=== PATIENT | female | born 1950 | race African-American/Black ===

== ENCOUNTER 2023-11-19 08:18 | Emergency (ER) | payer MEDICARE, OTHER ==
[~2023-11-19] VITALS: Ht 162.6 cm; Wt 78.6 kg
[2023-11-19 09:29] LABS: Urine Bacteria None Seen /hpf (None Seen)
[2023-11-19 09:32] LABS: Urine Blood Negative /uL (Negative); Urine Clarity Clear (Clear); Urine Color Light-Yellow (Yellow); Urine Protein, UAD 3+ (Negative); Urine Specific Gravity 1.006 (1.001-1.035); Urine Urobilinogen Normal (Negative); Urine WBC 2 /hpf (0 - 5)
[2023-11-19 10:12] LABS: Basophils # (auto) 0 10 ^3/uL (0-0.2); Eosinophils # (auto) 0.2 10 ^3/uL (0-0.8); Eosinophils % (auto) 1.9 % (0.0-7.0); Hemoglobin 17.8 g/dL (12.2-16.2); Lymphocytes # (auto) 1.2 10 ^3/uL (0.4-5.4); Monocytes # (auto) 0.5 10 ^3/uL (0-1.3); Nucleated Red Blood Cells % 0.1 %; White Blood Cell 8.1 10^3/uL (4.4-10.8)
[2023-11-19 10:14] LABS: Basophils % (auto) 0.3 % (0.0-2.0); Hematocrit 52.3 % (36.0-46.0); Lymphocytes % (auto) 14.9 % (10.0-50.0); Mean Corpuscular Hemoglobin 32.6 pg (28.0-32.0); Mean Corpuscular Hgb Conc. 34.1 g/dL (32.0-36.0); Mean Corpuscular Volume 95.5 fL (80.0-100.0); Monocytes % (auto) 5.8 % (0.0-12.0); Neutrophils # (auto) 6.3 10 ^3/uL (1.6-8.6); Neutrophils % (auto) 77.1 % (37.0-80.0); Red Blood Cells 5.47 10^6/uL (4.0-5.20); Red Cell Distribution Width 16.6 % (11.8-14.3)
[2023-11-19 10:32] LABS: Alanine Aminotransferase 20 U/L (7-40); Albumin 4.3 g/dL (3.2-4.8); Alkaline Phosphatase 75 U/L (46-116); Anion Gap 5 (5-15); Aspartate Aminotransferase 13 U/L (13-40); BUN/Creatinine Ratio 10.7 (10.0-20.0); Blood Urea Nitrogen 9 mg/dL (9-23); Carbon Dioxide 28 mmol/L (20-30); Chloride 107 mmol/L (98-107); Glucose 109 mg/dL (74-106); Potassium 3.2 mmol/L (3.5-5.1); Sodium 140 mmol/L (136-145); Total Protein 7.8 g/dL (5.7-8.2)
[2023-11-19] MEDS: POTASSIUM EFFERVESENT TAB 25 MEQ PO ONE (12:37)
[2023-11-19] MEDS: ONDANSETRON ODT 4 MG TAB PO ONE (14:45)
[2023-11-19 14:58] VITALS: BP 119/68; PULSE 63; RESP 18; TEMP 97.4; O2SAT 95
== END 2023-11-19 15:01 | disposition home or self-care (01) ==
LOC: ER 08:18
DX: I10 Essential (primary) hypertension (principal); F41.1 Generalized anxiety disorder; E11.9 Type 2 diabetes mellitus without complications; E87.6 Hypokalemia
CPT/HCPCS: 36415; 71046; 80053; 81001; 83735; 84443; 84484; 85025; 93005; 99285; Q0162

== ENCOUNTER 2023-12-01 10:57 | Inpatient (IN) | payer MEDICARE, OTHER ==
[~2023-12-01] VITALS: Ht 162.6 cm; Wt 79.5 kg
[2023-12-01] MEDS: cloNIDine HCL 0.1 MG TAB PO ONE (11:30)
[2023-12-01 11:47] LABS: Urine Bacteria None Seen /hpf (None Seen)
[2023-12-01 12:03] LABS: Urine Blood Negative /uL (Negative); Urine Clarity Clear (Clear); Urine Color Light-Yellow (Yellow); Urine Protein, UAD 2+ (Negative); Urine Specific Gravity 1.008 (1.001-1.035); Urine Urobilinogen Normal (Negative); Urine WBC 1 /hpf (0 - 5); Urine pH 6.5 (5.0-9.0)
[2023-12-01 12:14] LABS: Basophils # (auto) 0 10 ^3/uL (0-0.2); Eosinophils # (auto) 0.1 10 ^3/uL (0-0.8); Monocytes # (auto) 0.4 10 ^3/uL (0-1.3)
[2023-12-01 12:17] LABS: Basophils % (auto) 0.3 % (0.0-2.0); Eosinophils % (auto) 1.6 % (0.0-7.0); Hematocrit 52.9 % (36.0-46.0); Hemoglobin 18.2 g/dL (12.2-16.2); Lymphocytes # (auto) 1.4 10 ^3/uL (0.4-5.4); Lymphocytes % (auto) 21.7 % (10.0-50.0); Mean Corpuscular Hemoglobin 32.9 pg (28.0-32.0); Mean Corpuscular Hgb Conc. 34.4 g/dL (32.0-36.0); Mean Corpuscular Volume 95.7 fL (80.0-100.0); Monocytes % (auto) 6.5 % (0.0-12.0); Neutrophils # (auto) 4.6 10 ^3/uL (1.6-8.6); Neutrophils % (auto) 69.9 % (37.0-80.0); Nucleated Red Blood Cells % 0.1 %; Red Blood Cells 5.52 10^6/uL (4.0-5.20); Red Cell Distribution Width 16.6 % (11.8-14.3); White Blood Cell 6.5 10^3/uL (4.4-10.8)
[2023-12-01 12:30] LABS: Chloride 108 mmol/L (98-107); Potassium 3.5 mmol/L (3.5-5.1); Sodium 143 mmol/L (136-145)
[2023-12-01 12:31] LABS: Anion Gap 7 (5-15); Calcium 10.5 mg/dL (8.7-10.4); Carbon Dioxide 28 mmol/L (20-30)
[2023-12-01 12:36] LABS: BUN/Creatinine Ratio 15.6 (10.0-20.0); Blood Urea Nitrogen 14 mg/dL (9-23); Glucose 107 mg/dL (74-106)
[2023-12-01 12:56] VITALS: PULSE 89; RESP 20; O2SAT 96
[2023-12-01] MEDS ORDERED: ACETAMINOPHEN 325 MG TAB PO PRN (13:30)
[2023-12-01] MEDS ORDERED: hydrALAZINE HCL 20 MG/ML VL IV PRN (13:30)
[2023-12-01] MEDS ORDERED: ONDANSETRON HCL 4 MG/2 ML VIAL IV PRN (13:30)
[2023-12-01] MEDS ORDERED: HYDROcodone-ACET 5/325MG TAB PO PRN (13:30)
[2023-12-01] MEDS ORDERED: DOCUSATE SOD 100 MG CAP PO PRN (13:30)
[2023-12-01] MEDS: SODIUM CHLOR 0.9% PF (SALINE LOCK) 10ML VIAL/SYR IV SCH (14:38)
[2023-12-01] MEDS ORDERED: MORPHINE SULFATE INJ 2 MG/ml SYRG IV PRN (14:45)
[2023-12-01] MEDS ORDERED: NITROGLYCERIN 0.4 MG SL TAB SL PRN (14:45)
[2023-12-01] MEDS: IOHEXOL 350 MG/ML 100ML IJ ONE (17:23)
[2023-12-01] MEDS: METOPROLOL TARTRATE 50 MG TAB PO SCH (22:50)
[2023-12-01] MEDS: ATORVASTATIN 20 MG TAB PO SCH (22:51)
[2023-12-02] MEDS ORDERED: ALL100T PO (05:12)
[2023-12-02] MEDS ORDERED: LOSA-535 PO (05:12)
[2023-12-02] MEDS ORDERED: LEVO112T4 PO (05:12)
[2023-12-02] MEDS ORDERED: DAPA5TAB2 PO (05:12)
[2023-12-02] MEDS ORDERED: ROSU10TA16 PO (05:12)
[2023-12-02] MEDS ORDERED: ESCI1TAB36 PO (05:12)
[2023-12-02] MEDS ORDERED: METO-159 PO (05:12)
[2023-12-02] MEDS ORDERED: AMLO1TAB23 PO (05:14)
[2023-12-02] MEDS: LEVOTHYROXINE SODIUM 100 MCG TAB PO SCH (06:27)
[2023-12-02 08:00] VITALS: PULSE 58; PULSE 61; RESP 20; O2SAT 92
[2023-12-02] MEDS ORDERED: DEXTROSE (50%) 50ML SYRG IV PRN (09:30)
[2023-12-02] MEDS ORDERED: BUSP10TA90 PO (09:31)
[2023-12-02] MEDS: ALLOPURINOL 100 MG TAB PO SCH (10:24)
[2023-12-02] MEDS: ASPirin 81 mg TAB PO SCH (10:24)
[2023-12-02] MEDS: CITALOPRAM HYDROBR 20 MG TAB PO SCH (10:24)
[2023-12-02] MEDS: InsuLIN REG 1unit/0.01ml Soln (100units/ml) SC SCH (11:30)
[2023-12-02] MEDS: ACCU-CHEK COMFORT CURVE STRIP VI SCH (12:38)
[2023-12-02] MEDS ORDERED: METO1TAB9 PO (14:53)
[2023-12-02 17:00] VITALS: BP 120/70; PULSE 62; RESP 20; TEMP 98.3; O2SAT 91
[2023-12-02 20:00] VITALS: PULSE 68; RESP 18; O2SAT 91
[2023-12-02 21:00] VITALS: BP 122/65; PULSE 68; RESP 18; TEMP 98.3; O2SAT 91
[2023-12-03 01:00] VITALS: BP 116/72; PULSE 62; RESP 18; TEMP 98.2; O2SAT 91
[2023-12-03 05:00] VITALS: BP 122/62; PULSE 59; RESP 18; TEMP 98.1; O2SAT 92
[2023-12-03] MEDS: LEVOTHYROXINE SODIUM 112 MCG TAB PO SCH (05:36)
[2023-12-03 07:39] LABS: Basophils # (auto) 0 10 ^3/uL (0-0.2); Basophils % (auto) 0.3 % (0.0-2.0); Eosinophils # (auto) 0.2 10 ^3/uL (0-0.8); Eosinophils % (auto) 3.1 % (0.0-7.0); Hematocrit 48.9 % (36.0-46.0); Lymphocytes # (auto) 1.9 10 ^3/uL (0.4-5.4); Lymphocytes % (auto) 28.3 % (10.0-50.0); Mean Corpuscular Hemoglobin 33.1 pg (28.0-32.0); Mean Corpuscular Hgb Conc. 34.7 g/dL (32.0-36.0); Mean Corpuscular Volume 95.5 fL (80.0-100.0); Monocytes # (auto) 0.5 10 ^3/uL (0-1.3); Monocytes % (auto) 8.1 % (0.0-12.0); Neutrophils % (auto) 60.2 % (37.0-80.0); Red Blood Cells 5.12 10^6/uL (4.0-5.20); Red Cell Distribution Width 16.3 % (11.8-14.3); White Blood Cell 6.7 10^3/uL (4.4-10.8)
[2023-12-03 08:00] VITALS: PULSE 68; RESP 18
[2023-12-03 08:13] LABS: Alanine Aminotransferase 16 U/L (7-40); Albumin 3.8 g/dL (3.2-4.8); Alkaline Phosphatase 64 U/L (46-116); Anion Gap 7 (5-15); BUN/Creatinine Ratio 16.3 (10.0-20.0); Bilirubin, Total 0.8 mg/dL (0.2-1.0); Blood Urea Nitrogen 13 mg/dL (9-23); Calcium 9.7 mg/dL (8.7-10.4); Carbon Dioxide 26 mmol/L (20-30); Chloride 107 mmol/L (98-107); Glucose 105 mg/dL (74-106); Potassium 3.4 mmol/L (3.5-5.1); Sodium 140 mmol/L (136-145); Total Protein 6.8 g/dL (5.7-8.2)
[2023-12-03 08:22] LABS: Aspartate Aminotransferase < 8 U/L (13-40)
[2023-12-03 09:00] VITALS: BP 129/67; PULSE 67; RESP 18; TEMP 98.5; O2SAT 94
[2023-12-03 12:26] VITALS: BP 137/59; PULSE 52; RESP 16; TEMP 36.9; O2SAT 94
[2023-12-03 13:00] VITALS: BP 137/59; PULSE 52; RESP 16; TEMP 98.2; O2SAT 94
[2023-12-03] MEDS: POTASSIUM CHL 20 Meq TABLET PO ONE (13:16)
== END 2023-12-03 13:40 | disposition home or self-care (01) | DRG 305 ==
LOC: ER 10:57 → TELE 14:39 → TELE-CENTR 23:20
PROVIDERS: ADMIT Nurse Practitioner Family; ATTEND Internal Medicine
DX: I16.0 Hypertensive urgency (principal); I43 Cardiomyopathy in diseases classified elsewhere; I11.9 Hypertensive heart disease without heart failure; E11.9 Type 2 diabetes mellitus without complications; E03.9 Hypothyroidism, unspecified; M10.9 Gout, unspecified; E78.5 Hyperlipidemia, unspecified; F41.0 Panic disorder [episodic paroxysmal anxiety]; F32.A Depression, unspecified
CPT/HCPCS: 36415; 71045; 71275; 80048; 80053; 81001; 82962; 83036; 84443; 84484; 85025; 85379; G0378

== ENCOUNTER 2024-06-30 19:02 | Inpatient (IN) | payer MEDICARE, OTHER ==
[~2024-06-30] VITALS: Ht 162.6 cm; Wt 86.5 kg
[~2024-06-30 19:02] MED LIST: ALL100T PO; AMLO1TAB23 PO; BUSP10TA90 PO; DAPA5TAB2 PO; ESCI1TAB36 PO; LEVO112T4 PO; LOSA-535 PO; METO1TAB9 PO; ROSU10TA16 PO
[2024-06-30 19:30] VITALS: PULSE 74; RESP 16; O2SAT 92
--- NOTE | 2024-06-30 19:45 | ED.PDOC ---
SOB-HPI HPI Comments 74 year old female presents to the ED with a chief complaint of shortness of breath onset 2 weeks. Patient states she has been experiencing shortness of breath for the past week, noticed it worsen today. Patient went to urgent care, was placed on 5L O2 and sent to ED. Upon assessment, patient's O2 sat was 94% on 5L. Patient states for the past week she began experiencing nasal congestion, cough, diarrhea, LT ear pain. PMHx DM, HTN. Denies chest pain, dizziness, headache, fevers, nausea, vomiting. No other symptoms or modifying factors present at this time. Chief Complaint: Shortness of Breath Time Seen by MD: 19:11 Primary Care Provider: Theodore Miranda notes: Medications, Allergies Information Source: Patient Mode of Arrival: Ambulatory Severity: Moderate Timing: Weeks Duration: Since onset Context: At Rest PE Risk Factors: None History of: None Prehospital treatment: Oxygen Modifying Factors: Nothing Associated Signs and Symptoms: Cough, Nasal Congestion Radiation: No Radiation If cough with SOB: Productive Past Medical History PAST MEDICAL HISTORY: DM, HTN Surgical History: Denies all surgeries ACADEMIC INTERVENTIONIST History: No Pertinent ACADEMIC INTERVENTIONIST History Family History Family History: No family hx of Cancer, No family hx of DM, No family hx of Heart crystal, No family hx ofKidney crystal, No family hx of Liver crystal, No family hx of Lung crystal, Family hx of HTN, Family hx of stroke Social History Smoker: Non-Smoker Alcohol: Denies ETOH Use Drugs: Denies Drug Use Lives In: Home Constitutional: denies: chills, diaphoresis, fatigue, fever, malaise, sweats, weakness, others EENTM: reports: ear pain (LT), nose congestion; denies: blurred vision, double vision, ear bleeding, ear discharge, ear drainage, ear ringing, eye pain, eye redness, hearing loss, mouth pain, mouth swelling, nasal discharge, nose bleeding, nose pain, photophobia, tearing, throat pain, throat swelling, voice changes, others Respiratory: reports: cough, shortness of breath; denies: hemoptysis, orthopnea, SOB at rest, SOB with excertion, stridor, wheezing, others Cardiovascular: denies: chest pain, dizzy spells, diaphoresis, Dyspnea on exertion, edema, irregular heart beat, left arm pain, lightheadedness, palpitations, PND, syncope, others Gastrointestinal: reports: constipated; denies: abdomen distended, abdominal pain, blood streaked bowels, diarrhea, dysphagia, difficulty swallowing, h ematemesis, melena, nausea, poor appetite, poor fluid intake, rectal bleeding, rectal pain, vomiting, others Genitourinary: denies: abnormal vagina bleeding, burning, dyspareunia, dysuria, flank pain, frequency, hematuria, incontinence, pain, , vagina discharge, urgency, others Neurological: denies: dizziness, fainting, headache, left sided numbness, left sided weakness, numbness, paresthesia, pre-existing deficit, right sided numbness, right sided weakness, seizure, speech problems, tingling, tremors, weakness, others Musculoskeletal: denies: back pain, gout, joint pain, joint swelling, muscle pain, muscle stiffness, neck pain, others Integumetry: denies: bruises, change in color, change in hair/nails, dryness, laceration, lesions, lumps, rash, wounds, others Allergic/Immunocompromised: denies: Difficulty Healing, Frequent Infections, Hives, Itching, others Hematologic/Lymphatic: denies: anemia, blood clots, easy bleeding, easy bruising, swollen glands, others Endocrine: denies: excessive hunger, excessive sweating, excessive thirst, excessive urination, flushing, intolerance to cold, intolerance to heat, unexplained weight gain, unexplained weight loss, others Psychiatric: denies: anxiety, bipolar disorder, depression, hopeless, panic disorder, schizophrenia, sleepless, suicidal, others All Other Systems: Reviewed and Negative Physical Exam General Appearance: No Apparent Distress, Normal HEENT: Normal ENT Inspection, Pharynx Normal, TMs Normal Neck: Full Range of Motion, Non-Tender, Normal, Normal Inspection Respiratory: Chest Non-Tender, Lungs Clear, No Accessory Muscle Use, No Respi ratory Distress, Normal Breath Sounds Cardiovascular: No Edema, No JVD, No Murmur, No Gallop, Normal Peripheral Pulses, Regular Rate/Rhythm Breast Exam: Deferred Gastrointestinal: No Organomegaly, Non Tender, No Pulsatile Mass, Normal Bowel Sounds, Soft Genitalia: Deferred Pelvic: Deferred Rectal: Deferred Extremities: No calf tenderness, Normal capillary refill, Normal inspection, Normal range of motion, Non-tender, No pedal edema Musculoskeletal : Apperance: Normal Neurologic: Alert, rag boiler II-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 Was a procedure done?: No Differential Dx Differential Diagnosis: Cardiogenic Shock, CHF, COPD, Hyperventilation, Pneumonia, URI X-Ray, Labs, Meds, VS Vital Signs Date Time Temp Pulse Resp B/P (MAP) Pulse Ox O2 Delivery O2 Flow Rate FiO2 06/30/24 19:30 74 16 92 Nasal Cannula* 2 28 06/30/24 19:30 98.2 74 16 123/77 (92) 92 98.2 06/30/24 19:10 97.7 69 19 132/75 (94) 94 06/30/24 19:09 19 94 Nasal Cannula* 5 40 Lab Test 06/30/24 21:10 06/30/24 20:55 06/30/24 19:37 Range/Units Influenza Type A Antigen Negative Negative Influenza Type B Antigen Negative Negative SARS-CoV-2 Antigen (Rapid) Negative NEGATIVE Troponin I High Sensitivity 3 L 3 L </=34 ng/L White Blood Count 7.5 4.4-10.8 10^3/uL Red Blood Count 5.64 H 4.0-5.20 10^6/uL Hemoglobin 18.0 H 12.2-16.2 g/dL Hematocrit 54.0 H 36.0-46.0 % Mean Corpuscular Volume 95.8 80.0-100.0 fL Mean Corpuscular Hemoglobin 32.0 28.0-32.0 pg Mean Corpuscular Hemoglobin Concent 33.4 32.0-36.0 g/dL Red Cell Distribution Width 16.5 H 11.8-14.3 % Platelet Count 157 140-450 10^3/uL Mean Platelet Volume 8.8 6.9-10.8 fL Neutrophils (%) (Auto) 59.7 37.0-80.0 % Lymphocytes (%) (Auto) 27.2 10.0-50.0 % Monocytes (%) (Auto) 7.9 0.0-12.0 % Eosinophils (%) (Auto) 4.7 0.0-7.0 % Basophils (%) (Auto) 0.5 0.0-2.0 % Neutrophils # (Auto) 4.5 1.6-8.6 10 ^3/uL Lymphocytes # (Auto) 2.0 0.4-5.4 10 ^3/uL Monocytes # (Auto) 0.6 0-1.3 10 ^3/uL Eosinophils # (Auto) 0.4 0-0.8 10 ^3/uL Basophils # (Auto) 0 0-0.2 10 ^3/uL Nucleated Red Blood Cells 0.2 % Sodium Level 141 136-145 mmol/L Potassium Level 3.7 3.5-5.1 mmol/L Chloride Level 104 98-107 mmol/L Carbon Dioxide Level 28 20-31 mmol/L Anion Gap 9 5-15 Blood Urea Nitrogen 14 9-23 mg/dL Creatinine 0.87 0.550-1.02 mg/dL Glomerular Filtration Rate Calc 71 >90 mL/min BUN/Creatinine Ratio 16.1 10.0-20.0 Serum Glucose 118 H 74-106 mg/dL Calcium Level 9.8 8.7-10.4 mg/dL B-Type Natriuretic Peptide 45.85 0-100 pg/mL [place] [id number] Ph: [phone] DIAGNOSTIC IMAGING Diagnostic Imaging Report : [id number] Signed PATIENT: ZANE BONILLA ACCT: [id number] UNIT: [id number] : 1950 LOC: ER ROOM / BED: / AGE / SEX: 74 / F ADM STATUS: REG ER SERVICE 13 ORDERING PHYSICIAN: JAYLEEN LA MD PROCEDURE(s): CXRP - CHEST PORTABLE REASON: sob ORDER NUMBER(s): [id number], ACCESSION NUMBER(s): [id number] CHEST RADIOGRAPH Indication: sob Technique: Single frontal view of the chest was obtained Comparison: XY CHEST PORTABLE on DOS: 12/01/23 FINDINGS: Lines and Tubes: None Lungs: No focal consolidation. Pleura: No effusion. No pneumothorax. Cardiomediastinal contours: Unremarkable Bones: No acute osseous abnormality. IMPRESSION: No acute cardiopulmonary disease. ATED BY: JENI AVERY MD DICTATED DATE/TIME: 06/30/242035 SIGNED BY: JENI AVERY MD SIGNED DATE/TIME: 06/30/242035 CC: Time of 1ST Reevaluation: 19:41 Reevaluation 1ST: Unchanged Patient Education/Counseling: Diagnosis, Treatment, Prognosis Family Education/Counseling: No Family Present Additional Information The following tests were ordered, and results were reviewed by me: BNP, BMP, CBC, TROP-x3, XY CHEST, COVID, INFLUENZA A&B Additional Information was gathered from interviewing the following independent historians: I reviewed and agreed with the following test results read by other providers: XY CHEST I discussed treatment and results with medical personnel and: patient Departure 1 Departure Time of Disposition: 23:19 (Patient with a worsening shortness of breath. Labs and x-ray so far benign we will admit patient for further workup) Impression: Primary Impression: Shortness of breath Additional Impression: Generalized weakness Disposition: ADMITTED INPATIENT Admit to: Med Surg Condition: Serious Critical Care Note Critical Care Time?: No Stability Stability form required: No Heart Score Heart Score: Heart Score Response (Comments) Value History Moderate Suspicious 1 EKG Repolarization Disturb 1 Age >65 2 Risk Factors >3 or Hx ASHD 2 Troponin 1-2 x's Normal limit 1 Total 7 I personally scribed for JAYLEEN LA MD ([email or web address]) on 06/30/24 at 19:45. Electr onically submitted by Adriane Burns ([email or web address]). I personally scribed for JAYLEEN LA MD ([email or web address]) on 06/30/24 at 22:01. Electronically submitted by Adriane Burns ([email or web address]). I personally scribed for JAYLEEN LA MD ([email or web address]) on 06/30/24 at 22:14. Electronically submitted by Adriane Burns ([email or web address]). JAYLEEN LA MD Jun 30, 2024 19:45
[2024-06-30 19:55] LABS: Basophils # (auto) 0 10 ^3/uL (0-0.2); Basophils % (auto) 0.5 % (0.0-2.0); Eosinophils # (auto) 0.4 10 ^3/uL (0-0.8); Eosinophils % (auto) 4.7 % (0.0-7.0); Lymphocytes % (auto) 27.2 % (10.0-50.0); Mean Corpuscular Hgb Conc. 33.4 g/dL (32.0-36.0); Mean Corpuscular Volume 95.8 fL (80.0-100.0); Monocytes # (auto) 0.6 10 ^3/uL (0-1.3); Monocytes % (auto) 7.9 % (0.0-12.0); Neutrophils # (auto) 4.5 10 ^3/uL (1.6-8.6); Neutrophils % (auto) 59.7 % (37.0-80.0); Nucleated Red Blood Cells % 0.2 %; Platelet Count (auto) 157 10^3/uL (140-450); Red Blood Cells 5.64 10^6/uL (4.0-5.20); Red Cell Distribution Width 16.5 % (11.8-14.3); White Blood Cell 7.5 10^3/uL (4.4-10.8)
[2024-06-30 20:06] LABS: Anion Gap 9 (5-15); Carbon Dioxide 28 mmol/L (20-31); Chloride 104 mmol/L (98-107); Potassium 3.7 mmol/L (3.5-5.1); Sodium 141 mmol/L (136-145)
[2024-06-30 20:07] LABS: Calcium 9.8 mg/dL (8.7-10.4)
[2024-06-30 20:12] LABS: BUN/Creatinine Ratio 16.1 (10.0-20.0); Blood Urea Nitrogen 14 mg/dL (9-23)
[2024-06-30 20:14] LABS: Glucose 118 mg/dL (74-106)
--- NOTE | 2024-06-30 20:39 | DVH ---
CHEST RADIOGRAPH Indication: sob Technique: Single frontal view of the chest was obtained Comparison: XY CHEST PORTABLE on DOS: 12/01/23 FINDINGS: Lines and Tubes: None Lungs: No focal consolidation. Pleura: No effusion. No pneumothorax. Cardiomediastinal contours: Unremarkable Bones: No acute osseous abnormality. IMPRESSION: No acute cardiopulmonary disease.
[2024-06-30 22:02] LABS: COVID19 ANTIGEN SOFIA FIA NEGATIVE (NEGATIVE); Rapid Influenza A Negative (Negative); Rapid Influenza B Negative (Negative)
[2024-07-01] VITALS (13 sets, daily range): BP systolic 101–133; BP diastolic 52–71; PULSE 68–98; RESP 16–20; TEMP 97.4–98.1; O2SAT 2–99
[2024-07-01] MEDS ORDERED: ACETAMINOPHEN 325 MG TAB PO PRN (00:45)
--- NOTE | 2024-07-01 01:16 | DVHHPRES ---
History of Present Illness Resident Creating Document: GABY BURGOS RESIDENT History of Present Illness This is a 74-year-old female with past medical history of hypertension, type 2 diabetes, dyslipidemia, hypothyroidism, gout, partial thyroidectomy approximately five years ago, the patient also reported recent coronary angiogram three weeks ago with no significant stenosis requiring no stent placement at that time. the patient presented to the ED with chief complaint of shortness of breaths. The patient states that symptoms started two weeks ago consistent with shortness of breath, nasal congestion and flu-like symptoms. The patient also reported cough with the sputum production that is yel lowish/green in color but denied fever/chills, chest pain or any other symptom. Patient also reported shortness of breath on exertion reports constant anxiety sensation for which she was diagnosed previously with anxiety disorder. Initial labs CBC and bmp were grossly unremarkable, troponins came back negative and BNP was normal range at 45.85. Upon my examination the patient was on 5 L of oxygen through nasal cannula saturating 97%. Lung auscultation there was very mild crackles on right lung base with decreased breath sounds but no wheezes. There was no peripheral edema at this time. We will admit the patient for further ass essment and management of possible viral upper respiratory infection/pneumonia. Medical history: Hypertension, type 2 diabetes, dyslipidemia, hypothyroidism, gout Past surgical history: Partial thyroidectomy approximately five years ago Home medications: Metoprolol succinate 100 mg daily, amlodipine 10 mg daily, levothyroxine 112 mcg daily, losartan 100 mg daily, citalopram 10 mg daily, buspirone 10 mg b.i.d., dapagliflozin 5 mg daily, allopurinol 100 mg b.i.d. and rosuvastatin 10 mg daily Cardiovascular: HTN, hyperipidemia Endocrine: Diabetes, Hypothyroidism Past Surgical History: Other (Partial thyroidectomy approximately five years ago) Family History: None Smoke: No ALCOHOL: none Drugs: None Lives: with Family Domestic Violence: Neg Review of Systems Constitutional: Yes: Weakness, Malaise; No: Fever, Chills, Sweats, Other Eyes: No: Pain, Vision change, Conjunctivae inflammation, Eyelid inflammation, Other, Redness ENT: No: Ear pain, Ear discharge, Nose pain, Nose discharge, Nose congestion, Mouth pain, Mouth swelling, Throat pain, Throat swelling, Other Respiratory: Cough, Shortness of breath, SOB with excertion, Sputum; No: Dry, Wheezing, Hemoptysis, Pleuritic Pain, Wheezing, Other Cardiovascular: No: Chest Pain, Palpitations, Orthopnea, Paroxysmal Noc. Dyspnea, Edema, Lt Headedness, Other Gastrointestinal: No: Nausea, Vomiting, Abdominal Pain, Diarrhea, Constipation, Melena, Hematochezia, Other Genitourinary: No Dysuria, No Frequency, No Incontinence, No Hematuria, No Retention, No Other Musculoskeletal: No: other, neck pain, shoulder pain, arm pain, back pain, hand pain, leg pain, foot pain Skin: No: Rash, Lesions, Jaundice, Bruising, Other Neurological: Weakness; No: Numbness, Incoordination, Change in speech, Confusion, Seizures, Other Allergies: Coded Allergies: NO KNOWN ALLERGIES (Unverified , 02/12/16) Exam Vital Signs Vital Signs Date Time Temp Pulse Resp B/P (MAP) Pulse Ox O2 Delivery O2 Flow Rate FiO2 06/30/24 22:00 66 13 103/50 (67) 93 06/30/24 19:30 Nasal Cannula* 2 28 06/30/24 19:30 98.2 98.2 General Appearance: Alert, Oriented X3, Cooperative, mild distress HEENT: Atraumatic, PERRLA, EOMI, Mucous membr. moist/pink Respiratory: Normal air movement, Other (Are very mild crackles on lung base more prominent on the right side) Cardiovascular: Regular rate, Normal S1, Normal S2, No murmurs Abdominal: Normal bowel sounds, Soft, No tenderness, No hepatospenomegaly, No masses Extremities: No clubbing, No cyanosis, No edema, Normal pulses, No tenderness/swelling Skin: No rashes, No breakdown, No significant lesion Neuro: Normal gait, Normal speech, Strength at 5/5 X4 ext, Normal tone, Sensation intact, Cranial nerves 3-12 NL, Reflexes 2+ Psych/Mental Status: Mental status NL, Mood NL Labs/Xrays Labs Test 06/30/24 21:10 06/30/24 20:55 06/30/24 19:37 Range/Units Influenza Type A Antigen Negative Negative Influenza Type B Antigen Negative Negative SARS-CoV-2 Antigen (Rapid) Negative NEGATIVE Troponin I High Sensitivity 3 L </=34 ng/L White Blood Count 7.5 4.4-10.8 10^3/uL Red Blood Count 5.64 H 4.0-5.20 10^6/uL Hemoglobin 18.0 H 12.2-16.2 g/dL Hematocrit 54.0 H 36.0-46.0 % Mean Corpuscular Volume 95.8 80.0-100.0 fL Mean Corpuscular Hemoglobin 32.0 28.0-32.0 pg Mean Corpuscular Hemoglobin Concent 33.4 32.0-36.0 g/dL Red Cell Distribution Width 16.5 H 11.8-14.3 % Platelet Count 157 140-450 10^3/uL Mean Platelet Volume 8.8 6.9-10.8 fL Neutrophils (%) (Auto) 59.7 37.0-80.0 % Lymphocytes (%) (Auto) 27.2 10.0-50.0 % Monocytes (%) (Auto) 7.9 0.0-12.0 % Eosinophils (%) (Auto) 4.7 0.0-7.0 % Basophils (%) (Auto) 0.5 0.0-2.0 % Neutrophils # (Auto) 4.5 1.6-8.6 10 ^3/uL Lymphocytes # (Auto) 2.0 0.4-5.4 10 ^3/uL Monocytes # (Auto) 0.6 0-1.3 10 ^3/uL Eosinophils # (Auto) 0.4 0-0.8 10 ^3/uL Basophils # (Auto) 0 0-0.2 10 ^3/uL Nucleated Red Blood Cells 0.2 % Sodium Level 141 136-145 mmol/L Potassium Level 3.7 3.5-5.1 mmol/L Chloride Level 104 98-107 mmol/L Carbon Dioxide Level 28 20-31 mmol/L Anion Gap 9 5-15 Blood Urea Nitrogen 14 9-23 mg/dL Creatinine 0.87 0.550-1.02 mg/dL Glomerular Filtration Rate Calc 71 >90 mL/min BUN/Creatinine Ratio 16.1 10.0-20.0 Serum Glucose 118 H 74-106 mg/dL Calcium Level 9.8 8.7-10.4 mg/dL B-Type Natriuretic Peptide 45.85 0-100 pg/mL Assessment/Plan Assessment/Plan Assessment/plan Acute hypoxic respiratory failure due to possible Gram-positive/Gram-negative pneumonia Possible viral upper respiratory infection R/O pulmonary embolism -currently on 5 L of oxygen through nasal cannula saturating 97% -Initial chest x-ray is showing bilateral patchy hilar infiltrates were seen in previous chest x-rays but there is mild vascular congestion -ordered EKG -Ordered D-dimer -troponins came back negative -BNP was unremarkable 45.85 -start IV azithromycin -start IV ceftriaxone -Monitor O2 sat -MRSA screen Recent hx of coronary angiogram 3 weeks ago (with no stent placed) -Ordered EKG -Ordered ECHO -Start aspirin 81mg daily Primary hypertension -losartan 100 mg daily -amlodipine 10 mg daily -hold additional blood pressure medications at this time due to blood pressure running in the lower side -monitor blood pressure Type 2 diabetes mellitus -ordered hemoglobin A1c -monitor blood glucose closely Acquired Hypothyroidism -ordered TSH and free T4 -currently on levothyroxine 112 mcg daily Hx of depression and anxiety -restart escitalopram and buspirone Goals of care discussed with the patient at bedside for >30min, FULL CODE Plan discussed with Dr. Oh Plan discussed with: Patient My Orders Orders - GABY BURGOS RESIDENT Procedure Category Date Status Time Admit ADMIT 07/01/24 Transmitted 00:42 Code Status CODE 07/01/24 Transmitted 00:42 Vital Signs KARINE 07/01/24 Transmitted 00:42 Review Orders With KARINE 07/01/24 Transmitted Adm. 00:42 Encourage Activity As KARINE 07/01/24 Transmitted Tolerate 00:42 Acetaminophen Tablet PHA 07/01/24 Transmitted (Tylenol Tablet) 00:45 Notify Of Changes KARINE 07/01/24 Transmitted From Base 00:42 Advance Directive KARINE 07/01/24 Transmitted 00:42 Basic Metabolic Panel LAB 07/01/24 Transmitted 04:00 Urinalysis LAB 07/01/24 Transmitted 00:42 Complete Blood Count LAB 07/01/24 Transmitted 04:00 Lipid Panel LAB 07/01/24 Transmitted 00:42 Patient Condition ORDERS 07/01/24 Transmitted 00:42 Allergies KARINE 07/01/24 Transmitted 00:42 Drug Screen LAB 07/01/24 Transmitted 00:42 Hemoglobin A1c LAB 07/01/24 Transmitted 00:42 Lovenox 40mg PHA 07/01/24 Transmitted 10:00 D-Dimer LAB 07/01/24 Transmitted 00:48 Date of Service: Jun 30, 2024 Billing Provider: VAIBHAV OH MD Common Visit Codes: 60029-EATBYOB INP/OBS CARE (HIGH) Secondary Visit Codes: 75540-[id number] CARE PLAN 30 MINUTES GABY BURGOS RESIDENT Jul 01, 2024 01:16 VAIBHAV OH MD Jul 01, 2024 13:05
[2024-07-01 01:58] LABS: LDL Cholesterol 72 mg/dL (< 100)
[2024-07-01 01:59] LABS: Cholesterol 129 mg/dL (< 200)
[2024-07-01 02:05] LABS: HDL Cholesterol 26 mg/dL (40-59); Triglycerides 197 mg/dL (< 150)
[2024-07-01] MEDS: IOHEXOL 350 MG/ML 100ML IJ ONE (04:33)
--- NOTE | 2024-07-01 06:14 | DVH ---
INDICATION: r/o PE and assess pulm parenchyma for PNA TECHNIQUE: Multidetector CTA of the chest was performed of the chest with 100 cc of intravenous contr ast. PULMONARY ANGIOGRAPHY PROTOCOL was utilized using a bolus-tracking technique centered on the stefan n pulmonary artery. Coronal and sagittal multiplanar and MIP reformats were performed. Radiation Dose Information: CT Dose: CTDI volume is 22.3 mGy. Dose-length product is 806.4 mGy*cm The dose indicators for CT are the volume Computed Tomography (CT) Dose Index (CTDIvol) and the Dose Length Product (DLP), and are measured in units of mGy and mGy-cm, respectively. These indicators are not patient dose, but values generated from the CT scanner acquisition factors. The report includes radiation exposure data for exposures received during this examination. Findings: Pulmonary artery: Normal caliber of the pulmonary artery. There is a filling defect in a subsegmenta l branch of the right pulmonary artery in the posterior basal segment of the right lower lobe (series 2, image 142). No lobar pulmonary embolism. Lower neck: Normal thyroid. Lungs: Right lower lobe opacities. Moderate centrilobular emphysema. Central airways: Patent. Heart/Vascular Structures: Enlarged heart. RV to LV ratio measures 0.6. No pericardial effusion. Andrew nary artery calcifications. Atherosclerotic calcifications in the thoracic aorta. Noncalcified plaqu e in the descending thoracic aorta. Lymph Nodes: No adenopathy Pleura: No pleural effusion or significant pneumothorax. Musculoskeletal: No acute osseous abnormality. Upper abdomen: Limited portions of the upper abdomen are unremarkable. IMPRESSION: 1. Subsegmental pulmonary embolism. No CT evidence of right heart strain. 2. Right lower lobe opacity which may reflect atelectasis. Emphysema. 3. Cardiomegaly.
[2024-07-01 06:40] LABS: Basophils # (auto) 0 10 ^3/uL (0-0.2); Basophils % (auto) 0.4 % (0.0-2.0); Eosinophils # (auto) 0.3 10 ^3/uL (0-0.8); Eosinophils % (auto) 3.9 % (0.0-7.0); Hematocrit 52.7 % (36.0-46.0); Hemoglobin 17.1 g/dL (12.2-16.2); Lymphocytes # (auto) 1.6 10 ^3/uL (0.4-5.4); Lymphocytes % (auto) 21.9 % (10.0-50.0); Mean Corpuscular Hemoglobin 31.4 pg (28.0-32.0); Mean Corpuscular Hgb Conc. 32.4 g/dL (32.0-36.0); Mean Corpuscular Volume 96.8 fL (80.0-100.0); Monocytes # (auto) 0.6 10 ^3/uL (0-1.3); Monocytes % (auto) 8.2 % (0.0-12.0); Neutrophils # (auto) 4.8 10 ^3/uL (1.6-8.6); Neutrophils % (auto) 65.6 % (37.0-80.0); Nucleated Red Blood Cells % 0.2 %; Platelet Count (auto) 154 10^3/uL (140-450); Red Blood Cells 5.44 10^6/uL (4.0-5.20); Red Cell Distribution Width 16.6 % (11.8-14.3); White Blood Cell 7.3 10^3/uL (4.4-10.8)
[2024-07-01] MEDS: LEVOTHYROXINE SODIUM 112 MCG TAB PO SCH (06:40)
[2024-07-01 06:43] LABS: Chloride 106 mmol/L (98-107); Potassium 3.8 mmol/L (3.5-5.1); Sodium 141 mmol/L (136-145)
[2024-07-01 06:44] LABS: Anion Gap 8 (5-15); Calcium 9.4 mg/dL (8.7-10.4); Carbon Dioxide 27 mmol/L (20-31)
[2024-07-01] MEDS: HEPARIN SODIUM (PORCINE) 5000 UNITS/ML 1ML VIAL IV ONE (06:48)
[2024-07-01 06:49] LABS: BUN/Creatinine Ratio 15.7 (10.0-20.0); Blood Urea Nitrogen 13 mg/dL (9-23); Glucose 90 mg/dL (74-106)
--- NOTE | 2024-07-01 07:42 | DVHPNRES ---
Progress Note Date Seen: Jul 01, 2024 Resident Creating Document: VIDHI DAMIAN RESIDENT Medical Necessity Reason Pt with a Central, PICC or Fol: No Subjective Review of Systems Patient is a 74-year-old female with past medical history of hypertension, dyslipidemia, type 2 diabetes, hypothyroidism, gout, anxiety and chronic sinusitis, who comes in due to shortness of breath. According to the patient, for the last 2 weeks she has been experiencing a flu-like illness with congestion, runny nose and sore throat along with some shortness of breath, however, yesterday on 06/30/2024 she felt extremely winded when she walked from her bedroom to the kitchen and felt like she was unable to catch her breath which is what prompted this visit to the hospital. Per patient she initially went to the urgent care where she was told to go to the ER. Patient also notes having increasing sputum and nasal discharge with purulent and stringy appearance along with some bled on blowing her nose. Patient's D-dimer was 1.18, CT angiography showed a subsegmental PE, right lower lobe opacity and some cardiomegaly. Past surgical history: Partial thyroidectomy, coronary angiogram 3 weeks ago without stents, hernia repair surgery, hysterectomy, cholecystectomy, mid urethral sling placement Social & Personal history: Patient lives with her family. Quit smoking 40 years ago, prior to that was smoking 2 packs per day for 14 years. Denies using alcohol. Denies using any drugs. Allergies: Denies Patient seen and examined at bedside. Patient is alert and oriented to time, place person and responding to all questions. General: Fatigue, fever, chills Eyes: No Pain, No Vision change, No Conjunctivae inflammation, No Eyelid inflammation, No Other, No Redness ENT: No Ear pain, No Ear discharge, No Nose pain, Nose discharge, Nose congestion, No Mouth pain, No Mouth swelling, Throat pain, No Throat swelling, No Other Cardiovascular: No Chest Pain, Palpitations, No Orthopnea, No Paroxysmal No Dyspnea, No Edema, No Lt Headedness, No Other Respiratory: Cough productive of yellow phlegm, No Dry, Shortness of breath, No SOB with exertion, No Wheezing, No Hemoptysis, No Pleuritic Pain, No Sputum, No Other Gastrointestinal: No Nausea, No Vomiting, No Abdominal Pain, No Diarrhea, No Constipation, No Melena, No Hematochezia, No Other Genitourinary: No Dysuria, No Frequency, No Incontinence, No Hematuria, No Retention, No Other Musculoskeletal: No other, No neck pain, No shoulder pain, No arm pain, No back pain, No hand pain, No leg pain, No foot pain Skin: No Rash, No Lesions, No Jaundice, No Bruising, No Other Objective vital signs Vital Sign Date Time Temp Pulse Resp B/P (MAP) Pulse Ox O2 Delivery O2 Flow Rate FiO2 07/01/24 06:00 67 18 131/52 (78) 97 06/30/24 19:30 Nasal Cannula* 2 28 06/30/24 19:30 98.2 98.2 medications Current Medications Medications Dose Ordered Sig/Michael Route Start Time Stop Time Status Last Admin Dose Admin Acetaminophen 650 mg Q6HP PRN PO 07/01/24 00:45 Enoxaparin Sodium 40 mg DAILY SC 07/01/24 10:00 Azithromycin 250 ml @ 125 mls/hr DAILY IV 07/01/24 10:00 Ceftriaxone Sodium 50 ml @ 100 mls/hr DAILY IV 07/01/24 10:00 Losartan Potassium 100 mg DAILY PO 07/01/24 10:00 Amlodipine Besylate 10 mg DAILY PO 07/01/24 10:00 Levothyroxine Sodium 112 mcg DAILY PO 07/01/24 06:00 07/01/24 06:40 112 MCG Atorvastatin Calcium 40 mg DAILY@2200 PO 07/01/24 22:00 Allopurinol 100 mg BID PO 07/01/24 10:00 Buspirone HCl 10 mg BID PO 07/01/24 10:00 Aspirin 81 mg DAILY PO 07/01/24 10:00 Citalopram Hydrobromide 20 mg DAILY PO 07/01/24 10:00 Examination General Appearance: Cooperative. Well developed. Well nourished. NAD Head Exam: Normal inspection Neck Exam: Normal inspection. Non-tender. Normal alignment Pulmonary/Respiratory: Chest non-tender. Clear bilateral breath sounds, no crackles, no wheezing. Cardiovascular/Chest: Regular rate and rhythm. No murmurs. No JVD. Peripheral Pulses: 2+ Radial (R). 2+ Radial (L). 2+ Pedal (R). 2+ Pedal (L) Abdominal Exam: Normal bowel sounds. Soft. normal abdomen, no visible veins, Nontender. No hepatospenomegaly. No masses Ankle Exam: Negative ankle edema Lower extremities: Negative lower extremity edema Neuro/Mental Status: A&O x4. Coherent. Thoughts/Psych: Normal thought pattern. Appropriate mood and affect. Good judgement and insight Skin Exam: Normal inspection. Normal color. Warm. Dry laboratory and microbiology Laboratory Tests 07/01/24 05:56 Test 07/01/24 05:56 Range/Units Serum Glucose 90 74-106 mg/dL Labs and/or images reviewed: Labs reviewed by me, Image(s) reviewed by me Problem List/Assessment/Plan Problem List/Assessment/Plan Acute hypoxic respiratory failure, currently on 5 L O2 via NC Subsegmental pulmonary embolism Ruled out DVT - CT angiography: Subsegmental pulmonary embolism. No CT evidence of right heart strain. Right lower lobe opacity which may reflect atelectasis. Emphysema. Cardiomegaly. - ordered lower extremity Doppler: No right or left lower extremity femoropopliteal venous thrombosis - therapeutic Lovenox 80 mg subcutaneous b.i.d. Possible pneumonia viral versus bacterial Possible COPD exacerbation - 5 L O2 via NC, with goal SpO2 88% to 92% - CXR: No acute cardiopulmonary disease - prednisone 40 mg p.o. daily - ipratropium and albuterol med nebs q.4 as needed - IV azithromycin, IV ceftriaxone Incidental intramural thrombus noted in the aorta - monitor Type 2 diabetes, Hb A1c 6.6 Hypertension - aspirin 81 mg - amlodipine 10 mg - losartan 100 mg p.o. daily History of hypothyroidism History of gout History of anxiety - allopurinol 100 mg p.o. b.i.d. - buspirone 10 mg p.o. b.i.d. - citalopram 20 mg p.o. daily - levothyroxine 112 mcg p.o. daily PUD prophylaxis: protonix 40mg Goals of care: Full code, discussed for >16 minutes on 07/01/2024 Plan discussed with patient Plan discussed with Dr. Oswald Plan discussed with: Patient, Other (RN) Date of Service: Jul 01, 2024 Billing Provider: TIFF OSWALD MD Common Visit Codes: [id number] INP/OBS CARE(HIGH) VIDHI DAMIAN Jul 01, 2024 07:42 TIFF OSWALD MD Jul 02, 2024 16:01
[2024-07-01 07:43] LABS: INR 0.98 (0.9-1.15); Partial Thromboplastin Time 26.8 SEC (24.5-34.5); Prothrombin Time 10.4 sec (9.3-11.8)
[2024-07-01 08:52] LABS: Urine Bacteria None Seen /hpf (None Seen)
[2024-07-01 09:17] LABS: Urine Blood Negative /uL (Negative); Urine Clarity Clear (Clear); Urine Color Colorless (Yellow); Urine Protein, UAD Negative (Negative); Urine Specific Gravity 1.029 (1.001-1.035); Urine Squamous Epithelial Cell FEW /hpf (<5); Urine Urobilinogen Normal (Negative); Urine WBC < 1 /HPF (0-5); Urine pH 6.5 (5.0-9.0)
[2024-07-01 09:26] LABS: Amphetamine Screen, Urine Neg (NEGATIVE); Barbiturate Scree,Urine Neg (NEGATIVE); Benzodiazephine Screen, Urine Neg (NEGATIVE); Cocaine Screen, Urine Neg (NEGATIVE); Opiate Scree,Urine Neg (NEGATIVE); Phencyclidine Screen, Urine Neg (NEGATIVE)
[2024-07-01 09:27] LABS: Cannabinoid Screen, Urine Neg (NEGATIVE)
[2024-07-01] MEDS ORDERED: PATIENTS OWN MEDICATION PO SCH (10:00)
[2024-07-01] MEDS: cefTRIAXone 1GM/50ML D5W 50 ML IV SCH (10:19)
[2024-07-01] MEDS: AZITHROMYCIN 500MG/ 250ML 250 ML IV SCH (10:20)
[2024-07-01] MEDS: ASPirin 81 mg TAB PO SCH (10:21)
[2024-07-01] MEDS: busPIRone HCL 10 MG TAB PO SCH (10:22)
[2024-07-01] MEDS: amLODIPine BESYLATE 5 MG TAB PO SCH (10:22)
[2024-07-01] MEDS: LOSARTAN POTASSIUM 50 MG TAB PO SCH (10:23)
[2024-07-01] MEDS: CITALOPRAM HYDROBR 20 MG TAB PO SCH (10:23)
[2024-07-01] MEDS: ENOXAPARIN SOD 40 MG/0.4 ML SYRINGE SC SCH (10:23)
[2024-07-01] MEDS: ALLOPURINOL 100 MG TAB PO SCH (10:25)
--- NOTE | 2024-07-01 12:09 | DVH ---
Bilateral lower extremity venous Doppler INDICATION: source of her subsegmental PE TECHNIQUE: Duplex venous sonography was performed with real-time and flow sensitive images submitted for evaluation. FINDINGS: Normal phasic venous flow. Veins are fully compressible. No filling defects. IMPRESSION: 1. No evidence of deep vein thrombosis.
[2024-07-01] MEDS: predniSONE 20 MG TAB PO ONE (12:23)
[2024-07-01] MEDS: ENOXAPARIN SOD 40 MG/0.4 ML SYRINGE SC ONE (12:24)
[2024-07-01] MEDS: IPRATROPIUM BROM 0.5 MG/2.5ML INH SOL NEB SCH (14:43)
[2024-07-01] MEDS: ALBUTEROL SULF 2.5 MG/0.5ML(0.5%) NEB SOLN NEB PRN (14:43)
--- NOTE | 2024-07-01 15:01 | DVHSR ---
APPROVED REPORT EXAM: Two-dimensional and M-mode echocardiogram with Doppler and color Doppler. Blood Pressure: 131/52 mmHg INDICATION PE, Pulmonary embolism RISK FACTORS Obesity: Height: 5'4, Weight: 175 DIMENSIONS LVDd3.7 (3.8-5.7cm)LA (2D)3.3 (1.9-4.0cm)Aortic Root3.6 (2.0-3.7cm) LVDs2.3 (2.5-4.0cm)LA (MM) (1.9-4.0cm)Aortic Cusp Exc1.7 (1.5-2.0cm) EF (%) 70.0 (55-70%)Rt. Atrium3.5 (1.9-4.0cm)Asc. Aorta3.2 cm IVSd1.2 (0.7-1.1cm)RV (D)3.7 (1.8-2.4cm) PWd1.1 (0.7-1.1cm) Mitral Valve MitralMitral Stenosis E wave0.70m/sMV Mean GR.mmHg A wave0.74m/sMV Peak GR.mmHg E/A ratio0.92D MVAcm2 DECEL [id number] 1/2 Timems Aortic Valve Aortic ValveAortic Stenosis V10.73m/Trent Mean GR.3mmHg V21.05m/Trent Peak GR.4mmHg LVOT Diameter2.2 (1.8-2.4cm)Doppler AVA2.64cm2 Pulmonic Valve V20.74m/s Other Information Quality : Technically LimitedRhythm : Technically limited study due to patient position.body habitus. Conclusion lvef 55% by visual estimate interventricular septal flatnning noted RV enlarged, probable normal function biatrial enlargement
[2024-07-01] MEDS: ATORVASTATIN 20 MG TAB PO SCH (21:19)
[2024-07-01] MEDS: ENOXAPARIN SOD 80 MG/0.8ML SYRINGE SC SCH (21:19)
[2024-07-02] VITALS (16 sets, daily range): BP systolic 117–142; BP diastolic 64–81; PULSE 72–111; RESP 17–20; TEMP 97.3–97.8; O2SAT 81–100
[2024-07-02] MEDS: PANTOPRAZOLE 40 MG TAB PO SCH (06:24)
[2024-07-02 06:58] LABS: Basophils # (auto) 0 10 ^3/uL (0-0.2); Basophils % (auto) 0.4 % (0.0-2.0); Eosinophils # (auto) 0 10 ^3/uL (0-0.8); Eosinophils % (auto) 0.3 % (0.0-7.0); Hematocrit 51.1 % (36.0-46.0); Hemoglobin 16.9 g/dL (12.2-16.2); Lymphocytes # (auto) 1.3 10 ^3/uL (0.4-5.4); Lymphocytes % (auto) 15.5 % (10.0-50.0); Mean Corpuscular Hemoglobin 32.1 pg (28.0-32.0); Mean Corpuscular Hgb Conc. 33.2 g/dL (32.0-36.0); Mean Corpuscular Volume 96.7 fL (80.0-100.0); Monocytes # (auto) 0.6 10 ^3/uL (0-1.3); Monocytes % (auto) 7.8 % (0.0-12.0); Neutrophils # (auto) 6.3 10 ^3/uL (1.6-8.6); Platelet Count (auto) 160 10^3/uL (140-450); Red Blood Cells 5.28 10^6/uL (4.0-5.20); Red Cell Distribution Width 16.3 % (11.8-14.3); White Blood Cell 8.3 10^3/uL (4.4-10.8)
[2024-07-02 07:12] LABS: Anion Gap 9 (5-15); Carbon Dioxide 27 mmol/L (20-31); Chloride 104 mmol/L (98-107); Potassium 3.6 mmol/L (3.5-5.1); Sodium 140 mmol/L (136-145)
[2024-07-02 07:13] LABS: Calcium 10.4 mg/dL (8.7-10.4)
[2024-07-02 07:18] LABS: BUN/Creatinine Ratio 20.9 (10.0-20.0); Blood Urea Nitrogen 18 mg/dL (9-23); Glucose 122 mg/dL (74-106)
[2024-07-02] MEDS: predniSONE 20 MG TAB PO SCH (08:47)
--- NOTE | 2024-07-02 11:33 | ECG ---
[facility] Test Date: 2024-06-30 Test Time: 19:11:43 Pat Name: ZANE BONILLA Department: ER Room: [address] [place] [address] Gender: F Panel Builder: RYAN : 1950 Requested By: JAYLEEN LA Order Number: [id number] Reading MD: Measurements Intervals [place] Rate: 72 P: 31 CO: 196 QRS: 83 QRSD: 109 T: 85 QT: 431 QTc: 472 Interpretive Statements Sinus rhythm Probable left atrial enlargement Borderline right axis deviation Abnormal R-wave progression, late transition Abnrm T, consider ischemia, anterolateral lds Please click the below link to view image of tracing.
--- NOTE | 2024-07-02 20:16 | DVHPNRES ---
Progress Note Date Seen: Jul 02, 2024 Resident Creating Document: VIDHI DAMIAN RESIDENT Medical Necessity Reason Pt with a Central, PICC or Fol: No Subjective Review of Systems Patient is a 74-year-old female with past medical history of hypertension, dyslipidemia, type 2 diabetes, hypothyroidism, gout, anxiety and chronic sinusitis, who comes in due to shortness of breath. According to the patient, for the last 2 weeks she has been experiencing a flu-like illness with congestion, runny nose and sore throat along with some shortness of breath, however, yesterday on 06/30/2024 she felt extremely winded when she walked from her bedroom to the kitchen and felt like she was unable to catch her breath which is what prompted this visit to the hospital. Per patient she initially went to the urgent care where she was told to go to the ER. Patient also notes having increasing sputum and nasal discharge with purulent and stringy appearance along with some bled on blowing her nose. Patient's D-dimer was 1.18, CT angiography showed a subsegmental PE, right lower lobe opacity and some cardiomegaly. Past surgical history: Partial thyroidectomy, coronary angiogram 3 weeks ago without stents, hernia repair surgery, hysterectomy, cholecystectomy, mid urethral sling placement Social & Personal history: Patient lives with her family. Quit smoking 40 years ago, prior to that was smoking 2 packs per day for 14 years. Denies using alcohol. Denies using any drugs. Allergies: Denies Patient seen and examined at bedside. Patient is alert and oriented to time, place person and responding to all questions. Oxygen titrated down to 2 L Objective vital signs Vital Sign Date Time Temp Pulse Resp B/P (MAP) Pulse Ox O2 Delivery O2 Flow Rate FiO2 07/02/24 18:49 93 Nasal Cannula* 3 32 07/02/24 18:14 82 18 07/02/24 17:00 97.8 121/81 (94) 97.8 Total Intake and Output 07/01/24 07/01/24 07/02/24 15:00 23:00 07:00 Intake Total 410 ml 360 ml 480 ml Balance 410 ml 360 ml 480 ml medications Current Medications Medications Dose Ordered Sig/Michael Route Start Time Stop Time Status Last Admin Dose Admin Acetaminophen 650 mg Q6HP PRN PO 07/01/24 00:45 Azithromycin 250 ml @ 125 mls/hr DAILY IV 07/01/24 10:00 07/02/24 10:31 125 MLS/HR Ceftriaxone Sodium 50 ml @ 100 mls/hr DAILY IV 07/01/24 10:00 07/02/24 08:49 100 MLS/HR Losartan Potassium 100 mg DAILY PO 07/01/24 10:00 07/02/24 08:47 100 MG Amlodipine Besylate 10 mg DAILY PO 07/01/24 10:00 07/02/24 08:49 10 MG Levothyroxine Sodium 112 mcg DAILY PO 07/01/24 06:00 07/02/24 08:48 112 MCG Atorvastatin Calcium 40 mg DAILY@2200 PO 07/01/24 22:00 07/01/24 21:19 40 MG Allopurinol 100 mg BID PO 07/01/24 10:00 07/02/24 08:48 100 MG Buspirone HCl 10 mg BID PO 07/01/24 10:00 07/02/24 08:48 10 MG Aspirin 81 mg DAILY PO 07/01/24 10:00 07/02/24 08:48 81 MG Citalopram Hydrobromide 20 mg DAILY PO 07/01/24 10:00 07/02/24 08:48 20 MG Enoxaparin Sodium 80 mg Q12HR SC 07/01/24 22:00 07/02/24 08:49 80 MG Albuterol 2.5 mg Q4HPRN PRN [facility] 07/01/24 11:15 07/02/24 18:12 2.5 MG Ipratropium [place] 0.5 mg Q4HR NEB 07/01/24 14:00 07/02/24 15:00 0.5 MG Prednisone 40 mg DAILY PO 07/02/24 10:00 07/05/24 10:00 07/02/24 08:47 40 MG Pantoprazole Sodium 40 mg DAILY@0630 PO 07/02/24 06:30 07/02/24 06:24 40 MG Examination General Appearance: Cooperative. Well developed. Well nourished. NAD Head Exam: Normal inspection Neck Exam: Normal inspection. Non-tender. Normal alignment Pulmonary/Respiratory: Chest non-tender. Clear bilateral breath sounds, no crackles, no wheezing. Cardiovascular/Chest: Regular rate and rhythm. No murmurs. No JVD. Peripheral Pulses: 2+ Radial (R). 2+ Radial (L). 2+ Pedal (R). 2+ Pedal (L) Abdominal Exam: Normal bowel sounds. Soft. normal abdomen, no visible veins, Nontender. No hepatospenomegaly. No masses Ankle Exam: Negative ankle edema Lower extremities: Negative lower extremity edema Neuro/Mental Status: A&O x4. Coherent. Thoughts/Psych: Normal thought pattern. Appropriate mood and affect. Good judgement and insight Skin Exam: Normal inspection. Normal color. Warm. Dry laboratory and microbiology Laboratory Tests 07/02/24 06:42 Test 07/02/24 06:42 Range/Units Serum Glucose 122 H 74-106 mg/dL Microbiology Date/Time Source Procedure Growth Status 07/01/24 02:45 Nose MRSA Screen - Final Complete Labs and/or images reviewed: Labs reviewed by me, Image(s) reviewed by me Problem List/Assessment/Plan Problem List/Assessment/Plan Acute hypoxic respiratory failure, currently on 2 L O2 via NC Subsegmental pulmonary embolism Ruled out DVT - CT angiography: Subsegmental pulmonary embolism. No CT evidence of right heart strain. Right lower lobe opacity which may reflect atelectasis. Emphysema. Cardiomegaly. - ordered lower extremity Doppler: No right or left lower extremity femoropopliteal venous thrombosis - therapeutic Lovenox 80 mg subcutaneous b.i.d. Possible pneumonia viral versus bacterial Possible COPD exacerbation - 5 L O2 via NC, with goal SpO2 88% to 92% - CXR: No acute cardiopulmonary disease - prednisone 40 mg p.o. daily - ipratropium and albuterol med nebs q.4 as needed - IV azithromycin, IV ceftriaxone Incidental intramural thrombus noted in the aorta - monitor Type 2 diabetes, Hb A1c 6.6 Hypertension - aspirin 81 mg - amlodipine 10 mg - losartan 100 mg p.o. daily History of hypothyroidism History of gout History of anxiety - allopurinol 100 mg p.o. b.i.d. - buspirone 10 mg p.o. b.i.d. - citalopram 20 mg p.o. daily - levothyroxine 112 mcg p.o. daily PUD prophylaxis: protonix 40mg Goals of care: Full code, discussed for >16 minutes on 07/01/2024 Plan discussed with patient Plan discussed with Dr. Poon Plan discussed with: Patient, Other (RN) VIDHI DAMIAN RESIDENT Jul 02, 2024 20:16
[2024-07-03] VITALS (16 sets, daily range): BP systolic 107–150; BP diastolic 57–86; PULSE 63–96; RESP 17–20; TEMP 97.6–98.3; O2SAT 92–99
[2024-07-03 07:13] LABS: Basophils # (auto) 0 10 ^3/uL (0-0.2); Basophils % (auto) 0.2 % (0.0-2.0); Eosinophils # (auto) 0 10 ^3/uL (0-0.8); Eosinophils % (auto) 0.5 % (0.0-7.0); Hematocrit 51.2 % (36.0-46.0); Hemoglobin 16.7 g/dL (12.2-16.2); Lymphocytes # (auto) 1.5 10 ^3/uL (0.4-5.4); Lymphocytes % (auto) 17.4 % (10.0-50.0); Mean Corpuscular Hemoglobin 31.6 pg (28.0-32.0); Mean Corpuscular Hgb Conc. 32.6 g/dL (32.0-36.0); Mean Corpuscular Volume 96.9 fL (80.0-100.0); Monocytes # (auto) 0.7 10 ^3/uL (0-1.3); Monocytes % (auto) 8.4 % (0.0-12.0); Neutrophils # (auto) 6.4 10 ^3/uL (1.6-8.6); Neutrophils % (auto) 73.5 % (37.0-80.0); Nucleated Red Blood Cells % 0.1 %; Platelet Count (auto) 161 10^3/uL (140-450); Red Blood Cells 5.29 10^6/uL (4.0-5.20); Red Cell Distribution Width 16.7 % (11.8-14.3); White Blood Cell 8.7 10^3/uL (4.4-10.8)
[2024-07-03 07:19] LABS: Chloride 104 mmol/L (98-107); Potassium 3.8 mmol/L (3.5-5.1); Sodium 141 mmol/L (136-145)
[2024-07-03 07:20] LABS: Anion Gap 9 (5-15); Carbon Dioxide 28 mmol/L (20-31)
[2024-07-03 07:21] LABS: Calcium 10.2 mg/dL (8.7-10.4)
[2024-07-03 07:25] LABS: BUN/Creatinine Ratio 16.3 (10.0-20.0); Blood Urea Nitrogen 13 mg/dL (9-23); Glucose 93 mg/dL (74-106)
[2024-07-03] MEDS ORDERED: APIX5TAB PO ×2 (13:01→13:46)
[2024-07-03] MEDS ORDERED: LEVO750T40 PO ×2 (13:01→13:46)
--- NOTE | 2024-07-03 13:04 | DVHDSRES ---
Discharge Summary Date of Admission Resident Creating Document: VIDHI DAMIAN RESIDENT Jul 01, 2024 at 00:42 Date of Discharge: Jul 03, 2024 Admitting Diagnosis shortness of breath Labs/Diagnostic Data: Laboratory Results Test 07/03/24 05:56 07/01/24 05:56 07/01/24 01:02 07/01/24 00:42 White Blood Count 8.7 10^3/uL (4.4-10.8) Red Blood Count 5.29 10^6/uL (4.0-5.20) Hemoglobin 16.7 g/dL (12.2-16.2) Hematocrit 51.2 % (36.0-46.0) Mean Corpuscular Volume 96.9 fL (80.0-100.0) Mean Corpuscular Hemoglobin 31.6 pg (28.0-32.0) Mean Corpuscular Hemoglobin Concent 32.6 g/dL (32.0-36.0) Red Cell Distribution Width 16.7 % (11.8-14.3) Platelet Count 161 10^3/uL (140-450) Mean Platelet Volume 8.4 fL (6.9-10.8) Neutrophils (%) (Auto) 73.5 % (37.0-80.0) Lymphocytes (%) (Auto) 17.4 % (10.0-50.0) Monocytes (%) (Auto) 8.4 % (0.0-12.0) Eosinophils (%) (Auto) 0.5 % (0.0-7.0) Basophils (%) (Auto) 0.2 % (0.0-2.0) Neutrophils # (Auto) 6.4 10 ^3/uL (1.6-8.6) Lymphocytes # (Auto) 1.5 10 ^3/uL (0.4-5.4) Monocytes # (Auto) 0.7 10 ^3/uL (0-1.3) Eosinophils # (Auto) 0 10 ^3/uL (0-0.8) Basophils # (Auto) 0 10 ^3/uL (0-0.2) Nucleated Red Blood Cells 0.1 % Sodium Level 141 mmol/L (136-145) Potassium Level 3.8 mmol/L (3.5-5.1) Chloride Level 104 mmol/L (98-107) Carbon Dioxide Level 28 mmol/L (20-31) Anion Gap 9 (5-15) Blood Urea Nitrogen 13 mg/dL (9-23) Creatinine 0.80 mg/dL (0.550-1.02) Glomerular Filtration Rate Calc 78 mL/min (>90) BUN/Creatinine Ratio 16.3 (10.0-20.0) Serum Glucose 93 mg/dL (74-106) Calcium Level 10.2 mg/dL (8.7-10.4) Prothrombin Time 10.4 sec (9.3-11.8) Prothrombin Time INR 0.98 (0.9-1.15) Activated Partial Thromboplast Time 26.8 SEC (24.5-34.5) Hemoglobin A1c 6.6 % A1C (<5.7) Triglycerides Level 197 mg/dL (< 150) Cholesterol Level 129 mg/dL (< 200) LDL Cholesterol 72 mg/dL (< 100) HDL Cholesterol 26 mg/dL (40-59) Thyroid Stimulating Hormone (TSH) 2.02 uIU/mL (0.55-4.78) Urine Color Colorless (Yellow) Urine Clarity Clear (Clear) Urine pH 6.5 (5.0-9.0) Urine Specific [place] 1.029 (1.001-1.035) Urine Protein Negative (Negative) Urine Ketones Negative (Negative) Urine Blood Negative /uL (Negative) Urine Nitrite Negative (Negative) Urine Bilirubin Negative (Negative) Urine Urobilinogen Normal mg/dL (Negative) Urine Leukocyte Esterase Negative /uL (Negative) Urine RBC <1 /hpf (0 - 4) Urine Microscopic WBC < 1 /HPF (0-5) Urine Squamous Epithelial Cells Few /hpf (<5) Urine Bacteria None seen /hpf (None Seen) Urine Glucose 3+ mg/dL (Normal) Urine Opiates Screen Neg (NEGATIVE) Urine Fentanyl Screen Neg (NEGATIVE) Urine Barbiturates Screen Neg (NEGATIVE) Urine Phencyclidine Screen Neg (NEGATIVE) Urine Amphetamines Screen Neg (NEGATIVE) Urine Benzodiazepines Screen Neg (NEGATIVE) Urine Cocaine Screen Neg (NEGATIVE) Urine Cannabinoids Screen Neg (NEGATIVE) Test 06/30/24 21:10 06/30/24 20:55 06/30/24 19:37 Influenza Type A Antigen Negative (Negative) Influenza Type B Antigen Negative (Negative) SARS-CoV-2 Antigen (Rapid) Negative (NEGATIVE) D-Dimer, Quantitative 1.18 mg/L FEU (0.0-0.49) Troponin I High Sensitivity 3 ng/L (</=34) B-Type Natriuretic Peptide 45.85 pg/mL (0-100) Free Thyroxine (T4) Calculated 1.32 ng/dL (0.89-1.76) Other Laboratory Tests 07/03/24 05:56 Brief Hx & Hospital Course: Patient is a 74-year-old female with past medical history of hypertension, dyslipidemia, type 2 diabetes, hypothyroidism, gout, anxiety and chronic sinusitis, who comes in due to shortness of breath. According to the patient, for the last 2 weeks she has been experiencing a flu-like illness with congestion, runny nose and sore throat along with some shortness of breath, however, yesterday on 06/30/2024 she felt extremely winded when she walked from her bedroom to the kitchen and felt like she was unable to catch her breath which is what prompted this visit to the hospital. Per patient she initially went to the urgent care where she was told to go to the ER. Patient also notes having increasing sputum and nasal discharge with purulent and stringy appearance along with some bled on blowing her nose. Patient's D-dimer was 1.18, CT angiography showed a subsegmental PE, right lower lobe opacity and some cardiomegaly. Hospital course: Patient was started on therapeutic Lovenox 80 mg b.i.d.. Patient was also continued on IV azithromycin and IV ceftriaxone along with prednisone 40 mg p.o. daily and ipratropium and albuterol med nebs as needed. Home medications aspirin, amlodipine and losartan were also continued along with allopurinol, buspirone, citalopram and levothyroxine 112 mcg p.o.. On the day of discharge, patient appeared well and had stable vital signs, patient was saturating between 88% to 94% on room air. Patient was explained to take Eliquis 2 pills b.i.d. for the 1st 7 days followed by Eliquis 1 pill b.i.d. for 6 months and follow up with her primary care doctor at her earliest convenience. Patient is prescribed medications were sent to [facility] pharmacy and delivered to her at bedside. Her hospital course was uncomplicated. Patient was also sent levofloxacin and prednisone for 4 days to complete course. General Appearance: Cooperative. Well developed. Well nourished. NAD Head Exam: Normal inspection Neck Exam: Normal inspection. Non-tender. Normal alignment Pulmonary/Respiratory: Chest non-tender. Clear bilateral breath sounds, no crackles, no wheezing. Cardiovascular/Chest: Regular rate and rhythm. No murmurs. No JVD. Peripheral Pulses: 2+ Radial (R). 2+ Radial (L). 2+ Pedal (R). 2+ Pedal (L) Abdominal Exam: Normal bowel sounds. Soft. normal abdomen, no visible veins, Nontender. No hepatospenomegaly. No masses Ankle Exam: Negative ankle edema Lower extremities: Negative lower extremity edema Neuro/Mental Status: A&O x4. Coherent. Thoughts/Psych: Normal thought pattern. Appropriate mood and affect. Good judgement and insight Skin Exam: Normal inspection. Normal color. Warm. Dry Operations or Procedures CHEST RADIOGRAPH Indication: sob Technique: Single frontal view of the chest was obtained Comparison: XY CHEST PORTABLE on DOS: 12/01/23 FINDINGS: Lines and Tubes: None Lungs: No focal consolidation. Pleura: No effusion. No pneumothorax. Cardiomediastinal contours: Unremarkable Bones: No acute osseous abnormality. IMPRESSION: No acute cardiopulmonary disease. Critical result: Pulmonary embolism Findings discussed with Dr. Ordonez on 07/01/2024 at 8:16 a.m. IMMIGRATION CONSULTANT, with acknowledged receipt and understanding of the findings. ORIGINAL REPORT INDICATION: r/o PE and assess pulm parenchyma for PNA TECHNIQUE: Multidetector CTA of the chest was performed of the chest with 100 cc of intravenous contrast. PULMONARY ANGIOGRAPHY PROTOCOL was utilized using a bolus-tracking technique centered on the main pulmonary artery. Coronal and sagittal multiplanar and MIP reformats were performed. Radiation Dose Information: CT Dose: CTDI volume is 22.3 mGy. Dose-length product is 806.4 mGy*cm The dose indicators for CT are the volume Computed Tomography (CT) Dose Index (CTDIvol) and the Dose Length Product (DLP), and are measured in units of mGy and mGy-cm, respectively. These indicators are not patient dose, but values generated from the CT scanner acquisition factors. The report includes radiation exposure data for exposures received during this examination. Findings: Pulmonary artery: Normal caliber of the pulmonary artery. There is a filling defect in a subsegmental branch of the right pulmonary artery in the posterior basal segment of the right lower lobe (series 2, image 142). No lobar pulmonary embolism. Lower neck: Normal thyroid. Lungs: Right lower lobe opacities. Moderate centrilobular emphysema. Central airways: Patent. Heart/Vascular Structures: Enlarged heart. RV to LV ratio measures 0.6. No pericardial effusion. Coronary artery calcifications. Atherosclerotic calcifications in the thoracic aorta. Noncalcified plaque in the descending thoracic aorta. Lymph Nodes: No adenopathy Pleura: No pleural effusion or significant pneumothorax. Musculoskeletal: No acute osseous abnormality. Upper abdomen: Limited portions of the upper abdomen are unremarkable. IMPRESSION: 1. Subsegmental pulmonary embolism. No CT evidence of right heart strain. 2. Right lower lobe opacity which may reflect atelectasis. Emphysema. 3. Cardiomegaly. Bilateral lower extremity venous Doppler INDICATION: source of her subsegmental PE TECHNIQUE: Duplex venous sonography was performed with real-time and flow sensitive images submitted for evaluation. FINDINGS: Normal phasic venous flow. Veins are fully compressible. No filling defects. IMPRESSION: 1. No evidence of deep vein thrombosis. Condition at Discharge: Fair Final Diagnosis/Problems List Acute hypoxic respiratory failure, currently on 2 L O2 via NC Subsegmental pulmonary embolism, unprovoked Ruled out DVT Possible pneumonia viral versus bacterial COPD exacerbation Incidental intramural thrombus noted in the aorta Type 2 diabetes, Hb A1c 6.6 Hypertension History of hypothyroidism History of gout History of anxiety Discharge Disposition: Home Discharge Instruct/Medications Diet: Consistent carbohydrate Activity: No Restrictions, As Tolerated Follow Up/Referral: Please follow up with the PCP in 1-2 weeks Medications: Eliquis 10 mg twice a day for 7 days followed by Eliquis 5 mg twice a day for 6 months Levofloxacin 750 mg once a day for 4 days Prednisone 40 mg p.o. once daily for 3 days Continue home medications Discharge Statement: "Patient was advised to return to the ER or call 911 if any headaches, dizziness, shortness of breath, chest pain, abdominal pain, bleeding, fevers, or worsening of medical condition. Patient was counseled about treatment plan, medications, possible side effects, patientverbalized understanding. All questions were answered to the best of my ability. This discharge took greater then 30 minutes in planning, reviewing documentation, counseling the patient, and discussing with other team members." ASSESSMENT ASSESSMENT Assessment Acute hypoxic respiratory failure, currently on 2 L O2 via NC Subsegmental pulmonary embolism, unprovoked Ruled out DVT Possible pneumonia viral versus bacterial COPD exacerbation Incidental intramural thrombus noted in the aorta Type 2 diabetes, Hb A1c 6.6 Hypertension History of hypothyroidism History of gout History of anxiety VIDHI DAMIAN RESIDENT Jul 03, 2024 13:04
[2024-07-03] MEDS ORDERED: PRED20TA2 PO (13:46)
== END 2024-07-03 17:30 | disposition home or self-care (01) | DRG 175 ==
LOC: ER 19:07 → OVERFLOW 07-01 00:42 → EAST 07-01 14:34
PROVIDERS: ADMIT Student in an Organized Health Care Education/Training Program; ATTEND Student in an Organized Health Care Education/Training Program
DX: I26.93 Single subsegmental thrombotic pulmonary embolism without acute cor pulmonale (principal); J12.9 Viral pneumonia, unspecified; J96.01 Acute respiratory failure with hypoxia; J15.9 Unspecified bacterial pneumonia; J44.1 Chronic obstructive pulmonary disease with (acute) exacerbation; E11.9 Type 2 diabetes mellitus without complications; Z20.822 Contact with and (suspected) exposure to COVID-19; I10 Essential (primary) hypertension; E03.9 Hypothyroidism, unspecified; M10.9 Gout, unspecified; E78.5 Hyperlipidemia, unspecified; F41.9 Anxiety disorder, unspecified; I51.3 Intracardiac thrombosis, not elsewhere classified; Z79.899 Other long term (current) drug therapy; Z79.4 Long term (current) use of insulin
CPT/HCPCS: 36415; 71045; 71275; 80048; 80061; 80307; 81001; 83036; 83880; 84439; 84443; 84484; 85025; 85379; 85610; 85730; 87081; 87426; 87804; 93005; 93306; 93970; 94640; G0378

== ENCOUNTER 2024-07-09 01:44 | Inpatient (IN) | payer MEDICARE, OTHER ==
[~2024-07-09] VITALS: Ht 160 cm; Wt 79.3 kg
[2024-07-09] VITALS (12 sets, daily range): BP systolic 117–144; BP diastolic 71–87; PULSE 65–88; RESP 15–22; TEMP 97.4–97.6; O2SAT 90–99
[~2024-07-09 01:44] MED LIST changes: +APIX5TAB PO; +LEVO750T40 PO; +PRED20TA2 PO
--- NOTE | 2024-07-09 02:10 | ED.PDOC ---
GI ASSESSMENT HPI Comments HPI: Poor Historian. 74-year-old female presents to emergency department for evaluation of epigastric abdominal pain that started today without any associated symptoms of nausea vomiting or diarrhea. Pain is constant nonradiating. No alleviating or precipitating factors. Patient was recently discharged from the hospital proximally seven days ago with pneumonia and pulmonary embolus. Patient is currently on Eliquis. Patient just finished a course of Levaquin for unknown reason. Past Medical History: COPD, anxiety, depression, diabetes, thyroid disease, pulmonary ambulance, gout, hypertension, Past Surgical History: Thyroid, gallbladder, hysterectomy, bladder sling Vital signs are stable in triage. REVIEW OF SYSTEMS: CONSTITUTIONAL: Denies acute: fever, diaphoresis, chills, generalized weakness. HEAD: Denies acute: headache, photophobia Eyes: Denies acute: Double vision, vision loss, eye pain, eye discharge. EARS: Denies acute: tinnitus, hearing loss, ear discharge, ear pain, THROAT: Denies acute: sore throat, swelling, difficulty swallowing , pain with swall owing, change in voice. NECK: Denies acute: neck pain, neck swelling, stiff neck. HEART: Denies acute : chest pain, palpitations, LUNGS: Denies acute: SOB, wheezing, cough, hemoptysis ABDOMEN: Denies acute: , Nausea, Vomiting, diarrhea, melena , hematemesis, hematochezia SKIN: Denies acute: rash, redness, lesions, itchiness. EXTREMITIES: Denies acute: calf pain, numbness, tingling, weakness, denies pain in extremity. Denies acute: Low back pain. Neuro: Denies acute: focal neurological deficit, motor or sensory focal neurological deficit, tremors, seizure like activity, confusion, dizziness, change in mental status, loss of bowel or bladder function, cauda equina like symptoms. : Denies acute: dysuria, hematuria, flank pain, increase in urinary frequency. PSYCH: Denies acute: hallucination, suicidal ideation, homicidal ideation. FEMALE: Denies acute: abnormal vaginal bleeding, foul odor, unusual discharge. PHYSICAL EXAM: General: no acute distress, awake and alert. Head: normocephalic, atraumatic. Neck: supple, trachea is midline, no swelling. Throat: Normal phonation. Eyes:, no erythema, no purulent discharge, no proptosis, no icterus. Heart: regular rate, regular rhythm, no significant murmur appreciated. Lungs: no apparent respiratory distress, Able to speak in full sentences. No wheezing, no rhonchi, no crackles. No stridors Clear to auscultation bilaterally. Abdomen: Mild epigastric tender to palpation, non distended, soft, no guarding, no rebound, + bowel sounds. Neuro: Awake, Alert, oriented to name, self, situation, follows commands GCS=15. Speech is normal. Skin: no petechia, no purpura, no cyanosis, non-pale, not jaundice. Lower extremities: --no - Pitting edema no deformity, no focal swelling, no calf TTP. Makes eye contact. moves all four extremities. Ambulating in the ED independently. ED COURSE: Time Seen by MD: 01:58 Primary Care Provider: Theodore Miranda Notes: Nurses Notes, Allergies Allergies: Coded Allergies: NO KNOWN ALLERGIES (Unverified , 02/12/16) Home Meds Active Scripts Nitrofurantoin Monohydrate Mac (Macrobid) 100 Mg Cap, 100 MG PO BID for 7 Days, #14 CAP Prov:MIKE GAMEZ DO 07/09/24 Prednisone (Prednisone) 20 Mg Tab, 40 MG PO DAILY for 3 Days, #3 MG Prov:VIDHI DAMIAN RESIDENT 07/03/24 Levofloxacin Hemihydrate (LEVOFLOXACIN) 750 Mg Tab, 1 TAB PO DAILY for 4 Days, #4 TAB Prov:VIDHI DAMIAN RESIDENT 07/03/24 Apixaban Base (ELIQUIS) 5 Mg Tab, 10 MG PO BID for 7 Days, #30 TAB 4 Refills 10MG BID X 7 DAYS THEN 5MG PO BID FOR AT LEAST 6 MONTHS FOR DVT/PE TREATMENT Prov:VIDHI DAMIAN RESIDENT 07/03/24 Reported Medications Metoprolol Succinate (Metoprolol Succinate Er) 100 Mg Tab, 1 TAB PO DAILY 12/02/23 Buspirone Hcl (Buspirone Hcl) 10 Mg Tab, 10 MG PO Q12HR for 30 Days, MG 12/02/23 Amlodipine Besylate (Amlodipine Besylate) 10 Mg Tab, 1 TAB PO DAILY, #30 TAB 5 Refills 12/02/23 Dapagliflozin Propanediol (Dapagliflozin Propanediol) 5 Mg Tab, 1 TAB PO DAILY 12/02/23 Levothyroxine Sodium (Levothyroxine Sodium) 112 Mcg Tab, 1 TAB PO DAILY, #30 TAB 5 Refills 12/02/23 Escitalopram Oxalate (ESCITALOPRAM OXALATE) 10 Mg Tab, 1 TAB PO DAILY, #30 TAB 3 Refills 12/02/23 Allopurinol (ZYLOPRIM TABLET) 100 Mg Tb, 1 TAB PO BID 12/02/23 Rosuvastatin Calcium (Crestor) 10 Mg Tab, 1 TAB PO DAILY, #30 TAB 5 Refills 12/02/23 Losartan Potassium (Losartan Potassium) 100 Mg Tab, 1 TAB PO DAILY, #30 TAB 5 Refills 12/02/23 Information Source: Patient Past Medical History PAST MEDICAL HISTORY: DM, HTN Surgical History: Denies all surgeries 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 Was a procedure done?: No GI differential Dx Differential Diagnosis: Other (DDX include Diverticulitis, colitis, gastroenteritis, acute abdomen, SBO, enteritis, constipation, volvulus, appendicitis, Gallbladder disease, choledocolithiasis, ascending cholangitis, pancreatitis, intraAbdominal mass/neoplasm, hepatitis, UTI, pylonephritis, kidney stone, aneurysm, dissection, Inflammatory bowel disease, gastroparesis, ischemic bowel, ovarian torsion, ovarian cyst/mass, tubo-ovarian abscess, , PID, STD.) X-Ray, Labs, Meds, VS Vital Signs Date Time Temp Pulse Resp B/P (MAP) Pulse Ox O2 Delivery O2 Flow Rate FiO2 07/09/24 01:56 97.8 70 16 127/79 (95) 91 Lab Test 07/09/24 02:12 07/09/24 01:56 Range/Units White Blood Count 12.8 #H 4.4-10.8 10^3/uL Red Blood Count 5.89 H 4.0-5.20 10^6/uL Hemoglobin 18.7 H 12.2-16.2 g/dL Hematocrit 56.7 #H 36.0-46.0 % Mean Corpuscular Volume 96.2 80.0-100.0 fL Mean Corpuscular Hemoglobin 31.7 28.0-32.0 pg Mean Corpuscular Hemoglobin Concent 33.0 32.0-36.0 g/dL Red Cell Distribution Width 17.0 H 11.8-14.3 % Platelet Count 237 140-450 10^3/uL Mean Platelet Volume 8.0 6.9-10.8 fL Neutrophils (%) (Auto) 67.7 37.0-80.0 % Lymphocytes (%) (Auto) 20.0 10.0-50.0 % Monocytes (%) (Auto) 9.9 0.0-12.0 % Eosinophils (%) (Auto) 1.8 0.0-7.0 % Basophils (%) (Auto) 0.6 0.0-2.0 % Neutrophils # (Auto) 8.6 1.6-8.6 10 ^3/uL Lymphocytes # (Auto) 2.6 0.4-5.4 10 ^3/uL Monocytes # (Auto) 1.3 0-1.3 10 ^3/uL Eosinophils # (Auto) 0.2 0-0.8 10 ^3/uL Basophils # (Auto) 0.1 0-0.2 10 ^3/uL Nucleated Red Blood Cells 0.1 % Sodium Level 141 136-145 mmol/L Potassium Level 3.9 3.5-5.1 mmol/L Chloride Level 105 98-107 mmol/L Carbon Dioxide Level 28 20-31 mmol/L Anion Gap 8 5-15 Blood Urea Nitrogen 16 9-23 mg/dL Creatinine 0.99 0.550-1.02 mg/dL Glomerular Filtration Rate Calc 61 >90 mL/min BUN/Creatinine Ratio 16.2 10.0-20.0 Serum Glucose 122 H 74-106 mg/dL Lactic Acid Level 0.8 0.4-2.0 mmol/L Calcium Level 10.4 8.7-10.4 mg/dL Total Bilirubin 0.5 0.2-1.0 mg/dL Aspartate Amino Transferase (AST) 22 13-40 U/L Alanine Aminotransferase (ALT) 44 H 7-40 U/L Alkaline Phosphatase 68 46-116 U/L Troponin I High Sensitivity 5 </=34 ng/L B-Type Natriuretic Peptide 24.54 0-100 pg/mL Total Protein 7.4 5.7-8.2 g/dL Albumin 4.3 3.2-4.8 g/dL Lipase 439 H 12-53 U/L Urine Color Colorless Yellow Urine Clarity Clear Clear Urine pH 5.5 5.0-9.0 Urine Specific [place] 1.010 1.001-1.035 Urine Protein Negative Negative Urine Ketones Negative Negative Urine Blood Negative Negative /uL Urine Nitrite Negative Negative Urine Bilirubin Negative Negative Urine Urobilinogen Normal Negative mg/dL Urine Leukocyte Esterase 2+ Negative /uL Urine RBC 1 0 - 4 /hpf Urine Microscopic WBC 16 H 0-5 /HPF Urine Squamous Epithelial Cells Few <5 /hpf Urine Bacteria None seen None Seen /hpf Urine Glucose 2+ H Normal mg/dL Time of 1ST Reevaluation: 03:25 Reevaluation 1ST: Improved Patient Education/Counseling: Diagnosis, Treatment Family Education/Counseling: No Family Present Comments Patient presented with the above HPI.--abdominal pain----workup was initiated. patient was found with the above mentioned diagnosis. the following medications were ordered: please refer to order lists of meds and tests obtained by myself Dr. Gamez. Patient ED course and VS have been stabilized. Patient has been reassessed in the ED and remained in a stable condition. Pertinent incidental findings were discussed with the patient and/or family. Patient/family voices understanding and is agreeable with plan. Patient has been observed in the ED adequate length of time to insure improvement/stability. Escalation of care considered: Consideration of escalation to observation or admission Patient was ADMITTED to the medicine team for further evaluation and treatment of their presentation. All the reports of any imaging studies that were ordered by myself were reviewed by myself. Departure 1 Departure Time of Disposition: 02:53 Impression: Primary Impression: Acute pancreatitis Additional Impression: Urinary tract infection Disposition: ADMITTED INPATIENT Admit to: Tele Condition: Guarded Additional Instructions: Below is a copy of your radiological report for follow up: [address] [address] Ph: [phone] DIAGNOSTIC IMAGING Diagnostic Imaging Report : [id number] Signed PATIENT: ZANE BONILLA ACCT: [id number] UNIT: [id number] : 1950 LOC: ER ROOM / BED: / AGE / SEX: 74 / F ADM STATUS: REG ER SERVICE [id number] ORDERING PHYSICIAN: MIKE GAMEZ DO PROCEDURE(s): ABPL - CT AB PEL WO CON-NO ORAL OR IV REASON: epig pain ORDER NUMBER(s): [id number], ACCESSION NUMBER(s): [id number] Exam: CT CT AB PEL WO CON-NO ORAL OR IV History: epig pain Comparison Study: None Technique: Multidetector spiral CT of the abdomen was performed from lung bases to pubic symphysis. Imaging was performed without IV contrast. Axial, coronal and sagittal multiplanar reformats were obtained from the axial data set by the technologist. Radiation Dose : 1. Abdomen/Pelvis: CTDIvol 13.8 mGy, DLP 733 mGy*cm. Findings: Evaluation of solid organs is limited due to lack of intravenous contrast use. Lung Bases: Atelectasis in the right lower lobe. Normal heart size. No pleural or pericardial effusion. Liver: The liver is normal in size. Small calcified lesion along the right hepatic dome, in the segment 8. It is probably benign. Gallbladder is surgically absent. Spleen: Unremarkable Pancreas: The pancreas is grossly normal in appearance. Adrenal Glands: Unremarkable Kidneys: No renal calculus or hydronephrosis. 2.2 cm hypodense lesion in the left renal interpolar region, dedicated renal ultrasound is suggested. Bladder: Grossly unremarkable Bowel: The stomach is grossly normal in appearance. Small bowel and colon are normal in caliber and distribution. The appendix is not visualized; however, no secondary findings of acute appendicitis identified. Ascites: Absent Lymphadenopathy: No mesenteric, retroperitoneal or periportal lymphadenopathy. Abdominal Wall and Mesentery: Unremarkable. Vasculature: The visualized abdominal aorta is normal in size and caliber. Evaluation of abdominal and pelvic vessels is limited due to lack of intravenous contrast. Pelvic Organs: Unremarkable Musculoskeletal: No aggressive focal bony lesions, acute fractures or disloca tion. IMPRESSION: 1. No acute abdominal or pelvic findings. Radiation optimization: All CT scans at this facility use at least one of these dose optimization techniques: automated exposure control mA and/or kV adjustment per patient size (includes targeted exams where dose is matched to clinical indication) or iterative reconstruction. ATED BY: DUANE HELM MD DICTATED DATE/TIME: 07/09/24243 SIGNED BY: DUANE HELM MD SIGNED DATE/TIME: 07/09/24243 CC: e-Prescriptions Nitrofurantoin Monohydrate Mac (Macrobid) 100 Mg Cap 100 MG PO BID for 7 Days, #14 CAP Prov: MIKE GAMEZ DO 07/09/24 Discharged With: Self Critical Care Note Critical Care Time?: Yes (35 min-critical care time only) Heart Score Heart Score: Heart Score Response (Comments) Value History N/A 0 EKG N/A 0 Age N/A 0 Risk Factors N/A 0 Troponin N/A 0 Total 0 MIKE GAMEZ DO Jul 09, 2024 02:10
[2024-07-09 02:20] LABS: Urine Bacteria None Seen /hpf (None Seen)
[2024-07-09 02:33] LABS: Eosinophils # (auto) 0.2 10 ^3/uL (0-0.8); Hemoglobin 18.7 g/dL (12.2-16.2); Mean Corpuscular Hemoglobin 31.7 pg (28.0-32.0); Monocytes # (auto) 1.3 10 ^3/uL (0-1.3); White Blood Cell 12.8 10^3/uL (4.4-10.8)
[2024-07-09 02:34] LABS: Basophils # (auto) 0.1 10 ^3/uL (0-0.2); Basophils % (auto) 0.6 % (0.0-2.0); Eosinophils % (auto) 1.8 % (0.0-7.0); Lymphocytes # (auto) 2.6 10 ^3/uL (0.4-5.4); Mean Corpuscular Volume 96.2 fL (80.0-100.0); Monocytes % (auto) 9.9 % (0.0-12.0); Neutrophils # (auto) 8.6 10 ^3/uL (1.6-8.6); Neutrophils % (auto) 67.7 % (37.0-80.0); Nucleated Red Blood Cells % 0.1 %; Platelet Count (auto) 237 10^3/uL (140-450); Red Blood Cells 5.89 10^6/uL (4.0-5.20)
[2024-07-09 02:34] LABS: Urine Blood Negative /uL (Negative); Urine Clarity Clear (Clear); Urine Color Colorless (Yellow); Urine Protein, UAD Negative (Negative); Urine Squamous Epithelial Cell FEW /hpf (<5); Urine Urobilinogen Normal (Negative); Urine WBC 16 /HPF (0-5); Urine pH 5.5 (5.0-9.0)
[2024-07-09 02:40] LABS: Hematocrit 56.7 % (36.0-46.0)
--- NOTE | 2024-07-09 02:46 | DVH ---
Exam: CT CT AB PEL WO CON-NO ORAL OR IV History: epig pain Comparison Study: None Technique: Multidetector spiral CT of the abdomen was performed from lung bases to pubic symphysis. Imaging was performed without IV contrast. Axial, coronal and sagittal multiplanar reformats were ob tained from the axial data set by the technologist. Radiation Dose : 1. Abdomen/Pelvis: CTDIvol 13.8 mGy, DLP 733 mGy*cm. Findings: Evaluation of solid organs is limited due to lack of intravenous contrast use. Lung Bases: Atelectasis in the right lower lobe. Normal heart size. No pleural or pericardial effusi on. Liver: The liver is normal in size. Small calcified lesion along the right hepatic dome, in the segm ent 8. It is probably benign. Gallbladder is surgically absent. Spleen: Unremarkable Pancreas: The pancreas is grossly normal in appearance. Adrenal Glands: Unremarkable Kidneys: No renal calculus or hydronephrosis. 2.2 cm hypodense lesion in the left renal interpolar re gion, dedicated renal ultrasound is suggested. Bladder: Grossly unremarkable Bowel: The stomach is grossly normal in appearance. Small bowel and colon are normal in caliber and d istribution. The appendix is not visualized; however, no secondary findings of acute appendicitis id entified. Ascites: Absent Lymphadenopathy: No mesenteric, retroperitoneal or periportal lymphadenopathy. Abdominal Wall and Mesentery: Unremarkable. Vasculature: The visualized abdominal aorta is normal in size and caliber. Evaluation of abdominal a nd pelvic vessels is limited due to lack of intravenous contrast. Pelvic Organs: Unremarkable Musculoskeletal: No aggressive focal bony lesions, acute fractures or dislocation. IMPRESSION: 1. No acute abdominal or pelvic findings. Radiation optimization: All CT scans at this facility use at least one of these dose optimization swapnil hniques: automated exposure control mA and/or kV adjustment per patient size (includes targeted exam s where dose is matched to clinical indication) or iterative reconstruction.
[2024-07-09 02:52] LABS: Albumin 4.3 g/dL (3.2-4.8); Alkaline Phosphatase 68 U/L (46-116); Anion Gap 8 (5-15); Aspartate Aminotransferase 22 U/L (13-40); BUN/Creatinine Ratio 16.2 (10.0-20.0); Bilirubin, Total 0.5 mg/dL (0.2-1.0); Blood Urea Nitrogen 16 mg/dL (9-23); Calcium 10.4 mg/dL (8.7-10.4); Carbon Dioxide 28 mmol/L (20-31); Chloride 105 mmol/L (98-107); Potassium 3.9 mmol/L (3.5-5.1); Sodium 141 mmol/L (136-145)
[2024-07-09 02:53] LABS: Total Protein 7.4 g/dL (5.7-8.2)
[2024-07-09 02:54] LABS: Alanine Aminotransferase 44 U/L (7-40); Glucose 122 mg/dL (74-106); Lipase 439 U/L (12-53)
[2024-07-09] MEDS ORDERED: NITR-87 PO (02:57)
[2024-07-09] MEDS: PIPERACILLIN-TAZOB 3.375GM 100 ML IV ONE (03:51)
[2024-07-09] MEDS: SODIUM CHLORIDE 0.9% 1,000 ML IV ONE (03:51)
[2024-07-09] MEDS: fentaNYL CITRATE 100 MCG/2 ML VL IV ONE (03:52)
[2024-07-09] MEDS: ONDANSETRON HCL 4 MG/2 ML VIAL IV ONE (04:30)
--- NOTE | 2024-07-09 07:25 | DVHHP2 ---
History of Present Illness Reason for Visit: Abdominal pain History of Present Illness Laura Sanches is a 74-year-old female with past medical history hyperlipidemia, diabetes, COPD, anxiety, depression, gout, thyroid disease, cholecystectomy, hysterectomy, bladder sling, and thyroidectomy who presents to the ED with abdominal pain x1 day. Patient states the pain is currently 2/10 aching and intermittent in nature. She also endorses some nausea with no vomiting or diarrhea. She denies bloody stool, any recent sick contacts, chest pain, shortness of breath, fever, chills, recent trauma or injury, lightheadedness, weakness, and dizziness. Cardiovascular: hyperipidemia Pulmonary: COPD Psych: Anxiety, Depression Rheumatologic: Gout Endocrine: Diabetes, Hypothyroidism Past Surgical History: Cholecystectomy, Hysterectomy, Other (Sling and thyroidectomy) Family History: Cancer, CVA, DM, Hypertension, Other (Mom with CVA, diabetes, a nd hypertension dad with emphysema and lung cancer) Smoke: No ALCOHOL: none Drugs: None Lives: with Family Domestic Violence: Neg Review of Systems Gastrointestinal: Nausea, Abdominal Pain Allergies: Coded Allergies: NO KNOWN ALLERGIES (Unverified , 02/12/16) Exam Vital Signs Vital Signs Date Time Temp Pulse Resp B/P (MAP) Pulse Ox O2 Delivery O2 Flow Rate FiO2 07/09/24 06:47 97.6 66 18 124/73 (90) 95 97.6 07/09/24 03:55 Room Air* 0 21 General Appearance: Alert, Oriented X3, Cooperative, No acute distress HEENT: Atraumatic, PERRLA, EOMI, Mucous membr. moist/pink Respiratory: Clear to auscultation, Normal air movement Cardiovascular: Regular rate, Normal S1, Normal S2, No murmurs Abdominal: Normal bowel sounds, Soft, No hepatospenomegaly, No masses Extremities: No clubbing, No cyanosis, No edema, Normal pulses, No tenderness/swelling Skin: No rashes, No breakdown, No significant lesion Neuro: Normal gait, Normal speech, Strength at 5/5 X4 ext, Normal tone, Sensat ion intact Psych/Mental Status: Mental status NL, Mood NL Labs/Xrays Labs Test 07/09/24 02:12 07/09/24 01:56 Range/Units White Blood Count 12.8 #H 4.4-10.8 10^3/uL Red Blood Count 5.89 H 4.0-5.20 10^6/uL Hemoglobin 18.7 H 12.2-16.2 g/dL Hematocrit 56.7 #H 36.0-46.0 % Mean Corpuscular Volume 96.2 80.0-100.0 fL Mean Corpuscular Hemoglobin 31.7 28.0-32.0 pg Mean Corpuscular Hemoglobin Concent 33.0 32.0-36.0 g/dL Red Cell Distribution Width 17.0 H 11.8-14.3 % Platelet Count 237 140-450 10^3/uL Mean Platelet Volume 8.0 6.9-10.8 fL Neutrophils (%) (Auto) 67.7 37.0-80.0 % Lymphocytes (%) (Auto) 20.0 10.0-50.0 % Monocytes (%) (Auto) 9.9 0.0-12.0 % Eosinophils (%) (Auto) 1.8 0.0-7.0 % Basophils (%) (Auto) 0.6 0.0-2.0 % Neutrophils # (Auto) 8.6 1.6-8.6 10 ^3/uL Lymphocytes # (Auto) 2.6 0.4-5.4 10 ^3/uL Monocytes # (Auto) 1.3 0-1.3 10 ^3/uL Eosinophils # (Auto) 0.2 0-0.8 10 ^3/uL Basophils # (Auto) 0.1 0-0.2 10 ^3/uL Nucleated Red Blood Cells 0.1 % Sodium Level 141 136-145 mmol/L Potassium Level 3.9 3.5-5.1 mmol/L Chloride Level 105 98-107 mmol/L Carbon Dioxide Level 28 20-31 mmol/L Anion Gap 8 5-15 Blood Urea Nitrogen 16 9-23 mg/dL Creatinine 0.99 0.550-1.02 mg/dL Glomerular Filtration Rate Calc 61 >90 mL/min BUN/Creatinine Ratio 16.2 10.0-20.0 Serum Glucose 122 H 74-106 mg/dL Lactic Acid Level 0.8 0.4-2.0 mmol/L Calcium Level 10.4 8.7-10.4 mg/dL Total Bilirubin 0.5 0.2-1.0 mg/dL Aspartate Amino Transferase (AST) 22 13-40 U/L Alanine Aminotransferase (ALT) 44 H 7-40 U/L Alkaline Phosphatase 68 46-116 U/L Troponin I High Sensitivity 5 </=34 ng/L B-Type Natriuretic Peptide 24.54 0-100 pg/mL Total Protein 7.4 5.7-8.2 g/dL Albumin 4.3 3.2-4.8 g/dL Lipase 439 H 12-53 U/L Urine Color Colorless Yellow Urine Clarity Clear Clear Urine pH 5.5 5.0-9.0 Urine Specific [place] 1.010 1.001-1.035 Urine Protein Negative Negative Urine Ketones Negative Negative Urine Blood Negative Negative /uL Urine Nitrite Negative Negative Urine Bilirubin Negative Negative Urine Urobilinogen Normal Negative mg/dL Urine Leukocyte Esterase 2+ Negative /uL Urine RBC 1 0 - 4 /hpf Urine Microscopic WBC 16 H 0-5 /HPF Urine Squamous Epithelial Cells Few <5 /hpf Urine Bacteria None seen None Seen /hpf Urine Glucose 2+ H Normal mg/dL INDICATION: abd pain TECHNIQUE: Multiple real-time sonographic images of the abdomen were obtained. COMPARISON: None FINDINGS: The liver is homogenous in echogenicity. The liver measures 17cm. No intrahepatic biliary ductal dilatation is noted. Gallbladder removed. The common duct measures 0.8 cm and is unremarkable. No pericholecystic fluid is noted. The right kidney measures 10cm. No hydronephrosis. The left kidney measures 10cm. No hydronephrosis. 4cm left renal cyst. The spleen measures 9cm, within normal limits. The echogenicity is within normal limits. The pancreas is not well visualized due to obscuration from bowel gas. The visualized portions of the IVC and aorta are grossly unremarkable. IMPRESSION: Normal exam of the abdomen. Exam: CT CT AB PEL WO CON-NO ORAL OR IV History: epig pain Comparison Study: None Technique: Multidetector spiral CT of the abdomen was performed from lung bases to pubic symphysis. Imaging was performed without IV contrast. Axial, coronal and sagittal multiplanar reformats were obtained from the axial data set by the technologist. Radiation Dose : 1. Abdomen/Pelvis: CTDIvol 13.8 mGy, DLP 733 mGy*cm. Findings: Evaluation of solid organs is limited due to lack of intravenous contrast use. Lung Bases: Atelectasis in the right lower lobe. Normal heart size. No pleural or pericardial effusion. Liver: The liver is normal in size. Small calcified lesion along the right hepatic dome, in the segment 8. It is probably benign. Gallbladder is surgically absent. Spleen: Unremarkable Pancreas: The pancreas is grossly normal in appearance. Adrenal Glands: Unremarkable Kidneys: No renal calculus or hydronephrosis. 2.2 cm hypodense lesion in the left renal interpolar region, dedicated renal ultrasound is suggested. Bladder: Grossly unremarkable Bowel: The stomach is grossly normal in appearance. Small bowel and colon are normal in caliber and distribution. The appendix is not visualized; however, no secondary findings of acute appendicitis identified. Ascites: Absent Lymphadenopathy: No mesenteric, retroperitoneal or periportal lymphadenopathy. Abdominal Wall and Mesentery: Unremarkable. Vasculature: The visualized abdominal aorta is normal in size and caliber. Evaluation of abdominal and pelvic vessels is limited due to lack of intravenous contrast. Pelvic Organs: Unremarkable Musculoskeletal: No aggressive focal bony lesions, acute fractures or dislocation. IMPRESSION: 1. No acute abdominal or pelvic findings. Assessment/Plan Assessment/Plan Assessment Intractable abdominal pain Leukocytosis likely due acute cystitis Hyperlipasemia History of hyperlipidemia History of diabetes History of COPD History of anxiety History of depression History of gout History of thyroid disease History of cholecystectomy History of hysterectomy History of bladder sling History thyroidectomy Plan Admit to med surge Antiemetics Pain management IV fluids CT abdomen and pelvis noted EKG done UA Troponin Ultrasound abdomen ordered Hemoglobin A1c ISS and Accu-Cheks BNP noted Home medications reconciled Diet P.r.n. 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 Procedure Category Date Status Time Admit ADMIT 07/09/24 Transmitted 07:20 Allergies KARINE 07/09/24 Transmitted 07:20 Code Status CODE 07/09/24 Transmitted 07:20 Hydrocodone-Acet PHA 07/09/24 Transmitted 5/325mg Tab ([place] 07:30 Ondansetron Hcl PHA 07/09/24 Transmitted (Zofran) 07:30 Complete Blood Count LAB 07/10/24 Verified 04:00 Comprehensive LAB 07/10/24 Verified Metabolic Panel 04:00 Cardiac DIET 07/09/24 Transmitted Diet-2gna,Lofat,Lochol Breakfast Acetaminophen Tablet PHA 07/09/24 Transmitted (Tylenol Tablet) 07:30 Ceftriaxone Ivpb PHA 07/09/24 Transmitted Rocephin 09:00 Glucose Blood PHA 07/09/24 Transmitted (Accu-Chek Comfort 11:30 Mild Sliding Scale PHA 07/09/24 Transmitted 11:30 Dextrose 50% Syringe PHA 07/09/24 Transmitted 07:30 Hemoglobin A1c LAB 07/09/24 Transmitted 07:20 Date of Service: Jul 09, 2024 Billing Provider: YULI SEQUEIRA Common Visit Codes: [id number] INP/OBS CARE (HIGH) YULI SEQUEIRA Jul 09, 2024 07:25
[2024-07-09] MEDS ORDERED: ONDANSETRON HCL 4 MG/2 ML VIAL IV PRN (07:30)
[2024-07-09] MEDS ORDERED: ACETAMINOPHEN 325 MG TAB PO PRN (07:30)
[2024-07-09] MEDS ORDERED: DEXTROSE (50%) 50ML SYRG IV PRN (07:30)
--- NOTE | 2024-07-09 08:26 | DVH ---
INDICATION: abd pain TECHNIQUE: Multiple real-time sonographic images of the abdomen were obtained. COMPARISON: None FINDINGS: The liver is homogenous in echogenicity. The liver measures 17cm. No intrahepatic biliary ductal dilatation is noted. Gallbladder removed. The common duct measures 0.8 cm and is unremarkable. No pericholecystic fluid is noted. The right kidney measures 10cm. No hydronephrosis. The left kidney measures 10cm. No hydronephrosis . 4cm left renal cyst. The spleen measures 9cm, within normal limits. The echogenicity is within normal limits. The pancreas is not well visualized due to obscuration from bowel gas. The visualized portions of the IVC and aorta are grossly unremarkable. IMPRESSION: Normal exam of the abdomen.
[2024-07-09] MEDS: cefTRIAXone 1GM/50ML D5W 50 ML IV SCH (09:55)
--- NOTE | 2024-07-09 10:05 | DVHPN2 ---
Subjective Still complaining of abdominal pain Reviewed: Care Plan, H&P, Labs, Medications, Previous Orders, Radiology Changes from previous H/P or p: No Changes Objective Vitals Vital Signs Date Time Temp Pulse Resp B/P (MAP) Pulse Ox O2 Delivery O2 Flow Rate FiO2 07/09/24 08:50 97.6 67 18 136/87 (103) 90 97.6 07/09/24 03:55 Room Air* 0 21 Intake/Output Intake and Output 07/09/24 07:00 Intake Total 1100 ml Balance 1100 ml Intake IV Total 1100 ml General Appearance: Alert, Oriented X3, Cooperative, No acute distress HEENT: Atraumatic Lungs: Clear to auscultation, Normal air movement Cardiovascular: Regular rate, Normal S1, Normal S2 Abdomen: Normal bowel sounds, Soft, Other (Diffuse mild tenderness) Neuro: Normal speech, Cranial nerves 3-12 NL Psych/Mental Status: Mental status NL, Mood NL Medications Current Medications Medications Dose Ordered Sig/Michael Route Start Time Stop Time Status Last Admin Dose Admin Acetaminophen/ Hydrocodone Bitart 1 tab Q4HP PRN PO 07/09/24 07:30 Ondansetron HCl 4 mg Q4HP PRN IV 07/09/24 07:30 Acetaminophen 650 mg Q6HP PRN PO 07/09/24 07:30 Ceftriaxone Sodium 50 ml @ 100 mls/hr DAILY@09 IV 07/09/24 09:00 07/09/24 09:55 100 MLS/HR Diagnostic Test (Pha) 1 strip ACHS 07/09/24 11:30 Insulin Human Regular ACHS SC 07/09/24 11:30 Dextrose 50 ml UD PRN IV 07/09/24 07:30 Laboratory Results Laboratory Tests 07/09/24 02:12 Chemistry Test 07/09/24 02:12 Albumin 4.3 g/dL (3.2-4.8) Calcium Level 10.4 mg/dL (8.7-10.4) Total Protein 7.4 g/dL (5.7-8.2) Lipid panel Test 07/09/24 02:12 Lipase 439 U/L (12-53) H Cardiac Markers Test 07/09/24 02:12 B-Type Natriuretic Peptide 24.54 pg/mL (0-100) LFT Test 07/09/24 02:12 Alanine Aminotransferase (ALT) 44 U/L (7-40) H Alkaline Phosphatase 68 U/L (46-116) Aspartate Amino Transferase (AST) 22 U/L (13-40) Total Bilirubin 0.5 mg/dL (0.2-1.0) Urinalysis Test 07/09/24 01:56 Urine Color Colorless (Yellow) Urine Clarity Clear (Clear) Urine pH 5.5 (5.0-9.0) Urine Specific [place] 1.010 (1.001-1.035) Urine Protein Negative (Negative) Urine Ketones Negative (Negative) Urine Blood Negative /uL (Negative) Urine Nitrite Negative (Negative) Urine Bilirubin Negative (Negative) Urine Urobilinogen Normal mg/dL (Negative) Urine Leukocyte Esterase 2+ /uL (Negative) Urine RBC 1 /hpf (0 - 4) Urine Microscopic WBC 16 /HPF (0-5) H Urine Squamous Epithelial Cells Few /hpf (<5) Urine Bacteria None seen /hpf (None Seen) Urine Glucose 2+ mg/dL (Normal) H Labs and/or images reviewed: Labs reviewed by me, Image(s) reviewed by me Assessment/Plan Assessment/Plan A 74-year-old female patient; multiple comorbidities; presented to the emergency department with abdominal pain. #Abdominal pain; unclear etiology; reviewed the available imaging studies that showed no acute abnormalities in the abdomen/pelvis; lipase elevated; continue IV antibiotics for suspected sepsis in the setting of leukocytosis; continue pain management as indicated; continue monitoring #Suspected sepsis in the setting of leukocytosis and elevated lipase; continue IV antibiotics; continue monitoring #Anxiety and depression; no suicide ideation/plans; continue home medications of citalopram and buspirone; continue monitoring #COPD; not in exacerbation; continue current medical management; continue monitoring #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; continue home levothyroxine; continue monitoring #Obesity; counseled on importance of adopting healthy lifestyle with diet and exercise in order to lose weight #Gout; no flare; continue home allopurinol; continue monitoring #Diabetes mellitus type 2; continue insulin sliding scale with hypoglycemia protocol; continue monitoring #Dyslipidemia; continue statin; continue monitoring #4cm left renal cyst; to follow up as outpatient #Unprovoked subsegmental pulmonary embolism; finished apixaban 10 mg twice a day; continue home apixaban 5 mg twice a day; continue monitoring #Incidental intramural aortic thrombus; to follow up as outpatient #Hypertensive heart disease; continue antihypertensive medications as indicated; continue monitoring #Diabetes mellitus type 2; continue insulin sliding scale with hypoglycemia protocol; continue monitoring #Obesity; counseled on importance of adopting lifestyle with diet and exercise in order to lose weight Goals of care discussed with the patient for 20 minutes; full code. Late Entry. This medical document was created using an electronic medical record system with computerized dictation system. Although this document has been carefully reviewed, there might still be some phonetic and typographical errors. These areas are purely typographical due to imperfections of the software programs, and do not reflect any compromise in the patient's medical care. Plan discussed with: Patient, Other (Nurse) Date of Service: Jul 09, 2024 Billing Provider: STELLA CHAVARRIA MD Common Visit Codes: [id number] INP/OBS CARE(HIGH) Secondary Visit Codes: [id number] CARE PLAN 30 MINUTES (20 minutes) STELLA CHAVARRIA MD Jul 09, 2024 10:05
[2024-07-09] MEDS: ACCU-CHEK COMFORT CURVE STRIP VI SCH (12:25)
[2024-07-09] MEDS: InsuLIN REG 1unit/0.01ml Soln (100units/ml) SC SCH (12:25)
[2024-07-09] MEDS ORDERED: INFLUENZA TRIVALENT 2024-2025 0.5 ML INJ IM ONE (13:15)
[2024-07-09] MEDS: ALBUTEROL SULF 2.5 MG/0.5ML(0.5%) NEB SOLN NEB PRN (19:15)
[2024-07-09] MEDS: IPRATROPIUM BROM 0.5 MG/2.5ML INH SOL NEB PRN (19:15)
[2024-07-10] VITALS (13 sets, daily range): BP systolic 111–137; BP diastolic 68–83; PULSE 68–88; RESP 16–20; TEMP 97.3–97.9; O2SAT 91–98
[2024-07-10 07:49] LABS: Basophils # (auto) 0 10 ^3/uL (0-0.2); Basophils % (auto) 0.2 % (0.0-2.0); Eosinophils # (auto) 0.3 10 ^3/uL (0-0.8); Eosinophils % (auto) 3.3 % (0.0-7.0); Hematocrit 52.4 % (36.0-46.0); Hemoglobin 17.1 g/dL (12.2-16.2); Lymphocytes # (auto) 1.8 10 ^3/uL (0.4-5.4); Lymphocytes % (auto) 18.7 % (10.0-50.0); Mean Corpuscular Hemoglobin 31.5 pg (28.0-32.0); Mean Corpuscular Hgb Conc. 32.6 g/dL (32.0-36.0); Mean Corpuscular Volume 96.5 fL (80.0-100.0); Monocytes # (auto) 0.8 10 ^3/uL (0-1.3); Monocytes % (auto) 8.3 % (0.0-12.0); Neutrophils # (auto) 6.6 10 ^3/uL (1.6-8.6); Neutrophils % (auto) 69.5 % (37.0-80.0); Nucleated Red Blood Cells % 0.1 %; Platelet Count (auto) 190 10^3/uL (140-450); Red Blood Cells 5.44 10^6/uL (4.0-5.20); Red Cell Distribution Width 16.9 % (11.8-14.3); White Blood Cell 9.5 10^3/uL (4.4-10.8)
[2024-07-10 08:07] LABS: Alanine Aminotransferase 31 U/L (7-40); Albumin 3.8 g/dL (3.2-4.8); Alkaline Phosphatase 57 U/L (46-116); Anion Gap 10 (5-15); Aspartate Aminotransferase 12 U/L (13-40); Bilirubin, Total 0.6 mg/dL (0.2-1.0); Blood Urea Nitrogen 16 mg/dL (9-23); Calcium 9.7 mg/dL (8.7-10.4); Carbon Dioxide 27 mmol/L (20-31); Chloride 105 mmol/L (98-107); Glucose 106 mg/dL (74-106); Potassium 3.4 mmol/L (3.5-5.1); Sodium 142 mmol/L (136-145); Total Protein 6.7 g/dL (5.7-8.2)
[2024-07-10] MEDS: APIXABAN 5 MG TAB PO ONE (12:27)
[2024-07-10] MEDS: POTASSIUM EFFERVESENT TAB 25 MEQ PO ONE (12:27)
--- NOTE | 2024-07-10 19:52 | DVHPN2 ---
Subjective Decreasing abdominal pain Reviewed: Care Plan, H&P, Labs, Medications, Previous Orders, Radiology Changes from previous H/P or p: Changes Objective Vitals Vital Signs Date Time Temp Pulse Resp B/P (MAP) Pulse Ox O2 Delivery O2 Flow Rate FiO2 07/10/24 18:26 76 20 98 07/10/24 18:20 Room Air* 0 21 07/10/24 17:10 97.8 115/79 (91) 97.8 Intake/Output Intake and Output 07/10/24 07:00 Intake Total 1150 ml Balance 1150 ml Intake Oral 1100 ml IV Total 50 ml # Voids 3 # Bowel Movements 1 General Appearance: Alert, Oriented X3, Cooperative, No acute distress HEENT: Atraumatic Lungs: Clear to auscultation, Normal air movement Cardiovascular: Regular rate, Normal S1, Normal S2 Abdomen: Normal bowel sounds, Soft, Other (Diffuse mild tenderness) Neuro: Normal speech, Cranial nerves 3-12 NL Psych/Mental Status: Mental status NL, Mood NL Medications Current Medications Medications Dose Ordered Sig/Michael Route Start Time Stop Time Status Last Admin Dose Admin Acetaminophen/ Hydrocodone Bitart 1 tab Q4HP PRN PO 07/09/24 07:30 Ondansetron HCl 4 mg Q4HP PRN IV 07/09/24 07:30 Acetaminophen 650 mg Q6HP PRN PO 07/09/24 07:30 Ceftriaxone Sodium 50 ml @ 100 mls/hr DAILY@09 IV 07/09/24 09:00 07/10/24 08:57 100 MLS/HR Diagnostic Test (Pha) 1 strip ACHS 07/09/24 11:30 07/10/24 17:13 1 STRIP Insulin Human Regular ACHS SC 07/09/24 11:30 07/10/24 17:14 2 UNITS Dextrose 50 ml UD PRN IV 07/09/24 07:30 Albuterol 2.5 mg Q4HPRN PRN NEB 07/09/24 12:30 07/10/24 18:19 2.5 MG Ipratropium [place] 0.5 mg Q4HPRN PRN NEB 07/09/24 12:30 07/10/24 18:19 0.5 MG Apixaban 5 mg BID PO 07/10/24 22:00 Laboratory Results Laboratory Tests 07/10/24 06:46 Chemistry Test 07/10/24 06:46 Albumin 3.8 g/dL (3.2-4.8) Calcium Level 9.7 mg/dL (8.7-10.4) Total Protein 6.7 g/dL (5.7-8.2) LFT Test 07/10/24 06:46 Alanine Aminotransferase (ALT) 31 U/L (7-40) Alkaline Phosphatase 57 U/L (46-116) Aspartate Amino Transferase (AST) 12 U/L (13-40) L Total Bilirubin 0.6 mg/dL (0.2-1.0) Urinalysis Test 07/09/24 01:56 Urine Color Colorless (Yellow) Urine Clarity Clear (Clear) Urine pH 5.5 (5.0-9.0) Urine Specific [place] 1.010 (1.001-1.035) Urine Protein Negative (Negative) Urine Ketones Negative (Negative) Urine Blood Negative /uL (Negative) Urine Nitrite Negative (Negative) Urine Bilirubin Negative (Negative) Urine Urobilinogen Normal mg/dL (Negative) Urine Leukocyte Esterase 2+ /uL (Negative) Urine RBC 1 /hpf (0 - 4) Urine Microscopic WBC 16 /HPF (0-5) H Urine Squamous Epithelial Cells Few /hpf (<5) Urine Bacteria None seen /hpf (None Seen) Urine Glucose 2+ mg/dL (Normal) H Microbiology Microbiology Date/Time Source Procedure Growth Status 07/09/24 15:50 Nose MRSA Screen - Final Complete Labs and/or images reviewed: Labs reviewed by me, Image(s) reviewed by me Assessment/Plan Assessment/Plan A 74-year-old female patient; multiple comorbidities; presented to the emergency department with abdominal pain. #Abdominal pain; unclear etiology; reviewed the available imaging studies that showed no acute abnormalities in the abdomen/pelvis; lipase elevated; continue IV antibiotics for suspected sepsis in the setting of leukocytosis; continue pain management as indicated; to repeat lipase in the morning; continue monitoring #Suspected sepsis in the setting of leukocytosis and elevated lipase; continue IV antibiotics; continue monitoring #Anxiety and depression; no suicide ideation/plans; continue home medications of citalopram and buspirone; continue monitoring #COPD; not in exacerbation; continue current medical management; continue monitoring #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; continue home levothyroxine; continue monitoring #Obesity; counseled on importance of adopting healthy lifestyle with diet and exercise in order to lose weight #Gout; no flare; continue home allopurinol; continue monitoring #Diabetes mellitus type 2; continue insulin sliding scale with hypoglycemia protocol; continue monitoring #Dyslipidemia; continue statin; continue monitoring #4cm left renal cyst; to follow up as outpatient #Unprovoked subsegmental pulmonary embolism; finished apixaban 10 mg twice a day; continue home apixaban 5 mg twice a day; continue monitoring #Incidental intramural aortic thrombus; to follow up as outpatient #Hypertensive heart disease; continue antihypertensive medications as indicated; continue monitoring #Diabetes mellitus type 2; continue insulin sliding scale with hypoglycemia protocol; continue monitoring #Obesity; counseled on importance of adopting lifestyle with diet and exercise in order to lose weight Late Entry. This medical document was created using an electronic medical record system with computerized dictation system. Although this document has been carefully reviewed, there might still be some phonetic and typographical errors. These areas are purely typographical due to imperfections of the software programs, and do not reflect any compromise in the patient's medical care. Plan discussed with: Patient, Other (Nurse) My Orders Orders - STELLA CHAVARRIA MD Procedure Category Date Status Time Apixaban (Eliquis) PHA 07/10/24 In Process 22:00 Complete Blood Count LAB 07/11/24 Verified 04:00 Basic Metabolic Panel LAB 07/11/24 Verified 04:00 Magnesium LAB 07/11/24 Verified 04:00 Lipase LAB 07/11/24 Verified 04:00 Levothyroxine Tablet PHA 07/11/24 Logged (Synthroid Tablet) 06:00 Allopurinol Tablet PHA 07/11/24 Logged (Zyloprim Tablet) 10:00 Citalopram Tablet PHA 07/11/24 Logged (Celexa Tablet) 10:00 Buspirone Hcl Tablet PHA 07/10/24 Logged (Buspar Tablet) 22:00 Atorvastatin (Lipitor) PHA 07/10/24 Logged 22:00 Date of Service: Jul 10, 2024 Billing Provider: STELLA CHAVARRIA MD Common Visit Codes: [id number] INP/OBS CARE(HIGH) STELLA CHAVARRIA MD Jul 10, 2024 19:52
[2024-07-10] MEDS: busPIRone HCL 10 MG TAB PO SCH (21:30)
[2024-07-10] MEDS: ATORVASTATIN 20 MG TAB PO SCH (21:30)
[2024-07-10] MEDS: APIXABAN 5 MG TAB PO SCH (21:31)
[2024-07-10] MEDS: MAALOX PLUS or MAALOX 30 ML PO ONE (22:01)
[2024-07-11] VITALS (8 sets, daily range): BP systolic 111–139; BP diastolic 76–86; PULSE 68–71; RESP 16–18; TEMP 36.5; O2SAT 90–97
[2024-07-11] MEDS: HYDROcodone-ACET 5/325MG TAB PO PRN (03:41)
[2024-07-11] MEDS: LEVOTHYROXINE SODIUM 112 MCG TAB PO SCH (06:22)
[2024-07-11 07:00] LABS: Basophils # (auto) 0 10 ^3/uL (0-0.2); Basophils % (auto) 0.4 % (0.0-2.0); Eosinophils # (auto) 0.4 10 ^3/uL (0-0.8); Hematocrit 49.6 % (36.0-46.0); Hemoglobin 16.5 g/dL (12.2-16.2); Lymphocytes # (auto) 1.6 10 ^3/uL (0.4-5.4); Lymphocytes % (auto) 18.3 % (10.0-50.0); Mean Corpuscular Hgb Conc. 33.3 g/dL (32.0-36.0); Mean Corpuscular Volume 96.2 fL (80.0-100.0); Monocytes # (auto) 0.8 10 ^3/uL (0-1.3); Monocytes % (auto) 9.5 % (0.0-12.0); Neutrophils # (auto) 5.9 10 ^3/uL (1.6-8.6); Neutrophils % (auto) 67.8 % (37.0-80.0); Platelet Count (auto) 178 10^3/uL (140-450); Red Blood Cells 5.15 10^6/uL (4.0-5.20); Red Cell Distribution Width 16.6 % (11.8-14.3); White Blood Cell 8.6 10^3/uL (4.4-10.8)
[2024-07-11 07:17] LABS: Anion Gap 8 (5-15); Carbon Dioxide 29 mmol/L (20-31); Chloride 104 mmol/L (98-107); Potassium 3.6 mmol/L (3.5-5.1); Sodium 141 mmol/L (136-145)
[2024-07-11 07:18] LABS: Calcium 9.8 mg/dL (8.7-10.4)
[2024-07-11 07:23] LABS: BUN/Creatinine Ratio 21.7 (10.0-20.0); Blood Urea Nitrogen 15 mg/dL (9-23)
[2024-07-11 07:29] LABS: Glucose 119 mg/dL (74-106); Lipase 165 U/L (12-53)
[2024-07-11] MEDS: CITALOPRAM HYDROBR 20 MG TAB PO SCH (09:25)
[2024-07-11] MEDS: ALLOPURINOL 100 MG TAB PO SCH (09:26)
--- NOTE | 2024-07-11 10:36 | DVHPN2 ---
Subjective Almost no abdominal pain Reviewed: Care Plan, H&P, Labs, Medications, Previous Orders, Radiology Changes from previous H/P or p: Changes Objective Vitals Vital Signs Date Time Temp Pulse Resp B/P (MAP) Pulse Ox O2 Delivery O2 Flow Rate FiO2 07/11/24 10:00 96 Room Air* 0 21 07/11/24 09:00 97.7 70 16 139/86 (103) 97.7 Intake/Output Intake and Output 07/11/24 07:00 Intake Total 886 ml Output Total 4 ml Balance 882 ml Intake Oral 886 ml Output Urine Total 4 ml # Voids 4 # Bowel Movements 3 General Appearance: Alert, Oriented X3, Cooperative, No acute distress HEENT: Atraumatic Lungs: Clear to auscultation, Normal air movement Cardiovascular: Regular rate, Normal S1, Normal S2 Abdomen: Normal bowel sounds, Soft, Other (Diffuse mild tenderness) Neuro: Normal speech, Cranial nerves 3-12 NL Psych/Mental Status: Mental status NL, Mood NL Medications Current Medications Medications Dose Ordered Sig/Michael Route Start Time Stop Time Status Last Admin Dose Admin Acetaminophen/ Hydrocodone Bitart 1 tab Q4HP PRN PO 07/09/24 07:30 07/11/24 03:41 1 TAB Ondansetron HCl 4 mg Q4HP PRN IV 07/09/24 07:30 Acetaminophen 650 mg Q6HP PRN PO 07/09/24 07:30 Ceftriaxone Sodium 50 ml @ 100 mls/hr DAILY@09 IV 07/09/24 09:00 07/11/24 09:24 100 MLS/HR Diagnostic Test (Pha) 1 strip ACHS 07/09/24 11:30 07/11/24 06:22 1 STRIP Insulin Human Regular ACHS SC 07/09/24 11:30 07/11/24 06:25 2 UNITS Dextrose 50 ml UD PRN IV 07/09/24 07:30 Albuterol 2.5 mg Q4HPRN PRN NEB 07/09/24 12:30 07/10/24 18:19 2.5 MG Ipratropium [place] 0.5 mg Q4HPRN PRN NEB 07/09/24 12:30 07/10/24 18:19 0.5 MG Apixaban 5 mg BID PO 07/10/24 22:00 07/11/24 09:25 5 MG Levothyroxine Sodium 112 mcg QAM@0600 PO 07/11/24 06:00 07/11/24 06:22 112 MCG Allopurinol 200 mg DAILY PO 07/11/24 10:00 07/11/24 09:26 200 MG Citalopram Hydrobromide 20 mg DAILY PO 07/11/24 10:00 07/11/24 09:25 20 MG Buspirone HCl 10 mg Q12HR PO 07/10/24 22:00 07/11/24 09:24 10 MG Atorvastatin Calcium 40 mg HS PO 07/10/24 22:00 07/10/24 21:30 40 MG Amlodipine Besylate 10 mg DAILY PO 07/12/24 10:00 Losartan Potassium 100 mg DAILY PO 07/12/24 10:00 Metoprolol Succinate 100 mg DAILY PO 07/12/24 10:00 Laboratory Results Laboratory Tests 07/11/24 06:28 Chemistry Test 07/11/24 06:28 Calcium Level 9.8 mg/dL (8.7-10.4) Magnesium Level 2.0 mg/dL (1.6-2.6) Lipid panel Test 07/11/24 06:28 Lipase 165 U/L (12-53) H Urinalysis Test 07/09/24 01:56 Urine Color Colorless (Yellow) Urine Clarity Clear (Clear) Urine pH 5.5 (5.0-9.0) Urine Specific [place] 1.010 (1.001-1.035) Urine Protein Negative (Negative) Urine Ketones Negative (Negative) Urine Blood Negative /uL (Negative) Urine Nitrite Negative (Negative) Urine Bilirubin Negative (Negative) Urine Urobilinogen Normal mg/dL (Negative) Urine Leukocyte Esterase 2+ /uL (Negative) Urine RBC 1 /hpf (0 - 4) Urine Microscopic WBC 16 /HPF (0-5) H Urine Squamous Epithelial Cells Few /hpf (<5) Urine Bacteria None seen /hpf (None Seen) Urine Glucose 2+ mg/dL (Normal) H Microbiology Microbiology Date/Time Source Procedure Growth Status 07/09/24 15:50 Nose MRSA Screen - Final Complete Labs and/or images reviewed: Labs reviewed by me, Image(s) reviewed by me Assessment/Plan Assessment/Plan A 74-year-old female patient; multiple comorbidities; presented to the emergency department with abdominal pain. #Abdominal pain; unclear etiology; reviewed the available imaging studies that showed no acute abnormalities in the abdomen/pelvis; lipase elevated; was on IV antibiotics for suspected sepsis in the setting of leukocytosis; discharged on oral antibiotics; repeat lipase trending down to 165; instructed the patient to have lipase repeated by her primary care provider within one week #Suspected sepsis in the setting of leukocytosis and elevated lipase; was on IV antibiotics; discharged on oral antibiotics; to follow up with the primary care provider #Anxiety and depression; no suicide ideation/plans; continue home medications of citalopram and buspirone; to follow up with the primary care provider #COPD; not in exacerbation; continue current medical management; to follow up with the primary care provider #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; continue home levothyroxine; to follow up with the primary care provider #Obesity; counseled on importance of adopting healthy lifestyle with diet and exercise in order to lose weight; to follow up with the primary care provider #Gout; no flare; continue home allopurinol; to follow up with the primary care provider #Diabetes mellitus type 2; resume home antidiabetic medications; to follow up with the primary care provider #Dyslipidemia; continue home statin; to follow up with the primary care provider #4cm left renal cyst; to follow up as outpatient; to follow up with the primary care provider #Unprovoked subsegmental pulmonary embolism; finished apixaban 10 mg twice a day; continue home apixaban 5 mg twice a day; to follow up with the primary care provider #Incidental intramural aortic thrombus; to follow up as outpatient; to follow up with the primary care provider #Hypertensive heart disease; continue home antihypertensive medications as indicated; to follow up with the primary care provider #Obesity; counseled on importance of adopting lifestyle with diet and exercise in order to lose weight; to follow up with the primary care provider Late Entry. This medical document was created using an electronic medical record system with computerized dictation system. Although this document has been carefully reviewed, there might still be some phonetic and typographical errors. These areas are purely typographical due to imperfections of the software programs, and do not reflect any compromise in the patient's medical care. Plan discussed with: Patient, Other (Nurse) My Orders Orders - STELLA CHAVARRIA MD Procedure Category Date Status Time Apixaban (Eliquis) PHA 07/10/24 In Process 22:00 Levothyroxine Tablet PHA 07/11/24 In Process (Synthroid Tablet) 06:00 Allopurinol Tablet PHA 07/11/24 In Process (Zyloprim Tablet) 10:00 Citalopram Tablet PHA 07/11/24 In Process (Celexa Tablet) 10:00 Buspirone Hcl Tablet PHA 07/10/24 In Process (Buspar Tablet) 22:00 Atorvastatin (Lipitor) PHA 07/10/24 In Process 22:00 Amlodipine Tablet 07/12/24 In Process (Norvasc Tablet) 10:00 Losartan Tablet PHA 07/12/24 In Process (Cozaar Tablet) 10:00 Metoprolol Xl PHA 07/12/24 In Process Succinate (Toprol Xl) 10:00 Pantoprazole Tablet 07/11/24 Verified (Protonix Tablet) 10:45 Date of Service: Jul 11, 2024 Billing Provider: STELLA CHAVARRIA MD Common Visit Codes: [id number] INP/OBS CARE(MOD) STELLA CHAVARRIA MD Jul 11, 2024 10:36
[2024-07-11] MEDS ORDERED: PANT40T PO (10:39)
[2024-07-11] MEDS ORDERED: METR-344 PO (10:39)
[2024-07-11] MEDS ORDERED: AUG875T PO (10:39)
--- NOTE | 2024-07-11 10:42 | DVHDS2 ---
Discharge Summary Date of Admission Jul 09, 2024 at 07:20 Date of Discharge: Jul 11, 2024 Admitting Diagnosis Abdominal pain Labs/Diagnostic Data: Laboratory Results Test 07/11/24 06:28 07/11/24 05:29 07/10/24 06:46 07/09/24 02:12 White Blood Count 8.6 10^3/uL (4.4-10.8) Red Blood Count 5.15 10^6/uL (4.0-5.20) Hemoglobin 16.5 g/dL (12.2-16.2) Hematocrit 49.6 % (36.0-46.0) Mean Corpuscular Volume 96.2 fL (80.0-100.0) Mean Corpuscular Hemoglobin 32.0 pg (28.0-32.0) Mean Corpuscular Hemoglobin Concent 33.3 g/dL (32.0-36.0) Red Cell Distribution Width 16.6 % (11.8-14.3) Platelet Count 178 10^3/uL (140-450) Mean Platelet Volume 8.0 fL (6.9-10.8) Neutrophils (%) (Auto) 67.8 % (37.0-80.0) Lymphocytes (%) (Auto) 18.3 % (10.0-50.0) Monocytes (%) (Auto) 9.5 % (0.0-12.0) Eosinophils (%) (Auto) 4.0 % (0.0-7.0) Basophils (%) (Auto) 0.4 % (0.0-2.0) Neutrophils # (Auto) 5.9 10 ^3/uL (1.6-8.6) Lymphocytes # (Auto) 1.6 10 ^3/uL (0.4-5.4) Monocytes # (Auto) 0.8 10 ^3/uL (0-1.3) Eosinophils # (Auto) 0.4 10 ^3/uL (0-0.8) Basophils # (Auto) 0 10 ^3/uL (0-0.2) Nucleated Red Blood Cells 0.0 % Sodium Level 141 mmol/L (136-145) Potassium Level 3.6 mmol/L (3.5-5.1) Chloride Level 104 mmol/L (98-107) Carbon Dioxide Level 29 mmol/L (20-31) Anion Gap 8 (5-15) Blood Urea Nitrogen 15 mg/dL (9-23) Creatinine 0.69 mg/dL (0.550-1.02) Glomerular Filtration Rate Calc 92 mL/min (>90) BUN/Creatinine Ratio 21.7 (10.0-20.0) Serum Glucose 119 mg/dL (74-106) Calcium Level 9.8 mg/dL (8.7-10.4) Magnesium Level 2.0 mg/dL (1.6-2.6) Lipase 165 U/L (12-53) POC Glucose 135 mg/dl (70-106) Total Bilirubin 0.6 mg/dL (0.2-1.0) Aspartate Amino Transferase (AST) 12 U/L (13-40) Alanine Aminotransferase (ALT) 31 U/L (7-40) Alkaline Phosphatase 57 U/L (46-116) Total Protein 6.7 g/dL (5.7-8.2) Albumin 3.8 g/dL (3.2-4.8) Lactic Acid Level 0.8 mmol/L (0.4-2.0) Troponin I High Sensitivity 5 ng/L (</=34) B-Type Natriuretic Peptide 24.54 pg/mL (0-100) Test 07/09/24 01:56 Urine Color Colorless (Yellow) Urine Clarity Clear (Clear) Urine pH 5.5 (5.0-9.0) Urine Specific [place] 1.010 (1.001-1.035) Urine Protein Negative (Negative) Urine Ketones Negative (Negative) Urine Blood Negative /uL (Negative) Urine Nitrite Negative (Negative) Urine Bilirubin Negative (Negative) Urine Urobilinogen Normal mg/dL (Negative) Urine Leukocyte Esterase 2+ /uL (Negative) Urine RBC 1 /hpf (0 - 4) Urine Microscopic WBC 16 /HPF (0-5) Urine Squamous Epithelial Cells Few /hpf (<5) Urine Bacteria None seen /hpf (None Seen) Urine Glucose 2+ mg/dL (Normal) Other Laboratory Tests 07/11/24 06:28 Brief Hx & Hospital Course: A 74-year-old female patient; multiple comorbidities; presented to the emergency department with abdominal pain. #Abdominal pain; unclear etiology; reviewed the available imaging studies that showed no acute abnormalities in the abdomen/pelvis; lipase elevated; was on IV antibiotics for suspected sepsis in the setting of leukocytosis; discharged on oral antibiotics; repeat lipase trending down to 165; instructed the patient to have lipase repeated by her primary care provider within one week #Suspected sepsis in the setting of leukocytosis and elevated lipase; was on IV antibiotics; discharged on oral antibiotics; to follow up with the primary care provider #Anxiety and depression; no suicide ideation/plans; continue home medications of citalopram and buspirone; to follow up with the primary care provider #COPD; not in exacerbation; continue current medical management; to follow up with the primary care provider #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; continue home levothyroxine; to follow up with the primary care provider #Obesity; counseled on importance of adopting healthy lifestyle with diet and exercise in order to lose weight; to follow up with the primary care provider #Gout; no flare; continue home allopurinol; to follow up with the primary care provider #Diabetes mellitus type 2; resume home antidiabetic medications; to follow up with the primary care provider #Dyslipidemia; continue home statin; to follow up with the primary care provider #4cm left renal cyst; to follow up as outpatient; to follow up with the primary care provider #Unprovoked subsegmental pulmonary embolism; finished apixaban 10 mg twice a day; continue home apixaban 5 mg twice a day; to follow up with the primary care provider #Incidental intramural aortic thrombus; to follow up as outpatient; to follow up with the primary care provider #Hypertensive heart disease; continue home antihypertensive medications as indicated; to follow up with the primary care provider #Obesity; counseled on importance of adopting lifestyle with diet and exercise in order to lose weight; to follow up with the primary care provider Late Entry. This medical document was created using an electronic medical record system with computerized dictation system. Although this document has been carefully reviewed, there might still be some phonetic and typographical errors. These areas are purely typographical due to imperfections of the software programs, and do not reflect any compromise in the patient's medical care. Condition at Discharge: Stable Final Diagnosis/Problems List #Abdominal pain; unclear etiology; imaging studies that showed no acute abnormalities in the abdomen/pelvis; lipase elevated Rest of diagnoses as above Discharge Disposition: Home Discharge Instruct/Medications Diet: Cardiac 2g Na,low cholest Activity: No Restrictions, As Tolerated Follow Up/Referral: With PCP within 1 week Medications: Sent oral antibiotics, and pantoprazole; to resume home meds; Eliquis now 5 mg twice a day Discharge Statement: "Patient was advised to return to the ER or call 911 if any headaches, dizziness, shortness of breath, chest pain, abdominal pain, bleeding, fevers, or worsening of medical condition. Patient was counseled about treatment plan, medications, possible side effects, patientverbalized understanding. All questions were answered to the best of my ability. This discharge took greater then 30 minutes in planning, reviewing documentation, counseling the patient, and discussing with other team members." ASSESSMENT ASSESSMENT Assessment Date of Service: Jul 11, 2024 Billing Provider: STELLA CHAVARRIA MD Common Visit Codes: 64805-WSI/OBS DISCH DAY >30min STELLA CHAVARRIA MD Jul 11, 2024 10:42
[2024-07-11] MEDS: PANTOPRAZOLE 40 MG TAB PO ONE (11:21)
[2024-07-11] MEDS: INFLUENZA TRIVALENT 2024-2025 0.5 ML INJ IM ONE (13:51)
[2024-07-12] MEDS ORDERED: METOPROLOL SUCCINATE XL 50 MG TAB PO SCH (10:00)
[2024-07-12] MEDS ORDERED: amLODIPine BESYLATE 5 MG TAB PO SCH (10:00)
[2024-07-12] MEDS ORDERED: LOSARTAN POTASSIUM 50 MG TAB PO SCH (10:00)
== END 2024-07-11 14:17 | disposition home or self-care (01) | DRG 871 ==
LOC: ER 01:44 → OVERFLOW 07:20 → CENTRAL 14:37
PROVIDERS: ADMIT Internal Medicine; ATTEND Internal Medicine
DX: A41.9 Sepsis, unspecified organism (principal); I26.93 Single subsegmental thrombotic pulmonary embolism without acute cor pulmonale; N30.00 Acute cystitis without hematuria; E66.9 Obesity, unspecified; E78.5 Hyperlipidemia, unspecified; M10.9 Gout, unspecified; N28.1 Cyst of kidney, acquired; E11.9 Type 2 diabetes mellitus without complications; I11.9 Hypertensive heart disease without heart failure; E89.0 Postprocedural hypothyroidism; F32.A Depression, unspecified; F41.9 Anxiety disorder, unspecified; J44.9 Chronic obstructive pulmonary disease, unspecified; Z79.01 Long term (current) use of anticoagulants; Z90.710 Acquired absence of both cervix and uterus; Z79.2 Long term (current) use of antibiotics; Z79.899 Other long term (current) drug therapy; Z90.49 Acquired absence of other specified parts of digestive tract; Z83.3 Family history of diabetes mellitus; Z82.49 Family history of ischemic heart disease and other diseases of the circulatory system; Z82.5 Family history of asthma and other chronic lower respiratory diseases; Z82.3 Family history of stroke; Z80.1 Family history of malignant neoplasm of trachea, bronchus and lung; Z79.4 Long term (current) use of insulin; Z68.30 Body mass index [BMI] 30.0-30.9, adult; Z23 Encounter for immunization
CPT/HCPCS: 36415; 74176; 76700; 80048; 80053; 81001; 82962; 83605; 83690; 83735; 83880; 84484; 85025; 87081; 90656; 94640; 96365; 99291; G0378; J1815; J2405; J2543

== ENCOUNTER → 2024-08-10 | Outpatient (CLI) | payer MEDICARE, OTHER ==
[~2024-08-10] MED LIST changes: +ALBUTEROL SULF 2.5 MG/0.5ML(0.5%) NEB SOLN ONE; +AUG875T PO; -LEVO750T40 PO; +METR-344 PO; +PANT40T PO; -PRED20TA2 PO
== END | disposition home or self-care (01) ==
LOC: RT 09:00
PROVIDERS: ATTEND Internal Medicine Pulmonary Disease
DX: J44.9 Chronic obstructive pulmonary disease, unspecified (principal); R06.00 Dyspnea, unspecified
CPT/HCPCS: 94060; 94618; 94729

== ENCOUNTER 2024-09-01 20:30 | Emergency (ER) | payer MEDICARE, OTHER ==
[~2024-09-01] VITALS: Ht 167.6 cm; Wt 80.8 kg
[~2024-09-01 20:30] MED LIST changes: -ALBUTEROL SULF 2.5 MG/0.5ML(0.5%) NEB SOLN ONE
[2024-09-01 22:48] VITALS: BP 114/75; PULSE 78; RESP 16; TEMP 97.9; O2SAT 94
--- NOTE | 2024-09-01 22:57 | ED.PDOC ---
Musculoskeletal HPI Comments 74-year-old female presents to ER with complaints of fall injury x1 day. Patient reports that she tripped and fell while walking and landed on her left knee and left wrist against a metal bed frame at 6:30 p.m. prior to arrival to ER and has since been experiencing 4/10 left knee/swelling to left knee and left wrist pain. Notes that she did "bump" the left side of her forehead upon falling, denying any LOC and denies any headache. Patient presents to ER ambulatory on arrival, alert and oriented x4, in no distress. Denies nausea/vomiting, numbness/tingling or any further symptoms/complaints Chief Complaint: Lower Extremity Time Seen by MD: 22:19 Primary Care Provider: Cristal Lyman Reviewed Notes: Nurses Notes, Medications, Allergies Allergies: Coded Allergies: NO KNOWN ALLERGIES (Unverified , 02/12/16) Home Meds Active Scripts Acetaminophen (Acetaminophen) 500 Mg Tab, 500 MG PO Q4HPRN, #30 TAB 0 Refills Prov:DUYEN MONCADA 09/01/24 Metronidazole (Flagyl) 500 Mg Tab, 500 MG PO TID for 5 Days, #15 TAB Prov:STELLA CHAVARRIA MD 07/11/24 Amoxicillin & Pot Clavulanate (AUGMENTIN TABLET) 875 Mg Tb, 875 MG PO BID for 5 Days, #10 TAB Prov:STELLA CHAVARRIA MD 07/11/24 Pantoprazole Sodium Sesquihydr (Pantoprazole Sodium) 40 Mg Tab, 40 MG PO QAM for 90 Days, #90 TAB Prov:STELLA CHAVARRIA MD 07/11/24 Apixaban Base (ELIQUIS) 5 Mg Tab, 10 MG PO BID for 7 Days, #30 TAB 4 Refills 10MG BID X 7 DAYS THEN 5MG PO BID FOR AT LEAST 6 MONTHS FOR DVT/PE TREATMENT Prov:VIDHI DAMIAN 07/03/24 Reported Medications Metoprolol Succinate (Metoprolol Succinate Er) 100 Mg Tab, 1 TAB PO DAILY 12/02/23 Buspirone Hcl (Buspirone Hcl) 10 Mg Tab, 10 MG PO Q12HR for 30 Days, MG 12/02/23 Amlodipine Besylate (Amlodipine Besylate) 10 Mg Tab, 1 TAB PO DAILY, #30 TAB 5 Refills 12/02/23 Dapagliflozin Propanediol (Dapagliflozin Propanediol) 5 Mg Tab, 1 TAB PO DAILY 12/02/23 Levothyroxine Sodium (Levothyroxine Sodium) 112 Mcg Tab, 1 TAB PO DAILY, #30 TAB 5 Refills 12/02/23 Escitalopram Oxalate (ESCITALOPRAM OXALATE) 10 Mg Tab, 1 TAB PO DAILY, #30 TAB 3 Refills 12/02/23 Allopurinol (ZYLOPRIM TABLET) 100 Mg Tb, 1 TAB PO BID 12/02/23 Rosuvastatin Calcium (Crestor) 10 Mg Tab, 1 TAB PO DAILY, #30 TAB 5 Refills 12/02/23 Losartan Potassium (Losartan Potassium) 100 Mg Tab, 1 TAB PO DAILY, #30 TAB 5 Refills 12/02/23 Information Source: Patient Mode of Arrival: Ambulatory Past Medical History PAST MEDICAL HISTORY: Anxiety, COPD, Depression, DM, HTN, Thyroid Past Medical History (Other): PE Surgical History: Cholecystectomy, Hernia Repair [employer] History: No Pertinent [employer] History Family History Family History: No family hx of Cancer, No family hx of DM, No family hx of Hea rt crystal, No family hx ofKidney crystal, No family hx of Liver crystal, No family hx of Lung crystal, Family hx of HTN, Family hx of stroke Social History Smoker: Non-Smoker Alcohol: Denies ETOH Use Drugs: Denies Drug Use Lives In: Home Constitutional: denies: chills, diaphoresis, fatigue, fever, malaise, sweats, weakness, others EENTM: denies: blurred vision, double vision, ear bleeding, ear discharge, ear drainage, ear pain, ear ringing, eye pain, eye redness, hearing loss, mouth pain, mouth swelling, nasal discharge, nose bleeding, nose congestion, nose pain, photophobia, tearing, throat pain, throat swelling, voice changes, others Respiratory: denies: cough, hemoptysis, orthopnea, SOB at rest, shortness of breath, SOB with excertion, stridor, wheezing, others Cardiovascular: denies: chest pain, dizzy spells, diaphoresis, Dyspnea on e xertion, edema, irregular heart beat, left arm pain, lightheadedness, palpitations, PND, syncope, others Gastrointestinal: denies: abdomen distended, abdominal pain, blood streaked bowels, constipated, diarrhea, dysphagia, difficulty swallowing, hematemesis, melena, nausea, poor appetite, poor fluid intake, rectal bleeding, rectal pain, vomiting, others Genitourinary: denies: abnormal vagina bleeding, burning, dyspareunia, dysuria, flank pain, frequency, hematuria, incontinence, pain, , vagina discharge, urgency, others Neurological: reports: others (As stated in HPI) Musculoskeletal: reports: others (As stated in HPI) Physical Exam General Appearance: No Apparent Distress, Normal HEENT: Normal ENT Inspection, PERRL/EOMI, Pharynx Normal, TMs Normal, Other (No skin changes/palpable skull abnormality noted) Neck: Full Range of Motion, Non-Tender, Normal Respiratory: Chest Non-Tender, Lungs Clear, No Accessory Muscle Use, No Respiratory Distress, Normal Breath Sounds Cardiovascular: No Murmur, No Gallop, Regular Rate/Rhythm Breast Exam: Deferred Gastrointestinal: NOT DONE Genitalia: Deferred Pelvic: Deferred Rectal: Deferred Extremities: Normal capillary refill, Normal range of motion Musculoskeletal : Extremity Location: Knee (TTP/mild swelling noted to left knee noted. No deformity noted. Patient able to fully move left knee. Steady gait appreciated. Pulses intact), Wrist (Slight TTP to radial aspect of the left wrist noted. No TTP to left anatomical snuffbox noted. No TTP to left hand noted. No skin changes appreciated. Patient able to fully move all fingers left hand. 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 Was a procedure done?: No Sedation Sedation?: No Differential Diagnosis EXT Differential Diagnosis: Fracture, Dislocation, Neurovascular injury, Other (Subdural hematoma, subarachnoid hemorrhage, laceration) X-Ray, Labs, Meds, VS Vital Signs Date Time Temp Pulse Resp B/P (MAP) Pulse Ox O2 Delivery O2 Flow Rate FiO2 09/01/24 22:48 Room Air* 0 21 09/01/24 22:48 97.9 78 16 114/75 (88) 94 97.9 09/01/24 21:54 97.9 78 16 114/75 (88) 94 97.9 PATIENT: ZANE BONILLA ACCT: [id number] UNIT: [id number] : 1950 LOC: ER ROOM / BED: / AGE / SEX: 74 / F ADM STATUS: REG ER SERVICE 48 ORDERING PHYSICIAN: DUYEN MONCADA PROCEDURE(s): HWOCT - HEAD WITHOUT CONTRAST REASON: head injury ORDER NUMBER(s): [id number], ACCESSION NUMBER(s): [id number] EXAM: CT HEAD WITHOUT CONTRAST INDICATION: head injury TECHNIQUE: CT of the head without intravenous contrast. Radiation Dose : 1. Head: CT Dose: CTDI volume is 53.4 mGy. Dose-length product is 946 mGy*cm The dose indicators for CT are the volume Computed Tomography (CT) Dose Index (CTDIvol) and the Dose Length Product (DLP), and are measured in units of mGy and mGy-cm, respectively. These indicators are not patient dose, but values generated from the CT scanner acquisition factors. The report includes radiation exposure data for exposures received during this examination. COMPARISON: None FINDINGS: There is no evidence of acute intracranial hemorrhage, extra-axial collection, mass effect, midline shift, herniation or hydrocephalus. The ventricles, sulci and cisterns are age appropriate. The ochoa-white differentiation is intact. Patchy periventricular and subcortical white matter hypoattenuation is nonspecific but may be related to small vessel ischemic disease. The visualized paranasal sinuses and mastoid air cells are clear. The surrounding soft tissues and osseous structures are unremarkable. IMPRESSION: 1. No acute intracranial abnormality. Radiation optimization: All CT scans at this facility use at least one of these dose optimization techniques: automated exposure control mA and/or kV adjustment per patient size (includes targeted exams where dose is matched to clinical indication) or iterative reconstruction. ATED BY: LYNDSAY BOWDEN MD DICTATED DATE/TIME: 09/01/242334 SIGNED BY: LYNDSAY BOWDEN MD SIGNED DATE/TIME: 09/01/242334 CC: PATIENT: ZANE BONILLA ACCT: [id number] UNIT: [id number] : 1950 LOC: ER ROOM / BED: / AGE / SEX: 74 / F ADM STATUS: REG ER SERVICE 48 ORDERING PHYSICIAN: DUYEN MONCADA PROCEDURE(s): LKNE3 - L KNEE 3V XRAY REASON: left knee pain ORDER NUMBER(s): [id number], ACCESSION NUMBER(s): [id number] CLINICAL INDICATION: left knee pain TECHNIQUE: XY Left KNEE 3V XRAY Comparison: None FINDINGS/IMPRESSION: There is no evidence of acute fracture or dislocation. Mild medial compartment osteoarthritis Soft tissues are unremarkable. ATED BY: LYNDSAY BOWDEN MD DICTATED DATE/TIME: 09/01/242335 SIGNED BY: LYNDSAY BOWDEN MD SIGNED DATE/TIME: 09/01/242335 CC: PATIENT: ZANE BONILLA ACCT: [id number] UNIT: [id number] : 1950 LOC: ER ROOM / BED: / AGE / SEX: 74 / F ADM STATUS: REG ER SERVICE 48 ORDERING PHYSICIAN: DUYEN MONCADA PROCEDURE(s): LWRI - L WRIST 3+ VIEW XRAY REASON: left wrist pain ORDER NUMBER(s): [id number], ACCESSION NUMBER(s): [id number] CLINICAL INDICATION: left wrist pain TECHNIQUE: XY Left WRIST 3+ VIEW XRAY Comparison: None FINDINGS/IMPRESSION: There is no evidence of acute fracture or dislocation. Soft tissues are unremarkable. ATED BY: LYNDSAY BOWDEN MD DICTATED DATE/TIME: 09/01/242335 SIGNED BY: LYNDSAY BOWDEN MD SIGNED DATE/TIME: 09/01/242335 CC: CT head without contrast reviewed Left knee x-ray reviewed Left wrist x-ray reviewed Advised on rest/no strenuous activity, elevation and alternate ice on/off as needed for pain/swelling Left thumb spica splint applied Advised on re-x-ray of left wrist in one week if symptoms do not improve Advised to follow up with PCP in 1-2 days Patient alert and oriented x4 prior to discharge. Patient verbalized understanding and agreeable with current plan of care Advised to return to ER immediately if symptoms worsen Images Reviewed?: Images reviewed and evaluated by me Time of 1ST Reevaluation: 22:52 Reevaluation 1ST: N/A Patient Education/Counseling: Diagnosis, Treatment, Prognosis, Need For Follow Up Family Education/Counseling: No Family Present Departure 1 Departure Time of Disposition: 23:42 Impression: Primary Impression: Contusion of knee, left Qualified Codes: S80.02XA - Contusion of left knee, initial encounter Additional Impression: Sprain of wrist, left Qualified Codes: S63.502A - Unspecified sprain of left wrist, initial encounter Disposition: HOME / SELF CARE / HOMELESS Condition: Stable e-Prescriptions Acetaminophen (Acetaminophen) 500 Mg Tab 500 MG PO Q4HPRN, #30 TAB 0 Refills Prov: DUYEN MONCADA 09/01/24 Discharged With: Friend Critical Care Note Critical Care Time?: No Stability Stability form required: No Heart Score Heart Score: Heart Score Response (Comments) Value History N/A 0 EKG N/A 0 Age N/A 0 Risk Factors N/A 0 Troponin N/A 0 Total 0 DUYEN MONCADA Sep 01, 2024 22:57
[2024-09-01] MEDS ORDERED: ACET500T58 PO (23:34)
--- NOTE | 2024-09-01 23:37 | DVH ---
EXAM: CT HEAD WITHOUT CONTRAST INDICATION: head injury TECHNIQUE: CT of the head without intravenous contrast. Radiation Dose : 1. Head: CT Dose: CTDI volume is 53.4 mGy. Dose-length product is 946 mGy*cm The dose indicators for CT are the volume Computed Tomography (CT) Dose Index (CTDIvol) and the Dose Length Product (DLP), and are measured in units of mGy and mGy-cm, respectively. These indicators are not patient dose, but values generated from the CT scanner acquisition factors. The report includes radiation exposure data for exposures received during this examination. COMPARISON: None FINDINGS: There is no evidence of acute intracranial hemorrhage, extra-axial collection, mass effect, midline s hift, herniation or hydrocephalus. The ventricles, sulci and cisterns are age appropriate. The ochoa-white differentiation is intact. Patchy periventricular and subcortical white matter hypoattenuation is nonspecific but may be related to small vessel ischemic disease. The visualized paranasal sinuses and mastoid air cells are clear. The surrounding soft tissues and osseous structures are unremarkable. IMPRESSION: 1. No acute intracranial abnormality. Radiation optimization: All CT scans at this facility use at least one of these dose optimization swapnil hniques: automated exposure control mA and/or kV adjustment per patient size (includes targeted exam s where dose is matched to clinical indication) or iterative reconstruction.
--- NOTE | 2024-09-01 23:38 | DVH ---
CLINICAL INDICATION: left knee pain TECHNIQUE: XY Left KNEE 3V XRAY Comparison: None FINDINGS/IMPRESSION: There is no evidence of acute fracture or dislocation. Mild medial compartment osteoarthritis Soft tissues are unremarkable.
--- NOTE | 2024-09-01 23:39 | DVH ---
CLINICAL INDICATION: left wrist pain TECHNIQUE: XY Left WRIST 3+ VIEW XRAY Comparison: None FINDINGS/IMPRESSION: There is no evidence of acute fracture or dislocation. Soft tissues are unremarkable.
== END 2024-09-01 23:52 | disposition home or self-care (01) ==
LOC: ER 20:30
DX: S63.592A Other specified sprain of left wrist, initial encounter (principal); S80.02XA Contusion of left knee, initial encounter; F41.9 Anxiety disorder, unspecified; I10 Essential (primary) hypertension; F32.A Depression, unspecified; E11.9 Type 2 diabetes mellitus without complications; J44.9 Chronic obstructive pulmonary disease, unspecified; M17.12 Unilateral primary osteoarthritis, left knee; R51.9 Headache, unspecified; Z79.84 Long term (current) use of oral hypoglycemic drugs; Z79.899 Other long term (current) drug therapy; Z90.49 Acquired absence of other specified parts of digestive tract; Z98.890 Other specified postprocedural states; W01.0XXA Fall on same level from slipping, tripping and stumbling without subsequent striking against object, initial encounter; Y93.01 Activity, walking, marching and hiking; Y92.89 Other specified places as the place of occurrence of the external cause; Y99.8 Other external cause status
CPT/HCPCS: 29125; 29130; 70450; 73110; 73562

== ENCOUNTER 2024-12-07 15:22 | Inpatient (IN) | payer MEDICARE, OTHER ==
[~2024-12-07] VITALS: Ht 160 cm; Wt 81.0 kg
[~2024-12-07 15:22] MED LIST changes: +ACET500T58 PO
--- NOTE | 2024-12-07 15:54 | ED.PDOC ---
History of Present Illness HPI Comments This is a 74-year-old female with past medical history of COPD, CHF, PE on Eliquis presented to the ED with a chief complaint of shortness of breath cough and phlegm for 1 week. The patient stated that he was she was referred by her on site nurse to go to the ED for possible pneumonia. She mentioned that her saturation dropped to 70s and she is on 3 L oxygen in home. Denied fever, chills, abdominal pain, nausea, vomiting, dysuria, hematuria any changes in bowel and bladder habit. Chief Complaint: Shortness of Breath Time Seen by MD: 15:26 Primary Care Provider: Cristal Lyman Allergies: Coded Allergies: NO KNOWN ALLERGIES (Unverified , 02/12/16) Home Meds Active Scripts Acetaminophen (Acetaminophen) 500 Mg Tab, 500 MG PO Q4HPRN, #30 TAB 0 Refills Prov:DUYEN MONCADA 09/01/24 Metronidazole (Flagyl) 500 Mg Tab, 500 MG PO TID for 5 Days, #15 TAB Prov:STELLA CHAVARRIA MD 07/11/24 Amoxicillin & Pot Clavulanate (AUGMENTIN TABLET) 875 Mg Tb, 875 MG PO BID for 5 Days, #10 TAB Prov:STELLA CHAVARRIA MD 07/11/24 Pantoprazole Sodium Sesquihydr (Pantoprazole Sodium) 40 Mg Tab, 40 MG PO QAM for 90 Days, #90 TAB Prov:STELLA CHAVARRIA MD 07/11/24 Apixaban Base (ELIQUIS) 5 Mg Tab, 10 MG PO BID for 7 Days, #30 TAB 4 Refills 10MG BID X 7 DAYS THEN 5MG PO BID FOR AT LEAST 6 MONTHS FOR DVT/PE TREATMENT Prov:VIDHI DAMIAN [facility] 07/03/24 Reported Medications Metoprolol Succinate (Metoprolol Succinate Er) 100 Mg Tab, 1 TAB PO DAILY 12/02/23 Buspirone Hcl (Buspirone Hcl) 10 Mg Tab, 10 MG PO Q12HR for 30 Days, MG 12/02/23 Amlodipine Besylate (Amlodipine Besylate) 10 Mg Tab, 1 TAB PO DAILY, #30 TAB 5 Refills 12/02/23 Dapagliflozin Propanediol (Dapagliflozin Propanediol) 5 Mg Tab, 1 TAB PO DAILY 12/02/23 Levothyroxine Sodium (Levothyroxine Sodium) 112 Mcg Tab, 1 TAB PO DAILY, #30 TAB 5 Refills 12/02/23 Escitalopram Oxalate (ESCITALOPRAM OXALATE) 10 Mg Tab, 1 TAB PO DAILY, #30 TAB 3 Refills 12/02/23 Allopurinol (ZYLOPRIM TABLET) 100 Mg Tb, 1 TAB PO BID 12/02/23 Rosuvastatin Calcium (Crestor) 10 Mg Tab, 1 TAB PO DAILY, #30 TAB 5 Refills 12/02/23 Losartan Potassium (Losartan Potassium) 100 Mg Tab, 1 TAB PO DAILY, #30 TAB 5 Refills 12/02/23 Information Source: Patient Mode of Arrival: Ambulatory Severity: Moderate Timing: Days Duration: Since onset Prehospital treatment: None Past Medical History PAST MEDICAL HISTORY: Anxiety, COPD, Depression, DM, HTN, PE, Thyroid Surgical History: Cholecystectomy, Hernia Repair DATA QUALITY CONSULTANT History: No Pertinent DATA QUALITY CONSULTANT History Family History Family History: No family hx of Cancer, No family hx of DM, No family hx of Heart crystal, No family hx ofKidney crystal, No family hx of Liver crystal, No family hx of Lung crystal, Family hx of HTN, Family hx of stroke Social History Smoker: Non-Smoker Alcohol: Denies ETOH Use Drugs: Denies Drug Use Lives In: Home Constitutional: denies: chills, diaphoresis, fatigue, fever, malaise, sweats, weakness, others EENTM: denies: blurred vision, double vision, ear bleeding, ear discharge, ear drainage, ear pain, ear ringing, eye pain, eye redness, hearing loss, mouth pain, mouth swelling, nasal discharge, nose bleeding, nose congestion, nose pain , photophobia, tearing, throat pain, throat swelling, voice changes, others Respiratory: reports: cough, shortness of breath; denies: hemoptysis, orthopnea, SOB at rest, SOB with excertion, stridor, wheezing, others Cardiovascular: denies: chest pain, dizzy spells, diaphoresis, Dyspnea on exertion, edema, irregular heart beat, left arm pain, lightheadedness, palpitations, PND, syncope, others Gastrointestinal: denies: abdomen distended, abdominal pain, blood streaked bowels, constipated, diarrhea, dysphagia, difficulty swallowing, hematemesis, melena, nausea, poor appetite, poor fluid intake, rectal bleeding, rectal pain, vomiting, others Genitourinary: denies: abnormal vagina bleeding, burning, dyspareunia, dysuria, flank pain, frequency, hematuria, incontinence, pain, , vagina discharge, urgency, others Neurological: denies: dizziness, fainting, headache, left sided numbness, left sided weakness, numbness, paresthesia, pre-existing deficit, right sided numbness, right sided weakness, seizure, speech problems, tingling, tremors, weakness, others Musculoskeletal: denies: back pain, gout, joint pain, joint swelling, muscle pain, muscle stiffness, neck pain, others Integumetry: denies: bruises, change in color, change in hair/nails, dryness, laceration, lesions, lumps, rash, wounds, others Allergic/Immunocompromised: denies: Difficulty Healing, Frequent Infections, Hives, Itching, others Hematologic/Lymphatic: denies: anemia, blood clots, easy bleeding, easy bruising, swollen glands, others Endocrine: denies: excessive hunger, excessive sweating, excessive thirst, excessive urination, flushing, intolerance to cold, intolerance to heat, unexplained weight gain, unexplained weight loss, others Psychiatric: reports: anxiety; denies: bipolar disorder, depression, hopeless, panic disorder, schizophrenia, sleepless, suicidal, others Physical Exam General Appearance: Mild Distress HEENT: Normal ENT Inspection, Pharynx Normal, TMs Normal Neck: Full Range of Motion, Non-Tender, Normal, Normal Inspection Respiratory: Decreased Breath Sounds, Respiratory Distress, Wheezing Cardiovascular: No Edema, No JVD, No Murmur, No Gallop, Normal Peripheral Pulses, Regular Rate/Rhythm Breast Exam: Deferred Gastrointestinal: No Organomegaly, Non Tender, No Pulsatile Mass, Normal Bowel Sounds, Soft Genitalia: Deferred Pelvic: Deferred Rectal: Deferred Extremities: No calf tenderness, Normal capillary refill, Normal inspection, Normal range of motion, Non-tender, No pedal edema Neurologic: NOT DONE Cerebellar Function: NOT DONE Reflexes: NOT DONE Skin: NOT DONE Peripheral Pulses: 2+ carotid (R), 2+ carotid (L), 2+ femoral (R), 2+ femoral (L), 2+ dorsalis pedis (R), 2+ dorsalis pedis (L), 2+ Radial (R), 2+ Radial (L), 2+ Brachial (R), 2+ Brachial (L) Lymphatic: NOT DONE Was a procedure done? Was a procedure done?: No Differential Dx Considerations may include: COPD exacerbation, pneumonia, emphysema, PE, secondary polycythemia X-Ray, Labs, Meds, VS Vital Signs Date Time Temp Pulse Resp B/P (MAP) Pulse Ox O2 Delivery O2 Flow Rate FiO2 12/07/24 18:10 64 16 94 Nasal Cannula* 4 36 12/07/24 18:10 64 16 134/71 (92) 94 12/07/24 16:05 18 90 Nasal Cannula* 4 36 12/07/24 15:26 98.0 74 20 146/79 89 98.0 Lab Test 12/07/24 16:45 12/07/24 16:35 12/07/24 16:17 12/07/24 16:03 Range/Units Lactic Acid Level 0.9 0.4-2.0 mmol/L Influenza Type A Antigen Pending Influenza Type B Antigen Pending SARS-CoV-2 Antigen (Rapid) Pending Urine Color Yellow Yellow Urine Clarity Clear Clear Urine pH 5.5 5.0-9.0 Urine Specific [place] 1.016 1.001-1.035 Urine Protein 1+ H Negative Urine Ketones Negative Negative Urine Blood Negative Negative /uL Urine Nitrite Negative Negative Urine Bilirubin Negative Negative Urine Urobilinogen Normal Negative mg/dL Urine Leukocyte Esterase Negative Negative /uL Urine RBC 1 0 - 4 /hpf Urine Microscopic WBC 4 0-5 /HPF Urine Squamous Epithelial Cells Few <5 /hpf Urine Bacteria None seen None Seen /hpf Urine Glucose Normal Normal mg/dL White Blood Count 8.2 4.4-10.8 10^3/uL Red Blood Count 6.16 H 4.0-5.20 10^6/uL Hemoglobin 20.5 H 12.2-16.2 g/dL Hematocrit 59.2 H 36.0-46.0 % Mean Corpuscular Volume 96.1 80.0-100.0 fL Mean Corpuscular Hemoglobin 33.3 H 28.0-32.0 pg Mean Corpuscular Hemoglobin Concent 34.7 32.0-36.0 g/dL Red Cell Distribution Width 16.7 H 11.8-14.3 % Platelet Count 170 140-450 10^3/uL Mean Platelet Volume 8.3 6.9-10.8 fL Neutrophils (%) (Auto) 64.6 37.0-80.0 % Lymphocytes (%) (Auto) 24.2 10.0-50.0 % Monocytes (%) (Auto) 7.1 0.0-12.0 % Eosinophils (%) (Auto) 3.8 0.0-7.0 % Basophils (%) (Auto) 0.3 0.0-2.0 % Neutrophils # (Auto) 5.3 1.6-8.6 10 ^3/uL Lymphocytes # (Auto) 2.0 0.4-5.4 10 ^3/uL Monocytes # (Auto) 0.6 0-1.3 10 ^3/uL Eosinophils # (Auto) 0.3 0-0.8 10 ^3/uL Basophils # (Auto) 0 0-0.2 10 ^3/uL Nucleated Red Blood Cells 0.2 % Sodium Level 142 136-145 mmol/L Potassium Level 3.9 3.5-5.1 mmol/L Chloride Level 105 98-107 mmol/L Carbon Dioxide Level 30 20-31 mmol/L Anion Gap 7 5-15 Blood Urea Nitrogen 11 9-23 mg/dL Creatinine 0.96 0.550-1.02 mg/dL Glomerular Filtration Rate Calc 63 >90 mL/min BUN/Creatinine Ratio 11.5 10.0-20.0 Serum Glucose 86 74-106 mg/dL Calcium Level 10.6 H 8.7-10.4 mg/dL B-Type Natriuretic Peptide 61.56 0-100 pg/mL Current Medications Medications (Trade) Dose Ordered Sig/Michael Route Start Time Stop Time Status Last Admin Methylprednisolone Sodium Succinate (Solu Medrol) 125 mg ONCE ONCE IV 12/07/24 16:00 12/07/24 16:01 DC 12/07/24 16:51 Ipratropium [place] (Atrovent Medneb) 0.5 mg ONCE ONCE NEB 12/07/24 16:00 12/07/24 16:01 DC 12/07/24 16:15 Albuterol (Ventolin Medneb) 1.25 mg ONCE ONCE NEB 12/07/24 16:00 12/07/24 16:01 DC 12/07/24 16:14 X-Ray, Labs, Meds, VS Comment CBC revealed polycythemic Chest x-ray showed emphysematous changes and possible left lower lobe opacity. Images Reviewed?: Images reviewed and evaluated by me Time of 1ST Reevaluation: 17:30 Reevaluation 1ST: Unchanged Patient Education/Counseling: Diagnosis, Treatment Family Education/Counseling: Diagnosis, Treatment, No Family Present SEPSIS Sepsis Screen Date sepsis recognized/suspect: Dec 07, 2024 Time Sepsis recognized/suspect: 1523 Recent Procedure: No On Antibiotic Therapy: No Respiratory Rate >20: No Heart Rate >90: No Temp<36 C (96.8 F) or >38.3 C: No SBP <90 or MAP <65 mmHG: No New Acute Mental Status Change: No Is the patient on CPAP, BIPAP,: No Physician Orders Chest Portable (12/07/24 15:48) Covid19 Antigen Deborah (12/07/24 ) Rapid Influenza A&B (12/07/24 15:48) Blood Culture (12/07/24 16:28) Ceftriaxone Ivpb Rocephin (12/07/24 18:15) Azithromycin 500mg/ 250ml (Zithromax 50 (12/07/24 18:15) NS (12/07/24 18:15) Vital Signs Date Time Temp Pulse Resp B/P (MAP) Pulse Ox O2 Delivery O2 Flow Rate FiO2 12/07/24 18:10 64 16 94 Nasal Cannula* 4 36 12/07/24 18:10 64 16 134/71 (92) 94 12/07/24 16:05 18 90 Nasal Cannula* 4 36 12/07/24 15:26 98.0 74 20 146/79 89 98.0 Laboratory Tests Test 12/07/24 16:03 12/07/24 16:45 White Blood Count 8.2 10^3/uL (4.4-10.8) Lactic Acid Level 0.9 mmol/L (0.4-2.0) Medications Medications Dose Ordered Sig/Michael Route Start Time Stop Time Status Last Admin Dose Admin Albuterol 1.25 mg ONCE ONCE NEB 12/07/24 16:00 12/07/24 16:01 DC 12/07/24 16:14 Ipratropium [place] 0.5 mg ONCE ONCE NEB 12/07/24 16:00 12/07/24 16:01 DC 12/07/24 16:15 Methylprednisolone Sodium Succinate 125 mg ONCE ONCE IV 12/07/24 16:00 12/07/24 16:01 DC 12/07/24 16:51 Departure 1 Departure Time of Disposition: 18:20 Impression: Primary Impression: COPD exacerbation Additional Impression: Pneumonia Disposition: 30 STILL A PATIENT Admit to: Med Surg Condition: Guarded Critical Care Note Critical Care Time?: No Stability Stability form required: TERESA Rangel RESIDENT Dec 07, 2024 15:54
[2024-12-07 16:13] LABS: Hemoglobin 20.5 g/dL (12.2-16.2); Mean Corpuscular Hemoglobin 33.3 pg (28.0-32.0); Mean Corpuscular Volume 96.1 fL (80.0-100.0); Nucleated Red Blood Cells % 0.2 %
[2024-12-07] MEDS: ALBUTEROL SULF 2.5 MG/0.5ML(0.5%) NEB SOLN NEB ONE (16:14)
[2024-12-07] MEDS: IPRATROPIUM BROM 0.5 MG/2.5ML INH SOL NEB ONE (16:15)
--- NOTE | 2024-12-07 16:15 | DVH ---
EXAM: XY CHEST PORTABLE HISTORY: Shortness of breath COMPARISON: XY CHEST PORTABLE on DOS: 06/30/24, XY CHEST PORTABLE on DOS: 12/01/23, chest CT dated 06/13 TECHNIQUE: Portable AP view of the chest was performed. FINDINGS: There is interstitial prominence centrally and in the lung bases. No pneumothorax or consolidative in filtrates. Emphysematous changes are better characterized on prior CT scan. The heart is enlarged. T he thoracic aorta is calcific. IMPRESSION: 1. Cardiomegaly and interstitial prominence which may be due to CHF and/or reactive airways disease. 2. Emphysema.
[2024-12-07 16:17] LABS: Hematocrit 59.2 % (36.0-46.0)
[2024-12-07 16:25] LABS: Chloride 105 mmol/L (98-107); Potassium 3.9 mmol/L (3.5-5.1); Sodium 142 mmol/L (136-145)
[2024-12-07 16:26] LABS: Anion Gap 7 (5-15); Carbon Dioxide 30 mmol/L (20-31)
[2024-12-07 16:31] LABS: BUN/Creatinine Ratio 11.5 (10.0-20.0); Blood Urea Nitrogen 11 mg/dL (9-23); Glucose 86 mg/dL (74-106)
[2024-12-07 16:32] LABS: Calcium 10.6 mg/dL (8.7-10.4)
[2024-12-07] MEDS: methylPREDNISolone SOD SUCC 125 MG/2 ML VL IV ONE (16:51)
[2024-12-07 17:15] LABS: Urine Protein, UAD 1+ (Negative)
[2024-12-07 18:10] VITALS: PULSE 64; RESP 16; O2SAT 94
[2024-12-07] MEDS: SODIUM CHLORIDE 0.9% 1,000 ML IV ONE (18:35)
[2024-12-07 18:44] LABS: COVID19 ANTIGEN SOFIA FIA NEGATIVE (NEGATIVE)
[2024-12-07] MEDS: cefTRIAXone 1GM/50ML D5W 50 ML IV ONE (19:02)
[2024-12-07] MEDS: AZITHROMYCIN 500MG/ 250ML 250 ML IV ONE (19:20)
[2024-12-07] MEDS ORDERED: DEXTROSE (50%) 50ML SYRG IV PRN (19:45)
[2024-12-07 20:02] VITALS: O2SAT 92
[2024-12-07 20:05] VITALS: BP 134/71; PULSE 68; RESP 14; TEMP 98; O2SAT 92
[2024-12-07] MEDS: InsuLIN REG 1unit/0.01ml Soln (100units/ml) SC SCH (22:00)
[2024-12-07] MEDS: ACCU-CHEK COMFORT CURVE STRIP VI SCH (22:00)
--- NOTE | 2024-12-07 22:15 | DVHHP2 ---
History of Present Illness Reason for Visit: Shortness for breath History of Present Illness 74-year-old female presents for evaluation of shortness for breath. Patient reports a one week history of worsening shortness for breath with associated productive cough. Denies fever or chills. No abdominal pain. No other acute complaints. Past Medical History COPD, diabetes mellitus, hypertension, PE, thyroid Past Surgical History Hernia repair, cholecystectomy Family History Noncontributory Smoke: No ALCOHOL: none Drugs: None Lives: with Family Review of Systems Review of Systems Review of systems are currently negative otherwise addressed in HPI. Allergies: Coded Allergies: NO KNOWN ALLERGIES (Unverified , 02/12/16) Medications Current Medications Medications Dose Ordered Sig/Michael Route Start Time Stop Time Status Last Admin Dose Admin Albuterol 2.5 mg Q6HPRN PRN NEB 12/07/24 19:45 Ipratropium [place] 0.5 mg Q6HPRN PRN NEB 12/07/24 19:45 Methylprednisolone Sodium Succinate 40 mg BID IV 12/07/24 22:00 Allopurinol 100 mg DAILY PO 12/08/24 10:00 Amlodipine Besylate 10 mg DAILY PO 12/08/24 10:00 Apixaban 5 mg BID PO 12/07/24 22:00 Levothyroxine Sodium 112 mcg QAM@0600 PO 12/08/24 06:00 Losartan Potassium 100 mg DAILY PO 12/08/24 10:00 Pantoprazole Sodium 40 mg DAILY@0600 PO 12/08/24 06:00 Atorvastatin Calcium 10 mg HS PO 12/07/24 22:00 Diagnostic Test (Pha) 1 strip ACHS 12/07/24 22:00 Insulin Human Regular ACHS SC 12/07/24 22:00 Dextrose 50 ml UD PRN IV 12/07/24 19:45 Ondansetron HCl 4 mg Q4HP PRN IV 12/07/24 19:45 Acetaminophen 650 mg Q6HP PRN PO 12/07/24 19:45 Exam Vital Signs Vital Signs Date Time Temp Pulse Resp B/P (MAP) Pulse Ox O2 Delivery O2 Flow Rate FiO2 12/07/24 20:05 98.0 68 14 134/71 92 3.0 32 98.0 12/07/24 20:02 Nasal Cannula Exam Gen: 74-year-old female in mild distress Skin: Warm, dry, normal color and texture, no rash. HEENT: Normocephalic atraumatic, mucous membranes moist and pink. Neck: Cervical and supraclavicular nodes normal without enlargement, trachea is midline, thyroid gland is normal without masses. Pulmonary: Diminished breath sounds bilaterally. Cardiac: Regular rate and rhythm. No murmur Abdomen: Soft, nontender, nondistended, bowel sounds present all 4 quadrants, no guarding, no rigidity, no organomegaly. Extremities: No cyanosis, clubbing, no edema Neuro: Cranial nerves II through XII grossly intact, normal affect and speech, no focal motor deficits. Labs/Xrays ORDERING PHYSICIAN: TERESA ARGUETA RESIDENT PROCEDURE(s): CXRP - CHEST PORTABLE REASON: Shortness of breath ORDER NUMBER(s): [id number], ACCESSION NUMBER(s): [id number] EXAM: XY CHEST PORTABLE HISTORY: Shortness of breath COMPARISON: XY CHEST PORTABLE on DOS: 06/30/24, XY CHEST PORTABLE on DOS: 12/01/23, chest CT dated 07/01/2024 TECHNIQUE: Portable AP view of the chest was performed. FINDINGS: There is interstitial prominence centrally and in the lung bases. No pneumothorax or consolidative infiltrates. Emphysematous changes are better characterized on prior CT scan. The heart is enlarged. The thoracic aorta is calcific. IMPRESSION: 1. Cardiomegaly and interstitial prominence which may be due to CHF and/or reactive airways disease. 2. Emphysema. Labs Test 12/07/24 16:45 12/07/24 16:35 12/07/24 16:17 12/07/24 16:03 Range/Units Lactic Acid Level 0.9 0.4-2.0 mmol/L Influenza Type A Antigen Negative Negative Influenza Type B Antigen Negative Negative SARS-CoV-2 Antigen (Rapid) Negative NEGATIVE Urine Color Yellow Yellow Urine Clarity Clear Clear Urine pH 5.5 5.0-9.0 Urine Specific [place] 1.016 1.001-1.035 Urine Protein 1+ H Negative Urine Ketones Negative Negative Urine Blood Negative Negative /uL Urine Nitrite Negative Negative Urine Bilirubin Negative Negative Urine Urobilinogen Normal Negative mg/dL Urine Leukocyte Esterase Negative Negative /uL Urine RBC 1 0 - 4 /hpf Urine Microscopic WBC 4 0-5 /HPF Urine Squamous Epithelial Cells Few <5 /hpf Urine Bacteria None seen None Seen /hpf Urine Glucose Normal Normal mg/dL White Blood Count 8.2 4.4-10.8 10^3/uL Red Blood Count 6.16 H 4.0-5.20 10^6/uL Hemoglobin 20.5 H 12.2-16.2 g/dL Hematocrit 59.2 H 36.0-46.0 % Mean Corpuscular Volume 96.1 80.0-100.0 fL Mean Corpuscular Hemoglobin 33.3 H 28.0-32.0 pg Mean Corpuscular Hemoglobin Concent 34.7 32.0-36.0 g/dL Red Cell Distribution Width 16.7 H 11.8-14.3 % Platelet Count 170 140-450 10^3/uL Mean Platelet Volume 8.3 6.9-10.8 fL Neutrophils (%) (Auto) 64.6 37.0-80.0 % Lymphocytes (%) (Auto) 24.2 10.0-50.0 % Monocytes (%) (Auto) 7.1 0.0-12.0 % Eosinophils (%) (Auto) 3.8 0.0-7.0 % Basophils (%) (Auto) 0.3 0.0-2.0 % Neutrophils # (Auto) 5.3 1.6-8.6 10 ^3/uL Lymphocytes # (Auto) 2.0 0.4-5.4 10 ^3/uL Monocytes # (Auto) 0.6 0-1.3 10 ^3/uL Eosinophils # (Auto) 0.3 0-0.8 10 ^3/uL Basophils # (Auto) 0 0-0.2 10 ^3/uL Nucleated Red Blood Cells 0.2 % D-Dimer, Quantitative 0.76 H 0.0-0.49 mg/L FEU Sodium Level 142 136-145 mmol/L Potassium Level 3.9 3.5-5.1 mmol/L Chloride Level 105 98-107 mmol/L Carbon Dioxide Level 30 20-31 mmol/L Anion Gap 7 5-15 Blood Urea Nitrogen 11 9-23 mg/dL Creatinine 0.96 0.550-1.02 mg/dL Glomerular Filtration Rate Calc 63 >90 mL/min BUN/Creatinine Ratio 11.5 10.0-20.0 Serum Glucose 86 74-106 mg/dL Calcium Level 10.6 H 8.7-10.4 mg/dL B-Type Natriuretic Peptide 61.56 0-100 pg/mL SEPSIS Sepsis Screen Date sepsis recognized/suspect: Dec 07, 2024 Time Sepsis recognized/suspect: 1811 Recent Procedure: No On Antibiotic Therapy: No Respiratory Rate >20: No Heart Rate >90: No Temp<36 C (96.8 F) or >38.3 C: No SBP <90 or MAP <65 mmHG: No New Acute Mental Status Change: No Is the patient on CPAP, BIPAP,: No Physician Orders Chest Portable (12/07/24 15:48) Blood Culture (12/07/24 16:28) Sodium Chloride 0.9% (12/07/24 18:15) Albuterol Medneb (Ventolin Medneb) (12/07/24 19:45) Ipratropium Medneb (Atrovent Medneb) (12/07/24 19:45) Methylprednisolone Sod Succ (Solu Medrol (12/07/24 22:00) Allopurinol Tablet (Zyloprim Tablet) (12/08/24 10:00) Amlodipine Tablet (Norvasc Tablet) (12/08/24 10:00) Apixaban (Eliquis) (12/07/24 22:00) Levothyroxine Tablet (Synthroid Tablet) (12/08/24 06:00) Losartan Tablet (Cozaar Tablet) (12/08/24 10:00) Pantoprazole Tablet (Protonix Tablet) (12/08/24 06:00) Atorvastatin (Lipitor) (12/07/24 22:00) Basic Metabolic Panel (12/08/24 04:00) Glucose Blood (Accu-Chek Comfort Curve T (12/07/24 22:00) Insulin R (Human) (Insulin R) (12/07/24 22:00) Dextrose 50% Syringe (12/07/24 19:45) Admit (12/07/24 19:32) Ondansetron Hcl (Zofran) (12/07/24 19:45) Complete Blood Count (12/08/24 04:00) Cardiac Diet-2gna,Lofat,Lochol (12/08/24 Breakfast) Condition: Stable (12/07/24 19:32) Acetaminophen Tablet (Tylenol Tablet) (12/07/24 19:45) Bedrest With Bathroom Privileg (12/07/24 19:32) Ct Angio Chest Contrast (12/07/24 22:11) Vital Signs Date Time Temp Pulse Resp B/P (MAP) Pulse Ox O2 Delivery O2 Flow Rate FiO2 12/07/24 20:05 98.0 68 14 134/71 92 3.0 32 98.0 12/07/24 20:02 92 Nasal Cannula 3.0 12/07/24 20:02 92 Nasal Cannula* 3 32 12/07/24 18:10 64 16 94 Nasal Cannula* 4 36 12/07/24 18:10 64 16 134/71 (92) 94 12/07/24 16:05 18 90 Nasal Cannula* 4 36 12/07/24 15:26 98.0 74 20 146/79 89 98.0 Laboratory Tests Test 12/07/24 16:03 12/07/24 16:45 White Blood Count 8.2 10^3/uL (4.4-10.8) Lactic Acid Level 0.9 mmol/L (0.4-2.0) Medications Medications Dose Ordered Sig/Michael Route Start Time Stop Time Status Last Admin Dose Admin Albuterol 1.25 mg ONCE ONCE NEB 12/07/24 16:00 12/07/24 16:01 DC 12/07/24 16:14 1.25 MG Azithromycin 250 ml @ 125 mls/hr ONCE ONCE IV 12/07/24 18:15 12/07/24 20:14 DC 12/07/24 19:20 125 MLS/HR Ceftriaxone Sodium 50 ml @ 100 mls/hr ONCE ONCE IV 12/07/24 18:15 12/07/24 18:44 DC 12/07/24 19:02 100 MLS/HR Ipratropium [place] 0.5 mg ONCE ONCE NEB 12/07/24 16:00 12/07/24 16:01 DC 12/07/24 16:15 0.5 MG Methylprednisolone Sodium Succinate 125 mg ONCE ONCE IV 12/07/24 16:00 12/07/24 16:01 DC 12/07/24 16:51 125 MG Assessment/Plan Assessment/Plan Assessment Acute on chronic hypoxic respiratory failure COPD exacerbation Acute pneumonitis Plan Admit the patient to Med surge to the hospitalist Azithromycin Resume home medications Continue treatment per orders. Plan discussed with: Patient My Orders Orders - NELSY HUGHES Procedure Category Date Status Time Albuterol Medneb PHA 12/07/24 In Process (Ventolin Medneb) 19:45 Ipratropium Medneb PHA 12/07/24 In Process (Atrovent Medneb) 19:45 Methylprednisolone PHA 12/07/24 In Process Sod Succ (Solu Medrol 22:00 Allopurinol Tablet PHA 12/08/24 In Process (Zyloprim Tablet) 10:00 Amlodipine Tablet PHA 12/08/24 In Process (Norvasc Tablet) 10:00 Apixaban (Eliquis) PHA 12/07/24 In Process 22:00 Levothyroxine Tablet PHA 12/08/24 In Process (Synthroid Tablet) 06:00 Losartan Tablet PHA 12/08/24 In Process (Cozaar Tablet) 10:00 Pantoprazole Tablet PHA 12/08/24 In Process (Protonix Tablet) 06:00 Atorvastatin (Lipitor) PHA 12/07/24 In Process 22:00 Basic Metabolic Panel LAB 12/08/24 Verified 04:00 Glucose Blood PHA 12/07/24 In Process (Accu-Chek Comfort 22:00 Insulin R (Human) PHA 12/07/24 In Process (Insulin R) 22:00 Dextrose 50% Syringe PHA 12/07/24 In Process 19:45 Admit ADMIT 12/07/24 Transmitted 19:32 Ondansetron Hcl PHA 12/07/24 In Process (Zofran) 19:45 Complete Blood Count LAB 12/08/24 Verified 04:00 Cardiac DIET 12/08/24 Transmitted Diet-2gna,Lofat,Lochol Breakfast Condition: Stable KARINE 12/07/24 In Process 19:32 Acetaminophen Tablet PHA 12/07/24 In Process (Tylenol Tablet) 19:45 Bedrest With Bathroom KARINE 12/07/24 In Process Privileg 19:[address] 12/07/24 Verified Contrast 22:11 Date of Service: Dec 07, 2024 Billing Provider: NELSY HUGHES Common Visit Codes: [id number] INP/OBS CARE (HIGH) NELSY HUGHES Dec 07, 2024 22:15
[2024-12-07] MEDS: IOHEXOL 350 MG/ML 100ML IJ ONE (22:21)
[2024-12-07 22:35] VITALS: PULSE 69; RESP 16; O2SAT 92
[2024-12-07] MEDS: IPRATROPIUM BROM 0.5 MG/2.5ML INH SOL NEB PRN (22:35)
[2024-12-07] MEDS: ALBUTEROL SULF 2.5 MG/0.5ML(0.5%) NEB SOLN NEB PRN (22:35)
[2024-12-07 22:41] VITALS: PULSE 69; RESP 16; O2SAT 97
--- NOTE | 2024-12-07 23:03 | DVH ---
EXAM: CT CT ANGIO CHEST CONTRAST History: r/o pe, SOB Comparison Study: CT CT ANGIO CHEST CONTRAST on DOS: 07/01/24, CT CT ANGIO CHEST CONTRAST on DOS: 11/30 TECHNIQUE: A digital warehouse selector image was obtained. During the uneventful, intravenous administration of c ontrast material, multislice data acquisition was obtained through the chest. 3-D postprocessing is performed by technologist including MIP imaging Radiation Dose : CTDI vol 24.64 mGy, DLP 794.54 mGy*cm. Findings: Evaluation is degraded by respiratory motion. Lungs: There is emphysema. There is scattered atelectasis / scarring. There are dense opacities withi n the right lower lobe. Pleura: Unremarkable Heart/Great vessels: There is mild cardiomegaly. There is no pericardial effusion. Suboptimal evalua tion for subsegmental pulmonary emboli. No central pulmonary emboli are identified. There is severe c alcified and noncalcified plaque within the aorta. There are coronary artery calcifications. Mediastinum: Unremarkable. Soft tissues/Bones: Unremarkable Upper abdomen: The partially visualized upper abdomen is within normal limits. Impression: 1. No CT evidence of acute pulmonary embolism. Suboptimal evaluation for subsegmental pulmonary emb [place]. No CT evidence of right heart strain. 2. Nonspecific right lower lobe opacity may reflect atelectasis, with superimposed infectious/ infla mmatory process not excluded in the appropriate clinical setting.
[2024-12-07] MEDS: ATORVASTATIN 20 MG TAB PO SCH (23:17)
[2024-12-07] MEDS: methylPREDNISolone SOD SUCC 40 MG/ML VL IV SCH (23:17)
[2024-12-07] MEDS: APIXABAN 5 MG TAB PO SCH (23:17)
[2024-12-08] VITALS (10 sets, daily range): BP systolic 129–157; BP diastolic 72–88; PULSE 69–85; RESP 16–20; TEMP 97.6–98; O2SAT 88–97
[2024-12-08] MEDS: ACETAMINOPHEN 325 MG TAB PO PRN (03:47)
[2024-12-08] MEDS: LEVOTHYROXINE SODIUM 112 MCG TAB PO SCH (05:24)
[2024-12-08] MEDS: PANTOPRAZOLE 40 MG TAB PO SCH (05:24)
[2024-12-08 06:09] LABS: Anion Gap 11 (5-15); Carbon Dioxide 25 mmol/L (20-31); Chloride 103 mmol/L (98-107); Sodium 139 mmol/L (136-145)
[2024-12-08 06:10] LABS: Potassium 3.4 mmol/L (3.5-5.1)
[2024-12-08 06:11] LABS: Calcium 10.2 mg/dL (8.7-10.4)
[2024-12-08 06:16] LABS: BUN/Creatinine Ratio 19.3 (10.0-20.0); Blood Urea Nitrogen 16 mg/dL (9-23)
[2024-12-08 06:19] LABS: Glucose 151 mg/dL (74-106); Hematocrit 56.9 % (36.0-46.0); Hemoglobin 19.5 g/dL (12.2-16.2); Mean Corpuscular Hemoglobin 32.9 pg (28.0-32.0); Mean Corpuscular Volume 96.0 fL (80.0-100.0); Nucleated Red Blood Cells % 0.1 %
[2024-12-08] MEDS: LOSARTAN POTASSIUM 50 MG TAB PO SCH (08:02)
[2024-12-08] MEDS: ALLOPURINOL 100 MG TAB PO SCH (08:12)
--- NOTE | 2024-12-08 12:55 | DVHPN2 ---
Progress Note Date Seen: Dec 08, 2024 Medical Necessity Reason Pt with a Central, PICC or Fol: No Subjective Patient reports: No new complaints Review of Systems: HEENT:Normal, CVS:Normal, RESPIRATORY:Normal, GI:Normal, :Normal, MSK:Normal, NEURO:Normal Objective vital signs Vital Sign Date Time Temp Pulse Resp B/P (MAP) Pulse Ox O2 Delivery O2 Flow Rate FiO2 12/08/24 12:02 98.0 80 20 137/72 (93) 88 98.0 12/08/24 00:08 Nasal Cannula* 4 36 Total Intake and Output 12/07/24 12/07/24 12/08/24 15:00 23:00 07:00 Intake Total 720 ml Balance 720 ml medications Current Medications Medications Dose Ordered Sig/Michael Route Start Time Stop Time Status Last Admin Dose Admin Albuterol 2.5 mg Q6HPRN PRN NEB 12/07/24 19:45 12/07/24 22:35 2.5 MG Ipratropium [place] 0.5 mg Q6HPRN PRN NEB 12/07/24 19:45 12/07/24 22:35 0.5 MG Methylprednisolone Sodium Succinate 40 mg BID IV 12/07/24 22:00 12/08/24 08:53 40 MG Allopurinol 100 mg DAILY PO 12/08/24 10:00 12/08/24 08:12 100 MG Amlodipine Besylate 10 mg DAILY PO 12/08/24 10:00 12/08/24 08:01 10 MG Apixaban 5 mg BID PO 12/07/24 22:00 12/08/24 08:12 5 MG Levothyroxine Sodium 112 mcg QAM@0600 PO 12/08/24 06:00 12/08/24 05:24 112 MCG Losartan Potassium 100 mg DAILY PO 12/08/24 10:00 12/08/24 08:02 100 MG Pantoprazole Sodium 40 mg DAILY@0600 PO 12/08/24 06:00 12/08/24 05:24 40 MG Atorvastatin Calcium 10 mg HS PO 12/07/24 22:00 12/07/24 23:17 10 MG Diagnostic Test (Pha) 1 strip ACHS 12/07/24 22:00 12/08/24 10:52 1 STRIP Insulin Human Regular ACHS SC 12/07/24 22:00 12/08/24 10:51 8 UNITS Dextrose 50 ml UD PRN IV 12/07/24 19:45 Ondansetron HCl 4 mg Q4HP PRN IV 12/07/24 19:45 Acetaminophen 650 mg Q6HP PRN PO 12/07/24 19:45 12/08/24 12:48 650 MG Examination: GENERAL:Normal, HEENT:Normal, NECK:Normal, LUNGS:Normal, LUNGS:Abnormal (ON OXYGEN), CVS:Normal, ABDOMEN:Normal, MSK:Normal, SKIN:Normal, NEURO:Normal, :Normal laboratory and microbiology Laboratory Tests 12/08/24 04:30 Test 12/08/24 04:30 Range/Units Serum Glucose 151 H 74-106 mg/dL Problem List/Assessment/Plan Problem List/Assessment/Plan #1 acute resp failure: cont oxygen #2 copd with exacerbation: cont meds #3 ?pneumonia- gram positive/neg: doxy #4 hypothyroidism #5 dm: ssi #6 obesity #7 htn #8 polycythemia: monitor #9 hyperlipidemia #10 h/o pe: on eliquis advance care planning- full code- time spent 18 mins Plan discussed with: Patient Date of Service: Dec 08, 2024 Billing Provider: NELSY BARTLETT MD Common Visit Codes: [id number] INP/OBS CARE(HIGH) Secondary Visit Codes: [id number] CARE PLAN 30 MINUTES NELSY BARTLETT MD Dec 08, 2024 12:55
[2024-12-08] MEDS: DOXYCYCLINE 100MG/100ML 100 ML IV SCH (14:40)
[2024-12-08] MEDS: POTASSIUM CHL 20 Meq TABLET PO ONE (14:40)
[2024-12-09] VITALS (10 sets, daily range): BP systolic 122–157; BP diastolic 73–91; PULSE 63–93; RESP 16–20; TEMP 97.6–98.5; O2SAT 91–100
[2024-12-09] MEDS: DOXYCYCLINE 100MG/100ML 100 ML IV SCH (02:08)
[2024-12-09 07:43] LABS: Hematocrit 53.3 % (36.0-46.0); Hemoglobin 18.2 g/dL (12.2-16.2); Mean Corpuscular Hemoglobin 32.6 pg (28.0-32.0); Mean Corpuscular Volume 95.5 fL (80.0-100.0); Nucleated Red Blood Cells % 0.1 %
[2024-12-09 07:57] LABS: Alanine Aminotransferase 21 U/L (7-40); Alkaline Phosphatase 61 U/L (46-116); Anion Gap 10 (5-15); BUN/Creatinine Ratio 20.3 (10.0-20.0); Blood Urea Nitrogen 16 mg/dL (9-23); Calcium 10.3 mg/dL (8.7-10.4); Carbon Dioxide 23 mmol/L (20-31); Chloride 107 mmol/L (98-107); Potassium 4.1 mmol/L (3.5-5.1); Sodium 140 mmol/L (136-145); Total Protein 7.1 g/dL (5.7-8.2)
[2024-12-09 07:58] LABS: Albumin 4.1 g/dL (3.2-4.8); Bilirubin, Total 0.5 mg/dL (0.2-1.0); Glucose 139 mg/dL (74-106)
--- NOTE | 2024-12-09 14:27 | DVHPN2 ---
Progress Note Date Seen: Dec 09, 2024 Medical Necessity Reason Pt with a Central, PICC or Fol: No Subjective Patient reports: No new complaints Review of Systems: HEENT:Normal, CVS:Normal, RESPIRATORY:Normal, GI:Normal, :Normal, MSK:Normal, NEURO:Normal Objective vital signs Vital Sign Date Time Temp Pulse Resp B/P (MAP) Pulse Ox O2 Delivery O2 Flow Rate FiO2 12/09/24 09:30 95 Nasal Cannula* 3 32 12/09/24 09:21 128/81 12/09/24 09:07 97.7 74 17 97.7 Total Intake and Output 12/08/24 12/08/24 12/09/24 15:00 23:00 07:00 Intake Total 30 ml 750 ml Balance 30 ml 750 ml medications Current Medications Medications Dose Ordered Sig/Michael Route Start Time Stop Time Status Last Admin Dose Admin Albuterol 2.5 mg Q6HPRN PRN NEB 12/07/24 19:45 12/08/24 21:57 2.5 MG Ipratropium [place] 0.5 mg Q6HPRN PRN NEB 12/07/24 19:45 12/08/24 21:57 0.5 MG Methylprednisolone Sodium Succinate 40 mg BID IV 12/07/24 22:00 12/09/24 09:19 40 MG Allopurinol 100 mg DAILY PO 12/08/24 10:00 12/09/24 09:19 100 MG Amlodipine Besylate 10 mg DAILY PO 12/08/24 10:00 12/09/24 09:20 10 MG Apixaban 5 mg BID PO 12/07/24 22:00 12/09/24 09:19 5 MG Levothyroxine Sodium 112 mcg QAM@0600 PO 12/08/24 06:00 12/09/24 06:11 112 MCG Losartan Potassium 100 mg DAILY PO 12/08/24 10:00 12/09/24 09:21 100 MG Pantoprazole Sodium 40 mg DAILY@0600 PO 12/08/24 06:00 12/09/24 06:11 40 MG Atorvastatin Calcium 10 mg HS PO 12/07/24 22:00 12/08/24 21:17 10 MG Diagnostic Test (Pha) 1 strip ACHS 12/07/24 22:00 12/09/24 11:11 1 STRIP Insulin Human Regular ACHS SC 12/07/24 22:00 12/09/24 11:17 3 UNITS Dextrose 50 ml UD PRN IV 12/07/24 19:45 Ondansetron HCl 4 mg Q4HP PRN IV 12/07/24 19:45 Acetaminophen 650 mg Q6HP PRN PO 12/07/24 19:45 12/09/24 09:19 650 MG Doxycycline Hyclate 100 ml @ 50 mls/hr Q12H IV 12/09/24 02:30 12/09/24 02:08 50 MLS/HR Examination: GENERAL:Normal, HEENT:Normal, NECK:Normal, LUNGS:Normal, CVS:Normal, ABDOMEN:Normal, MSK:Normal, SKIN:Normal, NEURO:Normal, :Normal laboratory and microbiology Laboratory Tests 12/09/24 06:38 Test 12/09/24 06:38 Range/Units Serum Glucose 139 H 74-106 mg/dL Microbiology Date/Time Source Procedure Growth Status 12/07/24 16:49 Blood Blood Culture - Preliminary NO GROWTH AFTER 24 HOURS OF INCUBATION. Resulted Problem List/Assessment/Plan Problem List/Assessment/Plan #1 acute resp failure: cont oxygen #2 copd with exacerbation: cont meds #3 ?pneumonia- gram positive/neg: doxy #4 hypothyroidism #5 dm: ssi #6 obesity #7 htn #8 polycythemia: monitor #9 hyperlipidemia #10 h/o pe: on eliquis advance care planning- full code- time spent 18 mins Plan discussed with: Patient My Orders My Orders Orders - NELSY BARTLETT MD Procedure Category Date Status Time Doxycycline PHA 12/09/24 In Process 100mg/100ml 02:30 Hydrocortisone PHA 12/09/24 Verified Suppository 14:30 Hydrocortisone PHA 12/09/24 Verified Suppository 22:00 Doxycycline Tablet PHA 12/09/24 Verified (Vibramycin Tablet) 22:00 Date of Service: Dec 09, 2024 Billing Provider: NELSY BARTLETT MD Common Visit Codes: [id number] INP/OBS CARE(HIGH) Secondary Visit Codes: [id number] CARE PLAN 30 MINUTES NELSY BARTLETT MD Dec 09, 2024 14:27
[2024-12-09] MEDS: HYDROCORTISONE ACET 25 MG RECTAL SUPP PR ONE (19:35)
[2024-12-09] MEDS: HYDROCORTISONE ACET 25 MG RECTAL SUPP PR SCH (22:00)
[2024-12-09] MEDS: DOXYCYCLINE 100 MG TAB/CAP PO SCH (22:11)
[2024-12-10] VITALS (13 sets, daily range): BP systolic 125–158; BP diastolic 55–99; PULSE 53–93; RESP 16–18; TEMP 96.4–98.2; O2SAT 92–100
--- NOTE | 2024-12-10 17:35 | DVHPN2 ---
Subjective Better Changes from previous H/P or p: No Changes Objective Vitals Vital Signs Date Time Temp Pulse Resp B/P (MAP) Pulse Ox O2 Delivery O2 Flow Rate FiO2 12/10/24 17:00 97.6 53 18 153/55 (87) 94 97.6 12/10/24 10:00 Nasal Cannula* 3 32 Intake/Output Intake and Output 12/10/24 07:00 Intake Total 1844 ml Balance 1844 ml Intake Oral 1844 ml # Voids 12 # Bowel Movements 7 General Appearance: Alert, Oriented X3, Cooperative Lungs: Clear to auscultation, Normal air movement Cardiovascular: Regular rate, Normal S1, Normal S2 Abdomen: Normal bowel sounds, Soft Extremities: No edema Medications Current Medications Medications Dose Ordered Sig/Michael Route Start Time Stop Time Status Last Admin Dose Admin Albuterol 2.5 mg Q6HPRN PRN NEB 12/07/24 19:45 12/10/24 09:35 2.5 MG Ipratropium [place] 0.5 mg Q6HPRN PRN NEB 12/07/24 19:45 12/10/24 09:35 0.5 MG Methylprednisolone Sodium Succinate 40 mg BID IV 12/07/24 22:00 12/10/24 10:46 40 MG Allopurinol 100 mg DAILY PO 12/08/24 10:00 12/10/24 10:47 100 MG Amlodipine Besylate 10 mg DAILY PO 12/08/24 10:00 12/10/24 10:47 10 MG Apixaban 5 mg BID PO 12/07/24 22:00 12/10/24 10:46 5 MG Levothyroxine Sodium 112 mcg QAM@0600 PO 12/08/24 06:00 12/10/24 05:46 112 MCG Losartan Potassium 100 mg DAILY PO 12/08/24 10:00 12/10/24 10:46 100 MG Pantoprazole Sodium 40 mg DAILY@0600 PO 12/08/24 06:00 12/10/24 05:46 40 MG Atorvastatin Calcium 10 mg HS PO 12/07/24 22:00 12/09/24 22:10 10 MG Diagnostic Test (Pha) 1 strip ACHS 12/07/24 22:00 12/10/24 11:46 1 STRIP Insulin Human Regular ACHS SC 12/07/24 22:00 12/10/24 11:47 4 UNITS Dextrose 50 ml UD PRN IV 12/07/24 19:45 Ondansetron HCl 4 mg Q4HP PRN IV 12/07/24 19:45 Acetaminophen 650 mg Q6HP PRN PO 12/07/24 19:45 12/09/24 09:19 650 MG Hydrocortisone Acetate 25 mg Q12HR HI 12/09/24 22:00 Doxycycline Monohydrate 100 mg Q12HR PO 12/09/24 22:00 12/10/24 10:47 100 MG Laboratory Results Laboratory Tests 12/09/24 06:38 Urinalysis Test 12/07/24 16:17 Urine Color Yellow (Yellow) Urine Clarity Clear (Clear) Urine pH 5.5 (5.0-9.0) Urine Specific [place] 1.016 (1.001-1.035) Urine Protein 1+ (Negative) H Urine Ketones Negative (Negative) Urine Blood Negative /uL (Negative) Urine Nitrite Negative (Negative) Urine Bilirubin Negative (Negative) Urine Urobilinogen Normal mg/dL (Negative) Urine Leukocyte Esterase Negative /uL (Negative) Urine RBC 1 /hpf (0 - 4) Urine Microscopic WBC 4 /HPF (0-5) Urine Squamous Epithelial Cells Few /hpf (<5) Urine Bacteria None seen /hpf (None Seen) Urine Glucose Normal mg/dL (Normal) Microbiology Microbiology Date/Time Source Procedure Growth Status 12/07/24 16:49 Blood Blood Culture - Preliminary NO GROWTH AFTER 72 HOURS OF INCUBATION. Resulted Assessment/Plan Assessment/Plan Acute respiratory failure COPD exacerbation DM2 Obesity HTN h/o PE PLAN: Steroids Med Nebs O2 Eliquis Doxycycline Plan discussed with: Patient Date of Service: Dec 10, 2024 Billing Provider: TEODORA HERNANDEZ MD Common Visit Codes: [id number] INP/OBS CARE(HIGH) TEODORA HERNANDEZ MD Dec 10, 2024 17:35
[2024-12-10] MEDS: ONDANSETRON HCL 4 MG/2 ML VIAL IV PRN (17:57)
[2024-12-11] VITALS (12 sets, daily range): BP systolic 136–143; BP diastolic 85–91; PULSE 70–93; RESP 18–20; TEMP 97.7–98.2; O2SAT 91–99
--- NOTE | 2024-12-11 10:32 | DVHPN2 ---
Subjective Better She is on 2 L nasal cannula Changes from previous H/P or p: Changes Objective Vitals Vital Signs Date Time Temp Pulse Resp B/P (MAP) Pulse Ox O2 Delivery O2 Flow Rate FiO2 12/11/24 09:41 106/62 12/11/24 09:00 98.0 86 20 92 98.0 12/11/24 08:29 Nasal Cannula 3.0 12/11/24 08:29 32 Intake/Output Intake and Output 12/11/24 07:00 Intake Total 1770 ml Balance 1770 ml Intake Oral 1770 ml # Voids 6 # Bowel Movements 1 General Appearance: Alert, Oriented X3, Cooperative Lungs: Clear to auscultation, Normal air movement Cardiovascular: Regular rate, Normal S1, Normal S2 Abdomen: Normal bowel sounds, Soft Extremities: No edema Medications Current Medications Medications Dose Ordered Sig/Michael Route Start Time Stop Time Status Last Admin Dose Admin Albuterol 2.5 mg Q6HPRN PRN NEB 12/07/24 19:45 12/11/24 08:29 2.5 MG Ipratropium [place] 0.5 mg Q6HPRN PRN NEB 12/07/24 19:45 12/11/24 08:30 0.5 MG Methylprednisolone Sodium Succinate 40 mg BID IV 12/07/24 22:00 12/11/24 09:41 40 MG Allopurinol 100 mg DAILY PO 12/08/24 10:00 12/11/24 09:41 100 MG Amlodipine Besylate 10 mg DAILY PO 12/08/24 10:00 12/11/24 09:41 10 MG Apixaban 5 mg BID PO 12/07/24 22:00 12/11/24 09:41 5 MG Levothyroxine Sodium 112 mcg QAM@0600 PO 12/08/24 06:00 12/11/24 05:54 112 MCG Losartan Potassium 100 mg DAILY PO 12/08/24 10:00 12/11/24 09:40 100 MG Pantoprazole Sodium 40 mg DAILY@0600 PO 12/08/24 06:00 12/11/24 05:54 40 MG Atorvastatin Calcium 10 mg HS PO 12/07/24 22:00 12/10/24 21:29 10 MG Diagnostic Test (Pha) 1 strip ACHS 12/07/24 22:00 12/11/24 06:41 1 STRIP Insulin Human Regular ACHS SC 12/07/24 22:00 12/11/24 06:49 3 UNITS Dextrose 50 ml UD PRN IV 12/07/24 19:45 Ondansetron HCl 4 mg Q4HP PRN IV 12/07/24 19:45 12/10/24 23:11 4 MG Acetaminophen 650 mg Q6HP PRN PO 12/07/24 19:45 12/09/24 09:19 650 MG Hydrocortisone Acetate 25 mg Q12HR [place] 12/09/24 22:00 12/11/24 09:42 25 MG Doxycycline Monohydrate 100 mg Q12HR PO 12/09/24 22:00 12/11/24 09:41 100 MG Laboratory Results Laboratory Tests 12/09/24 06:38 Urinalysis Test 12/07/24 16:17 Urine Color Yellow (Yellow) Urine Clarity Clear (Clear) Urine pH 5.5 (5.0-9.0) Urine Specific [place] 1.016 (1.001-1.035) Urine Protein 1+ (Negative) H Urine Ketones Negative (Negative) Urine Blood Negative /uL (Negative) Urine Nitrite Negative (Negative) Urine Bilirubin Negative (Negative) Urine Urobilinogen Normal mg/dL (Negative) Urine Leukocyte Esterase Negative /uL (Negative) Urine RBC 1 /hpf (0 - 4) Urine Microscopic WBC 4 /HPF (0-5) Urine Squamous Epithelial Cells Few /hpf (<5) Urine Bacteria None seen /hpf (None Seen) Urine Glucose Normal mg/dL (Normal) Microbiology Microbiology Date/Time Source Procedure Growth Status 12/07/24 16:49 Blood Blood Culture - Preliminary NO GROWTH AFTER 72 HOURS OF INCUBATION. Resulted Assessment/Plan Assessment/Plan Acute respiratory failure COPD exacerbation DM2 Obesity HTN h/o PE PLAN: Steroids Med Nebs O2 Eliquis Doxycycline 12/11/2024: Continue the current management with oxygen med neb treatments and steroids Doxycycline Eliquis Discharge planning in 1-2 days and to check her room air oxygen to see if she qualifies for home O2 The rest of the management will depend on the hospital course Plan discussed with: Patient Date of Service: Dec 11, 2024 Billing Provider: TEODORA HERNANDEZ MD Common Visit Codes: [id number] INP/OBS CARE(MOD) TEODORA HERNANDEZ MD Dec 11, 2024 10:32
[2024-12-12] VITALS (11 sets, daily range): BP systolic 128–165; BP diastolic 68–92; PULSE 71–94; RESP 16–20; TEMP 97.5–98.2; O2SAT 92–97
--- NOTE | 2024-12-12 10:56 | DVHPN2 ---
Subjective Better She is on 2 L nasal cannula Changes from previous H/P or p: Changes Objective Vitals Vital Signs Date Time Temp Pulse Resp B/P (MAP) Pulse Ox O2 Delivery O2 Flow Rate FiO2 12/12/24 10:00 97 Nasal Cannula 2.0 12/12/24 10:00 28 12/12/24 09:11 154/92 12/12/24 09:00 97.6 89 20 97.6 Intake/Output Intake and Output 12/12/24 07:00 Intake Total 1555 ml Output Total 750 ml Balance 805 ml Intake Oral 1555 ml Output Urine Total 750 ml # Voids 3 # Bowel Movements 3 General Appearance: Alert, Oriented X3, Cooperative Lungs: Clear to auscultation, Normal air movement Cardiovascular: Regular rate, Normal S1, Normal S2 Abdomen: Normal bowel sounds, Soft Extremities: No edema Medications Current Medications Medications Dose Ordered Sig/Michael Route Start Time Stop Time Status Last Admin Dose Admin Albuterol 2.5 mg Q6HPRN PRN NEB 12/07/24 19:45 12/11/24 08:29 2.5 MG Ipratropium [place] 0.5 mg Q6HPRN PRN NEB 12/07/24 19:45 12/11/24 08:30 0.5 MG Methylprednisolone Sodium Succinate 40 mg BID IV 12/07/24 22:00 12/12/24 09:12 40 MG Allopurinol 100 mg DAILY PO 12/08/24 10:00 12/12/24 09:11 100 MG Amlodipine Besylate 10 mg DAILY PO 12/08/24 10:00 12/12/24 09:11 10 MG Apixaban 5 mg BID PO 12/07/24 22:00 12/12/24 09:10 5 MG Levothyroxine Sodium 112 mcg QAM@0600 PO 12/08/24 06:00 12/12/24 05:56 112 MCG Losartan Potassium 100 mg DAILY PO 12/08/24 10:00 12/12/24 09:10 100 MG Pantoprazole Sodium 40 mg DAILY@0600 PO 12/08/24 06:00 12/12/24 05:56 40 MG Atorvastatin Calcium 10 mg HS PO 12/07/24 22:00 12/11/24 22:26 10 MG Diagnostic Test (Pha) 1 strip ACHS 12/07/24 22:00 12/12/24 06:37 1 STRIP Insulin Human Regular ACHS SC 12/07/24 22:00 12/12/24 06:41 4 UNITS Dextrose 50 ml UD PRN IV 12/07/24 19:45 Ondansetron HCl 4 mg Q4HP PRN IV 12/07/24 19:45 12/10/24 23:11 4 MG Acetaminophen 650 mg Q6HP PRN PO 12/07/24 19:45 12/09/24 09:19 650 MG Hydrocortisone Acetate 25 mg Q12HR HI 12/09/24 22:00 12/12/24 09:11 25 MG Doxycycline Monohydrate 100 mg Q12HR PO 12/09/24 22:00 12/12/24 09:10 100 MG Laboratory Results Laboratory Tests 12/09/24 06:38 Urinalysis Test 12/07/24 16:17 Urine Color Yellow (Yellow) Urine Clarity Clear (Clear) Urine pH 5.5 (5.0-9.0) Urine Specific [place] 1.016 (1.001-1.035) Urine Protein 1+ (Negative) H Urine Ketones Negative (Negative) Urine Blood Negative /uL (Negative) Urine Nitrite Negative (Negative) Urine Bilirubin Negative (Negative) Urine Urobilinogen Normal mg/dL (Negative) Urine Leukocyte Esterase Negative /uL (Negative) Urine RBC 1 /hpf (0 - 4) Urine Microscopic WBC 4 /HPF (0-5) Urine Squamous Epithelial Cells Few /hpf (<5) Urine Bacteria None seen /hpf (None Seen) Urine Glucose Normal mg/dL (Normal) Microbiology Microbiology Date/Time Source Procedure Growth Status 12/07/24 16:49 Blood Blood Culture - Preliminary NO GROWTH AFTER 72 HOURS OF INCUBATION. Resulted Assessment/Plan Assessment/Plan Acute respiratory failure COPD exacerbation DM2 Obesity HTN h/o PE PLAN: Steroids Med Nebs O2 Eliquis Doxycycline 12/11/2024: Continue the current management with oxygen med neb treatments and steroids Doxycycline Eliquis Discharge planning in 1-2 days and to check her room air oxygen to see if she qualifies for home O2 The rest of the management will depend on the hospital course 12/12/2024: IV Solu-Medrol Med neb treatments Oxygen as needed IV doxycycline Eliquis Discharge planning for tomorrow Evaluate for possible home O2 Plan discussed with: Patient Date of Service: Dec 12, 2024 Billing Provider: TEODORA HERNANDEZ MD Common Visit Codes: [id number] INP/OBS CARE(MOD) TEODORA HERNANDEZ MD Dec 12, 2024 10:56
[2024-12-13] VITALS (8 sets, daily range): BP systolic 136–146; BP diastolic 88–97; PULSE 71–86; RESP 17–19; TEMP 97.5–98.4; O2SAT 93–99
--- NOTE | 2024-12-13 12:56 | DVHDS2 ---
Discharge Summary Date of Admission Dec 07, 2024 at 19:32 Date of Discharge: Dec 13, 2024 Labs/Diagnostic Data: Laboratory Results Test 12/13/24 11:57 12/09/24 06:38 12/07/24 16:45 12/07/24 16:35 POC Glucose 181 mg/dl (70-106) White Blood Count 10.6 10^3/uL (4.4-10.8) Red Blood Count 5.58 10^6/uL (4.0-5.20) Hemoglobin 18.2 g/dL (12.2-16.2) Hematocrit 53.3 % (36.0-46.0) Mean Corpuscular Volume 95.5 fL (80.0-100.0) Mean Corpuscular Hemoglobin 32.6 pg (28.0-32.0) Mean Corpuscular Hemoglobin Concent 34.2 g/dL (32.0-36.0) Red Cell Distribution Width 16.7 % (11.8-14.3) Platelet Count 151 10^3/uL (140-450) Mean Platelet Volume 9.0 fL (6.9-10.8) Neutrophils (%) (Auto) 87.2 % (37.0-80.0) Lymphocytes (%) (Auto) 7.4 % (10.0-50.0) Monocytes (%) (Auto) 5.3 % (0.0-12.0) Eosinophils (%) (Auto) 0.0 % (0.0-7.0) Basophils (%) (Auto) 0.1 % (0.0-2.0) Neutrophils # (Auto) 9.3 10 ^3/uL (1.6-8.6) Lymphocytes # (Auto) 0.8 10 ^3/uL (0.4-5.4) Monocytes # (Auto) 0.6 10 ^3/uL (0-1.3) Eosinophils # (Auto) 0 10 ^3/uL (0-0.8) Basophils # (Auto) 0 10 ^3/uL (0-0.2) Nucleated Red Blood Cells 0.1 % Sodium Level 140 mmol/L (136-145) Potassium Level 4.1 mmol/L (3.5-5.1) Chloride Level 107 mmol/L (98-107) Carbon Dioxide Level 23 mmol/L (20-31) Anion Gap 10 (5-15) Blood Urea Nitrogen 16 mg/dL (9-23) Creatinine 0.79 mg/dL (0.550-1.02) Glomerular Filtration Rate Calc 79 mL/min (>90) BUN/Creatinine Ratio 20.3 (10.0-20.0) Serum Glucose 139 mg/dL (74-106) Hemoglobin A1c 7.0 % A1C (<5.7) Calcium Level 10.3 mg/dL (8.7-10.4) Total Bilirubin 0.5 mg/dL (0.2-1.0) Aspartate Amino Transferase (AST) 18 U/L (13-40) Alanine Aminotransferase (ALT) 21 U/L (7-40) Alkaline Phosphatase 61 U/L (46-116) Total Protein 7.1 g/dL (5.7-8.2) Albumin 4.1 g/dL (3.2-4.8) Thyroid Stimulating Hormone (TSH) 0.54 uIU/mL (0.55-4.78) Lactic Acid Level 0.9 mmol/L (0.4-2.0) Influenza Type A Antigen Negative (Negative) Influenza Type B Antigen Negative (Negative) SARS-CoV-2 Antigen (Rapid) Negative (NEGATIVE) Test 12/07/24 16:17 12/07/24 16:03 Urine Color Yellow (Yellow) Urine Clarity Clear (Clear) Urine pH 5.5 (5.0-9.0) Urine Specific [place] 1.016 (1.001-1.035) Urine Protein 1+ (Negative) Urine Ketones Negative (Negative) Urine Blood Negative /uL (Negative) Urine Nitrite Negative (Negative) Urine Bilirubin Negative (Negative) Urine Urobilinogen Normal mg/dL (Negative) Urine Leukocyte Esterase Negative /uL (Negative) Urine RBC 1 /hpf (0 - 4) Urine Microscopic WBC 4 /HPF (0-5) Urine Squamous Epithelial Cells Few /hpf (<5) Urine Bacteria None seen /hpf (None Seen) Urine Glucose Normal mg/dL (Normal) D-Dimer, Quantitative 0.76 mg/L FEU (0.0-0.49) B-Type Natriuretic Peptide 61.56 pg/mL (0-100) Other Laboratory Tests 12/09/24 06:38 Brief Hx & Hospital Course: see dictated note Condition at Discharge: Fair Final Diagnosis/Problems List copd Discharge Disposition: Home Discharge Instruct/Medications Diet: Cardiac 2g Na,low cholest Activity: No Restrictions, As Tolerated Follow Up/Referral: fu with pcp in 1 wk Medications: resume home meds script to pharmacy Scheduled Acetaminophen (Acetaminophen), 500 MG PO Q4HPRN Allopurinol (Zyloprim Tablet), 1 TAB PO BID, (Reported) Amlodipine Besylate (Amlodipine Besylate), 1 TAB PO DAILY, (Reported) Amoxicillin & Pot Clavulanate (Augmentin Tablet), 875 MG PO BID Apixaban Base (Eliquis), 10 MG PO BID Buspirone Hcl (Buspirone Hcl), 10 MG PO Q12HR, (Reported) Dapagliflozin Propanediol (Dapagliflozin Propanediol), 1 TAB PO DAILY, (Reported) Escitalopram Oxalate (Escitalopram Oxalate), 1 TAB PO DAILY, (Reported) Levothyroxine Sodium (Levothyroxine Sodium), 1 TAB PO DAILY, (Reported) Losartan Potassium (Losartan Potassium), 1 TAB PO DAILY, (Reported) Metoprolol Succinate (Metoprolol Succinate Er), 1 TAB PO DAILY, (Reported) Metronidazole (Flagyl), 500 MG PO TID Pantoprazole Sodium Sesquihydr (Pantoprazole Sodium), 40 MG PO QAM Rosuvastatin Calcium (Crestor), 1 TAB PO DAILY, (Reported) Discharge Statement: "Patient was advised to return to the ER or call 911 if any headaches, dizziness, shortness of breath, chest pain, abdominal pain, bleeding, fevers, or worsening of medical condition. Patient was counseled about treatment plan, medications, possible side effects, patientverbalized understanding. All questions were answered to the best of my ability. This discharge took greater then 30 minutes in planning, reviewing documentation, counseling the patient, and discussing with other team members." ASSESSMENT ASSESSMENT Assessment copd Date of Service: Dec 13, 2024 Billing Provider: NELSY BARTLETT MD Common Visit Codes: [id number] DISCH DAY >30min NELSY BARTLETT MD Dec 13, 2024 12:56
[2024-12-13] MEDS ORDERED: DOXY-286 PO (13:00)
[2024-12-13] MEDS ORDERED: PRED20TA2 PO (13:00)
--- NOTE | 2024-12-13 13:36 | DVHDS ---
DATE OF DISCHARGE: 12/13/2024 HISTORY OF PRESENT ILLNESS: The patient is a 74-year-old lady who is admitted with history of shortness of breath and cough and a history of COPD, pulmonary embolism, diabetes, hypertension, and hypothyroidism. HOSPITAL COURSE: The patient had a CT angiography that showed no evidence of acute pulmonary embolism. The patient was placed on steroids along with bronchodilators. The patient's symptoms are now improved. She will be discharged home to resume her home medications as well as home oxygen as well as to be on prednisone 20 mg daily for 5 days and doxycycline 100 mg p.o. b.i.d. for 5 days. She will follow up with her primary in 1 week. FINAL DIAGNOSES: * Acute respiratory failure. * COPD with exacerbation. * Questionable pneumonia, gram positive gram negative. * Hypothyroidism. * Diabetes mellitus. * Obesity. * Hypertension. * Polycythemia, likely secondary. * History of PE. * Hyperlipidemia. Time spent on discharge planning, reviewing the plan with the patient and nursing was 38 minutes. MD ANGELINA Mason/DONNELL TID: [id number] RECEIPT: [id number]
== END 2024-12-13 15:25 | disposition home or self-care (01) | DRG 177 ==
LOC: ER 15:22 → OVERFLOW 19:32 → WEST WING 12-08 17:35
PROVIDERS: ADMIT Internal Medicine; ATTEND Internal Medicine
DX: J15.69 Pneumonia due to other Gram-negative bacteria (principal); J96.21 Acute and chronic respiratory failure with hypoxia; J44.1 Chronic obstructive pulmonary disease with (acute) exacerbation; J44.0 Chronic obstructive pulmonary disease with (acute) lower respiratory infection; J15.9 Unspecified bacterial pneumonia; I50.9 Heart failure, unspecified; I11.0 Hypertensive heart disease with heart failure; E66.9 Obesity, unspecified; E11.9 Type 2 diabetes mellitus without complications; E03.9 Hypothyroidism, unspecified; Z68.31 Body mass index [BMI] 31.0-31.9, adult; Z20.822 Contact with and (suspected) exposure to COVID-19; J98.4 Other disorders of lung; F41.9 Anxiety disorder, unspecified; E78.5 Hyperlipidemia, unspecified; D75.1 Secondary polycythemia; Z90.49 Acquired absence of other specified parts of digestive tract; Z86.711 Personal history of pulmonary embolism; Z79.899 Other long term (current) drug therapy
CPT/HCPCS: 36415; 71045; 71275; 80048; 80053; 81001; 82962; 83036; 83605; 83880; 84443; 85025; 85379; 87040; 87426; 87804; 94640; 96365; 96375; G0378; J1815; J2405

== ENCOUNTER 2024-12-29 19:25 | Emergency (ER) | payer MEDICARE, OTHER ==
[~2024-12-29] VITALS: Ht 162.6 cm; Wt 80.0 kg
[~2024-12-29 19:25] MED LIST changes: +DOXY-286 PO; +PRED20TA2 PO
--- NOTE | 2024-12-29 19:54 | ED.PDOC ---
SOB-HPI HPI Comments 74-year-old female with PMHx COPD presents with a chief complaint of SOB. Patient reports that she wears oxygen at home, but that "it just was not enough for me, I still felt SOB". Patient reports that she has an inhaler at home, but does not have a home nebulizer. Patient also mentions that she has been having an increase in congestion and mucus production. Patient is able to speak in full, complete sentences. 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 SUPERVISOR History Family History Family History: No family hx of Cancer, No family hx of DM, No family hx of Heart crystal, No family hx ofKidney crystal, No family hx of Liver crystal, No family hx of Lung crystal, Family hx of HTN, Family hx of stroke Social History Smoker: Non-Smoker Alcohol: Denies ETOH Use Drugs: Denies Drug Use Lives In: Home Constitutional: denies: chills, diaphoresis, fatigue, fever, malaise, sweats, weakness, others EENTM: denies: blurred vision, double vision, ear bleeding, ear discharge, ear drainage, ear pain, ear ringing, eye pain, eye redness, hearing loss, mouth pain, mouth swelling, nasal discharge, nose bleeding, nose congestion, nose pain, photophobia, tearing, throat pain, throat swelling, voice changes, others Respiratory: reports: shortness of breath; denies: cough, hemoptysis, orthopnea, SOB at rest, SOB with excertion, stridor, wheezing, others Cardiovascular: denies: chest pain, dizzy spells, diaphoresis, Dyspnea on exertion, edema, irregular heart beat, left arm pain, lightheadedness, palpitations, PND, syncope, others Gastrointestinal: denies: abdomen distended, abdominal pain, blood streaked bowels, constipated, diarrhea, dysphagia, difficulty swallowing, hematemesis, melena, nausea, poor appetite, poor fluid intake, rectal bleeding, rectal pain, vomiting, others Genitourinary: denies: abnormal vagina bleeding, burning, dyspareunia, dysuria, flank pain, frequency, hematuria, incontinence, pain, , vagina discharge, urgency, others Neurological: denies: dizziness, fainting, headache, left sided numbness, left sided weakness, numbness, paresthesia, pre-existing deficit, right sided numbness, right sided weakness, seizure, speech problems, tingling, tremors, weakness, others Musculoskeletal: denies: back pain, gout, joint pain, joint swelling, muscle pain, muscle stiffness, neck pain, others Integumetry: denies: bruises, change in color, change in hair/nails, dryness, laceration, lesions, lumps, rash, wounds, others Allergic/Immunocompromised: denies: Difficulty Healing, Frequent Infections, Hives, Itching, others Hematologic/Lymphatic: denies: anemia, blood clots, easy bleeding, easy bruising, swollen glands, others Endocrine: denies: excessive hunger, excessive sweating, excessive thirst, excessive urination, flushing, intolerance to cold, intolerance to heat, unexplained weight gain, unexplained weight loss, others Psychiatric: denies: anxiety, bipolar disorder, depression, hopeless, panic disorder, schizophrenia, sleepless, suicidal, others All Other Systems: Reviewed and Negative Physical Exam General Appearance: No Apparent Distress, Normal HEENT: Normal ENT Inspection, Pharynx Normal, TMs Normal Neck: Full Range of Motion, Non-Tender, Normal, Normal Inspection Respiratory: Chest Non-Tender, Lungs Clear, No Accessory Muscle Use, No Respiratory Distress, Normal Breath Sounds Cardiovascular: No Edema, No JVD, No Murmur, No Gallop, Normal Peripheral Pulses, Regular Rate/Rhythm Breast Exam: Deferred Gastrointestinal: No Organomegaly, Non Tender, No Pulsatile Mass, Normal Bowel Sounds, Soft Genitalia: Deferred Pelvic: Deferred Rectal: Deferred Extremities: No calf tenderness, Normal capillary refill, Normal inspection, Normal range of motion, Non-tender, No pedal edema Musculoskeletal : Apperance: Normal 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 Was a procedure done?: No Differential Dx Differential Diagnosis: Asthma, Bronchitis, CHF, COPD X-Ray, Labs, Meds, VS Vital Signs Date Time Temp Pulse Resp B/P (MAP) Pulse Ox O2 Delivery O2 Flow Rate FiO2 12/29/24 20:49 22 90 Nasal Cannula* 4 36 12/29/24 19:40 81 12/29/24 19:26 97.6 92 20 129/74 89 97.6 Current Medications Medications (Trade) Dose Ordered Sig/Michael Route Start Time Stop Time Status Last Admin Albuterol (Ventolin Medneb) 2.5 mg ONCE ONCE NEB 12/29/24 20:15 12/29/24 20:16 DC 12/29/24 20:49 Ipratropium [place] (Atrovent Medneb) 0.5 mg ONCE ONCE NEB 12/29/24 20:15 12/29/24 20:16 DC 12/29/24 20:49 Methylprednisolone Sodium Succinate (Solu Medrol) 125 mg ONCE ONCE IM 12/29/24 20:15 12/29/24 20:16 DC 12/29/24 20:55 X-Ray, Labs, Meds, VS Comment Imaging was reviewed by this provider, there is no obvious pathological or acute disease process. Pending radiology review Labs were reviewed by this provider, no abnormalities Vital signs reviewed by this provider, clinically stable Time of 1ST Reevaluation: 20:13 Reevaluation 1ST: Unchanged Patient Education/Counseling: Diagnosis, Treatment, Need For Follow Up (Follow up with PCP in 2-4 days. Return to emergency department if symptoms worsen.) Family Education/Counseling: No Family Present SEPSIS Sepsis Screen Date sepsis recognized/suspect: Dec 29, 2024 Time Sepsis recognized/suspect: 1927 Recent Procedure: No On Antibiotic Therapy: No Respiratory Rate >20: No Heart Rate >90: Yes Temp<36 C (96.8 F) or >38.3 C: No SBP <90 or MAP <65 mmHG: No New Acute Mental Status Change: No Is the patient on CPAP, BIPAP,: No Physician Orders Electrocardigram (12/29/24 19:44) Chest Xray 1 View (12/29/24 20:15) Vital Signs Date Time Temp Pulse Resp B/P (MAP) Pulse Ox O2 Delivery O2 Flow Rate FiO2 12/29/24 20:49 22 90 Nasal Cannula* 4 36 8/20/25 19:40 81 12/29/24 19:26 97.6 92 20 129/74 89 97.6 Medications Medications Dose Ordered Sig/Michael Route Start Time Stop Time Status Last Admin Dose Admin Albuterol 2.5 mg ONCE ONCE NEB 12/29/24 20:15 12/29/24 20:16 DC 12/29/24 20:49 Ipratropium [place] 0.5 mg ONCE ONCE NEB 12/29/24 20:15 12/29/24 20:16 DC 12/29/24 20:49 Methylprednisolone Sodium Succinate 125 mg ONCE ONCE IM 12/29/24 20:15 12/29/24 20:16 DC 12/29/24 20:55 Departure 1 Departure Time of Disposition: 21:29 Impression: Primary Impression: COPD exacerbation Disposition: HOME / SELF CARE / HOMELESS Condition: Fair e-Prescriptions Azithromycin (Zithromax Z-Timothy) 250 Mg Tab 250 MG PO DAILY for 5 Days, #5 TAB Prov: GLADYS REYES 12/29/24 Discharged With: Self Critical Care Note Critical Care Time?: No Stability Stability form required: No Heart Score Heart Score: Heart Score Response (Comments) Value History N/A 0 EKG N/A 0 Age N/A 0 Risk Factors N/A 0 Troponin N/A 0 Total 0 I personally scribed for GLADYS REYES ([email or web address]) on 12/29/24 at 19:54. Electronically submitted by Corby Goncalves ([email or web address]). GLADYS REYES Dec 29, 2024 19:54
--- NOTE | 2024-12-29 20:39 | DVH ---
CLINICAL HISTORY: sob TECHNIQUE: Single view of the chest was obtained. COMPARISON: XY CHEST PORTABLE on DOS: 12/07/24, XY CHEST PORTABLE on DOS: 06/30/24, XY CHEST PORTABLE o n DOS: 12/01/23, XY CHEST TWO VIEWS ROUTINE on DOS: 11/19/23 FINDINGS: The heart is mildly enlarged in size and pulmonary vasculature appears normal. The lungs are clear. IMPRESSION: NO ACUTE CARDIOPULMONARY PROCESS.
[2024-12-29] MEDS: IPRATROPIUM BROM 0.5 MG/2.5ML INH SOL NEB ONE (20:49)
[2024-12-29] MEDS: ALBUTEROL SULF 2.5 MG/0.5ML(0.5%) NEB SOLN NEB ONE (20:49)
[2024-12-29] MEDS: methylPREDNISolone SOD SUCC 125 MG/2 ML VL IM ONE (20:55)
[2024-12-29 21:00] VITALS: O2SAT 91
[2024-12-29 21:02] VITALS: BP 124/70; PULSE 77; RESP 18; TEMP 97.3; O2SAT 91
[2024-12-29] MEDS ORDERED: AZITTAB PO (21:30)
--- NOTE | 2024-12-30 00:28 | ECG ---
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
== END 2024-12-30 01:45 | disposition home or self-care (01) ==
LOC: ER 19:25
DX: J44.1 Chronic obstructive pulmonary disease with (acute) exacerbation (principal); I10 Essential (primary) hypertension; E11.9 Type 2 diabetes mellitus without complications; F32.A Depression, unspecified; F41.9 Anxiety disorder, unspecified; Z98.890 Other specified postprocedural states; Z90.49 Acquired absence of other specified parts of digestive tract
CPT/HCPCS: 71045; 93005; 94640; 96372; 99283; J2919

== ENCOUNTER 2025-01-06 11:24 | Inpatient (IN) | payer MEDICARE, OTHER ==
[~2025-01-06] VITALS: Ht 162.6 cm; Wt 85.9 kg
[~2025-01-06 11:24] MED LIST changes: +AZITTAB PO
--- NOTE | 2025-01-06 11:30 | ED.PDOC ---
HPI Comments BONILLA: EPIG PAIN, GERD, ABN EKG. Pain is worse with eating or drinking. Onset last night. Patient is sent from urgent Care for T-wave inversion on EKG. HPI: Maylin Historian. Past Medical History: Past Surgical History: HPI: 74y F who presents to the ED for chief complaint of abnormal EKG - pt states she has been having burning epigastric abdominal pain that is non- radiating since last night PM - pt states she has history of GERD and took her antacids and pain went away - pt states she woke up today, was eating breakfast and watching TV consuming coffee and states she started to have epigastric abdominal pain and came to local urgent care for evaluation - pt states at urgent care, she has abnormal EKG and sent to the ED for further evaluation - pt in the ED, she is having epigastric abdominal pain, non-radiating, with noted exacerbation of pain after eating or drinking and no relieving factors - pt otherwise has stable vitals in the ED - pt denies any other symptoms at this time and denies chest pain, shortness of breath, nausea, vomiting, diarrhea, Past Medical History: HTN, HLD, DM, Gout, thyroid disease, abdominal hernia Past Surgical History: cholecystomy, hysterectomy, Lump removal from breast Social History: Denies ETOH, smoking, and drug use. Medications: unknown Allergies: nkda REVIEW OF SYSTEMS: CONSTITUTIONAL: Denies acute: fever, diaphoresis, chills, generalized weakness. HEAD: Denies acute: headache, photophobia Eyes: Denies acute: Double vision, vision loss, eye pain, eye discharge. EARS: Denies acute: tinnitus, hearing loss, ear discharge, ear pain, THROAT: Denies acute: sore throat, swelling, difficulty swallowing , pain with swallowing, change in voice. NECK: Denies acute: neck pain, neck swelling, stiff neck. HEART: Denies acute : chest pain, palpitations, LUNGS: Denies acute: SOB, wheezing, cough, hemoptysis ABDOMEN: Denies acute: , Nausea, Vomiting, diarrhea, melena , hematemesis, hematochezia SKIN: Denies acute: rash, redness, lesions, itchiness. EXTREMITIES: Denies acute: calf pain, numbness, tingling, weakness, denies pain in extremity. Denies acute: Low back pain. Neuro: Denies acute: focal neurological deficit, motor or sensory focal neurological deficit, tremors, seizure like activity, confusion, dizziness, change in mental status, loss of bowel or bladder function, cauda equina like symptoms. : Denies acute: dysuria, hematuria, flank pain, increase in urinary frequency. PSYCH: Denies acute: hallucination, suicidal ideation, homicidal ideation. FEMALE: Denies acute: abnormal vaginal bleeding, foul odor, unusual discharge. PHYSICAL EXAM: General: ---mild----acute distress, awake and alert. Head: normocephalic, atraumatic. Neck: supple, trachea is midline, no swelling. Throat: Normal phonation. Eyes:, no erythema, no purulent discharge, no proptosis, no icterus. Heart: regular rate, regular rhythm, no significant murmur appreciated. Lungs: no apparent respiratory distress, Able to speak in full sentences. No wheezing, no rhonchi, no crackles. No stridors Clear to auscultation bilaterally. Abdomen: Epigastric tender to palpation, non distended, soft, no guarding, no rebound, + bowel sounds. Neuro: Awake, Alert, oriented to name, self, situation, follows commands GCS=15. Speech is normal. Skin: no petechia, no purpura, no cyanosis, non-pale, not jaundice. Lower extremities: --no - Pitting edema no deformity, no focal swelling, no calf TTP. Makes eye contact. moves all four extremities. Face: no apparent facial droop. Ambulating in the ED independently. ED COURSE: DISCLAIMER: This medical document was created using an electronic medical record system with voice recognition software and computerized dictation system. Although this document has been carefully reviewed, there might still be some phonetic and typographical errors. Occasional wrong-word or "sound-alike" substitutions may have occurred due to the inherent limitations of voice recognition software. These areas are purely typographical due to imperfections of the software programs and do not reflect any compromise in the patient's medical care. Please read the chart carefully and recognize, using context, where these substitutions have occurred. Time Seen by MD: 11:30 Primary Care Provider: Cristal Lyman Reviewed Notes: Allergies Allergies: Coded Allergies: NO KNOWN ALLERGIES (Unverified , 02/12/16) Home Meds Active Scripts Azithromycin (Zithromax Z-Timothy) 250 Mg Tab, 250 MG PO DAILY for 5 Days, #5 TAB Prov:GLADYS REYES 12/29/24 Doxycycline Hyclate (DOXYCYCLINE HYCLATE) 100 Mg Tab, 1 TAB PO BID PRN for 5 Days, #10 TAB Prov:NELSY BARTLETT MD 12/13/24 Prednisone (Prednisone) 20 Mg Tab, 20 MG PO QAM for 5 Days, #10 MG Prov:NELSY BARTLETT MD 12/13/24 Acetaminophen (Acetaminophen) 500 Mg Tab, 500 MG PO Q4HPRN, #30 TAB 0 Refills Prov:DUYEN MONCADA 09/01/24 Metronidazole (Flagyl) 500 Mg Tab, 500 MG PO TID for 5 Days, #15 TAB Prov:STELLA CHAVARRIA MD 07/11/24 Amoxicillin & Pot Clavulanate (AUGMENTIN TABLET) 875 Mg Tb, 875 MG PO BID for 5 Days, #10 TAB Prov:STELLA CHAVARRIA MD 07/11/24 Pantoprazole Sodium Sesquihydr (Pantoprazole Sodium) 40 Mg Tab, 40 MG PO QAM for 90 Days, #90 TAB Prov:STELLA CHAVARRIA MD 07/11/24 Apixaban Base (ELIQUIS) 5 Mg Tab, 10 MG PO BID for 7 Days, #30 TAB 4 Refills 10MG BID X 7 DAYS THEN 5MG PO BID FOR AT LEAST 6 MONTHS FOR DVT/PE TREATMENT Prov:VIDHI DAMIAN RESIDENT 07/03/24 Reported Medications Metoprolol Succinate (Metoprolol Succinate Er) 100 Mg Tab, 1 TAB PO DAILY 12/02/23 Buspirone Hcl (Buspirone Hcl) 10 Mg Tab, 10 MG PO Q12HR for 30 Days, MG 12/02/23 Amlodipine Besylate (Amlodipine Besylate) 10 Mg Tab, 1 TAB PO DAILY, #30 TAB 5 Refills 12/02/23 Dapagliflozin Propanediol (Dapagliflozin Propanediol) 5 Mg Tab, 1 TAB PO DAILY 12/02/23 Levothyroxine Sodium (Levothyroxine Sodium) 112 Mcg Tab, 1 TAB PO DAILY, #30 TAB 5 Refills 12/02/23 Escitalopram Oxalate (ESCITALOPRAM OXALATE) 10 Mg Tab, 1 TAB PO DAILY, #30 TAB 3 Refills 12/02/23 Allopurinol (ZYLOPRIM TABLET) 100 Mg Tb, 1 TAB PO BID 12/02/23 Rosuvastatin Calcium (Crestor) 10 Mg Tab, 1 TAB PO DAILY, #30 TAB 5 Refills 12/02/23 Losartan Potassium (Losartan Potassium) 100 Mg Tab, 1 TAB PO DAILY, #30 TAB 5 Refills 12/02/23 Information Source: Patient Mode of Arrival: Ambulatory Past Medical History PAST MEDICAL HISTORY: Anxiety, COPD, Depression, DM, HTN, PE, Thyroid Surgical History: Cholecystectomy, Hernia 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 Was a procedure done?: No CP Differential Dx Differential Diagnosis: N/A Differential Diagnosis: Other (DDX include Diverticulitis, colitis, gastroenteritis, acute abdomen, SBO, enteritis, constipation, volvulus, appendicitis, Gallbladder disease, choledocolithiasis, ascending cholangitis, pancreatitis, intraAbdominal mass/neoplasm, hepatitis, UTI, pylonephritis, kidney stone, aneurysm, dissection, Inflammatory bowel disease, gastroparesis, ischemic bowel, ) X-Ray, Labs, Meds, VS Vital Signs Date Time Temp Pulse Resp B/P (MAP) Pulse Ox O2 Delivery O2 Flow Rate FiO2 01/06/25 16:35 71 18 128/77 (94) 97 01/06/25 16:35 Nasal Cannula* 3 32 01/06/25 14:30 72 18 128/98 (108) 92 01/06/25 12:34 68 01/06/25 11:32 98.0 65 16 125/80 95 98.0 01/06/25 11:29 66 Lab Test 01/06/25 13:57 01/06/25 12:52 01/06/25 12:10 Range/Units Urine Color Yellow Yellow Urine Clarity Clear Clear Urine pH 6.5 5.0-9.0 Urine Specific [place] 1.014 1.001-1.035 Urine Protein Negative Negative Urine Ketones Negative Negative Urine Blood Negative Negative /uL Urine Nitrite Negative Negative Urine Bilirubin Negative Negative Urine Urobilinogen Normal Negative mg/dL Urine Leukocyte Esterase 1+ Negative /uL Urine RBC 1 0 - 4 /hpf Urine Microscopic WBC 3 0-5 /HPF Urine Squamous Epithelial Cells Few <5 /hpf Urine Bacteria None seen None Seen /hpf Urine Glucose 3+ H Normal mg/dL Troponin I High Sensitivity 3 L < 3 L </=34 ng/L White Blood Count 6.6 4.4-10.8 10^3/uL Red Blood Count 5.45 H 4.0-5.20 10^6/uL Hemoglobin 17.5 H 12.2-16.2 g/dL Hematocrit 51.3 H 36.0-46.0 % Mean Corpuscular Volume 94.1 80.0-100.0 fL Mean Corpuscular Hemoglobin 32.2 H 28.0-32.0 pg Mean Corpuscular Hemoglobin Concent 34.2 32.0-36.0 g/dL Red Cell Distribution Width 16.5 H 11.8-14.3 % Platelet Count 182 140-450 10^3/uL Mean Platelet Volume 7.8 6.9-10.8 fL Neutrophils (%) (Auto) 77.0 37.0-80.0 % Lymphocytes (%) (Auto) 12.5 10.0-50.0 % Monocytes (%) (Auto) 7.6 0.0-12.0 % Eosinophils (%) (Auto) 2.7 0.0-7.0 % Basophils (%) (Auto) 0.2 0.0-2.0 % Neutrophils # (Auto) 5.1 1.6-8.6 10 ^3/uL Lymphocytes # (Auto) 0.8 0.4-5.4 10 ^3/uL Monocytes # (Auto) 0.5 0-1.3 10 ^3/uL Eosinophils # (Auto) 0.2 0-0.8 10 ^3/uL Basophils # (Auto) 0 0-0.2 10 ^3/uL Nucleated Red Blood Cells 0.1 % Sodium Level 142 136-145 mmol/L Potassium Level 3.7 3.5-5.1 mmol/L Chloride Level 104 98-107 mmol/L Carbon Dioxide Level 32 H 20-31 mmol/L Anion Gap 6 5-15 Blood Urea Nitrogen 10 9-23 mg/dL Creatinine 0.76 0.550-1.02 mg/dL Glomerular Filtration Rate Calc 83 >90 mL/min BUN/Creatinine Ratio 13.2 10.0-20.0 Serum Glucose 171 H 74-106 mg/dL Lactic Acid Level 0.9 0.4-2.0 mmol/L Calcium Level 9.5 8.7-10.4 mg/dL Total Bilirubin 1.0 0.2-1.0 mg/dL Aspartate Amino Transferase (AST) 16 13-40 U/L Alanine Aminotransferase (ALT) 31 7-40 U/L Alkaline Phosphatase 72 46-116 U/L Total Protein 6.6 5.7-8.2 g/dL Albumin 4.0 3.2-4.8 g/dL Lipase 57 H 12-53 U/L [place] [id number] Ph: [phone] DIAGNOSTIC IMAGING Diagnostic Imaging Report : [id number] Signed PATIENT: ZANE BONILLA ACCT: [id number] UNIT: [id number] : 1950 LOC: ER ROOM / BED: / AGE / SEX: 74 / F ADM STATUS: REG ER SERVICE 1130 ORDERING PHYSICIAN: MIKE GAMEZ DO PROCEDURE(s): CXRP - CHEST PORTABLE REASON: abn ekg ORDER NUMBER(s): [id number], ACCESSION NUMBER(s): [id number] CHEST RADIOGRAPH Indication: abn ekg Technique: Single frontal view of the chest was obtained COMPARISON: XY CHEST XRAY 1 VIEW on DOS: 12/29/24, XY CHEST PORTABLE on DOS: 12/07/24, XY CHEST PORTABLE on DOS: 06/30/24, XY CHEST PORTABLE on DOS: 12/01/23, XY CHEST TWO VIEWS ROUTINE on DOS: 11/19/23 FINDINGS: Lines and Tubes: None Lungs: Increased interstitial prominence Pleura: No effusion. No pneumothorax. Cardiomediastinal contours: Unremarkable Bones: Unremarkable IMPRESSION: Increased interstital prominence. This may represent pulmonary vascular congestion and/or viral pneumonia. Clinical correlation advised. ATED BY: CRAIG HELM MD DICTATED DATE/TIME: 01/06/251217 SIGNED BY: CRAIG HELM MD SIGNED DATE/TIME: 01/06/251217 CC: Time of 1ST Reevaluation: 00:00 Reevaluation 1ST: Patient Education/Counseling: Diagnosis, Treatment Family Education/Counseling: No Family Present Comments MDM: patient presented with the above HPI.------workup was initiated. patient was found with the above mentioned diagnosis. the following medications were ordered: please refer to order lists of meds and tests obtained by myself Dr. Gamez. Patient ED course and VS have been stabilized. Patient has been reassessed in the ED and remained in a stable condition. Pertinent incidental findings were discussed with the patient and/or family. Patient/family voices understanding and is agreeable with plan. Patient has been observed in the ED adequate length of time to insure improvement/stability. Escalation of care considered: Consideration of escalation to observation or admission Patient was given GI cocktail, nitroglycerin sublingual, aspirin. Patient was found with abnormal EKG requiring further evaluation. Patient was ADMITTED to the medicine team for further evaluation and treatment of their presentation. All the reports of any imaging studies that were ordered by myself were reviewed by myself. SEPSIS Sepsis Screen Physician Orders Housekeeping Aide (01/06/25 ) Chest Portable (01/06/25 11:30) Electrocardigram (01/06/25 11:30) Electrocardigram (01/06/25 12:30) Electrocardigram (01/06/25 14:30) Vital Signs Date Time Temp Pulse Resp B/P (MAP) Pulse Ox O2 Delivery O2 Flow Rate FiO2 01/06/25 16:35 71 18 128/77 (94) 97 01/06/25 16:35 Nasal Cannula* 3 32 01/06/25 14:30 72 18 128/98 (108) 92 01/06/25 12:34 68 01/06/25 11:32 98.0 65 16 125/80 95 98.0 01/06/25 11:29 66 Laboratory Tests Test 8/28/25 12:10 Lactic Acid Level 0.9 mmol/L (0.4-2.0) White Blood Count 6.6 10^3/uL (4.4-10.8) Departure 1 Departure Time of Disposition: 12:14 Impression: Primary Impression: Abnormal EKG Additional Impression: Epigastric pain Disposition: ADMITTED INPATIENT Admit to: Tele Condition: Guarded Discharged With: Self Critical Care Note Critical Care Time?: No Heart Score Heart Score: Heart Score Response (Comments) Value History Slightly Suspicious [address]-Deviation 2 Age >65 2 Risk Factors >3 or Hx ASHD 2 Troponin Normal limit 0 Total 6 I personally scribed for MIKE GAMEZ DO ([email or web address]) on 01/06/25 at 11:30. Electronically submitted by Clemente Patel ([facility] I personally scribed for MIKE GAMEZ DO ([email or web address]) on 01/06/25 at 12:34. Electronically submitted by Clemente Patel ([facility]). I personally scribed for MIKE GAMEZ DO ([email or web address]) on 01/06/25 at 12:36. Electronically submitted by Clemente Patel ([facility]). I personally scribed for MIKE GAMEZ DO ([email or web address]) on 01/06/25 at 13:53. Electronically submitted by Clemente Patel ([facility]). I personally scribed for MIKE GAMEZ DO ([email or web address]) on 01/06/25 at 13:57. Electronically submitted by Clemente Patel ([facility] MIKE GAMEZ DO Jan 06, 2025 11:30
--- NOTE | 2025-01-06 12:21 | DVH ---
CHEST RADIOGRAPH Indication: abn ekg Technique: Single frontal view of the chest was obtained COMPARISON: XY CHEST XRAY 1 VIEW on DOS: 12/29/24, XY CHEST PORTABLE on DOS: 12/07/24, XY CHEST PORTABL E on DOS: 06/30/24, XY CHEST PORTABLE on DOS: 12/01/23, XY CHEST TWO VIEWS ROUTINE on DOS: 11/19/23 FINDINGS: Lines and Tubes: None Lungs: Increased interstitial prominence Pleura: No effusion. No pneumothorax. Cardiomediastinal contours: Unremarkable Bones: Unremarkable IMPRESSION: Increased interstital prominence. This may represent pulmonary vascular congestion and/or viral pneum onia. Clinical correlation advised.
[2025-01-06 12:30] LABS: Hematocrit 51.3 % (36.0-46.0); Hemoglobin 17.5 g/dL (12.2-16.2); Mean Corpuscular Hemoglobin 32.2 pg (28.0-32.0); Mean Corpuscular Volume 94.1 fL (80.0-100.0); Nucleated Red Blood Cells % 0.1 %
[2025-01-06 12:44] LABS: Alanine Aminotransferase 31 U/L (7-40); Albumin 4.0 g/dL (3.2-4.8); Alkaline Phosphatase 72 U/L (46-116); Anion Gap 6 (5-15); BUN/Creatinine Ratio 13.2 (10.0-20.0); Bilirubin, Total 1.0 mg/dL (0.2-1.0); Blood Urea Nitrogen 10 mg/dL (9-23); Calcium 9.5 mg/dL (8.7-10.4); Chloride 104 mmol/L (98-107); Potassium 3.7 mmol/L (3.5-5.1); Sodium 142 mmol/L (136-145); Total Protein 6.6 g/dL (5.7-8.2)
[2025-01-06 12:45] LABS: Carbon Dioxide 32 mmol/L (20-31); Glucose 171 mg/dL (74-106); Lipase 57 U/L (12-53)
[2025-01-06 15:07] LABS: Urine Protein, UAD Negative (Negative)
[2025-01-06] MEDS: LIDOCAINE VISCOUS 2% 15ML UD PO ONE (16:40)
[2025-01-06] MEDS: ASPirin-EC 325mg tab PO ONE (16:41)
[2025-01-06] MEDS: PANTOPRAZOLE 40 MG TAB PO ONE (16:41)
[2025-01-06] MEDS: SUCRALFATE 1 GM TAB PO ONE (16:41)
[2025-01-06] MEDS: NITROGLYCERIN 0.4 MG SL TAB SL ONE (16:41)
[2025-01-06] MEDS ORDERED: ONDANSETRON HCL 4 MG/2 ML VIAL IV PRN (17:00)
[2025-01-06] MEDS ORDERED: NITROGLYCERIN 0.4 MG SL TAB SL PRN (17:00)
[2025-01-06] MEDS ORDERED: MORPHINE SULFATE INJ 2 MG/ml SYRG IV PRN (17:00)
--- NOTE | 2025-01-06 17:14 | DVHHP2 ---
History of Present Illness Reason for Visit: Abnormal EKG History of Present Illness 74-year-old female presents for evaluation of abnormal EKG. Patient reports a one day history of acid reflux/epigastric pain. She presented to urgent care today for evaluation and was sent to the emergency department due to abnormal EKG findings. Patient denies chest pain, nausea or vomiting. No shortness a breath. No palpitations. Past Medical History Diabetes mellitus, gout, thyroid disease, hypertension Past Surgical History Hysterectomy, cholecystectomy, Family History Noncontributory Smoke: No ALCOHOL: none Drugs: None Lives: with Family Review of Systems Review of Systems Review of systems are currently negative otherwise addressed in HPI. Allergies: Coded Allergies: NO KNOWN ALLERGIES (Unverified , 02/12/16) Medications Current Medications Medications Dose Ordered Sig/Michael Route Start Time Stop Time Status Last Admin Dose Admin Ceftriaxone Sodium 50 ml @ 100 mls/hr DAILY@09 IV 01/07/25 09:00 UNV Amlodipine Besylate 10 mg DAILY PO 01/07/25 10:00 UNV Apixaban 5 mg BID PO 01/06/25 22:00 UNV Buspirone HCl 10 mg Q12HR PO 01/06/25 22:00 UNV Levothyroxine Sodium 112 mcg QAM@0600 PO 01/07/25 06:00 UNV Pantoprazole Sodium 40 mg DAILY@0600 PO 01/07/25 06:00 UNV Calcium Carbonate 500 mg QIDPRN PRN PO 01/06/25 17:00 UNV Ondansetron HCl 4 mg Q4HP PRN IV 01/06/25 17:00 UNV Nitroglycerin 0.4 mg Q5MINP PRN SL 01/06/25 17:00 UNV Morphine Sulfate 2 mg Q30M PRN IV 01/06/25 17:00 UNV Exam Vital Signs Vital Signs Date Time Temp Pulse Resp B/P (MAP) Pulse Ox O2 Delivery O2 Flow Rate FiO2 01/06/25 16:35 71 18 128/77 (94) 97 01/06/25 11:32 98.0 98.0 Exam Gen: 74-year-old female in no apparent distress. Skin: Warm, dry, normal color and texture, no rash. HEENT: Normocephalic atraumatic, mucous membranes moist and pink. Neck: Cervical and supraclavicular nodes normal without enlargement, trachea is midline, thyroid gland is normal without masses. Pulmonary: Clear to auscultation and percussion bilaterally. Cardiac: Regular rate and rhythm. No murmur Abdomen: Soft, nontender, nondistended, bowel sounds present all 4 quadrants, no guarding, no rigidity, no organomegaly. Extremities: No cyanosis, clubbing, no edema Neuro: Cranial nerves II through XII grossly intact, normal affect and speech, no focal motor deficits. Labs/Xrays ORDERING PHYSICIAN: MIKE GAMEZ DO PROCEDURE(s): CXRP - CHEST PORTABLE REASON: abn ekg ORDER NUMBER(s): [id number], ACCESSION NUMBER(s): [id number] CHEST RADIOGRAPH Indication: abn ekg Technique: Single frontal view of the chest was obtained COMPARISON: XY CHEST XRAY 1 VIEW on DOS: 12/29/24, XY CHEST PORTABLE on DOS: 12/07/24, XY CHEST PORTABLE on DOS: 06/30/24, XY CHEST PORTABLE on DOS: 12/01/23, XY CHEST TWO VIEWS ROUTINE on DOS: 11/19/23 FINDINGS: Lines and Tubes: None Lungs: Increased interstitial prominence Pleura: No effusion. No pneumothorax. Cardiomediastinal contours: Unremarkable Bones: Unremarkable IMPRESSION: Increased interstital prominence. This may represent pulmonary vascular congestion and/or viral pneumonia. Clinical correlation advised. Labs Test 01/06/25 13:57 01/06/25 12:52 01/06/25 12:10 Range/Units Urine Color Yellow Yellow Urine Clarity Clear Clear Urine pH 6.5 5.0-9.0 Urine Specific [place] 1.014 1.001-1.035 Urine Protein Negative Negative Urine Ketones Negative Negative Urine Blood Negative Negative /uL Urine Nitrite Negative Negative Urine Bilirubin Negative Negative Urine Urobilinogen Normal Negative mg/dL Urine Leukocyte Esterase 1+ Negative /uL Urine RBC 1 0 - 4 /hpf Urine Microscopic WBC 3 0-5 /HPF Urine Squamous Epithelial Cells Few <5 /hpf Urine Bacteria None seen None Seen /hpf Urine Glucose 3+ H Normal mg/dL Troponin I High Sensitivity 3 L </=34 ng/L White Blood Count 6.6 4.4-10.8 10^3/uL Red Blood Count 5.45 H 4.0-5.20 10^6/uL Hemoglobin 17.5 H 12.2-16.2 g/dL Hematocrit 51.3 H 36.0-46.0 % Mean Corpuscular Volume 94.1 80.0-100.0 fL Mean Corpuscular Hemoglobin 32.2 H 28.0-32.0 pg Mean Corpuscular Hemoglobin Concent 34.2 32.0-36.0 g/dL Red Cell Distribution Width 16.5 H 11.8-14.3 % Platelet Count 182 140-450 10^3/uL Mean Platelet Volume 7.8 6.9-10.8 fL Neutrophils (%) (Auto) 77.0 37.0-80.0 % Lymphocytes (%) (Auto) 12.5 10.0-50.0 % Monocytes (%) (Auto) 7.6 0.0-12.0 % Eosinophils (%) (Auto) 2.7 0.0-7.0 % Basophils (%) (Auto) 0.2 0.0-2.0 % Neutrophils # (Auto) 5.1 1.6-8.6 10 ^3/uL Lymphocytes # (Auto) 0.8 0.4-5.4 10 ^3/uL Monocytes # (Auto) 0.5 0-1.3 10 ^3/uL Eosinophils # (Auto) 0.2 0-0.8 10 ^3/uL Basophils # (Auto) 0 0-0.2 10 ^3/uL Nucleated Red Blood Cells 0.1 % Sodium Level 142 136-145 mmol/L Potassium Level 3.7 3.5-5.1 mmol/L Chloride Level 104 98-107 mmol/L Carbon Dioxide Level 32 H 20-31 mmol/L Anion Gap 6 5-15 Blood Urea Nitrogen 10 9-23 mg/dL Creatinine 0.76 0.550-1.02 mg/dL Glomerular Filtration Rate Calc 83 >90 mL/min BUN/Creatinine Ratio 13.2 10.0-20.0 Serum Glucose 171 H 74-106 mg/dL Lactic Acid Level 0.9 0.4-2.0 mmol/L Calcium Level 9.5 8.7-10.4 mg/dL Total Bilirubin 1.0 0.2-1.0 mg/dL Aspartate Amino Transferase (AST) 16 13-40 U/L Alanine Aminotransferase (ALT) 31 7-40 U/L Alkaline Phosphatase 72 46-116 U/L Total Protein 6.6 5.7-8.2 g/dL Albumin 4.0 3.2-4.8 g/dL Lipase 57 H 12-53 U/L SEPSIS Sepsis Screen Date sepsis recognized/suspect: Jan 06, 2025 Time Sepsis recognized/suspect: 1133 Recent Procedure: No On Antibiotic Therapy: No Respiratory Rate >20: No Heart Rate >90: No Temp<36 C (96.8 F) or >38.3 C: No SBP <90 or MAP <65 mmHG: No New Acute Mental Status Change: No Is the patient on CPAP, BIPAP,: No Physician Orders Loom Changeover Operator (01/06/25 ) Chest Portable (01/06/25 11:30) Electrocardigram (01/06/25 11:30) Electrocardigram (01/06/25 12:30) Electrocardigram (01/06/25 14:30) Ceftriaxone 1gm/50ml D5w (Rocephin) (01/07/25 09:00) Apixaban (Eliquis) (01/06/25 22:00) Buspirone Hcl Tablet (Buspar Tablet) (01/06/25 22:00) Levothyroxine Tablet (Synthroid Tablet) (01/07/25 06:00) Pantoprazole Tablet (Protonix Tablet) (01/07/25 06:00) Calcium Carbonate (Tums) (01/06/25 17:00) Basic Metabolic Panel (01/07/25 04:00) * Cardiology Consult (01/06/25 16:54) Admit (01/06/25 16:54) Ondansetron Hcl (Zofran) (01/06/25 17:00) Cardiac Diet-2gna,Lofat,Lochol (01/06/25 Dinner) Echo 2d Mode Cardiac Dop (01/06/25 16:54) Condition: Fair (01/06/25 16:54) Bedrest With Bathroom Privileg (01/06/25 16:54) Nitroglycerin Sublingual (Ntrostat Subli (01/06/25 17:00) Morphine Sulfate Injection (01/06/25 17:00) Stat Ekg For Chest Pain (01/06/25 16:54) Notify Md Of Changes From Base (01/06/25 16:54) Dog Breeder For 24 Hours (01/06/25 16:54) Emergency Dysrhythmia Protocol (01/06/25 16:54) Rhythm Strips Once Every Shift (01/06/25 16:54) Oxygen By Nasal Cannula (01/06/25 16:54) Amlodipine Tablet (Norvasc Tablet) (01/07/25 10:00) Vital Signs Date Time Temp Pulse Resp B/P (MAP) Pulse Ox O2 Delivery O2 Flow Rate FiO2 01/06/25 16:35 71 18 128/77 (94) 97 01/06/25 14:30 72 18 128/98 (108) 92 01/06/25 12:34 68 01/06/25 11:32 98.0 65 16 125/80 95 98.0 01/06/25 11:29 66 Laboratory Tests Test 01/06/25 12:10 Lactic Acid Level 0.9 mmol/L (0.4-2.0) White Blood Count 6.6 10^3/uL (4.4-10.8) Medications Medications Dose Ordered Sig/Michael Route Start Time Stop Time Status Last Admin Dose Admin Aspirin 325 mg ONCE ONCE PO 01/06/25 11:30 01/06/25 11:33 DC 01/06/25 16:41 325 MG Lidocaine HCl 10 ml ONCE ONCE PO 01/06/25 11:30 01/06/25 11:33 DC 01/06/25 16:40 10 ML Pantoprazole Sodium 40 mg ONCE ONCE PO 01/06/25 11:30 01/06/25 11:33 DC 01/06/25 16:41 40 MG Sucralfate 1 gm ONCE ONCE PO 01/06/25 11:30 01/06/25 11:33 DC 01/06/25 16:41 1 GM Assessment/Plan Assessment/Plan Assessment Abnormal EKG Urinary tract infection Diabetes mellitus Hypertension Plan Admit the patient to telemetry to the hospitalist Cardiology consultation Resume home medications Echocardiogram pending Continue treatment per orders. Plan discussed with: Patient My Orders Orders - NELSY HUGHES AGACNP Procedure Category Date Status Time Ceftriaxone 1gm/50ml PHA 01/07/25 Logged D5w (Rocephin) 09:00 Apixaban (Eliquis) PHA 01/06/25 Logged 22:00 Buspirone Hcl Tablet PHA 01/06/25 Logged (Buspar Tablet) 22:00 Levothyroxine Tablet PHA 01/07/25 Logged (Synthroid Tablet) 06:00 Pantoprazole Tablet [facility] 01/07/25 Logged (Protonix Tablet) 06:00 Calcium Carbonate PHA 01/06/25 Logged (Tums) 17:00 Basic Metabolic Panel LAB 01/07/25 Verified 04:00 * Cardiology Consult CONS 01/06/25 Transmitted 16:54 Admit ADMIT 01/06/25 Transmitted 16:54 Ondansetron Hcl PHA 01/06/25 Logged (Zofran) 17:00 Cardiac DIET 01/06/25 Transmitted Diet-2gna,Lofat,Lochol Dinner Echo 2d Mode Cardiac US 01/06/25 Logged DOP 16:54 Condition: Fair [facility] 01/06/25 In Process 16:54 Bedrest With Bathroom [facility] 01/06/25 In Process Privileg 16:54 Nitroglycerin [facility] 01/06/25 Logged Sublingual (Ntrostat 17:00 Morphine Sulfate [facility] 01/06/25 Logged Injection 17:00 Stat Ekg For Chest [facility] 01/06/25 In Process Pain 16:54 Notify Md Of Changes [facility] 01/06/25 In Process From Base 16:54 Dog Breeder For [facility] 01/06/25 In Process 24 Hours 16:54 Emergency Dysrhythmia [facility] 01/06/25 In Process Protocol 16:54 Rhythm Strips Once [facility] 01/06/25 In Process Every Shift 16:54 Oxygen By Nasal RT 01/06/25 Transmitted Cannula 16:54 Amlodipine Tablet [facility] 01/07/25 Logged (Norvasc Tablet) 10:00 Date of Service: Jan 06, 2025 Billing Provider: NELSY HUGHES Common Visit Codes: [id number] INP/OBS CARE (HIGH) NELSY HUGHES Jan 06, 2025 17:14
[2025-01-06] MEDS: APIXABAN 5 MG TAB PO SCH (23:16)
[2025-01-07] VITALS (9 sets, daily range): BP systolic 114–150; BP diastolic 65–85; PULSE 70–98; RESP 15–22; TEMP 97.1–98.3; O2SAT 90–96
[2025-01-07] MEDS: LEVOTHYROXINE SODIUM 112 MCG TAB PO SCH (05:30)
[2025-01-07] MEDS: PANTOPRAZOLE 40 MG TAB PO SCH (05:30)
[2025-01-07 07:49] LABS: Anion Gap 9 (5-15); Carbon Dioxide 29 mmol/L (20-31); Chloride 107 mmol/L (98-107); Potassium 3.6 mmol/L (3.5-5.1)
[2025-01-07 07:50] LABS: Calcium 9.5 mg/dL (8.7-10.4)
[2025-01-07 07:55] LABS: BUN/Creatinine Ratio 14.8 (10.0-20.0); Blood Urea Nitrogen 13 mg/dL (9-23)
[2025-01-07 08:10] LABS: Glucose 161 mg/dL (74-106); Sodium 145 mmol/L (136-145)
[2025-01-07] MEDS: cefTRIAXone 1GM/50ML D5W 50 ML IV SCH (08:58)
--- NOTE | 2025-01-07 11:54 | ECG ---
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
--- NOTE | 2025-01-07 12:06 | DVHPN2 ---
Reviewed: Care Plan, H&P, Labs, Medications, Previous Orders, Radiology Changes from previous H/P or p: No Changes Objective Vitals Vital Signs Date Time Temp Pulse Resp B/P (MAP) Pulse Ox O2 Delivery O2 Flow Rate FiO2 01/07/25 09:23 121/69 01/07/25 09:20 97.1 81 16 90 97.1 01/07/25 08:00 Nasal Cannula* 4 36 Intake/Output Intake and Output 01/07/25 07:00 Intake Total 150 ml Balance 150 ml Intake Oral 150 ml # Voids 1 # Bowel Movements 1 Medications Current Medications Medications Dose Ordered Sig/Michael Route Start Time Stop Time Status Last Admin Dose Admin Ceftriaxone Sodium 50 ml @ 100 mls/hr DAILY@09 IV 01/07/25 09:00 01/07/25 08:58 100 MLS/HR Amlodipine Besylate 10 mg DAILY PO 01/07/25 10:00 01/07/25 09:23 10 MG Apixaban 5 mg BID PO 01/06/25 22:00 01/07/25 09:23 5 MG Buspirone HCl 10 mg Q12HR PO 01/06/25 22:00 01/07/25 09:23 10 MG Levothyroxine Sodium 112 mcg QAM@0600 PO 01/07/25 06:00 01/07/25 05:30 112 MCG Pantoprazole Sodium 40 mg DAILY@0600 PO 01/07/25 06:00 01/07/25 05:30 40 MG Calcium Carbonate 500 mg QIDPRN PRN PO 01/06/25 17:00 Ondansetron HCl 4 mg Q4HP PRN IV 01/06/25 17:00 Nitroglycerin 0.4 mg Q5MINP PRN SL 01/06/25 17:00 Morphine Sulfate 2 mg Q30M PRN IV 01/06/25 17:00 Laboratory Results Laboratory Tests 01/06/25 12:10 01/07/25 06:04 Chemistry Test 01/06/25 12:10 01/07/25 06:04 Albumin 4.0 g/dL (3.2-4.8) Calcium Level 9.5 mg/dL (8.7-10.4) 9.5 mg/dL (8.7-10.4) Total Protein 6.6 g/dL (5.7-8.2) Coagulation Test 01/07/25 11:40 D-Dimer, Quantitative Pending Lipid panel Test 01/06/25 12:10 Lipase 57 U/L (12-53) H Cardiac Markers Test 01/07/25 06:04 B-Type Natriuretic Peptide 13.69 pg/mL (0-100) LFT Test 01/06/25 12:10 Alanine Aminotransferase (ALT) 31 U/L (7-40) Alkaline Phosphatase 72 U/L (46-116) Aspartate Amino Transferase (AST) 16 U/L (13-40) Total Bilirubin 1.0 mg/dL (0.2-1.0) HgA1c, TSH Test 01/07/25 06:04 Thyroid Stimulating Hormone (TSH) 1.80 uIU/mL (0.55-4.78) Urinalysis Test 01/06/25 13:57 Urine Color Yellow (Yellow) Urine Clarity Clear (Clear) Urine pH 6.5 (5.0-9.0) Urine Specific [place] 1.014 (1.001-1.035) Urine Protein Negative (Negative) Urine Ketones Negative (Negative) Urine Blood Negative /uL (Negative) Urine Nitrite Negative (Negative) Urine Bilirubin Negative (Negative) Urine Urobilinogen Normal mg/dL (Negative) Urine Leukocyte Esterase 1+ /uL (Negative) Urine RBC 1 /hpf (0 - 4) Urine Microscopic WBC 3 /HPF (0-5) Urine Squamous Epithelial Cells Few /hpf (<5) Urine Bacteria None seen /hpf (None Seen) Urine Glucose 3+ mg/dL (Normal) H Labs and/or images reviewed: Labs reviewed by me, Image(s) reviewed by me Assessment/Plan Assessment/Plan Abnormal EKG with slight ST-elevation, cardiology consult for Dr. Moreira, patient getting Cardiolite stress test Urinary tract infection on Rocephin Diabetes mellitus: Insulin Hypertension amlodipine Plan discussed with: Patient Date of Service: Jan 07, 2025 Billing Provider: ALLYSSA CASILLAS MD Common Visit Codes: [id number] INP/OBS CARE(HIGH) ALLYSSA CASILLAS MD Jan 07, 2025 12:06
--- NOTE | 2025-01-07 12:37 | DVHCONRES ---
Date Seen: Jan 07, 2025 Resident Creating Document: NILS AMADOR RESIDENT Referring Physician Nader AlvaradoIsha Reason for Consultation Abnormal EKG History of Present Illness 74-year-old female with history of HTN, DM2, COPD on 4 L O?, prior PE on apixaban, hypothyroidism, obesity, secondary polycythemia due to COPD, gout, anxiety, presented with burning epigastric abdominal pain (non-radiating, worse with meals, not relieved by antacids). Pain improved now. She initially presented to urgent care where an abnormal EKG with T-wave inversions was noted; referred to ED. Currently denies chest pain, palpitations, syncope, nausea/vomiting, or new shortness of breath beyond baseline. Currently denies chest pain, palpitations, syncope, or new SOB beyond baseline. Abdominal pain has subsided. Interval Events * Abdominal pain resolved. * Troponins negative (<3, repeat <3, 3, 13.69 borderline). * BNP 13 .69 (not elevated). * Lipase mildly elevated (57). * CBC: Hgb persistently elevated (1720) consistent with secondary polycythemia; WBC 6.6; Plt 182. * CMP: Sodium 145, K 3.63.7, CO? 2932, Cr 0.760.88, GFR 7083. * CXR (01/06/25): increased interstitial prominence, likely pulmonary vascular congestion vs viral pneumonia. No effusion or pneumothorax. * Echo (07/01/24): EF 55%, RV enlarged, septal flattening, biatrial enlargement, preserved LV systolic function. * Vitals (01/07/25): T 97.198.3 F, HR 7284, BP 309253/6695, RR 1618, O? sat 9095% on 4 L NC (FiO? 36%). Stable hemodynamics. Current EKGs: * 01/06/25: Sinus rhythm, QTc 463, nonspecific T abnormalities. Past Medical History * Hypertension * Diabetes mellitus type 2 * COPD with chronic hypoxemic respiratory failure on 4 L O2 * Secondary polycythemia (due to COPD) * Prior pulmonary embolism, on apixaban * Obesity * Hypothyroidism * Gout, anxiety Past Surgical History Hysterectomy, mass removal. Cholecystectomy Family History: Cerebrovascular accident (CVA) G8 MOTHER, Diabetes mellitus G8 MOTHER, FH: alcohol abuse G8 FATHER (LUNG CANCER), FH: emphysema G8 FATHER (LUNG CANCER), FH: lung cancer G8 FATHER (LUNG CANCER), FH: smoking G8 FATHER (LUNG CANCER), Hypertension G8 MOTHER, Allergies: Coded Allergies: NO KNOWN ALLERGIES (Unverified , 02/12/16) Home Meds Active Scripts Azithromycin (Zithromax Z-Timothy) 250 Mg Tab, 250 MG PO DAILY for 5 Days, #5 TAB Prov:GLADYS REYES 12/29/24 Doxycycline Hyclate (DOXYCYCLINE HYCLATE) 100 Mg Tab, 1 TAB PO BID PRN for 5 Days, #10 TAB Prov:NADER BARTLETT MD 12/13/24 Prednisone (Prednisone) 20 Mg Tab, 20 MG PO QAM for 5 Days, #10 MG Prov:NADER BARTLETT MD 12/13/24 Acetaminophen (Acetaminophen) 500 Mg Tab, 500 MG PO Q4HPRN, #30 TAB 0 Refills Prov:DUYEN MONCADA 09/01/24 Metronidazole (Flagyl) 500 Mg Tab, 500 MG PO TID for 5 Days, #15 TAB Prov:STELLA CHAVARRIA MD 07/11/24 Amoxicillin & Pot Clavulanate (AUGMENTIN TABLET) 875 Mg Tb, 875 MG PO BID for 5 Days, #10 TAB Prov:STELLA CHAVARRIA MD 07/11/24 Pantoprazole Sodium Sesquihydr (Pantoprazole Sodium) 40 Mg Tab, 40 MG PO QAM for 90 Days, #90 TAB Prov:STELLA CHAVARRIA MD 07/11/24 Apixaban Base (ELIQUIS) 5 Mg Tab, 10 MG PO BID for 7 Days, #30 TAB 4 Refills 10MG BID X 7 DAYS THEN 5MG PO BID FOR AT LEAST 6 MONTHS FOR DVT/PE TREATMENT Prov:VIDHI DAMIAN RESIDENT 07/03/24 Reported Medications Metoprolol Succinate (Metoprolol Succinate Er) 100 Mg Tab, 1 TAB PO DAILY 12/02/23 Buspirone Hcl (Buspirone Hcl) 10 Mg Tab, 10 MG PO Q12HR for 30 Days, MG 12/02/23 Amlodipine Besylate (Amlodipine Besylate) 10 Mg Tab, 1 TAB PO DAILY, #30 TAB 5 Refills 7/23/24 Dapagliflozin Propanediol (Dapagliflozin Propanediol) 5 Mg Tab, 1 TAB PO DAILY 12/02/23 Levothyroxine Sodium (Levothyroxine Sodium) 112 Mcg Tab, 1 TAB PO DAILY, #30 TAB 5 Refills 12/02/23 Escitalopram Oxalate (ESCITALOPRAM OXALATE) 10 Mg Tab, 1 TAB PO DAILY, #30 TAB 3 Refills 12/02/23 Allopurinol (ZYLOPRIM TABLET) 100 Mg Tb, 1 TAB PO BID 12/02/23 Rosuvastatin Calcium (Crestor) 10 Mg Tab, 1 TAB PO DAILY, #30 TAB 5 Refills 12/02/23 Losartan Potassium (Losartan Potassium) 100 Mg Tab, 1 TAB PO DAILY, #30 TAB 5 Refills 12/02/23 Current Medications Current Medications Medications (Trade) Dose Ordered Sig/Michael Route PRN Reason Start Time Stop Time Status Last Admin Ceftriaxone Sodium 50 ml @ 100 mls/hr DAILY@09 IV 01/07/25 09:00 01/07/25 08:58 Amlodipine Besylate (Norvasc Tablet) 10 mg DAILY PO 01/07/25 10:00 01/07/25 09:23 Apixaban (Eliquis) 5 mg BID PO 01/06/25 22:00 01/07/25 09:23 Buspirone HCl (Buspar Tablet) 10 mg Q12HR PO 01/06/25 22:00 01/07/25 09:23 Levothyroxine Sodium (Synthroid Tablet) 112 mcg QAM@0600 PO 01/07/25 06:00 01/07/25 05:30 Pantoprazole Sodium (Protonix Tablet) 40 mg DAILY@0600 PO 01/07/25 06:00 01/07/25 05:30 Calcium Carbonate (Tums) 500 mg QIDPRN PRN PO FOR STOMACH DISTRESS 01/06/25 17:00 Ondansetron HCl (Zofran) 4 mg Q4HP PRN IV NAUSEA / VOMITING 01/06/25 17:00 Nitroglycerin (Ntrostat Sublingual) 0.4 mg Q5MINP PRN SL FOR CHEST PAIN 01/06/25 17:00 Morphine Sulfate 2 mg Q30M PRN IV FOR CHEST PAIN 01/06/25 17:00 Review of Systems * Cardiac: Denies chest pain, palpitations, syncope. * Respiratory: Stable baseline dyspnea on exertion; O2 dependent. * GI: Abdominal pain resolved. * General: No fever, chills. Vital Signs Vital Signs Date Time Temp Pulse Resp B/P (MAP) Pulse Ox O2 Delivery O2 Flow Rate FiO2 01/07/25 09:23 121/69 01/07/25 09:20 97.1 81 16 90 97.1 01/07/25 08:00 Nasal Cannula* 4 36 Physical Exam * General: Awake, alert, in no acute distress. * CV: Regular rate and rhythm, no murmurs/rubs/gallops. No JVD. No edema. * Respi No crackles.no wheezing O2 dependent. * Abdomen: Mild epigastric tenderness (resolved). Soft, non-distended. * Extremities: No cyanosis, clubbing, or calf tenderness. Labs/Diagnostic Data Labs Test 01/07/25 11:40 01/07/25 06:04 01/06/25 17:24 01/06/25 13:57 Range/Units D-Dimer, Quantitative 0.47 0.0-0.49 mg/L FEU Sodium Level 145 136-145 mmol/L Potassium Level 3.6 3.5-5.1 mmol/L Chloride Level 107 98-107 mmol/L Carbon Dioxide Level 29 20-31 mmol/L Anion Gap 9 5-15 Blood Urea Nitrogen 13 9-23 mg/dL Creatinine 0.88 0.550-1.02 mg/dL Glomerular Filtration Rate Calc 70 >90 mL/min BUN/Creatinine Ratio 14.8 10.0-20.0 Serum Glucose 161 H 74-106 mg/dL Calcium Level 9.5 8.7-10.4 mg/dL B-Type Natriuretic Peptide 13.69 0-100 pg/mL Thyroid Stimulating Hormone (TSH) 1.80 0.55-4.78 uIU/mL POC Glucose 121 H 70-106 mg/dl Urine Color Yellow Yellow Urine Clarity Clear Clear Urine pH 6.5 5.0-9.0 Urine Specific [place] 1.014 1.001-1.035 Urine Protein Negative Negative Urine Ketones Negative Negative Urine Blood Negative Negative /uL Urine Nitrite Negative Negative Urine Bilirubin Negative Negative Urine Urobilinogen Normal Negative mg/dL Urine Leukocyte Esterase 1+ Negative /uL Urine RBC 1 0 - 4 /hpf Urine Microscopic WBC 3 0-5 /HPF Urine Squamous Epithelial Cells Few <5 /hpf Urine Bacteria None seen None Seen /hpf Urine Glucose 3+ H Normal mg/dL Test 01/06/25 12:52 01/06/25 12:10 Range/Units Troponin I High Sensitivity 3 L </=34 ng/L White Blood Count 6.6 4.4-10.8 10^3/uL Red Blood Count 5.45 H 4.0-5.20 10^6/uL Hemoglobin 17.5 H 12.2-16.2 g/dL Hematocrit 51.3 H 36.0-46.0 % Mean Corpuscular Volume 94.1 80.0-100.0 fL Mean Corpuscular Hemoglobin 32.2 H 28.0-32.0 pg Mean Corpuscular Hemoglobin Concent 34.2 32.0-36.0 g/dL Red Cell Distribution Width 16.5 H 11.8-14.3 % Platelet Count 182 140-450 10^3/uL Mean Platelet Volume 7.8 6.9-10.8 fL Neutrophils (%) (Auto) 77.0 37.0-80.0 % Lymphocytes (%) (Auto) 12.5 10.0-50.0 % Monocytes (%) (Auto) 7.6 0.0-12.0 % Eosinophils (%) (Auto) 2.7 0.0-7.0 % Basophils (%) (Auto) 0.2 0.0-2.0 % Neutrophils # (Auto) 5.1 1.6-8.6 10 ^3/uL Lymphocytes # (Auto) 0.8 0.4-5.4 10 ^3/uL Monocytes # (Auto) 0.5 0-1.3 10 ^3/uL Eosinophils # (Auto) 0.2 0-0.8 10 ^3/uL Basophils # (Auto) 0 0-0.2 10 ^3/uL Nucleated Red Blood Cells 0.1 % Lactic Acid Level 0.9 0.4-2.0 mmol/L Total Bilirubin 1.0 0.2-1.0 mg/dL Aspartate Amino Transferase (AST) 16 13-40 U/L Alanine Aminotransferase (ALT) 31 7-40 U/L Alkaline Phosphatase 72 46-116 U/L Total Protein 6.6 5.7-8.2 g/dL Albumin 4.0 3.2-4.8 g/dL Lipase 57 H 12-53 U/L Assessment 1. Abnormal EKG with T-wave abnormalities and borderline QTc prolongation. * Rule out ACS ordered stress test * Rule out pulmonary strain * Rule out electrolyte disturbance: * Non-cardiac etiology: GI source likely (lipase mildly high, reflux/pancreatitis). 2. History of pulmonary embolism, on apixaban. 3. 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 4. Pulmonary hypertension with RV enlargement and septal flattening (echo). 5. Hypertension, controlled on therapy. 6. Diabetes mellitus type 2, 7. Obesity, hypothyroidism. Plan/Recommendation Cardiac: * Proceed with stress test (pharmacologic nuclear stress test preferred given COPD and O? dependence). * Continue telemetry monitoring. * Continue apixaban for prior PE (no interruption needed unless invasive procedures planned). * Optimize BP (amlodipine, losartan). * Outpatient event monitor for arrhythmia evaluation after discharge. * ordered echo for pulmonary hypertension follow-up. Respiratory: * Continue 4 L O?, titrate for SpO? > 92%. * COPD therapy per pulmonology. GI / Endocrine: * Abdominal pain improved; non-cardiac likely. * DM poorly controlled (A1c 13.2) ? recommend endocrinology follow-up. Hematology: * Monitor polycythemia (H/H stable). Prophylaxis: * On therapeutic anticoagulation (apixaban). * On pantoprazole (GI prophylaxis). Case discussed in detail with the attending physician, including the clinical presentation, diagnostic workup, and comprehensive management plan. The patient was present for the discussion and demonstrated understanding of her condition and the proposed plan. Plan discussed with: Patient Visit Coding Cardiology RES Date of Service: Jan 07, 2025 Billing Provider: TROY ESCOBAR Sr., MD Cardiology Common Codes: [id number] INP/OBS CARE (High) NILS AMADOR RESIDENT Jan 07, 2025 12:37
[2025-01-07] MEDS: REGADENOSON 0.4 MG/5 ML SYRG IV ONE ×2 (13:33)
--- NOTE | 2025-01-07 19:48 | DVHSR ---
APPROVED REPORT EXAM: Two-dimensional and M-mode echocardiogram with Doppler and color Doppler. Blood Pressure: 127/79 mmHg INDICATION Chest Pain RISK FACTORS Height: 5'4", Weight: 184 DIMENSIONS LVDd3.8 (3.8-5.7cm)LA (2D)3.6 (1.9-4.0cm)Aortic Root3.3 (2.0-3.7cm) LVDs2.3 (2.5-4.0cm)LA (MM) (1.9-4.0cm)Aortic Cusp Exc1.5 (1.5-2.0cm) EF (%) 70.0 (55-70%)Rt. Atrium4.2 (1.9-4.0cm)Asc. Aorta cm IVSd1.2 (0.7-1.1cm)RV (D)3.6 (1.8-2.4cm) PWd1.4 (0.7-1.1cm) Mitral Valve MitralMitral Stenosis E wave0.57m/sMV Mean GR.mmHg A wave0.84m/sMV Peak GR.mmHg E/A ratio0.72D MVAcm2 DECEL [id number] 1/2 [place] Aortic Valve Aortic ValveAortic Stenosis V10.87m/Trent Mean GR.3mmHg V21.10m/Trent Peak GR.5mmHg LVOT Diameter2.1 (1.8-2.4cm)Doppler AVA2.74cm2 Other Information Quality : Technically LimitedRhythm : Technically limited study due to body habitus. Conclusion Sinus rhythm. Concentric LVH with a right atrial and right ventricular enlargement. Mild aortic sclerosis. Mild mitral annular calcification. EF of 60% with normal right ventricular function. Trace mitral insufficiency. Trace pulmonic insufficiency. No pericardial effusion masses or vegetations.
[2025-01-07] MEDS: ALBUTEROL SULF 2.5 MG/0.5ML(0.5%) NEB SOLN NEB PRN (21:00)
[2025-01-08] VITALS (10 sets, daily range): BP systolic 109–142; BP diastolic 71–86; PULSE 76–91; RESP 15–18; TEMP 97.9–98.7; O2SAT 91–97
[2025-01-08] MEDS: CALCIUM CARB 500 MG CHEW TAB PO PRN (04:48)
--- NOTE | 2025-01-08 10:04 | DVHPN2 ---
Reviewed: Care Plan, H&P, Labs, Medications, Previous Orders, Radiology Changes from previous H/P or p: No Changes Objective Vitals Vital Signs Date Time Temp Pulse Resp B/P (MAP) Pulse Ox O2 Delivery O2 Flow Rate FiO2 01/08/25 09:50 128/77 01/08/25 09:00 97.9 76 18 97 97.9 01/08/25 08:05 Nasal Cannula* 4 36 Intake/Output Intake and Output 01/08/25 06:59 Intake Total 1100 ml Balance 1100 ml Intake Oral 1100 ml # Voids 6 # Bowel Movements 6 Medications Current Medications Medications Dose Ordered Sig/Michael Route Start Time Stop Time Status Last Admin Dose Admin Ceftriaxone Sodium 50 ml @ 100 mls/hr DAILY@09 IV 01/07/25 09:00 01/08/25 08:50 100 MLS/HR Amlodipine Besylate 10 mg DAILY PO 01/07/25 10:00 01/08/25 09:50 10 MG Apixaban 5 mg BID PO 01/06/25 22:00 01/08/25 09:50 5 MG Buspirone HCl 10 mg Q12HR PO 01/06/25 22:00 01/08/25 09:50 10 MG Levothyroxine Sodium 112 mcg QAM@0600 PO 01/07/25 06:00 01/08/25 06:11 112 MCG Pantoprazole Sodium 40 mg DAILY@0600 PO 01/07/25 06:00 01/08/25 06:11 40 MG Calcium Carbonate 500 mg QIDPRN PRN PO 01/06/25 17:00 01/08/25 04:48 500 MG Ondansetron HCl 4 mg Q4HP PRN IV 01/06/25 17:00 Nitroglycerin 0.4 mg Q5MINP PRN SL 01/06/25 17:00 Morphine Sulfate 2 mg Q30M PRN IV 01/06/25 17:00 Albuterol 1.25 mg Q4HPRN PRN NEB 01/07/25 21:00 01/07/25 21:00 1.25 MG Laboratory Results Laboratory Tests 01/06/25 12:10 01/07/25 06:04 Coagulation Test 01/07/25 11:40 D-Dimer, Quantitative 0.47 mg/L FEU (0.0-0.49) Urinalysis Test 01/06/25 13:57 Urine Color Yellow (Yellow) Urine Clarity Clear (Clear) Urine pH 6.5 (5.0-9.0) Urine Specific [place] 1.014 (1.001-1.035) Urine Protein Negative (Negative) Urine Ketones Negative (Negative) Urine Blood Negative /uL (Negative) Urine Nitrite Negative (Negative) Urine Bilirubin Negative (Negative) Urine Urobilinogen Normal mg/dL (Negative) Urine Leukocyte Esterase 1+ /uL (Negative) Urine RBC 1 /hpf (0 - 4) Urine Microscopic WBC 3 /HPF (0-5) Urine Squamous Epithelial Cells Few /hpf (<5) Urine Bacteria None seen /hpf (None Seen) Urine Glucose 3+ mg/dL (Normal) H Microbiology Microbiology Date/Time Source Procedure Growth Status 01/07/25 03:35 Nose MRSA Screen - Final Complete Labs and/or images reviewed: Labs reviewed by me, Image(s) reviewed by me Assessment/Plan Assessment/Plan Abnormal EKG with slight ST-elevation, cardiology consult for Dr. Moreira, patient getting Cardiolite stress test echo 60 percent ejection fraction Urinary tract infection on Rocephin Diabetes mellitus: Insulin Hypertension amlodipine Plan discussed with: Patient Date of Service: Jan 08, 2025 Billing Provider: ALLYSSA CASILLAS MD Common Visit Codes: [id number] INP/OBS CARE(HIGH) ALLYSSA CASILLAS MD Jan 08, 2025 10:04
--- NOTE | 2025-01-08 13:14 | DVHPN2 ---
Consult Progress Note Subjective Patient reports: Feels better Objective vital signs Vital Sign Date Time Temp Pulse Resp B/P (MAP) Pulse Ox O2 Delivery O2 Flow Rate FiO2 01/08/25 10:51 92 Nasal Cannula* 4 36 01/08/25 09:50 128/77 01/08/25 09:00 97.9 76 18 97.9 Total Intake and Output 01/07/25 01/07/25 01/08/25 15:00 23:00 07:00 Intake Total 500 ml 600 ml Balance 500 ml 600 ml medications Current Medications Medications Dose Ordered Sig/Michael Route Start Time Stop Time Status Last Admin Dose Admin Ceftriaxone Sodium 50 ml @ 100 mls/hr DAILY@09 IV 01/07/25 09:00 01/08/25 08:50 100 MLS/HR Amlodipine Besylate 10 mg DAILY PO 01/07/25 10:00 01/08/25 09:50 10 MG Apixaban 5 mg BID PO 01/06/25 22:00 01/08/25 09:50 5 MG Buspirone HCl 10 mg Q12HR PO 01/06/25 22:00 01/08/25 09:50 10 MG Levothyroxine Sodium 112 mcg QAM@0600 PO 01/07/25 06:00 01/08/25 06:11 112 MCG Pantoprazole Sodium 40 mg DAILY@0600 PO 01/07/25 06:00 01/08/25 06:11 40 MG Calcium Carbonate 500 mg QIDPRN PRN PO 01/06/25 17:00 01/08/25 04:48 500 MG Ondansetron HCl 4 mg Q4HP PRN IV 01/06/25 17:00 Nitroglycerin 0.4 mg Q5MINP PRN SL 01/06/25 17:00 Morphine Sulfate 2 mg Q30M PRN IV 01/06/25 17:00 Albuterol 1.25 mg Q4HPRN PRN NEB 01/07/25 21:00 01/07/25 21:00 1.25 MG laboratory and microbiology Laboratory Tests 01/07/25 06:04 01/06/25 12:10 Test 01/07/25 06:04 Range/Units Serum Glucose 161 H 74-106 mg/dL Problem List/Assessment/Plan Problem List/Assessment/Plan 1. Abnormal EKG with T-wave abnormalities and borderline QTc prolongation. * Rule out ACS ordered stress test(Positive) * Rule out pulmonary strain * Rule out electrolyte disturbance: * Non-cardiac etiology: GI source likely (lipase mildly high, reflux/pancreatitis). 2. History of pulmonary embolism, on apixaban. 3. 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 4. Pulmonary hypertension with RV enlargement and septal flattening (echo). 5. Hypertension, controlled on therapy. 6. Diabetes mellitus type 2, 7. Obesity, hypothyroidism. Plan/Recommendation Cardiac: * Proceed with stress test (pharmacologic nuclear stress test preferred given COPD and O? dependence). * Continue telemetry monitoring. * Continue apixaban for prior PE (no interruption needed unless invasive procedures planned). * Optimize BP (amlodipine, losartan). * Outpatient event monitor for arrhythmia evaluation after discharge. * ordered echo for pulmonary hypertension follow-up. Respiratory: * Continue 4 L O?, titrate for SpO? > 92%. * COPD therapy per pulmonology. GI / Endocrine: * Abdominal pain improved; non-cardiac likely. * DM poorly controlled (A1c 13.2) ? recommend endocrinology follow-up. Hematology: * Monitor polycythemia (H/H stable). Prophylaxis: * On therapeutic anticoagulation (apixaban). * On pantoprazole (GI prophylaxis). Case Discussed with Dr Moreira. Stress test reviewed and shows mild inferior / apical ischemia. On further evaluation patient endorses had recent cardiac workup up within last few months. Patient found to have had abnormal myocardial perfusion scan at [facility] followed by coronary angiogram May [address] Kim. Angiogram reviewed noting no flow-limiting disease with evidence of small-vessel/microvascular dysfunction. Continue BP optimization, antianginal. Normal EF on echo review, no further cardiac workup indicated at this time. Stable from Cardiology standpoint for discharge. Patient continue following up with her compotype operator Dr. Kim on outpatient basis. Critical care, time spent: 40 minutes This medical document was created using an electronic medical record system with voice recognition software and computerized dictation system. Although this document has been carefully reviewed, there might still be some phonetic and typographical errors. Occasional wrong-word or ``sound-alike substitutions may have occurred due to the inherent limitations of voice recognition software. These areas are purely typographical due to imperfections of the software programs and do not reflect any compromise in the patient's medical care. Please read the chart carefully and recognize, using context, where these substitutions have occurred. Thank you for allowing me to participate in the management of this patient. The treatment plan was discussed with and agreed upon by patient/family including requesting consultants and ordering of imaging/procedures. Plan discussed with: Patient Date of Service: Jan 08, 2025 Billing Provider: ESDRAS NORTON Common Visit Codes: [id number] INP/OBS CARE(HIGH), [id number] CARE 30-74 MIN ESDRAS NORTON Jan 08, 2025 13:14
[2025-01-09] VITALS (10 sets, daily range): BP systolic 119–131; BP diastolic 65–83; PULSE 78–99; RESP 14–20; TEMP 36.9; O2SAT 90–96
--- NOTE | 2025-01-09 11:12 | DVHPN2 ---
Reviewed: Care Plan, H&P, Labs, Medications, Previous Orders, Radiology Changes from previous H/P or p: No Changes Objective Vitals Vital Signs Date Time Temp Pulse Resp B/P (MAP) Pulse Ox O2 Delivery O2 Flow Rate FiO2 01/09/25 09:30 98.5 91 14 124/82 (96) 92 98.5 01/09/25 05:49 Nasal Cannula 3.0 01/09/25 05:49 32 Intake/Output Intake and Output 01/09/25 07:00 Intake Total 1120 ml Balance 1120 ml Intake Oral 1120 ml # Voids 7 # Bowel Movements 3 Medications Current Medications Medications Dose Ordered Sig/Michael Route Start Time Stop Time Status Last Admin Dose Admin Ceftriaxone Sodium 50 ml @ 100 mls/hr DAILY@09 IV 01/07/25 09:00 01/09/25 09:19 100 MLS/HR Amlodipine Besylate 10 mg DAILY PO 01/07/25 10:00 01/09/25 09:19 10 MG Apixaban 5 mg BID PO 01/06/25 22:00 01/09/25 09:18 5 MG Buspirone HCl 10 mg Q12HR PO 01/06/25 22:00 01/09/25 09:19 10 MG Levothyroxine Sodium 112 mcg QAM@0600 PO 01/07/25 06:00 01/09/25 06:23 112 MCG Pantoprazole Sodium 40 mg DAILY@0600 PO 01/07/25 06:00 01/09/25 06:22 40 MG Calcium Carbonate 500 mg QIDPRN PRN PO 01/06/25 17:00 01/08/25 04:48 500 MG Ondansetron HCl 4 mg Q4HP PRN IV 01/06/25 17:00 Nitroglycerin 0.4 mg Q5MINP PRN SL 01/06/25 17:00 Morphine Sulfate 2 mg Q30M PRN IV 01/06/25 17:00 Albuterol 1.25 mg Q4HPRN PRN NEB 01/07/25 21:00 01/09/25 00:53 1.25 MG Laboratory Results Laboratory Tests 01/06/25 12:10 01/07/25 06:04 Urinalysis Test 01/06/25 13:57 Urine Color Yellow (Yellow) Urine Clarity Clear (Clear) Urine pH 6.5 (5.0-9.0) Urine Specific [place] 1.014 (1.001-1.035) Urine Protein Negative (Negative) Urine Ketones Negative (Negative) Urine Blood Negative /uL (Negative) Urine Nitrite Negative (Negative) Urine Bilirubin Negative (Negative) Urine Urobilinogen Normal mg/dL (Negative) Urine Leukocyte Esterase 1+ /uL (Negative) Urine RBC 1 /hpf (0 - 4) Urine Microscopic WBC 3 /HPF (0-5) Urine Squamous Epithelial Cells Few /hpf (<5) Urine Bacteria None seen /hpf (None Seen) Urine Glucose 3+ mg/dL (Normal) H Microbiology Microbiology Date/Time Source Procedure Growth Status 01/08/25 12:00 Voided Urine Urine Culture - Preliminary Resulted 01/07/25 03:35 Nose MRSA Screen - Final Complete Labs and/or images reviewed: Labs reviewed by me, Image(s) reviewed by me Assessment/Plan Assessment/Plan Abnormal EKG with slight ST-elevation, cardiology consult for Dr. Moreira, Cardiolite stress test shows mild inferior ischemia, left heart catheterization by Dr. Kim May 2024 [facility] negative, echo 60 percent ejection fraction no further cardiac workup per Dr. Hathaway Urinary tract infection treated with Rocephin urine cultures neg Diabetes mellitus: Insulin Hypertension amlodipine Plan discussed with: Patient Date of Service: Jan 09, 2025 Billing Provider: ALLYSSA CASILLAS MD Common Visit Codes: [id number] INP/OBS CARE(HIGH) ALLYSSA CASILLAS MD Jan 09, 2025 11:12
--- NOTE | 2025-01-09 11:16 | DVHDS2 ---
Discharge Summary Date of Admission Jan 06, 2025 at 16:54 Date of Discharge: Jan 09, 2025 Admitting Diagnosis Abnormal EKG Wounds: None Labs/Diagnostic Data: Laboratory Results Test 01/07/25 11:40 01/07/25 06:04 01/06/25 17:24 01/06/25 13:57 D-Dimer, Quantitative 0.47 mg/L FEU (0.0-0.49) Sodium Level 145 mmol/L (136-145) Potassium Level 3.6 mmol/L (3.5-5.1) Chloride Level 107 mmol/L (98-107) Carbon Dioxide Level 29 mmol/L (20-31) Anion Gap 9 (5-15) Blood Urea Nitrogen 13 mg/dL (9-23) Creatinine 0.88 mg/dL (0.550-1.02) Glomerular Filtration Rate Calc 70 mL/min (>90) BUN/Creatinine Ratio 14.8 (10.0-20.0) Serum Glucose 161 mg/dL (74-106) Calcium Level 9.5 mg/dL (8.7-10.4) B-Type Natriuretic Peptide 13.69 pg/mL (0-100) Thyroid Stimulating Hormone (TSH) 1.80 uIU/mL (0.55-4.78) POC Glucose 121 mg/dl (70-106) Urine Color Yellow (Yellow) Urine Clarity Clear (Clear) Urine pH 6.5 (5.0-9.0) Urine Specific [place] 1.014 (1.001-1.035) Urine Protein Negative (Negative) Urine Ketones Negative (Negative) Urine Blood Negative /uL (Negative) Urine Nitrite Negative (Negative) Urine Bilirubin Negative (Negative) Urine Urobilinogen Normal mg/dL (Negative) Urine Leukocyte Esterase 1+ /uL (Negative) Urine RBC 1 /hpf (0 - 4) Urine Microscopic WBC 3 /HPF (0-5) Urine Squamous Epithelial Cells Few /hpf (<5) Urine Bacteria None seen /hpf (None Seen) Urine Glucose 3+ mg/dL (Normal) Test 01/06/25 12:52 01/06/25 12:10 Troponin I High Sensitivity 3 ng/L (</=34) White Blood Count 6.6 10^3/uL (4.4-10.8) Red Blood Count 5.45 10^6/uL (4.0-5.20) Hemoglobin 17.5 g/dL (12.2-16.2) Hematocrit 51.3 % (36.0-46.0) Mean Corpuscular Volume 94.1 fL (80.0-100.0) Mean Corpuscular Hemoglobin 32.2 pg (28.0-32.0) Mean Corpuscular Hemoglobin Concent 34.2 g/dL (32.0-36.0) Red Cell Distribution Width 16.5 % (11.8-14.3) Platelet Count 182 10^3/uL (140-450) Mean Platelet Volume 7.8 fL (6.9-10.8) Neutrophils (%) (Auto) 77.0 % (37.0-80.0) Lymphocytes (%) (Auto) 12.5 % (10.0-50.0) Monocytes (%) (Auto) 7.6 % (0.0-12.0) Eosinophils (%) (Auto) 2.7 % (0.0-7.0) Basophils (%) (Auto) 0.2 % (0.0-2.0) Neutrophils # (Auto) 5.1 10 ^3/uL (1.6-8.6) Lymphocytes # (Auto) 0.8 10 ^3/uL (0.4-5.4) Monocytes # (Auto) 0.5 10 ^3/uL (0-1.3) Eosinophils # (Auto) 0.2 10 ^3/uL (0-0.8) Basophils # (Auto) 0 10 ^3/uL (0-0.2) Nucleated Red Blood Cells 0.1 % Lactic Acid Level 0.9 mmol/L (0.4-2.0) Total Bilirubin 1.0 mg/dL (0.2-1.0) Aspartate Amino Transferase (AST) 16 U/L (13-40) Alanine Aminotransferase (ALT) 31 U/L (7-40) Alkaline Phosphatase 72 U/L (46-116) Total Protein 6.6 g/dL (5.7-8.2) Albumin 4.0 g/dL (3.2-4.8) Lipase 57 U/L (12-53) Other Laboratory Tests 01/07/25 06:04 01/06/25 12:10 Brief Hx & Hospital Course: 74-year-old female with a history of diabetes hypertension had abnormal T-waves in the EKG and admitted to the hospital for evaluation of chest pain troponin negative echo 60 percent ejection fraction Cardiolite stress test showed mild ischemia seen by left heart [facility] for [facility]. Mild UTI treated with Rocephin urine cultures negative. Discharged home. No new medications Consults/Reason for consult Mule Developer Dr. Hathaway Operations or Procedures Echocardiogram Condition at Discharge: Fair Final Diagnosis/Problems List Abnormal EKG with slight ST-elevation, cardiology consult for Dr. Moreira, Cardiolite stress test shows mild inferior ischemia, left heart catheterization by Dr. Kim May 2024 [facility] negative, echo 60 percent ejection fraction no further cardiac workup per Dr. Hathaway Urinary tract infection treated with Rocephin urine cultures neg Diabetes mellitus: Insulin Hypertension amlodipine Discharge Disposition: Home Discharge Instruct/Medications Diet: Cardiac 2g Na,low cholest Activity: Light activity Follow Up/Referral: Continue all your previous home medications Follow up with your primary Dr Medications: none Scheduled Acetaminophen (Acetaminophen), 500 MG PO Q4HPRN Allopurinol (Zyloprim Tablet), 1 TAB PO BID, (Reported) Amlodipine Besylate (Amlodipine Besylate), 1 TAB PO DAILY, (Reported) Amoxicillin & Pot Clavulanate (Augmentin Tablet), 875 MG PO BID Apixaban Base (Eliquis), 10 MG PO BID Azithromycin (Zithromax Z-Timothy), 250 MG PO DAILY Buspirone Hcl (Buspirone Hcl), 10 MG PO Q12HR, (Reported) Dapagliflozin Propanediol (Dapagliflozin Propanediol), 1 TAB PO DAILY, (Reported) Escitalopram Oxalate (Escitalopram Oxalate), 1 TAB PO DAILY, (Reported) Levothyroxine Sodium (Levothyroxine Sodium), 1 TAB PO DAILY, (Reported) Losartan Potassium (Losartan Potassium), 1 TAB PO DAILY, (Reported) Metoprolol Succinate (Metoprolol Succinate Er), 1 TAB PO DAILY, (Reported) Metronidazole (Flagyl), 500 MG PO TID Pantoprazole Sodium Sesquihydr (Pantoprazole Sodium), 40 MG PO QAM Prednisone (Prednisone), 20 MG PO QAM Rosuvastatin Calcium (Crestor), 1 TAB PO DAILY, (Reported) Scheduled PRN Doxycycline Hyclate (Doxycycline Hyclate), 1 TAB PO BID PRN 39 (Time taken for discharge summary 39 minutes) Discharge Statement: "Patient was advised to return to the ER or call 911 if any headaches, dizziness, shortness of breath, chest pain, abdominal pain, bleeding, fevers, or worsening of medical condition. Patient was counseled about treatment plan, medications, possible side effects, patientverbalized understanding. All questions were answered to the best of my ability. This discharge took greater then 30 minutes in planning, reviewing documentation, counseling the patient, and discussing with other team members." ASSESSMENT ASSESSMENT Hospital Course Improved Assessment Abnormal EKG with slight ST-elevation, cardiology consult for Dr. Moreira, Cardiolite stress test shows mild inferior ischemia, left heart catheterization by Dr. Kim May 2024 [place] negative, echo 60 percent ejection fraction no further cardiac workup per Dr. Hathaway Urinary tract infection treated with Rocephin urine cultures neg Diabetes mellitus: Insulin Hypertension amlodipine Date of Service: Jan 09, 2025 Billing Provider: ALLYSSA CASILLAS MD Common Visit Codes: [id number] DISCH DAY >30min ALLYSSA CASILLAS MD Jan 09, 2025 11:16
--- NOTE | 2025-01-12 07:46 | DVHSR ---
APPROVED REPORT Exam: Nuclear Stress Test BMI: 0 Stress Test Details Stress Test: Pharmacologic stress testing performed using 0.4 mg of regadenoson per 5 mL given IV ov er 10 seconds. HR Resting HR: 81 bpmMax Heart Rate (APMHR): 148.448210 bpm Max HR Achieved: 122 bpmTarget HR (85% APMHR): 125.351105 bpm % of APMHR: 82.43 Recovery HR: 100 bpm BP Resting BP: 116/75 mmHg Recovery BP: 127/63 mmHg ECG Resting ECG: Sinus Rhythm Clinical Reason for Termination: Completed protocol Nurse Comments Recieved pt. from [facility]. A/Ox4 on RA. Connected to microelectronics technician, VS stable. PIV flushes well. Re viewed POC. Pt. verbalized understanding of procedure including risks and side effects, agrees for st ress testing. Lexiscan stress test performed per protocol. [facility] tech administered Cardiolite. Pt. tolerated well . Pt. stable, no change on exam. VS returned to baseline. Transferred to [facility] via wheelchair w/ te ch. Stress ECG Conclusion lvef 72% normal perfusion scan no major ischemia noted NM EXAM: Myocardial Perfusion REST/STRESS Imaging Protocol: Rest Tc-99m/Stress Tc-99m 1 day Resting Data Rest SPECT myocardial perfusion imaging was performed in supine position 45 minutes following the int ravenous injection of 9.5 mCi of Tc-99m Sestamibi. Time of rest injection: 12:00 Date: 01/07/2025 Time of rest imagin:45 Date: 01/07/2025 Administration Route: IV Administration Site: Left Hand Pharmacologic Stress Pharmacologic stress test was performed by injecting Regadenoson 0.4 mg IV push followed by the intra venous injection of 29.2 mCi of Tc-99m Sestamibi. Time of stress injection: 13:30 Date: 01/07/2025 Time of stress imagin:30 Date: 01/07/2025 Administration Route: IV Administration Site: Left Hand Gated Stress SPECT was performed 60 minutes after stress injection. The images were gated to evaluate regional wall motion and calculate left ventricular ejection fracti on. Stress only was performed in the Supine position. Nuclear Conclusion Nuclear Findings: negative for ischemia lvef 72% normal perfusion scan no major ischemia noted
== END 2025-01-09 16:05 | disposition home or self-care (01) | DRG 690 ==
LOC: ER 11:24 → OVERFLOW 16:54 → TELE-WESTW 01-07 01:25
PROVIDERS: ADMIT Family Medicine; ATTEND Family Medicine
DX: N30.00 Acute cystitis without hematuria (principal); J96.11 Chronic respiratory failure with hypoxia; I24.9 Acute ischemic heart disease, unspecified; E11.9 Type 2 diabetes mellitus without complications; I10 Essential (primary) hypertension; I27.20 Pulmonary hypertension, unspecified; K21.9 Gastro-esophageal reflux disease without esophagitis; F41.9 Anxiety disorder, unspecified; M10.9 Gout, unspecified; E66.9 Obesity, unspecified; D75.1 Secondary polycythemia; E78.5 Hyperlipidemia, unspecified; J44.9 Chronic obstructive pulmonary disease, unspecified; Z90.710 Acquired absence of both cervix and uterus; Z90.49 Acquired absence of other specified parts of digestive tract; Z79.899 Other long term (current) drug therapy
CPT/HCPCS: 36415; 71045; 80048; 80053; 81001; 82962; 83605; 83690; 83880; 84443; 84484; 85025; 85379; 87081; 87086; 93005; 93017; 93306; 94640; 96365; G0378

== ENCOUNTER 2025-02-12 05:41 | Inpatient (IN) | payer MEDICARE, OTHER ==
[~2025-02-12] VITALS: Ht 161.3 cm; Wt 78.2 kg
[2025-02-12] VITALS (9 sets, daily range): BP systolic 114–128; BP diastolic 71–82; PULSE 70–91; RESP 14–22; TEMP 97.7–98.3; O2SAT 90–99
[2025-02-12] MEDS: ALBUTEROL SULF 2.5 MG/0.5ML(0.5%) NEB SOLN NEB ONE (07:17)
[2025-02-12] MEDS: IPRATROPIUM BROM 0.5 MG/2.5ML INH SOL NEB ONE (07:17)
--- NOTE | 2025-02-12 07:19 | ED.PDOC ---
SOB-HPI HPI Comments HPI: Myron 74 y.o female presents to the ED for a chief complaint of SOB that started 2 days ago. Patient reports inability to take a deep breath without feeling SOB, states was seen here recently a couple weeks ago for same exacerbation. She is on 4 liters of oxygen at home due to hx of COPD, states increasing oxygen to 6 liters but had no relief. Patient states SPO2 read 74% on those 6 liters at home and upon ED arrival, presents with Sat of 88% on 4L. She was placed on 6 liters simple mask with SPO2 at 95%. At bedside, patient is now back down to 4.5 L saturating at 95% but still c/o of ongoing SOB that has no other associating symptoms. Initial Vitals BP: 137/74 HR: 85 RR: 22 O2: 95% Temp: 97 F Past Medical History: HTN, HLD, DM, and COPD (on 4 liters of oxygen) Past Surgical History: Hernia repair and cholecystectomy Social History: Denies ETOH, smoking, and drug use. Allergies: None BONILLA: COPD HPI: Poor Historian. REVIEW OF SYSTEMS: CONSTITUTIONAL: Denies acute: fever, diaphoresis, chills, generalized weakness. HEAD: Denies acute: headache, photophobia Eyes: Denies acute: Double vision, vision loss, eye pain, eye discharge. EARS: Denies acute: tinnitus, hearing loss, ear discharge, ear pain, THROAT: Denies acute: sore throat, swelling, difficulty swallowing , pain with swallowing, change in voice. NECK: Denies acute: neck pain, neck swelling, stiff neck. HEART: Denies acute : chest pain, palpitations, LUNGS: Denies acute: , wheezing, , hemoptysis ABDOMEN: Denies acute: abdominal pain, Nausea, Vomiting, diarrhea, melena , hematemesis, hematochezia SKIN: Denies acute: rash, redness, lesions, itchiness. EXTREMITIES: Denies acute: calf pain, numbness, tingling, weakness, denies pain in extremity. Denies acute: Low back pain. Neuro: Denies acute: focal neurological deficit, motor or sensory focal neurological deficit, tremors, seizure like activity, confusion, dizziness, change in mental status, loss of bowel or bladder function, cauda equina like symptoms. : Denies acute: dysuria, hematuria, flank pain, increase in urinary frequency. PSYCH: Denies acute: hallucination, suicidal ideation, homicidal ideation. FEMALE: Denies acute: abnormal vaginal bleeding, foul odor, unusual discharge. PHYSICAL EXAM: General: ---mild----acute distress, awake and alert. Head: normocephalic, atraumatic. Neck: supple, trachea is midline, no swelling. Throat: Normal phonation. Eyes:, no erythema, no purulent discharge, no proptosis, no icterus. Heart: regular rate, regular rhythm, no significant murmur appreciated. Lungs: no apparent respiratory distress, Able to speak in full sentences. No wheezing, no rhonchi, no crackles. No stridors Clear to auscultation bilaterally. Abdomen: non tender to palpation, non distended, soft, no guarding, no rebound, + bowel sounds. Neuro: Awake, Alert, oriented to name, self, situation, follows commands GCS=15. Speech is normal. Skin: no petechia, no purpura, no cyanosis, non-pale, not jaundice. Lower extremities: --no - Pitting edema no deformity, no focal swelling, no calf TTP. Makes eye contact. moves all four extremities. Face: no apparent facial droop. Ambulating in the ED independently. ED COURSE: DISCLAIMER: This medical document was created using an electronic medical record system with voice recognition software and computerized dictation system. Although this document has been carefully reviewed, there might still be some phonetic and typographical errors. Occasional wrong-word or "sound-alike" substitutions may have occurred due to the inherent limitations of voice recognition software. These areas are purely typographical due to imperfections of the software programs and do not reflect any compromise in the patient's medical care. Please read the chart carefully and recognize, using context, where these substitutions have occurred. Chief Complaint: Shortness of Breath Time Seen by MD: 07:06 Primary Care Provider: Cristal Lyman Reviewed notes: Allergies Information Source: Patient Mode of Arrival: Ambulatory Past Medical History PAST MEDICAL HISTORY: Anxiety, COPD, Depression, DM, HTN, PE, Thyroid Surgical History: Cholecystectomy, Hernia Repair BALL MAKER History: No Pertinent BALL MAKER History Family History Family History: No family hx of Cancer, No family hx of DM, No family hx of Heart crystal, No family hx ofKidney crystal, No family hx of Liver crystal, No family hx of Lung crystal, Family hx of HTN, Family hx of stroke Social History Smoker: Non-Smoker Alcohol: Denies ETOH Use Drugs: Denies Drug Use Lives In: Home Was a procedure done? Was a procedure done?: No Differential Dx Differential Diagnosis: Bronchitis, COPD, Pneumonia, Respiratory Distress, URI, Other (DDx include ACS, unstable angina, anxiety, PE, pneumothroax, neoplasm, cardiac ischemia, COPD, asthma, CHF, pleural effusion, tobacco abuse, pneumonia, hypoxia, hypercapnia, anemia., infection/sepsis., pulmonary edema. Asthma, Cardiac tamponade, infection.) X-Ray, Labs, Meds, VS Vital Signs Date Time Temp Pulse Resp B/P (MAP) Pulse Ox O2 Delivery O2 Flow Rate FiO2 02/12/25 07:40 97.7 88 15 132/76 (94) 90 97.7 02/12/25 07:40 88 15 90 Nasal Cannula* 3 32 02/12/25 07:21 14 95 Simple Mask* 6 50 02/12/25 06:02 97.7 83 20 127/73 (91) 94 97.7 02/12/25 06:02 Simple Mask* 6 50 02/12/25 05:43 97.0 85 20 137/74 95 97.0 Lab Test 02/12/25 08:03 02/12/25 07:03 Range/Units Troponin I High Sensitivity < 3 L 3 L </=34 ng/L White Blood Count 8.3 4.4-10.8 10^3/uL Red Blood Count 4.59 4.0-5.20 10^6/uL Hemoglobin 14.8 12.2-16.2 g/dL Hematocrit 43.8 36.0-46.0 % Mean Corpuscular Volume 95.5 80.0-100.0 fL Mean Corpuscular Hemoglobin 32.3 H 28.0-32.0 pg Mean Corpuscular Hemoglobin Concent 33.8 32.0-36.0 g/dL Red Cell Distribution Width 16.3 H 11.8-14.3 % Platelet Count 187 140-450 10^3/uL Mean Platelet Volume 8.1 6.9-10.8 fL Neutrophils (%) (Auto) 67.8 37.0-80.0 % Lymphocytes (%) (Auto) 19.4 10.0-50.0 % Monocytes (%) (Auto) 8.0 0.0-12.0 % Eosinophils (%) (Auto) 4.3 0.0-7.0 % Basophils (%) (Auto) 0.5 0.0-2.0 % Neutrophils # (Auto) 5.6 1.6-8.6 10 ^3/uL Lymphocytes # (Auto) 1.6 0.4-5.4 10 ^3/uL Monocytes # (Auto) 0.7 0-1.3 10 ^3/uL Eosinophils # (Auto) 0.4 0-0.8 10 ^3/uL Basophils # (Auto) 0 0-0.2 10 ^3/uL Nucleated Red Blood Cells 0.1 % Sodium Level 146 H 136-145 mmol/L Potassium Level 3.3 L 3.5-5.1 mmol/L Chloride Level 106 98-107 mmol/L Carbon Dioxide Level 29 20-31 mmol/L Anion Gap 11 5-15 Blood Urea Nitrogen 9 9-23 mg/dL Creatinine 0.74 0.550-1.02 mg/dL Glomerular Filtration Rate Calc 86 >90 mL/min BUN/Creatinine Ratio 12.2 10.0-20.0 Serum Glucose 116 H 74-106 mg/dL Lactic Acid Level 0.8 0.4-2.0 mmol/L Calcium Level 9.6 8.7-10.4 mg/dL Total Bilirubin 0.6 0.2-1.0 mg/dL Aspartate Amino Transferase (AST) 16 13-40 U/L Alanine Aminotransferase (ALT) 17 7-40 U/L Alkaline Phosphatase 70 46-116 U/L B-Type Natriuretic Peptide 45.51 0-100 pg/mL Total Protein 7.5 5.7-8.2 g/dL Albumin 4.2 3.2-4.8 g/dL Current Medications Medications (Trade) Dose Ordered Sig/Michael Route Start Time Stop Time Status Last Admin Albuterol (Ventolin Medneb) 2.5 mg ONCE ONCE NEB 02/12/25 07:00 02/12/25 07:01 DC 02/12/25 07:17 Ipratropium Balsam (Atrovent Medneb) 1 mg ONCE ONCE NEB 02/12/25 07:00 02/12/25 07:01 DC 02/12/25 07:17 Methylprednisolone Sodium Succinate (Solu Medrol) 125 mg ONCE ONCE IV 02/12/25 07:00 02/12/25 07:01 DC 02/12/25 08:[address] [address] Ph: [phone] DIAGNOSTIC IMAGING Diagnostic Imaging Report : [id number] Signed PATIENT: ZANE BONILLA ACCT: [id number] UNIT: [id number] : 1950 LOC: ER ROOM / BED: / AGE / SEX: 74 / F ADM STATUS: REG ER SERVICE 6 ORDERING PHYSICIAN: MIKE GAMEZ DO PROCEDURE(s): CXRP - CHEST PORTABLE REASON: sob ORDER NUMBER(s): [id number], ACCESSION NUMBER(s): [id number] CHEST RADIOGRAPH Indication: sob Technique: Single frontal view of the chest was obtained Comparison: XY CHEST PORTABLE on DOS: 01/06/25 FINDINGS: Lines and Tubes: None Lungs: There is pulmonary interstitial prominence. No focal consolidation. Pleura: No effusion. No pneumothorax. Cardiomediastinal contours: Unremarkable Bones: No acute osseous abnormality. IMPRESSION: 1. Pulmonary vascular congestion. ATED BY: SARAH JOLLEY MD DICTATED DATE/TIME: 02/12/25801 SIGNED BY: SARAH JOLLEY MD SIGNED DATE/TIME: 02/12/25801 CC: Time of 1ST Reevaluation: 07:06 Reevaluation 1ST: Unchanged Patient Education/Counseling: Diagnosis, Treatment Family Education/Counseling: Diagnosis, Treatment Comments MDM: patient presented with the above HPI.---dyspnea---workup was initiated. patient was found with the above mentioned diagnosis. the following medications were ordered: please refer to order lists of meds and tests obtained by myself Dr. Gamez. Patient ED course and VS have been stabilized. Patient has been reassessed in the ED and remained in a stable condition. Pertinent incidental findings were discussed with the patient and/or family. Patient/family voices understanding and is agreeable with plan. Patient has been observed in the ED adequate length of time to insure improveme nt/stability. Escalation of care considered: Consideration of escalation to observation or admission Patient was ADMITTED to the medicine team for further evaluation and treatment of their presentation. All the reports of any imaging studies that were ordered by myself were reviewed by myself. Departure 1 Departure Time of Disposition: 07:57 Impression: Primary Impression: Dyspnea Additional Impressions: Hypoxemia COPD exacerbation Disposition: ADMITTED INPATIENT Admit to: Tele Condition: Guarded Discharged With: Self Critical Care Note Critical Care Time?: No I personally scribed for MIKE GAMEZ DO ([email or web address]) on 02/12/25 at 07:19. Electronically submitted by Graciela Donato ([facility]). I personally scribed for MIKE GAMEZ DO ([email or web address]) on 02/12/25 at 08:39. Electronically submitted by Graciela Donato ([facility]). MIKE GAMEZ DO Feb 12, 2025 07:19
[2025-02-12 07:20] LABS: Hematocrit 43.8 % (36.0-46.0); Hemoglobin 14.8 g/dL (12.2-16.2); Mean Corpuscular Hemoglobin 32.3 pg (28.0-32.0); Mean Corpuscular Volume 95.5 fL (80.0-100.0); Nucleated Red Blood Cells % 0.1 %
[2025-02-12 07:37] LABS: Alanine Aminotransferase 17 U/L (7-40); Albumin 4.2 g/dL (3.2-4.8); Alkaline Phosphatase 70 U/L (46-116); Anion Gap 11 (5-15); BUN/Creatinine Ratio 12.2 (10.0-20.0); Blood Urea Nitrogen 9 mg/dL (9-23); Calcium 9.6 mg/dL (8.7-10.4); Carbon Dioxide 29 mmol/L (20-31); Chloride 106 mmol/L (98-107); Total Protein 7.5 g/dL (5.7-8.2)
[2025-02-12 07:38] LABS: Bilirubin, Total 0.6 mg/dL (0.2-1.0)
[2025-02-12 07:46] LABS: Glucose 116 mg/dL (74-106); Potassium 3.3 mmol/L (3.5-5.1); Sodium 146 mmol/L (136-145)
--- NOTE | 2025-02-12 08:05 | DVH ---
CHEST RADIOGRAPH Indication: sob Technique: Single frontal view of the chest was obtained Comparison: XY CHEST PORTABLE on DOS: 01/06/25 FINDINGS: Lines and Tubes: None Lungs: There is pulmonary interstitial prominence. No focal consolidation. Pleura: No effusion. No pneumothorax. Cardiomediastinal contours: Unremarkable Bones: No acute osseous abnormality. IMPRESSION: 1. Pulmonary vascular congestion.
[2025-02-12] MEDS: methylPREDNISolone SOD SUCC 125 MG/2 ML VL IV ONE (08:37)
[2025-02-12] MEDS ORDERED: DOCUSATE SOD 100 MG CAP PO PRN (09:30)
[2025-02-12] MEDS ORDERED: HYDROcodone-ACET 5/325MG TAB PO PRN (09:30)
[2025-02-12] MEDS ORDERED: ONDANSETRON HCL 4 MG/2 ML VIAL IV PRN (09:30)
[2025-02-12] MEDS: DAPAGLIFLOZIN PROPANEDIOL 5 MG PO SCH (10:00)
[2025-02-12] MEDS: methylPREDNISolone SOD SUCC 40 MG/ML VL IV SCH (10:00)
[2025-02-12] MEDS: LOSARTAN POTASSIUM 50 MG TAB PO SCH (10:20)
[2025-02-12] MEDS: METOPROLOL SUCCINATE XL 50 MG TAB PO SCH (10:21)
[2025-02-12] MEDS: APIXABAN 5 MG TAB PO SCH (10:21)
[2025-02-12] MEDS: ALLOPURINOL 100 MG TAB PO SCH (10:21)
[2025-02-12] MEDS: LEVOTHYROXINE SODIUM 112 MCG TAB PO SCH (10:23)
[2025-02-12] MEDS: ALBUTEROL SULF 2.5 MG/0.5ML(0.5%) NEB SOLN NEB SCH (11:34)
[2025-02-12] MEDS: IPRATROPIUM BROM 0.5 MG/2.5ML INH SOL NEB SCH (11:34)
--- NOTE | 2025-02-12 11:38 | DVHHP2 ---
History of Present Illness Reason for Visit: Shortness of breath History of Present Illness Laura Sanches is a 74-year-old female with past medical history of COPD, PE in June 2024, home oxygen, hypertension, hyperlipidemia, diabetes, and hypothyroidism, who came to the hospital for shortness of breath. Patient states over the last week her shortness of breath has been worsening. She states she has been using her rescue inhaler more than prescribed. Then this morning she woke up early and was having a hard time catching her breath so she came to the hospital. On arrival the patient was hypoxic requiring 6L O2 via simple mask. She received breathing treatment and IV steroids. On assessment she is on 3L NC. Patient states she only has a rescue inhaler, no breathing treatments or daily inhaler. She was seeing Dr. Lr for pulmonology, and she was on a daily inhaler. However, she recently switched to Dr. Sotelo. She has had testing completing and goes back for results and a treatment plan on 02/17/2025. Cardiovascular: HTN, hyperipidemia Pulmonary: COPD (Home oxygen 3-4L N/C), Pulmonary embolus Psych: Anxiety Endocrine: Diabetes, Hypothyroidism Past Surgical History: Cholecystectomy, Hysterectomy, Hernia Repair Smoke: No ALCOHOL: none Lives: with Family Domestic Violence: Neg Review of Systems Constitutional: No: Fever, Chills, Sweats, Weakness, Malaise, Other Eyes: No: Pain, Vision change, Conjunctivae inflammation, Eyelid inflammation, Other, Redness ENT: No: Ear pain, Ear discharge, Nose pain, Nose discharge, Nose congestion, Mouth pain, Mouth swelling, Throat pain, Throat swelling, Other Respiratory: Cough, Shortness of breath, SOB with excertion, Wheezing; No: Dry, Hemoptysis, Pleuritic Pain, Sputum, Wheezing, Other Cardiovascular: No: Chest Pain, Palpitations, Orthopnea, Paroxysmal Noc. Dyspnea, Edema, Lt Headedness, Other Gastrointestinal: No: Nausea, Vomiting, Abdominal Pain, Diarrhea, Constipation, Melena, Hematochezia, Other Genitourinary: No Dysuria, No Frequency, No Incontinence, No Hematuria, No Retention, No Other Musculoskeletal: No: other, neck pain, shoulder pain, arm pain, back pain, hand pain, leg pain, foot pain Skin: No: Rash, Lesions, Jaundice, Bruising, Other Neurological: No: Weakness, Numbness, Incoordination, Change in speech, Confusion, Seizures, Other Allergies: Coded Allergies: NO KNOWN ALLERGIES (Unverified , 02/12/16) Medications Current Medications Medications Dose Ordered Sig/Michael Route Start Time Stop Time Status Last Admin Dose Admin Sodium Chloride 10 ml Q8HR IV 02/12/25 14:00 UNV Acetaminophen/ Hydrocodone Bitart 1 tab Q4HP PRN PO 02/12/25 09:30 UNV Ondansetron HCl 4 mg Q4HP PRN IV 02/12/25 09:30 UNV Docusate Sodium 100 mg BIDPRN PRN PO 02/12/25 09:30 UNV Acetaminophen 650 mg Q6HP PRN PO 02/12/25 09:30 UNV Exam Vital Signs Vital Signs Date Time Temp Pulse Resp B/P (MAP) Pulse Ox O2 Delivery O2 Flow Rate FiO2 02/12/25 07:40 97.7 88 15 132/76 (94) 90 97.7 02/12/25 07:40 Nasal Cannula* 3 32 General Appearance: Alert, Oriented X3, Cooperative, moderate distress HEENT: Atraumatic, PERRLA Respiratory: Other (Diminished breath sounds, wheezing) Cardiovascular: Regular rate, Normal S1, Normal S2 Abdominal: Normal bowel sounds, Soft, No tenderness Extremities: No clubbing, No cyanosis, No edema, Normal pulses, No tend erness/swelling Skin: No rashes, No breakdown, No significant lesion Neuro: Normal gait, Normal speech, Strength at 5/5 X4 ext Psych/Mental Status: Mental status NL, Mood NL Labs/Xrays Labs Test 02/12/25 08:03 02/12/25 07:03 Range/Units Troponin I High Sensitivity < 3 L </=34 ng/L White Blood Count 8.3 4.4-10.8 10^3/uL Red Blood Count 4.59 4.0-5.20 10^6/uL Hemoglobin 14.8 12.2-16.2 g/dL Hematocrit 43.8 36.0-46.0 % Mean Corpuscular Volume 95.5 80.0-100.0 fL Mean Corpuscular Hemoglobin 32.3 H 28.0-32.0 pg Mean Corpuscular Hemoglobin Concent 33.8 32.0-36.0 g/dL Red Cell Distribution Width 16.3 H 11.8-14.3 % Platelet Count 187 140-450 10^3/uL Mean Platelet Volume 8.1 6.9-10.8 fL Neutrophils (%) (Auto) 67.8 37.0-80.0 % Lymphocytes (%) (Auto) 19.4 10.0-50.0 % Monocytes (%) (Auto) 8.0 0.0-12.0 % Eosinophils (%) (Auto) 4.3 0.0-7.0 % Basophils (%) (Auto) 0.5 0.0-2.0 % Neutrophils # (Auto) 5.6 1.6-8.6 10 ^3/uL Lymphocytes # (Auto) 1.6 0.4-5.4 10 ^3/uL Monocytes # (Auto) 0.7 0-1.3 10 ^3/uL Eosinophils # (Auto) 0.4 0-0.8 10 ^3/uL Basophils # (Auto) 0 0-0.2 10 ^3/uL Nucleated Red Blood Cells 0.1 % Sodium Level 146 H 136-145 mmol/L Potassium Level 3.3 L 3.5-5.1 mmol/L Chloride Level 106 98-107 mmol/L Carbon Dioxide Level 29 20-31 mmol/L Anion Gap 11 5-15 Blood Urea Nitrogen 9 9-23 mg/dL Creatinine 0.74 0.550-1.02 mg/dL Glomerular Filtration Rate Calc 86 >90 mL/min BUN/Creatinine Ratio 12.2 10.0-20.0 Serum Glucose 116 H 74-106 mg/dL Lactic Acid Level 0.8 0.4-2.0 mmol/L Calcium Level 9.6 8.7-10.4 mg/dL Total Bilirubin 0.6 0.2-1.0 mg/dL Aspartate Amino Transferase (AST) 16 13-40 U/L Alanine Aminotransferase (ALT) 17 7-40 U/L Alkaline Phosphatase 70 46-116 U/L B-Type Natriuretic Peptide 45.51 0-100 pg/mL Total Protein 7.5 5.7-8.2 g/dL Albumin 4.2 3.2-4.8 g/dL CHEST RADIOGRAPH FINDINGS: Lines and Tubes: None Lungs: There is pulmonary interstitial prominence. No focal consolidation. Pleura: No effusion. No pneumothorax. Cardiomediastinal contours: Unremarkable Bones: No acute osseous abnormality. IMPRESSION: 1. Pulmonary vascular congestion. SEPSIS Sepsis Screen Date sepsis recognized/suspect: Feb 12, 2025 Time Sepsis recognized/suspect: 07 Recent Procedure: No On Antibiotic Therapy: No Respiratory Rate >20: No Heart Rate >90: No Temp<36 C (96.8 F) or >38.3 C: No SBP <90 or MAP <65 mmHG: No New Acute Mental Status Change: No Is the patient on CPAP, BIPAP,: No Physician Orders Gas Appliance Repairer (02/12/25 ) Chest Portable (02/12/25 06:57) Electrocardigram (02/12/25 06:57) Troponin-I Hs (02/12/25 09:57) Admit (02/12/25 09:20) Code Status (02/12/25 09:20) Sodium Chloride Lock (Saline Lock Ns) (02/12/25 14:00) Hydrocodone-Acet 5/325mg Tab (Dalton 5/32 (02/12/25 09:30) Ondansetron Hcl (Zofran) (02/12/25 09:30) Docusate Sodium Capsule (Colace Capsule) (02/12/25 09:30) Complete Blood Count (02/13/25 04:00) Comprehensive Metabolic Panel (02/13/25 04:00) Cardiac Diet-2gna,Lofat,Lochol (02/12/25 Breakfast) Condition: Serious (02/12/25 09:20) Acetaminophen Tablet (Tylenol Tablet) (02/12/25 09:30) Allopurinol Tablet (Zyloprim Tablet) (02/12/25 10:00) Apixaban (Eliquis) (02/12/25 10:00) Buspirone Hcl Tablet (Buspar Tablet) (02/12/25 10:00) Levothyroxine Tablet (Synthroid Tablet) (02/12/25 10:00) (Nf) Amlodipine Besylate (02/12/25 10:00) (Nf) Dapagliflozin Propanediol (02/12/25 10:00) (Nf) Escitalopram Oxalate (02/12/25 10:00) (Nf) Losartan Potassium (02/12/25 10:00) (Nf) Metoprolol Succinate (Metoprolol Matias (02/12/25 10:00) (Nf) Rosuvastatin Calcium (Crestor) (02/12/25 10:00) Vital Signs Date Time Temp Pulse Resp B/P (MAP) Pulse Ox O2 Delivery O2 Flow Rate FiO2 02/12/25 07:40 97.7 88 15 132/76 (94) 90 97.7 02/12/25 07:40 88 15 90 Nasal Cannula* 3 32 02/12/25 07:21 14 95 Simple Mask* 6 50 02/12/25 06:02 97.7 83 20 127/73 (91) 94 97.7 02/12/25 06:02 Simple Mask* 6 50 02/12/25 05:43 97.0 85 20 137/74 95 97.0 Laboratory Tests Test 02/12/25 07:03 Lactic Acid Level 0.8 mmol/L (0.4-2.0) White Blood Count 8.3 10^3/uL (4.4-10.8) Medications Medications Dose Ordered Sig/Michael Route Start Time Stop Time Status Last Admin Dose Admin Albuterol 2.5 mg ONCE ONCE NEB 02/12/25 07:00 02/12/25 07:01 DC 02/12/25 07:17 2.5 MG Ipratropium [place] 1 mg ONCE ONCE NEB 02/12/25 07:00 02/12/25 07:01 DC 02/12/25 07:17 1 MG Methylprednisolone Sodium Succinate 125 mg ONCE ONCE IV 02/12/25 07:00 02/12/25 07:01 DC 02/12/25 08:37 125 MG Assessment/Plan Assessment/Plan Assessment: COPD exacerbation, Hypoxemia, Pulmonary vascular congestion, Hypertension, Hyperlipidemia, Diabetes, Hypothyroidism, Plan: Admit to Med-Surg, Breathing treatments, IV steroids, IV Lasix, Supplemental oxygen as needed, Accu checks Q AC&HS with sliding scale, Home medications reconciled, Plan discussed with: Patient, Spouse My Orders Orders - SIS CLEMENTS Procedure Category Date Status Time Admit ADMIT 02/12/25 Transmitted 09:20 Code Status CODE 02/12/25 Transmitted 09:20 Sodium Chloride Lock PHA 02/12/25 Logged (Saline Lock Ns) 14:00 Hydrocodone-Acet PHA 02/12/25 Logged 5/325mg Tab (Dalton 09:30 Ondansetron Hcl PHA 02/12/25 Logged (Zofran) 09:30 Docusate Sodium PHA 02/12/25 Logged Capsule (Colace 09:30 Complete Blood Count LAB 02/13/25 Verified 04:00 Comprehensive LAB 02/13/25 Verified Metabolic Panel 04:00 Cardiac DIET 02/12/25 Transmitted Diet-2gna,Lofat,Lochol Breakfast Condition: Serious KARINE 02/12/25 In Process 09:20 Acetaminophen Tablet PHA 02/12/25 Logged (Tylenol Tablet) 09:30 Allopurinol Tablet PHA 02/12/25 Verified (Zyloprim Tablet) 10:00 Apixaban (Eliquis) PHA 02/12/25 Verified 10:00 Buspirone Hcl Tablet PHA 02/12/25 Verified (Buspar Tablet) 10:00 Levothyroxine Tablet PHA 02/12/25 Verified (Synthroid Tablet) 10:00 (Nf) Amlodipine PHA 02/12/25 Verified Besylate 10:00 (Nf) Dapagliflozin PHA 02/12/25 Verified Propanediol 10:00 (Nf) Escitalopram PHA 02/12/25 Verified Oxalate 10:00 (Nf) Losartan PHA 02/12/25 Verified Potassium 10:00 (Nf) Metoprolol PHA 02/12/25 Verified Succinate (Metoprolol 10:00 (Nf) Rosuvastatin PHA 02/12/25 Verified Calcium (Crestor) 10:00 Date of Service: Feb 12, 2025 Billing Provider: SIS CLEMENTS Common Visit Codes: [id number] INP/OBS CARE (HIGH) SIS CLEMENTS Feb 12, 2025 11:38
[2025-02-12] MEDS ORDERED: DEXTROSE (50%) 50ML SYRG IV PRN (11:45)
[2025-02-12] MEDS: SODIUM CHLOR 0.9% PF (SALINE LOCK) 10ML VIAL/SYR IV SCH (13:21)
[2025-02-12] MEDS ORDERED: BUDE1AER4 IN (15:09)
[2025-02-12] MEDS: FUROSEMIDE 20 MG/2 ML VIAL IV ONE (15:10)
[2025-02-12] MEDS: ACCU-CHEK COMFORT CURVE STRIP VI SCH (16:14)
[2025-02-12] MEDS: InsuLIN REG 1unit/0.01ml Soln (100units/ml) SC SCH ×2 (16:16→21:02)
[2025-02-12] MEDS: ATORVASTATIN 20 MG TAB PO SCH (21:05)
[2025-02-12 21:48] LABS: Urine Protein, UAD Negative (Negative)
[2025-02-13] VITALS (15 sets, daily range): BP systolic 114–129; BP diastolic 64–80; PULSE 80–97; RESP 14–21; TEMP 96.8–98.5; O2SAT 91–98
[2025-02-13] MEDS: MELATONIN 5 MG TAB PO SCH (02:24)
[2025-02-13] MEDS: ACETAMINOPHEN 325 MG TAB PO PRN (04:57)
[2025-02-13 06:58] LABS: Hematocrit 42.0 % (36.0-46.0); Hemoglobin 14.5 g/dL (12.2-16.2); Mean Corpuscular Hemoglobin 32.6 pg (28.0-32.0); Mean Corpuscular Volume 94.6 fL (80.0-100.0); Nucleated Red Blood Cells % 0.1 %
[2025-02-13 07:11] LABS: Alanine Aminotransferase 14 U/L (7-40); Alkaline Phosphatase 69 U/L (46-116); Anion Gap 12 (5-15); BUN/Creatinine Ratio 21.5 (10.0-20.0); Blood Urea Nitrogen 17 mg/dL (9-23); Calcium 9.9 mg/dL (8.7-10.4); Carbon Dioxide 26 mmol/L (20-31); Chloride 103 mmol/L (98-107); Potassium 3.7 mmol/L (3.5-5.1); Sodium 141 mmol/L (136-145); Total Protein 7.8 g/dL (5.7-8.2)
[2025-02-13 07:12] LABS: Albumin 4.3 g/dL (3.2-4.8); Bilirubin, Total 0.6 mg/dL (0.2-1.0); Glucose 158 mg/dL (74-106)
[2025-02-13] MEDS: FUROSEMIDE 20 MG/2 ML VIAL IV SCH (09:25)
--- NOTE | 2025-02-13 13:18 | DVHPN2 ---
Subjective Continues to have shortness of breath Reviewed: Care Plan, H&P, Labs, Medications Changes from previous H/P or p: No Changes General: Per HPI Eyes: No Pain, No Vision change, No Conjunctivae inflammation, No Eyelid inflammation, No Other, No Redness ENT: No Ear pain, No Ear discharge, No Nose pain, No Nose discharge, No Nose congestion, No Mouth pain, No Mouth swelling, No Throat pain, No Throat swelling, No Other Cardiovascular: No Chest Pain, No Palpitations, No Orthopnea, No Paroxysmal Noc. Dyspnea, No Edema, No Lt Headedness, No Other Respiratory: Cough; No Dry; Shortness of breath, SOB with excertion, Wheezing; No Hemoptysis, No Pleuritic Pain, No Sputum, No Other Gastrointestinal: No Nausea, No Vomiting, No Abdominal Pain, No Diarrhea, No Constipation, No Melena, No Hematochezia, No Other Genitourinary: No Dysuria, No Frequency, No Incontinence, No Hematuria, No Retention, No Other Musculoskeletal: No other, No neck pain, No shoulder pain, No arm pain, No back pain, No hand pain, No leg pain, No foot pain Skin: No Rash, No Lesions, No Jaundice, No Bruising, No Other Objective Vitals Vital Signs Date Time Temp Pulse Resp B/P (MAP) Pulse Ox O2 Delivery O2 Flow Rate FiO2 02/13/25 13:06 98.2 86 21 114/64 (81) 94 98.2 02/13/25 10:00 Nasal Cannula 2.0 02/13/25 10:00 28 Intake/Output Intake and Output 02/13/25 07:00 Intake Total 250 ml Balance 250 ml Intake Oral 250 ml # Voids 3 General Appearance: Alert, Oriented X3, Cooperative, No acute distress HEENT: Atraumatic, PERRLA Lungs: Clear to auscultation, Normal air movement Cardiovascular: Normal S1, Normal S2 Abdomen: Normal bowel sounds, Soft, No tenderness, No hepatospenomegaly Musculoskeletal: Normal sensory function, Normal motor function Skin: Dry, Intact Psych/Mental Status: Mental status NL, Mood NL Medications Current Medications Medications Dose Ordered Sig/Michael Route Start Time Stop Time Status Last Admin Dose Admin Sodium Chloride 10 ml Q8HR IV 02/12/25 14:00 02/13/25 04:58 10 ML Acetaminophen/ Hydrocodone Bitart 1 tab Q4HP PRN PO 02/12/25 09:30 Ondansetron HCl 4 mg Q4HP PRN IV 02/12/25 09:30 Docusate Sodium 100 mg BIDPRN PRN PO 02/12/25 09:30 Acetaminophen 650 mg Q6HP PRN PO 02/12/25 09:30 02/13/25 04:57 650 MG Allopurinol 100 mg BID PO 02/12/25 10:00 02/13/25 09:21 100 MG Apixaban 5 mg BID PO 02/12/25 10:00 02/13/25 09:22 5 MG Buspirone HCl 10 mg Q12HR PO 02/12/25 10:00 02/13/25 09:22 10 MG Levothyroxine Sodium 112 mcg DAILY@0600 PO 02/12/25 10:00 02/13/25 04:57 112 MCG Amlodipine Besylate 10 mg DAILY PO 02/12/25 10:00 02/13/25 09:23 10 MG Patient Own Medication 1 tab DAILY PO 02/12/25 10:00 02/13/25 09:17 1 TAB Patient Own Medication 1 tab DAILY PO 02/12/25 10:00 02/13/25 09:18 1 TAB Losartan Potassium 100 mg DAILY PO 02/12/25 10:00 02/13/25 09:21 100 MG Metoprolol Succinate 100 mg DAILY PO 02/12/25 10:00 02/13/25 09:20 100 MG Atorvastatin Calcium 20 mg HS PO 02/12/25 22:00 02/12/25 21:05 20 MG Albuterol 2.5 mg Q6HWA NEB 02/12/25 12:00 02/13/25 11:27 2.5 MG Ipratropium [place] 0.5 mg Q6HWA NEB 02/12/25 12:00 02/13/25 11:27 0.5 MG Methylprednisolone Sodium Succinate 40 mg BID IV 02/12/25 10:00 02/13/25 09:24 40 MG Diagnostic Test (Pha) 1 strip ACHS 02/12/25 17:00 02/13/25 11:30 1 STRIP Insulin Human Regular HS SC 02/12/25 22:00 02/12/25 21:02 8 UNITS Insulin Human Regular AC SC 02/12/25 17:00 02/13/25 11:30 3 UNITS Dextrose 50 ml UD PRN IV 02/12/25 11:45 Furosemide 20 mg DAILY IV 02/13/25 10:00 02/13/25 09:25 20 MG Budesonide 0.5 mg BID NEB 02/13/25 22:00 UNV Laboratory Results Laboratory Tests 02/13/25 05:32 Chemistry Test 02/13/25 05:32 Albumin 4.3 g/dL (3.2-4.8) Calcium Level 9.9 mg/dL (8.7-10.4) Total Protein 7.8 g/dL (5.7-8.2) LFT Test 02/13/25 05:32 Alanine Aminotransferase (ALT) 14 U/L (7-40) Alkaline Phosphatase 69 U/L (46-116) Aspartate Amino Transferase (AST) 13 U/L (13-40) Total Bilirubin 0.6 mg/dL (0.2-1.0) Urinalysis Test 02/12/25 21:15 Urine Color Light-yellow (Yellow) Urine Clarity Clear (Clear) Urine pH 5.5 (5.0-9.0) Urine Specific [place] 1.021 (1.001-1.035) Urine Protein Negative (Negative) Urine Ketones Negative (Negative) Urine Blood Negative /uL (Negative) Urine Nitrite Negative (Negative) Urine Bilirubin Negative (Negative) Urine Urobilinogen Normal mg/dL (Negative) Urine Leukocyte Esterase Negative /uL (Negative) Urine RBC None seen /hpf (0 - 4) Urine Microscopic WBC < 1 /HPF (0-5) Urine Squamous Epithelial Cells Few /hpf (<5) Urine Bacteria None seen /hpf (None Seen) Urine Glucose 4+ mg/dL (Normal) H Labs and/or images reviewed: Labs reviewed by me, Image(s) reviewed by me Assessment/Plan Assessment/Plan Impression: -acute on chronic hypoxic respiratory failure -COPD with exacerbation -HFpEF -obesity -diabetes mellitus Plan: -add ICS -regular insulin sliding scale -continue bronchodilators -O2 supplementation to keep saturation greater than 92% -continue with diuresis -repeat chest x-ray in a.m. Total time spent with patient discussing and formulating plan of care: 35 minutes. This medical document was created using an electronic medical record system with [employer] dictation system. Although this document has been carefully reviewed, there may still be some phonetic and typographical errors. These areas are purely typographical due to imperfections of the software programs, and do not reflect any compromise in the patient's medical care. Plan discussed with: Patient, Other (RN) My Orders Orders - JENNIFFER WHITING NP Procedure Category Date Status Time Budesonide PHA 02/13/25 Logged (Inhalation) 22:00 Basic Metabolic Panel LAB 02/14/25 Verified 04:00 Magnesium LAB 02/14/25 Verified 04:00 Chest Portable XY 02/14/25 Logged 04:00 Date of Service: Feb 13, 2025 Billing Provider: JENNIFFER WHITING NP Common Visit Codes: [id number] INP/OBS CARE(HIGH) Procedure Codes: 34924-[id number] SEDATION +15MIN JENNIFFER WHITING NP Feb 13, 2025 13:18
[2025-02-13] MEDS: BUDESONIDE (INHALATION) 0.5 MG/2 ML NEB NEB SCH (19:06)
[2025-02-14] VITALS (11 sets, daily range): BP systolic 128–136; BP diastolic 77–84; PULSE 68–80; RESP 16–20; TEMP 96.2–98.3; O2SAT 93–99
[2025-02-14 05:08] LABS: Anion Gap 10 (5-15); Carbon Dioxide 28 mmol/L (20-31); Chloride 102 mmol/L (98-107); Potassium 3.8 mmol/L (3.5-5.1); Sodium 140 mmol/L (136-145)
[2025-02-14 05:09] LABS: Calcium 10.3 mg/dL (8.7-10.4)
[2025-02-14 05:14] LABS: BUN/Creatinine Ratio 20.3 (10.0-20.0); Blood Urea Nitrogen 14 mg/dL (9-23); Magnesium 2.1 mg/dL (1.6-2.6)
[2025-02-14 05:15] LABS: Glucose 176 mg/dL (74-106)
--- NOTE | 2025-02-14 05:34 | DVH ---
CHEST RADIOGRAPH Indication: copd, chf Technique: 1 view Comparison: XY CHEST PORTABLE on DOS: 02/12/25, XY CHEST PORTABLE on DOS: 01/06/25, XY CHEST XRAY 1 VIE W on DOS: 12/29/24, XY CHEST PORTABLE on DOS: 12/07/24, XY CHEST PORTABLE on DOS: 06/30/24 FINDINGS: Lines and Tubes: None. Lungs/Pleura: Decreased lung volumes with progression of bilateral interstitial opacities. No evidenc e of focal consolidation, or pleural abnormality. Cardiomediastinum: Unchanged. Other: Unchanged osseous structures. IMPRESSION: 1. Decreased lung volumes and worsened interstitial opacities from 2 days prior. No other short inte rval change.
[2025-02-14] MEDS ORDERED: HYDR12.59 PO (10:21)
[2025-02-14] MEDS ORDERED: BUDE1AER4 IN (10:21)
--- NOTE | 2025-02-14 10:31 | DVHDS2 ---
Discharge Summary Date of Admission Feb 12, 2025 at 09:20 Date of Discharge: Feb 14, 2025 Admitting Diagnosis COPD with exacerbation Labs/Diagnostic Data: Laboratory Results Test 02/14/25 06:10 02/14/25 04:12 02/13/25 05:32 02/12/25 21:15 POC Glucose 159 mg/dl (70-106) Sodium Level 140 mmol/L (136-145) Potassium Level 3.8 mmol/L (3.5-5.1) Chloride Level 102 mmol/L (98-107) Carbon Dioxide Level 28 mmol/L (20-31) Anion Gap 10 (5-15) Blood Urea Nitrogen 14 mg/dL (9-23) Creatinine 0.69 mg/dL (0.550-1.02) Glomerular Filtration Rate Calc 92 mL/min (>90) BUN/Creatinine Ratio 20.3 (10.0-20.0) Serum Glucose 176 mg/dL (74-106) Calcium Level 10.3 mg/dL (8.7-10.4) Magnesium Level 2.1 mg/dL (1.6-2.6) White Blood Count 9.9 10^3/uL (4.4-10.8) Red Blood Count 4.44 10^6/uL (4.0-5.20) Hemoglobin 14.5 g/dL (12.2-16.2) Hematocrit 42.0 % (36.0-46.0) Mean Corpuscular Volume 94.6 fL (80.0-100.0) Mean Corpuscular Hemoglobin 32.6 pg (28.0-32.0) Mean Corpuscular Hemoglobin Concent 34.5 g/dL (32.0-36.0) Red Cell Distribution Width 16.5 % (11.8-14.3) Platelet Count 209 10^3/uL (140-450) Mean Platelet Volume 8.5 fL (6.9-10.8) Neutrophils (%) (Auto) 85.0 % (37.0-80.0) Lymphocytes (%) (Auto) 11.7 % (10.0-50.0) Monocytes (%) (Auto) 3.2 % (0.0-12.0) Eosinophils (%) (Auto) 0.0 % (0.0-7.0) Basophils (%) (Auto) 0.1 % (0.0-2.0) Neutrophils # (Auto) 8.4 10 ^3/uL (1.6-8.6) Lymphocytes # (Auto) 1.2 10 ^3/uL (0.4-5.4) Monocytes # (Auto) 0.3 10 ^3/uL (0-1.3) Eosinophils # (Auto) 0 10 ^3/uL (0-0.8) Basophils # (Auto) 0 10 ^3/uL (0-0.2) Nucleated Red Blood Cells 0.1 % Total Bilirubin 0.6 mg/dL (0.2-1.0) Aspartate Amino Transferase (AST) 13 U/L (13-40) Alanine Aminotransferase (ALT) 14 U/L (7-40) Alkaline Phosphatase 69 U/L (46-116) Total Protein 7.8 g/dL (5.7-8.2) Albumin 4.3 g/dL (3.2-4.8) Urine Color Light-yellow (Yellow) Urine Clarity Clear (Clear) Urine pH 5.5 (5.0-9.0) Urine Specific [place] 1.021 (1.001-1.035) Urine Protein Negative (Negative) Urine Ketones Negative (Negative) Urine Blood Negative /uL (Negative) Urine Nitrite Negative (Negative) Urine Bilirubin Negative (Negative) Urine Urobilinogen Normal mg/dL (Negative) Urine Leukocyte Esterase Negative /uL (Negative) Urine RBC None seen /hpf (0 - 4) Urine Microscopic WBC < 1 /HPF (0-5) Urine Squamous Epithelial Cells Few /hpf (<5) Urine Bacteria None seen /hpf (None Seen) Urine Glucose 4+ mg/dL (Normal) Test 02/12/25 10:02 02/12/25 07:03 Troponin I High Sensitivity < 3 ng/L (</=34) Lactic Acid Level 0.8 mmol/L (0.4-2.0) B-Type Natriuretic Peptide 45.51 pg/mL (0-100) Other Laboratory Tests 02/14/25 04:12 02/13/25 05:32 Brief Hx & Hospital Course: History of Present Illness Laura Sanches is a 74-year-old female with past medical history of COPD, PE in June 2024, home oxygen, hypertension, hyperlipidemia, diabetes, and hypothyroidism, who came to the hospital for shortness of breath. Patient states over the last week her shortness of breath has been worsening. She states she has been using her rescue inhaler more than prescribed. Then this morning she woke up early and was having a hard time catching her breath so she came to the hospital. On arrival the patient was hypoxic requiring 6L O2 via simple mask. She received breathing treatment and IV steroids. On assessment she is on 3L NC. Patient states she only has a rescue inhaler, no breathing treatments or daily inhaler. She was seeing Dr. Lr for pulmonology, and she was on a daily inhaler. However, she recently switched to Dr. Sotelo. She has had testing completing and goes back for results and a treatment plan on 02/17/2025. Course of hospitalization: Patient was given IV diuresis, bronchodilators, as well as IV Solu-Medrol. Discussion was made with the patient yesterday afternoon regarding her home COPD regimen which she states she is only taking albuterol rescue inhaler. Patient was started on budesonide nebulizer treatments, with the patient stating that her respiratory status has improved. She no longer has dyspnea with exertion. Patient will be discharged home on Symbicort two puffs b.i.d. for 30 days, with instructions to continue albuterol as needed for shortness of breaths. She will also be provided diuretic in the form of hydrochlorothiazide 12.5 mg p.o. daily. Patient is instructed to follow up with her PCP and ceiling insulation blower at next available appointment. She will continue home oxygen use at 3 L/min via nasal cannula. Patient was agreeable with discharge plan. All questions answered. Physical examination General: Alert and Oriented x3. No acute distress. Well-nourished. Eyes: EOMI. Anicteric. HENT: Moist mucous membranes. Lungs: Clear to auscultation bilaterally. No accessory muscle use. Cardiovascular: Regular rate and rhythm. No murmur. No JVD. Abdomen: Soft, non-tender and non-distended. No palpable masses. Extremities: No edema. Non-tender. Skin: No rashes or lesions. Warm. Neurologic: No focal neurological deficits. CN II-XII grossly intact, but not individually tested. Psychiatric: Cooperative. Appropriate mood and affect. Total time spent with patient discussing and formulating plan of care: 35 minutes. This medical document was created using an electronic medical record system with [employer] dictation system. Although this document has been carefully reviewed, there may still be some phonetic and typographical errors. These areas are purely typographical due to imperfections of the software programs, and do not reflect any compromise in the patient's medical care. Condition at Discharge: Fair Final Diagnosis/Problems List Acute on chronic hypoxic respiratory failure -acute on chronic hypoxic respiratory failure -COPD with exacerbation -HFpEF -obesity -diabetes mellitus Discharge Disposition: Home Discharge Instruct/Medications Diet: Cardiac 2g Na,low cholest Activity: No Restrictions, As Tolerated Follow Up/Referral: Follow up with PCP, Cristal Lyman NP in 1-2 weeks Follow up with ceiling insulation blower, DR. Sotelo Medications: Continue all previous home medications Symbicort two puffs b.i.d. Hydrochlorothiazide 12.5 mg p.o. daily Scheduled Acetaminophen (Acetaminophen), 500 MG PO Q4HPRN Allopurinol (Zyloprim Tablet), 1 TAB PO BID, (Reported) Amlodipine Besylate (Amlodipine Besylate), 1 TAB PO DAILY, (Reported) Apixaban Base (Eliquis), 10 MG PO BID Budesonide-Formoterol Fumarate (Budesonide/Formoterol Fum 160-4.5 Mcg/Act), 1 AER IN BID Buspirone Hcl (Buspirone Hcl), 10 MG PO Q12HR, (Reported) Dapagliflozin Propanediol (Dapagliflozin Propanediol), 1 TAB PO DAILY, (Reported) Escitalopram Oxalate (Escitalopram Oxalate), 1 TAB PO DAILY, (Reported) Hydrochlorothiazide (Hydrochlorothiazide), 1 CAP PO DAILY Levothyroxine Sodium (Levothyroxine Sodium), 1 TAB PO DAILY, (Reported) Losartan Potassium (Losartan Potassium), 1 TAB PO DAILY, (Reported) Metoprolol Succinate (Metoprolol Succinate Er), 1 TAB PO DAILY, (Reported) Rosuvastatin Calcium (Crestor), 1 TAB PO DAILY, (Reported) Scheduled PRN Budesonide-Formoterol Fumarate (Budesonide/Formoterol Fum 160-4.5 Mcg/Act), 2 PUFF IN PRN PRN for SHORTNESS OF BREATH, (Reported) Discontinued Medications Amoxicillin & Pot Clavulanate (Augmentin Tablet), 875 MG PO BID Azithromycin (Zithromax Z-Timothy), 250 MG PO DAILY Doxycycline Hyclate (Doxycycline Hyclate), 1 TAB PO BID PRN Metronidazole (Flagyl), 500 MG PO TID Pantoprazole Sodium Sesquihydr (Pantoprazole Sodium), 40 MG PO QAM Prednisone (Prednisone), 20 MG PO QAM 36 Discharge Statement: "Patient was advised to return to the ER or call 911 if any headaches, dizziness, shortness of breath, chest pain, abdominal pain, bleeding, fevers, or worsening of medical condition. Patient was counseled about treatment plan, medications, possible side effects, patientverbalized understanding. All questions were answered to the best of my ability. This discharge took greater then 30 minutes in planning, reviewing documentation, counseling the patient, and discussing with other team members." ASSESSMENT ASSESSMENT Assessment Acute on chronic hypoxic respiratory failure Date of Service: Feb 14, 2025 Billing Provider: JENNIFFER WHITING NP Common Visit Codes: 26143-YJA/OBS DISCH DAY >30min JENNIFFER WHITING NP Feb 14, 2025 10:31
== END 2025-02-14 15:00 | disposition home or self-care (01) | DRG 291 ==
LOC: ER 05:41 → OVERFLOW 09:20 → WEST WING 10:59
PROVIDERS: ADMIT Nurse Practitioner Acute Care; ATTEND Nurse Practitioner Acute Care
DX: I11.0 Hypertensive heart disease with heart failure (principal); I50.31 Acute diastolic (congestive) heart failure; J96.21 Acute and chronic respiratory failure with hypoxia; J44.1 Chronic obstructive pulmonary disease with (acute) exacerbation; E66.9 Obesity, unspecified; E11.9 Type 2 diabetes mellitus without complications; E03.9 Hypothyroidism, unspecified; Z68.30 Body mass index [BMI] 30.0-30.9, adult; E78.5 Hyperlipidemia, unspecified; F41.9 Anxiety disorder, unspecified; Z90.49 Acquired absence of other specified parts of digestive tract; Z86.711 Personal history of pulmonary embolism; Z79.899 Other long term (current) drug therapy; Z90.710 Acquired absence of both cervix and uterus; Z83.3 Family history of diabetes mellitus; Z82.3 Family history of stroke; Z82.49 Family history of ischemic heart disease and other diseases of the circulatory system
CPT/HCPCS: 36415; 71045; 80048; 80053; 81001; 82962; 83605; 83735; 83880; 84484; 85025; 87045; 87427; 94640; G0378; J1815

== ENCOUNTER 2025-03-10 07:15 | Inpatient (IN) | payer MEDICARE, OTHER ==
[~2025-03-10] VITALS: Ht 160 cm; Wt 84.3 kg
[2025-03-10] VITALS (11 sets, daily range): BP systolic 129–158; BP diastolic 73–94; PULSE 86–94; RESP 16–18; TEMP 98–98.7; O2SAT 92–100
[~2025-03-10 07:15] MED LIST changes: -AUG875T PO; -AZITTAB PO; +BUDE1AER4 IN; -DOXY-286 PO; +HYDR12.59 PO; -METR-344 PO; -PANT40T PO; -PRED20TA2 PO
--- NOTE | 2025-03-10 07:59 | ED.PDOC ---
SOB-HPI HPI Comments This is a 74 year old female presenting to the ED with chief complaint of SOB. Patient reports that she has been experiencing SOB since this morning. Patient relays that she has history of COPD and is normally on breathing treatments and 4L of O2 at home, but no relief has been noted. Patient denies any chest pain, dizziness, fever, chills, cough, or hemoptysis. 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 Pertinent SUPERVISOR TELLERS History Family History Family History: No family hx of Cancer, No family hx of DM, No family hx of Heart crystal, No family hx ofKidney crystal, No family hx of Liver crystal, No family hx of Lung crystal, Family hx of HTN, Family hx of stroke Social History Smoker: Non-Smoker Alcohol: Denies ETOH Use Drugs: Denies Drug Use Lives In: Home Constitutional: denies: chills, diaphoresis, fatigue, fever, malaise, sweats, weakness, others EENTM: denies: blurred vision, double vision, ear bleeding, ear discharge, ear drainage, ear pain, ear ringing, eye pain, eye redness, hearing loss, mouth pain, mouth swelling, nasal discharge, nose bleeding, nose congestion, nose pain, photophobia, tearing, throat pain, throat swelling, voice changes, others Respiratory: reports: shortness of breath; denies: cough, hemoptysis, orthopnea, SOB at rest, SOB with excertion, stridor, wheezing, others Cardiovascular: denies: chest pain, dizzy spells, diaphoresis, Dyspnea on exertion, edema, irregular heart beat, left arm pain, lightheadedness, palpitations, PND, syncope, others Gastrointestinal: denies: abdomen distended, abdominal pain, blood streaked bowels, constipated, diarrhea, dysphagia, difficulty swallowing, hematemesis, melena, nausea, poor appetite, poor fluid intake, rectal bleeding, rectal pain, vomiting, others Genitourinary: denies: abnormal vagina bleeding, burning, dyspareunia, dysuria, flank pain, frequency, hematuria, incontinence, pain, , vagina discharge, urgency, others Neurological: denies: dizziness, fainting, headache, left sided numbness, left sided weakness, numbness, paresthesia, pre-existing deficit, right sided numbness, right sided weakness, seizure, speech problems, tingling, tremors, weakness, others Musculoskeletal: denies: back pain, gout, joint pain, joint swelling, muscle pain, muscle stiffness, neck pain, others Integumetry: denies: bruises, change in color, change in hair/nails, dryness, laceration, lesions, lumps, rash, wounds, others Allergic/Immunocompromised: denies: Difficulty Healing, Frequent Infections, Hives, Itching, others Hematologic/Lymphatic: denies: anemia, blood clots, easy bleeding, easy bruising, swollen glands, others Endocrine: denies: excessive hunger, excessive sweating, excessive thirst, excessive urination, flushing, intolerance to cold, intolerance to heat, unexplained weight gain, unexplained weight loss, others Psychiatric: denies: anxiety, bipolar disorder, depression, hopeless, panic disorder, schizophrenia, sleepless, suicidal, others All Other Systems: Reviewed and Negative Physical Exam General Appearance: No Apparent Distress, Normal HEENT: Normal ENT Inspection, Pharynx Normal, TMs Normal Neck: Full Range of Motion, Non-Tender, Normal, Normal Inspection Respiratory: Chest Non-Tender, Lungs Clear, No Accessory Muscle Use, Normal Breath Sounds, Other (Tachypneic) Cardiovascular: No Edema, No JVD, No Murmur, No Gallop, Normal Peripheral Pulses, Regular Rate/Rhythm Breast Exam: Deferred Gastrointestinal: No Organomegaly, Non Tender, No Pulsatile Mass, Normal Bowel Sounds, Soft Genitalia: Deferred Pelvic: Deferred Rectal: Deferred Extremities: No calf tenderness, Normal capillary refill, Normal inspection, Normal range of motion, Non-tender, No pedal edema Musculoskeletal : Apperance: Normal Neurologic: Alert, catalyst 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 Was a procedure done?: No Differential Dx Differential Diagnosis: COPD X-Ray, Labs, Meds, VS Vital Signs Date Time Temp Pulse Resp B/P (MAP) Pulse Ox O2 Delivery O2 Flow Rate FiO2 03/10/25 10:24 92 17 131/76 (94) 93 03/10/25 08:20 18 97 Simple Mask* 8 60 03/10/25 08:10 89 15 98 Room Air 03/10/25 08:10 98.7 89 19 178/99 (125) 98 98.7 03/10/25 07:35 84 03/10/25 07:22 97.3 88 22 175/91 88 97.3 Lab Test 03/10/25 10:59 03/10/25 09:31 03/10/25 09:07 03/10/25 07:55 Range/Units Troponin I High Sensitivity Pending 4 4 </=34 ng/L Urine Color Light-yellow Yellow Urine Clarity Clear Clear Urine pH 6.5 5.0-9.0 Urine Specific [place] 1.012 1.001-1.035 Urine Protein Negative Negative Urine Ketones Negative Negative Urine Blood Negative Negative /uL Urine Nitrite Negative Negative Urine Bilirubin Negative Negative Urine Urobilinogen Normal Negative mg/dL Urine Leukocyte Esterase Negative Negative /uL Urine RBC 1 0 - 4 /hpf Urine Microscopic WBC < 1 0-5 /HPF Urine Squamous Epithelial Cells Few <5 /hpf Urine Bacteria None seen None Seen /hpf Urine Glucose Normal Normal mg/dL White Blood Count 10.6 4.4-10.8 10^3/uL Red Blood Count 4.17 4.0-5.20 10^6/uL Hemoglobin 13.7 12.2-16.2 g/dL Hematocrit 40.6 36.0-46.0 % Mean Corpuscular Volume 97.2 80.0-100.0 fL Mean Corpuscular Hemoglobin 32.8 H 28.0-32.0 pg Mean Corpuscular Hemoglobin Concent 33.8 32.0-36.0 g/dL Red Cell Distribution Width 16.0 H 11.8-14.3 % Platelet Count 188 140-450 10^3/uL Mean Platelet Volume 8.0 6.9-10.8 fL Neutrophils (%) (Auto) 75.8 37.0-80.0 % Lymphocytes (%) (Auto) 13.8 10.0-50.0 % Monocytes (%) (Auto) 6.6 0.0-12.0 % Eosinophils (%) (Auto) 3.4 0.0-7.0 % Basophils (%) (Auto) 0.4 0.0-2.0 % Neutrophils # (Auto) 8.0 1.6-8.6 10 ^3/uL Lymphocytes # (Auto) 1.5 0.4-5.4 10 ^3/uL Monocytes # (Auto) 0.7 0-1.3 10 ^3/uL Eosinophils # (Auto) 0.4 0-0.8 10 ^3/uL Basophils # (Auto) 0 0-0.2 10 ^3/uL Nucleated Red Blood Cells 0.0 % Sodium Level 146 H 136-145 mmol/L Potassium Level 3.2 L 3.5-5.1 mmol/L Chloride Level 104 98-107 mmol/L Carbon Dioxide Level 33 H 20-31 mmol/L Anion Gap 9 5-15 Blood Urea Nitrogen 11 9-23 mg/dL Creatinine 0.82 0.550-1.02 mg/dL Glomerular Filtration Rate Calc 76 >90 mL/min BUN/Creatinine Ratio 13.4 10.0-20.0 Serum Glucose 104 74-106 mg/dL Calcium Level 9.2 8.7-10.4 mg/dL B-Type Natriuretic Peptide 83.65 0-100 pg/mL Test 03/10/25 07:37 Range/Units POC Glucose 108 H 70-106 mg/dl Current Medications Medications (Trade) Dose Ordered Sig/Michael Route Start Time Stop Time Status Last Admin Albuterol (Ventolin Medneb) 5 mg ONCE ONCE NEB 03/10/25 08:00 03/10/25 08:01 DC 03/10/25 08:19 Azithromycin (Zithromax Tablet) 500 mg ONCE ONCE PO 03/10/25 08:00 03/10/25 08:01 DC 03/10/25 08:33 Ipratropium [place] (Atrovent Medneb) 0.5 mg ONCE ONCE NEB 03/10/25 08:00 03/10/25 08:01 DC 03/10/25 08:19 Methylprednisolone Sodium Succinate (Solu Medrol) 62.5 mg ONCE ONCE IV 03/10/25 08:00 03/10/25 08:01 DC 03/10/25 08:47 [place] [id number] [facility] [address] Ph: [phone] DIAGNOSTIC IMAGING Diagnostic Imaging Report : [id number] Signed PATIENT: ZANE BONILLA ACCT: [id number] UNIT: [id number] : 1950 LOC: ER ROOM / BED: / AGE / SEX: 74 / F ADM STATUS: REG ER SERVICE 7 ORDERING PHYSICIAN: JAYLEEN LUNA MD PROCEDURE(s): CXRP - CHEST PORTABLE REASON: sob ORDER NUMBER(s): [id number], ACCESSION NUMBER(s): [id number] CHEST RADIOGRAPH Indication: sob Technique: Single frontal view of the chest was obtained Comparison: XY CHEST PORTABLE on DOS: 02/14/25 FINDINGS: Lines and Tubes: None Lungs: No focal consolidation. Pleura: No effusion. No pneumothorax. Cardiomediastinal contours: Unremarkable Bones: No acute osseous abnormality. IMPRESSION: 1. No acute cardiopulmonary disease. ATED BY: SARAH JOLLEY MD DICTATED DATE/TIME: 03/10/25824 SIGNED BY: SARAH JOLLEY MD SIGNED DATE/TIME: 03/10/25824 CC: Images Reviewed?: Images reviewed and evaluated by me Time of 1ST Reevaluation: 08:57 Reevaluation 1ST: Unchanged Patient Education/Counseling: Diagnosis, Treatment Family Education/Counseling: No Family Present SEPSIS Sepsis Screen Date sepsis recognized/suspect: Mar 10, 2025 Time Sepsis recognized/suspect: 723 Recent Procedure: No On Antibiotic Therapy: No Respiratory Rate >20: Yes Heart Rate >90: No Temp<36 C (96.8 F) or >38.3 C: No SBP <90 or MAP <65 mmHG: No New Acute Mental Status Change: No Is the patient on CPAP, BIPAP,: No Physician Orders Electrocardigram (03/10/25 07:43) Chest Portable (03/10/25 07:48) Troponin-I Hs (03/10/25 10:48) Vital Signs Date Time Temp Pulse Resp B/P (MAP) Pulse Ox O2 Delivery O2 Flow Rate FiO2 03/10/25 10:24 92 17 131/76 (94) 93 03/10/25 08:20 18 97 Simple Mask* 8 60 03/10/25 08:10 89 15 98 Room Air 03/10/25 08:10 98.7 89 19 178/99 (125) 98 98.7 03/10/25 07:35 84 03/10/25 07:22 97.3 88 22 175/91 88 97.3 Laboratory Tests Test 03/10/25 07:55 White Blood Count 10.6 10^3/uL (4.4-10.8) Medications Medications Dose Ordered Sig/Michael Route Start Time Stop Time Status Last Admin Dose Admin Albuterol 5 mg ONCE ONCE NEB 03/10/25 08:00 03/10/25 08:01 DC 03/10/25 08:19 Azithromycin 500 mg ONCE ONCE PO 03/10/25 08:00 03/10/25 08:01 DC 03/10/25 08:33 Ipratropium [place] 0.5 mg ONCE ONCE NEB 03/10/25 08:00 03/10/25 08:01 DC 03/10/25 08:19 Methylprednisolone Sodium Succinate 62.5 mg ONCE ONCE IV 03/10/25 08:00 03/10/25 08:01 DC 03/10/25 08:47 Departure 1 Departure Time of Disposition: 11:34 (Patient presented with acute shortness of breath concerning for acute on chronic COPD Exacerbation, Pneumonia, ACS, CHF, Pneumothorax. Less likely PE, Dissection. Data: 1. I ordered and reviewed the result of at least 3 labs including a CBC, BMP, and Troponin. 2. I independently interpreted the following tests: Chest X-ray shows .Risk:This patient has a high risk of morbidity due to further diagnostic testing or treatment and may suffer from respiratory or cardiac etiology . Workup reveals a likely COPD Exacerbation and patient should be admitted for further workup. and possible expert consultation.) Impression: Primary Impression: Acute and chronic respiratory failure Additional Impressions: COPD exacerbation Shortness of breath Disposition: ADMITTED INPATIENT Admit to: Tele Condition: Guarded Critical Care Note Critical Care Time?: Yes Critical care comment: Acute shortness of breath Authorized and Performed by: Jayleen Luna MD Total critical care time: Approximately 39 minutes Due to a high probability of clinically significant, life threatening deterioration, the patient required my highest level of preparedness to intervene emergently and I personally spent this critical care time directly and personally managing the patient. This critical care time included obtaining a history; examining the patient; pulse oximetry; ordering and review of studies; arranging urgent treatment with development of a management plan; evaluation of patient's response to treatment; frequent reassessment; and, discussions with other providers. This critical care time was performed to assess and manage the high probability of imminent, life-threatening deterioration that could result in multi-organ failure. It was exclusive of separately billable procedures and treating other patients and teaching time. Please see my other sections and the rest of the note for further information on patient assessment and treatment. Stability Stability form required: No Heart Score Heart Score: Heart Score Response (Comments) Value History N/A 0 EKG N/A 0 Age N/A 0 Risk Factors N/A 0 Troponin N/A 0 Total 0 I personally scribed for JAYLEEN LUNA MD ([email or web address]) on 03/10/25 at 07:59. Electronically submitted by Sedrick De Jesus ([email or web address]). I personally scribed for JAYLEEN LUNA MD ([email or web address]) on 03/10/25 at 08:44. Electronically submitted by Sedrick De Jesus ([email or web address]). JAYLEEN LUNA MD Mar 10, 2025 07:59
[2025-03-10 08:06] LABS: Hematocrit 40.6 % (36.0-46.0); Hemoglobin 13.7 g/dL (12.2-16.2); Mean Corpuscular Hemoglobin 32.8 pg (28.0-32.0); Mean Corpuscular Volume 97.2 fL (80.0-100.0); Nucleated Red Blood Cells % 0.0 %
[2025-03-10 08:17] LABS: Chloride 104 mmol/L (98-107)
[2025-03-10 08:18] LABS: Anion Gap 9 (5-15); Calcium 9.2 mg/dL (8.7-10.4); Carbon Dioxide 33 mmol/L (20-31); Potassium 3.2 mmol/L (3.5-5.1); Sodium 146 mmol/L (136-145)
[2025-03-10] MEDS: IPRATROPIUM BROM 0.5 MG/2.5ML INH SOL NEB ONE (08:19)
[2025-03-10] MEDS: ALBUTEROL SULF 2.5 MG/0.5ML(0.5%) NEB SOLN NEB ONE (08:19)
[2025-03-10 08:23] LABS: BUN/Creatinine Ratio 13.4 (10.0-20.0); Blood Urea Nitrogen 11 mg/dL (9-23); Glucose 104 mg/dL (74-106)
--- NOTE | 2025-03-10 08:27 | DVH ---
CHEST RADIOGRAPH Indication: sob Technique: Single frontal view of the chest was obtained Comparison: XY CHEST PORTABLE on DOS: 02/14/25 FINDINGS: Lines and Tubes: None Lungs: No focal consolidation. Pleura: No effusion. No pneumothorax. Cardiomediastinal contours: Unremarkable Bones: No acute osseous abnormality. IMPRESSION: 1. No acute cardiopulmonary disease.
[2025-03-10] MEDS: AZITHROMYCIN 250 MG TAB PO ONE (08:33)
[2025-03-10] MEDS: methylPREDNISolone SOD SUCC 125 MG/2 ML VL IV ONE (08:47)
[2025-03-10 10:15] LABS: Urine Protein, UAD Negative (Negative)
[2025-03-10] MEDS ORDERED: ONDANSETRON HCL 4 MG/2 ML VIAL IV PRN (13:00)
[2025-03-10] MEDS ORDERED: DEXTROSE (50%) 50ML SYRG IV PRN (13:00)
[2025-03-10] MEDS: POTASSIUM CHL 20 Meq TABLET PO ONE (13:43)
[2025-03-10] MEDS: methylPREDNISolone SOD SUCC 125 MG/2 ML VL IV SCH (14:15)
[2025-03-10] MEDS: ALBUTEROL SULF 2.5 MG/0.5ML(0.5%) NEB SOLN NEB SCH (14:26)
[2025-03-10] MEDS: IPRATROPIUM BROM 0.5 MG/2.5ML INH SOL NEB SCH (14:35)
[2025-03-10] MEDS: ACCU-CHEK COMFORT CURVE STRIP VI SCH (17:23)
[2025-03-10] MEDS: InsuLIN REG 1unit/0.01ml Soln (100units/ml) SC SCH (17:27)
--- NOTE | 2025-03-10 17:28 | ECG ---
[facility] Test Date: 2025-03-10 Test Time: 07:35:35 Pat Name: ZANE BONILLA Department: Room: 0291 Gender: F Ma[place] Physiotherapist: DORCAS : 1950 Requested By: JAYLEEN LA Order Number: [id number] Reading MD: Measurements Intervals [place] Rate: 84 P: 60 IA: 186 QRS: 62 QRSD: 88 T: 57 QT: 361 QTc: 427 Interpretive Statements Sinus rhythm Probable left atrial enlargement Nonspecific T abnrm, anterolateral leads Baseline wander in lead(s) V2 Please click the below link to view image of tracing.
[2025-03-10] MEDS: APIXABAN 5 MG TAB PO SCH (22:05)
[2025-03-10] MEDS: ALLOPURINOL 100 MG TAB PO SCH (22:05)
[2025-03-10] MEDS: ATORVASTATIN 20 MG TAB PO SCH (22:05)
[2025-03-11] VITALS (20 sets, daily range): BP systolic 142–162; BP diastolic 80–98; PULSE 70–113; RESP 16–20; TEMP 96.8–98.4; O2SAT 94–100
[2025-03-11 07:06] LABS: Hematocrit 38.5 % (36.0-46.0); Hemoglobin 13.5 g/dL (12.2-16.2); Mean Corpuscular Hemoglobin 33.6 pg (28.0-32.0); Mean Corpuscular Volume 96.1 fL (80.0-100.0); Nucleated Red Blood Cells % 0.0 %
[2025-03-11 07:25] LABS: Alanine Aminotransferase 11 U/L (7-40); Albumin 4.4 g/dL (3.2-4.8); Alkaline Phosphatase 63 U/L (46-116); Anion Gap 12 (5-15); BUN/Creatinine Ratio 21.1 (10.0-20.0); Bilirubin, Total 0.7 mg/dL (0.2-1.0); Blood Urea Nitrogen 15 mg/dL (9-23); Carbon Dioxide 27 mmol/L (20-31); Chloride 103 mmol/L (98-107); Sodium 142 mmol/L (136-145); Total Protein 7.7 g/dL (5.7-8.2)
[2025-03-11 07:39] LABS: Calcium 10.4 mg/dL (8.7-10.4); Glucose 171 mg/dL (74-106); Potassium 3.5 mmol/L (3.5-5.1)
[2025-03-11] MEDS: LOSARTAN POTASSIUM 50 MG TAB PO SCH (09:21)
[2025-03-11] MEDS: CITALOPRAM HYDROBR 20 MG TAB PO SCH (09:21)
[2025-03-11] MEDS: LEVOTHYROXINE SODIUM 112 MCG TAB PO SCH (09:24)
[2025-03-11] MEDS: hydroCHLOROthiazide 25 MG TAB PO SCH (09:24)
[2025-03-11] MEDS: FAMOTIDINE (10MG/ML) 2ML VL IV SCH (09:25)
[2025-03-11] MEDS ORDERED: PATIENTS OWN MEDICATION (Hydrochlorothiazide 1 CAP) PO SCH (10:00)
[2025-03-11] MEDS ORDERED: PATIENTS OWN MEDICATION (Rosuvastatin Calcium (Crestor) 1 TAB) PO SCH (10:00)
[2025-03-11] MEDS ORDERED: PATIENTS OWN MEDICATION (Amlodipine Besylate 1 TAB) PO SCH (10:00)
[2025-03-11] MEDS ORDERED: PATIENTS OWN MEDICATION (Losartan Potassium 1 TAB) PO SCH (10:00)
[2025-03-11] MEDS ORDERED: PATIENTS OWN MEDICATION (Escitalopram Oxalate 1 TAB) PO SCH (10:00)
--- NOTE | 2025-03-11 11:12 | DVHHP2 ---
History of Present Illness Reason for Visit: SOB History of Present Illness Laura Sanches is a 74-year-old female with past medical history of anxiety, COPD, depression, diabetes, hypertension, PE, hypothyroidism, cholecystectomy, hysterectomy, and hernia repair who presents to the ED with shortness of breath a started this morning while she was walking in her house. She reports that she does not use any DMEs. Patient reports that she ate subway sandwich with jalapenos. Patient reports that she has been having a dry cough upon inspiration. She also reports that she is on home oxygen 3-4 L nasal cannula continuously. Patient denies any recent trauma or injury, recent sick contacts, recent travels, recent ingestion of spoiled food, chest pain, fever, chills, lightheadedness, weakness, dizziness, abdominal pain, nausea, vomiting, diarrhea, or urinary symptoms. 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 Cardiovascular: HTN Pulmonary: COPD, Pulmonary embolus Psych: Anxiety, Depression Endocrine: Diabetes, Hypothyroidism Past Surgical History: Cholecystectomy, Hysterectomy, Hernia Repair Family History: Cancer, CVA, DM, Hypertension, Other (Mom with diabetes, hypertension, and CVA. Dad with emphysema and lung cancer, was a smoker.) Smoke: No ALCOHOL: none Drugs: None Lives: with Family Domestic Violence: Neg Review of Systems Respiratory: Cough, Shortness of breath Allergies: Coded Allergies: NO KNOWN ALLERGIES (Unverified , 02/12/16) Exam Vital Signs Vital Signs Date Time Temp Pulse Resp B/P (MAP) Pulse Ox O2 Delivery O2 Flow Rate FiO2 03/10/25 10:24 92 17 131/76 (94) 93 03/10/25 08:20 Simple Mask* 8 60 03/10/25 08:10 98.7 98.7 General Appearance: Alert, Oriented X3, Cooperative, No acute distress HEENT: Atraumatic, PERRLA, EOMI, Mucous membr. moist/pink Respiratory: Normal air movement Cardiovascular: Normal S1, Normal S2 Abdominal: Normal bowel sounds, Soft Neuro: Normal speech, Normal tone, Sensation intact Psych/Mental Status: Mental status NL, Mood NL Labs/Xrays Labs Test 03/10/25 10:59 03/10/25 09:31 03/10/25 07:55 03/10/25 07:37 Range/Units Troponin I High Sensitivity 28 </=34 ng/L Urine Color Light-yellow Yellow Urine Clarity Clear Clear Urine pH 6.5 5.0-9.0 Urine Specific [place] 1.012 1.001-1.035 Urine Protein Negative Negative Urine Ketones Negative Negative Urine Blood Negative Negative /uL Urine Nitrite Negative Negative Urine Bilirubin Negative Negative Urine Urobilinogen Normal Negative mg/dL Urine Leukocyte Esterase Negative Negative /uL Urine RBC 1 0 - 4 /hpf Urine Microscopic WBC < 1 0-5 /HPF Urine Squamous Epithelial Cells Few <5 /hpf Urine Bacteria None seen None Seen /hpf Urine Glucose Normal Normal mg/dL White Blood Count 10.6 4.4-10.8 10^3/uL Red Blood Count 4.17 4.0-5.20 10^6/uL Hemoglobin 13.7 12.2-16.2 g/dL Hematocrit 40.6 36.0-46.0 % Mean Corpuscular Volume 97.2 80.0-100.0 fL Mean Corpuscular Hemoglobin 32.8 H 28.0-32.0 pg Mean Corpuscular Hemoglobin Concent 33.8 32.0-36.0 g/dL Red Cell Distribution Width 16.0 H 11.8-14.3 % Platelet Count 188 140-450 10^3/uL Mean Platelet Volume 8.0 6.9-10.8 fL Neutrophils (%) (Auto) 75.8 37.0-80.0 % Lymphocytes (%) (Auto) 13.8 10.0-50.0 % Monocytes (%) (Auto) 6.6 0.0-12.0 % Eosinophils (%) (Auto) 3.4 0.0-7.0 % Basophils (%) (Auto) 0.4 0.0-2.0 % Neutrophils # (Auto) 8.0 1.6-8.6 10 ^3/uL Lymphocytes # (Auto) 1.5 0.4-5.4 10 ^3/uL Monocytes # (Auto) 0.7 0-1.3 10 ^3/uL Eosinophils # (Auto) 0.4 0-0.8 10 ^3/uL Basophils # (Auto) 0 0-0.2 10 ^3/uL Nucleated Red Blood Cells 0.0 % Sodium Level 146 H 136-145 mmol/L Potassium Level 3.2 L 3.5-5.1 mmol/L Chloride Level 104 98-107 mmol/L Carbon Dioxide Level 33 H 20-31 mmol/L Anion Gap 9 5-15 Blood Urea Nitrogen 11 9-23 mg/dL Creatinine 0.82 0.550-1.02 mg/dL Glomerular Filtration Rate Calc 76 >90 mL/min BUN/Creatinine Ratio 13.4 10.0-20.0 Serum Glucose 104 74-106 mg/dL Calcium Level 9.2 8.7-10.4 mg/dL B-Type Natriuretic Peptide 83.65 0-100 pg/mL POC Glucose 108 H 70-106 mg/dl CHEST RADIOGRAPH Indication: sob Technique: Single frontal view of the chest was obtained Comparison: XY CHEST PORTABLE on DOS: 02/14/25 FINDINGS: Lines and Tubes: None Lungs: No focal consolidation. Pleura: No effusion. No pneumothorax. Cardiomediastinal contours: Unremarkable Bones: No acute osseous abnormality. IMPRESSION: 1. No acute cardiopulmonary disease. SEPSIS Sepsis Screen Date sepsis recognized/suspect: Mar 10, 2025 Time Sepsis recognized/suspect: 723 Recent Procedure: No On Antibiotic Therapy: No Respiratory Rate >20: Yes Heart Rate >90: No Temp<36 C (96.8 F) or >38.3 C: No SBP <90 or MAP <65 mmHG: No New Acute Mental Status Change: No Is the patient on CPAP, BIPAP,: No Physician Orders Electrocardigram (03/10/25 07:43) Chest Portable (03/10/25 07:48) Vital Signs Date Time Temp Pulse Resp B/P (MAP) Pulse Ox O2 Delivery O2 Flow Rate FiO2 03/10/25 10:24 92 17 131/76 (94) 93 03/10/25 08:20 18 97 Simple Mask* 8 60 03/10/25 08:10 89 15 98 Room Air 03/10/25 08:10 98.7 89 19 178/99 (125) 98 98.7 03/10/25 07:35 84 03/10/25 07:22 97.3 88 22 175/91 88 97.3 Laboratory Tests Test 03/10/25 07:55 White Blood Count 10.6 10^3/uL (4.4-10.8) Medications Medications Dose Ordered Sig/Michael Route Start Time Stop Time Status Last Admin Dose Admin Albuterol 5 mg ONCE ONCE NEB 03/10/25 08:00 03/10/25 08:01 DC 03/10/25 08:19 5 MG Azithromycin 500 mg ONCE ONCE PO 03/10/25 08:00 03/10/25 08:01 DC 03/10/25 08:33 500 MG Ipratropium [place] 0.5 mg ONCE ONCE NEB 03/10/25 08:00 03/10/25 08:01 DC 03/10/25 08:19 0.5 MG Methylprednisolone Sodium Succinate 62.5 mg ONCE ONCE IV 03/10/25 08:00 03/10/25 08:01 DC 03/10/25 08:47 62.5 MG Assessment/Plan Assessment/Plan Assessment Acute on chronic COPD exacerbation Acute hypoxic respiratory failure on supplemental oxygen, oxygen dependence Hypertension Hyperkalemia Hyponatremia History of anxiety History of depression History of diabetes History of hypertension History of PE History of hypothyroidism History of cholecystectomy History of hernia repair History of hysterectomy Plan Admit to med surge Antihypertensives Supplemental oxygen Replete lytes Hemoglobin A1c ISS and Accu-Cheks IV steroids Duo nebs D-dimer Diet Home medications reconciled DVT prophylaxis-patient on Eliquis PUD prophylaxis-PPIs Discussed plan of care with patient and nurse [id number] Preventive counseling healthy eating habits, physical activity, and regular checkups Plan discussed with: Patient Date of Service: Mar 10, 2025 Billing Provider: YULI SEQUEIRA Common Visit Codes: [id number] INP/OBS CARE (HIGH) Secondary Visit Codes: [id number] COUNSELING IND YULI SEQUEIRA Mar 10, 2025 12:59
[2025-03-11] MEDS: ACETAMINOPHEN 325 MG TAB PO PRN (12:09)
--- NOTE | 2025-03-11 13:54 | DVHPN2 ---
Reviewed: Care Plan, H&P, Labs, Medications, Previous Orders, Radiology Changes from previous H/P or p: No Changes General: Per HPI Respiratory: Cough, Shortness of breath Objective Vitals Vital Signs Date Time Temp Pulse Resp B/P (MAP) Pulse Ox O2 Delivery O2 Flow Rate FiO2 03/11/25 12:37 96.9 96 17 160/97 (118) 97 96.9 03/11/25 10:25 Nasal Cannula 3.0 03/11/25 10:25 32 Intake/Output Intake and Output 03/11/25 07:00 Intake Total 630 ml Balance 630 ml Intake Oral 630 ml # Voids 5 # Bowel Movements 2 Medications Current Medications Medications Dose Ordered Sig/Michael Route Start Time Stop Time Status Last Admin Dose Admin Allopurinol 100 mg BID PO 03/10/25 22:00 03/11/25 09:22 100 MG Apixaban 10 mg BID PO 03/10/25 22:00 03/11/25 09:25 10 MG Buspirone HCl 10 mg Q12HR PO 03/10/25 22:00 03/11/25 09:23 10 MG Levothyroxine Sodium 112 mcg DAILY PO 03/11/25 10:00 03/11/25 09:24 112 MCG Patient Own Medication 1 tab DAILY PO 03/11/25 10:00 UNV Patient Own Medication 1 tab DAILY PO 03/11/25 10:00 UNV Patient Own Medication 1 cap DAILY PO 03/11/25 10:00 UNV Patient Own Medication 1 tab DAILY PO 03/11/25 10:00 UNV Patient Own Medication 1 tab DAILY PO 03/11/25 10:00 UNV Diagnostic Test (Pha) 1 strip ACHS 03/10/25 17:00 03/11/25 11:30 1 STRIP Insulin Human Regular ACHS SC 03/10/25 17:00 03/11/25 11:32 4 UNITS Dextrose 50 ml UD PRN IV 03/10/25 13:00 Methylprednisolone Sodium Succinate 80 mg Q8HR IV 03/10/25 14:00 03/11/25 13:20 80 MG Albuterol 2.5 mg Q4HWA NEB 03/10/25 14:00 03/11/25 10:25 2.5 MG Ipratropium Eva 0.5 mg Q4HWA NEB 03/10/25 14:00 03/11/25 10:25 0.5 MG Famotidine 20 mg DAILY IV 03/11/25 10:00 03/11/25 09:25 20 MG Ondansetron HCl 4 mg Q4HP PRN IV 03/10/25 13:00 Acetaminophen 650 mg Q6HP PRN PO 03/10/25 13:00 03/11/25 12:09 650 MG Amlodipine Besylate 10 mg DAILY PO 03/11/25 10:00 03/11/25 09:23 10 MG Citalopram Hydrobromide 20 mg DAILY PO 03/11/25 10:00 03/11/25 09:21 20 MG Hydrochlorothiazide 12.5 mg DAILY PO 03/11/25 10:00 03/11/25 09:24 12.5 MG Losartan Potassium 100 mg DAILY PO 03/11/25 10:00 03/11/25 09:21 100 MG Atorvastatin Calcium 40 mg HS PO 03/10/25 22:00 03/10/25 22:05 40 MG Laboratory Results Laboratory Tests 03/11/25 05:52 Chemistry Test 03/11/25 05:52 Albumin 4.4 g/dL (3.2-4.8) Calcium Level 10.4 mg/dL (8.7-10.4) Total Protein 7.7 g/dL (5.7-8.2) Coagulation Test 03/10/25 14:52 D-Dimer, Quantitative 0.94 mg/L FEU (0.0-0.49) H LFT Test 03/11/25 05:52 Alanine Aminotransferase (ALT) 11 U/L (7-40) Alkaline Phosphatase 63 U/L (46-116) Aspartate Amino Transferase (AST) 10 U/L (13-40) L Total Bilirubin 0.7 mg/dL (0.2-1.0) Urinalysis Test 03/10/25 09:31 Urine Color Light-yellow (Yellow) Urine Clarity Clear (Clear) Urine pH 6.5 (5.0-9.0) Urine Specific [place] 1.012 (1.001-1.035) Urine Protein Negative (Negative) Urine Ketones Negative (Negative) Urine Blood Negative /uL (Negative) Urine Nitrite Negative (Negative) Urine Bilirubin Negative (Negative) Urine Urobilinogen Normal mg/dL (Negative) Urine Leukocyte Esterase Negative /uL (Negative) Urine RBC 1 /hpf (0 - 4) Urine Microscopic WBC < 1 /HPF (0-5) Urine Squamous Epithelial Cells Few /hpf (<5) Urine Bacteria None seen /hpf (None Seen) Urine Glucose Normal mg/dL (Normal) Assessment/Plan Assessment/Plan Laura Sanches is a 74-year-old female with past medical history of anxiety, COPD, depression, diabetes, hypertension, PE, hypothyroidism, cholecystectomy, hysterectomy, and hernia repair who presents to the ED with shortness of breath a started this morning while she was walking in her house. She reports that she does not use any DMEs. Patient reports that she ate subway sandwich with jalapenos. Patient reports that she has been having a dry cough upon inspiration. She also reports that she is on home oxygen 3-4 L nasal cannula continuously. Patient denies any recent trauma or injury, recent sick contacts, recent travels, recent ingestion of spoiled food, chest pain, fever, chills, lightheadedness, weakness, dizziness, abdominal pain, nausea, vomiting, diarrhea, or urinary symptoms. 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 Acute on chronic COPD exacerbation Acute hypoxic respiratory failure on supplemental oxygen, oxygen dependence Hypertension Hyperkalemia Hyponatremia History of anxiety History of depression History of diabetes History of hypertension History of PE History of hypothyroidism History of cholecystectomy History of hernia repair History of hysterectomy Plan discussed with: Patient Date of Service: Mar 11, 2025 Billing Provider: SARIKA TURPIN DO Common Visit Codes: [id number] INP/OBS CARE(HIGH) SARIKA TURPIN DO Mar 11, 2025 13:54
[2025-03-12] VITALS (21 sets, daily range): BP systolic 133–148; BP diastolic 78–98; PULSE 79–104; RESP 16–20; TEMP 97.2–98.2; O2SAT 88–100
[2025-03-12] MEDS: FUROSEMIDE 40 MG/4 ML VIAL IV SCH (17:01)
[2025-03-13] VITALS (16 sets, daily range): BP systolic 111–139; BP diastolic 67–89; PULSE 76–101; RESP 14–20; TEMP 97.1–98.3; O2SAT 91–100
[2025-03-13] MEDS: AZITHROMYCIN 500MG/ 250ML 250 ML IV SCH (10:00)
[2025-03-13] MEDS ORDERED: AML5T PO (14:43)
[2025-03-13] MEDS ORDERED: ATOR20TA50 PO (14:43)
[2025-03-13] MEDS ORDERED: CITA-77 PO (14:43)
--- NOTE | 2025-03-13 21:56 | DVHPN2 ---
Reviewed: Care Plan, H&P, Labs, Medications, Previous Orders, Radiology Changes from previous H/P or p: No Changes General: Per HPI Respiratory: Cough, Shortness of breath Objective Vitals Vital Signs Date Time Temp Pulse Resp B/P (MAP) Pulse Ox O2 Delivery O2 Flow Rate FiO2 03/13/25 18:12 137/82 03/13/25 17:43 98.2 91 18 97 03/13/25 13:12 2.0 28 03/13/25 12:18 Nasal Cannula* Intake/Output Intake and Output 03/13/25 07:00 Intake Total 1100 ml Balance 1100 ml Intake Oral 1100 ml # Voids 7 # Bowel Movements 3 Medications Current Medications Medications Dose Ordered Sig/Michael Route Start Time Stop Time Status Last Admin Dose Admin Patient Own Medication 1 tab DAILY PO 03/11/25 10:00 UNV Patient Own Medication 1 tab DAILY PO 03/11/25 10:00 UNV Patient Own Medication 1 cap DAILY PO 03/11/25 10:00 UNV Patient Own Medication 1 tab DAILY PO 03/11/25 10:00 UNV Patient Own Medication 1 tab DAILY PO 03/11/25 10:00 UNV Laboratory Results Laboratory Tests 03/11/25 05:52 Urinalysis Test 03/10/25 09:31 Urine Color Light-yellow (Yellow) Urine Clarity Clear (Clear) Urine pH 6.5 (5.0-9.0) Urine Specific [place] 1.012 (1.001-1.035) Urine Protein Negative (Negative) Urine Ketones Negative (Negative) Urine Blood Negative /uL (Negative) Urine Nitrite Negative (Negative) Urine Bilirubin Negative (Negative) Urine Urobilinogen Normal mg/dL (Negative) Urine Leukocyte Esterase Negative /uL (Negative) Urine RBC 1 /hpf (0 - 4) Urine Microscopic WBC < 1 /HPF (0-5) Urine Squamous Epithelial Cells Few /hpf (<5) Urine Bacteria None seen /hpf (None Seen) Urine Glucose Normal mg/dL (Normal) Assessment/Plan Assessment/Plan Laura Sanches is a 74-year-old female with past medical history of anxiety, COPD, depression, diabetes, hypertension, PE, hypothyroidism, cholecystectomy, hysterectomy, and hernia repair who presents to the ED with shortness of breath a started this morning while she was walking in her house. She reports that she does not use any DMEs. Patient reports that she ate subway sandwich with tammi. Patient reports that she has been having a dry cough upon inspiration. She also reports that she is on home oxygen 3-4 L nasal cannula continuously. Patient denies any recent trauma or injury, recent sick contacts, recent travels, recent ingestion of spoiled food, chest pain, fever, chills, lightheadedness, weakness, dizziness, abdominal pain, nausea, vomiting, diarrhea, or urinary symptoms. 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 Acute on chronic COPD exacerbation Acute hypoxic respiratory failure on supplemental oxygen, oxygen dependence Hypertension Hyperkalemia Hyponatremia History of anxiety History of depression History of diabetes History of hypertension History of PE History of hypothyroidism History of cholecystectomy History of hernia repair History of hysterectomy Plan Admit to med surge Antihypertensives Supplemental oxygen Replete lytes Hemoglobin A1c ISS and Accu-Cheks IV steroids Duo nebs D-dimer Diet Home medications reconciled DVT prophylaxis-patient on Eliquis PUD prophylaxis-PPIs Discussed plan of care with patient and nurse Plan discussed with: Patient My Orders Orders - SARIKA TURPIN DO Procedure Category Date Status Time Discharge DISCHARGE 03/13/25 Transmitted 14:40 Date of Service: Mar 12, 2025 Billing Provider: SARIKA TURPIN DO Common Visit Codes: [id number] INP/OBS CARE(HIGH) SARIKA TURPIN DO Mar 13, 2025 21:56
--- NOTE | 2025-03-13 21:56 | DVHDS2 ---
Discharge Summary Date of Admission Mar 10, 2025 at 12:57 Date of Discharge: Mar 13, 2025 Labs/Diagnostic Data: Laboratory Results Test 03/13/25 18:11 03/11/25 05:52 03/10/25 14:52 03/10/25 10:59 POC Glucose 231 mg/dl (70-106) White Blood Count 8.1 10^3/uL (4.4-10.8) Red Blood Count 4.01 10^6/uL (4.0-5.20) Hemoglobin 13.5 g/dL (12.2-16.2) Hematocrit 38.5 % (36.0-46.0) Mean Corpuscular Volume 96.1 fL (80.0-100.0) Mean Corpuscular Hemoglobin 33.6 pg (28.0-32.0) Mean Corpuscular Hemoglobin Concent 35.0 g/dL (32.0-36.0) Red Cell Distribution Width 16.1 % (11.8-14.3) Platelet Count 191 10^3/uL (140-450) Mean Platelet Volume 8.5 fL (6.9-10.8) Neutrophils (%) (Auto) 85.4 % (37.0-80.0) Lymphocytes (%) (Auto) 11.3 % (10.0-50.0) Monocytes (%) (Auto) 3.2 % (0.0-12.0) Eosinophils (%) (Auto) 0.0 % (0.0-7.0) Basophils (%) (Auto) 0.1 % (0.0-2.0) Neutrophils # (Auto) 6.9 10 ^3/uL (1.6-8.6) Lymphocytes # (Auto) 0.9 10 ^3/uL (0.4-5.4) Monocytes # (Auto) 0.3 10 ^3/uL (0-1.3) Eosinophils # (Auto) 0 10 ^3/uL (0-0.8) Basophils # (Auto) 0 10 ^3/uL (0-0.2) Nucleated Red Blood Cells 0.0 % Sodium Level 142 mmol/L (136-145) Potassium Level 3.5 mmol/L (3.5-5.1) Chloride Level 103 mmol/L (98-107) Carbon Dioxide Level 27 mmol/L (20-31) Anion Gap 12 (5-15) Blood Urea Nitrogen 15 mg/dL (9-23) Creatinine 0.71 mg/dL (0.550-1.02) Glomerular Filtration Rate Calc 90 mL/min (>90) BUN/Creatinine Ratio 21.1 (10.0-20.0) Serum Glucose 171 mg/dL (74-106) Calcium Level 10.4 mg/dL (8.7-10.4) Total Bilirubin 0.7 mg/dL (0.2-1.0) Aspartate Amino Transferase (AST) 10 U/L (13-40) Alanine Aminotransferase (ALT) 11 U/L (7-40) Alkaline Phosphatase 63 U/L (46-116) Total Protein 7.7 g/dL (5.7-8.2) Albumin 4.4 g/dL (3.2-4.8) D-Dimer, Quantitative 0.94 mg/L FEU (0.0-0.49) Troponin I High Sensitivity 28 ng/L (</=34) Test 03/10/25 09:31 03/10/25 07:55 Urine Color Light-yellow (Yellow) Urine Clarity Clear (Clear) Urine pH 6.5 (5.0-9.0) Urine Specific [place] 1.012 (1.001-1.035) Urine Protein Negative (Negative) Urine Ketones Negative (Negative) Urine Blood Negative /uL (Negative) Urine Nitrite Negative (Negative) Urine Bilirubin Negative (Negative) Urine Urobilinogen Normal mg/dL (Negative) Urine Leukocyte Esterase Negative /uL (Negative) Urine RBC 1 /hpf (0 - 4) Urine Microscopic WBC < 1 /HPF (0-5) Urine Squamous Epithelial Cells Few /hpf (<5) Urine Bacteria None seen /hpf (None Seen) Urine Glucose Normal mg/dL (Normal) Hemoglobin A1c 7.2 % A1C (<5.7) B-Type Natriuretic Peptide 83.65 pg/mL (0-100) Other Laboratory Tests 03/11/25 05:52 Brief Hx & Hospital Course: Laura Sanches is a 74-year-old female with past medical history of anxiety, COPD, depression, diabetes, hypertension, PE, hypothyroidism, cholecystectomy, hysterectomy, and hernia repair who presents to the ED with shortness of breath a started this morning while she was walking in her house. She reports that she does not use any DMEs. Patient reports that she ate subway sandwich with tammi. Patient reports that she has been having a dry cough upon inspiration. She also reports that she is on home oxygen 3-4 L nasal cannula continuously. Patient denies any recent trauma or injury, recent sick contacts, recent travels, recent ingestion of spoiled food, chest pain, fever, chills, lightheadedness, weakness, dizziness, abdominal pain, nausea, vomiting, diarrhea, or urinary symptoms. 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 Acute on chronic COPD exacerbation Acute hypoxic respiratory failure on supplemental oxygen, oxygen dependence Hypertension Hyperkalemia Hyponatremia History of anxiety History of depression History of diabetes History of hypertension History of PE History of hypothyroidism History of cholecystectomy History of hernia repair History of hysterectomy Condition at Discharge: Fair Final Diagnosis/Problems List see above Discharge Disposition: Home Discharge Instruct/Medications Diet: Cardiac 2g Na,low cholest Activity: No Restrictions, As Tolerated Scheduled Acetaminophen (Acetaminophen), 500 MG PO Q4HPRN Allopurinol (Zyloprim Tablet), 1 TAB PO BID, (Reported) Amlodipine Besylate (Amlodipine Besylate), 1 TAB PO DAILY, (Reported) Amlodipine Besylate (Norvasc Tablet), 10 MG PO DAILY Apixaban Base (Eliquis), 10 MG PO BID Atorvastatin Calcium (Atorvastatin Calcium), 40 MG PO HS Budesonide-Formoterol Fumarate (Budesonide/Formoterol Fum 160-4.5 Mcg/Act), 1 AER IN BID Buspirone Hcl (Buspirone Hcl), 10 MG PO Q12HR, (Reported) Citalopram Hydrobromide (Citalopram Hydrobromide), 20 MG PO DAILY Dapagliflozin Propanediol (Dapagliflozin Propanediol), 1 TAB PO DAILY, (Reported) Escitalopram Oxalate (Escitalopram Oxalate), 1 TAB PO DAILY, (Reported) Hydrochlorothiazide (Hydrochlorothiazide), 1 CAP PO DAILY Levothyroxine Sodium (Levothyroxine Sodium), 1 TAB PO DAILY, (Reported) Losartan Potassium (Losartan Potassium), 1 TAB PO DAILY, (Reported) Metoprolol Succinate (Metoprolol Succinate Er), 1 TAB PO DAILY, (Reported) Rosuvastatin Calcium (Crestor), 1 TAB PO DAILY, (Reported) Scheduled PRN Budesonide-Formoterol Fumarate (Budesonide/Formoterol Fum 160-4.5 Mcg/Act), 2 PUFF IN PRN PRN for SHORTNESS OF BREATH, (Reported) Discharge Statement: "Patient was advised to return to the ER or call 911 if any headaches, dizziness, shortness of breath, chest pain, abdominal pain, bleeding, fevers, or worsening of medical condition. Patient was counseled about treatment plan, medications, possible side effects, patientverbalized understanding. All questions were answered to the best of my ability. This discharge took greater then 30 minutes in planning, reviewing documentation, counseling the patient, and discussing with other team members." ASSESSMENT ASSESSMENT Assessment Date of Service: Mar 14, 2025 Billing Provider: SARIKA TURPIN DO Common Visit Codes: [id number] DISCH DAY >30min SARIKA TURPIN DO Mar 13, 2025 21:56
== END 2025-03-13 18:30 | disposition home or self-care (01) | DRG 189 ==
LOC: ER 07:15 → OVERFLOW 12:57 → WEST WING 14:00
PROVIDERS: ADMIT Internal Medicine; ATTEND Internal Medicine
PROC: 5A09357 Assistance with Respiratory Ventilation, Less than 24 Consecutive Hours, Continuous Positive Airway Pressure (ICD-10-PCS; principal; 2025-03-10)
PROC: 5A09357 Assistance with Respiratory Ventilation, Less than 24 Consecutive Hours, Continuous Positive Airway Pressure (ICD-10-PCS; 2025-03-11)
PROC: 5A09357 Assistance with Respiratory Ventilation, Less than 24 Consecutive Hours, Continuous Positive Airway Pressure (ICD-10-PCS; 2025-03-12)
PROC: 5A09357 Assistance with Respiratory Ventilation, Less than 24 Consecutive Hours, Continuous Positive Airway Pressure (ICD-10-PCS; 2025-03-13)
DX: J96.21 Acute and chronic respiratory failure with hypoxia (principal); J44.1 Chronic obstructive pulmonary disease with (acute) exacerbation; E87.1 Hypo-osmolality and hyponatremia; E87.5 Hyperkalemia; I10 Essential (primary) hypertension; F41.9 Anxiety disorder, unspecified; F32.A Depression, unspecified; E11.9 Type 2 diabetes mellitus without complications; E03.9 Hypothyroidism, unspecified; Z90.710 Acquired absence of both cervix and uterus; Z90.49 Acquired absence of other specified parts of digestive tract; Z99.81 Dependence on supplemental oxygen; Z83.3 Family history of diabetes mellitus; Z82.49 Family history of ischemic heart disease and other diseases of the circulatory system; Z82.5 Family history of asthma and other chronic lower respiratory diseases; Z86.711 Personal history of pulmonary embolism; Z82.3 Family history of stroke; Z80.1 Family history of malignant neoplasm of trachea, bronchus and lung
CPT/HCPCS: 36415; 71045; 80048; 80053; 81001; 82962; 83036; 83880; 84484; 85025; 85379; 93005; 94640; 94660; G0378; J1815; J3490